=== PATIENT | male | born 1955 | race Two or more races ===

== ENCOUNTER 2016-04-07 20:24 | Inpatient (IN) | payer MEDICAID ==
[~2016-04-07] VITALS: Ht 152.4 cm; Wt 66.3 kg
[2016-04-07] MEDS: DuoNeb 0.5-3(2.5)mg/3ml neb HHN ONE ×2 (09:00→21:00)
[2016-04-07 20:29] VITALS: BP 140/81
[2016-04-07 20:50] LABS: ABG ALLEN TEST POSITIVE; ABG BASE EXCESS -4.6
[2016-04-07] MEDS ORDERED: Cefepime 1gm vial ONE (21:05)
[2016-04-07 21:19] LABS: MEAN CORPUSCULAR HEMOGLOBIN 36.6 PG (27.0-31.0); MEAN CORPUSCULAR HGB CONC 33.8 G/DL (32.0-36.0); MEAN CORPUSCULAR VOLUME 109 FL (80-99); MEAN PLATELET VOLUME 8.4 FL (6.5-10.1); PLATELET COUNT 64 K/UL (150-450); RED BLOOD COUNT 2.41 M/UL (4.70-6.10); RED CELL DISTRIBUTION WIDTH 18.1 % (11.6-14.8); WHITE BLOOD COUNT 7.9 K/UL (4.8-10.8)
[2016-04-07 21:22] LABS: APPEARANCE,URINE CLEAR; KETONES,URINE NEGATIVE (NEGATIVE); LEUKOCYTE ESTERASE ,URINE 2+ (NEGATIVE); NITRITE,URINE POSITIVE (NEGATIVE); PH,URINE 6.5 (4.5-8.0); PROTEIN,URINE 2+ (NEGATIVE); UROBILINOGEN,URINE 4 MG/DL (0.0-1.0)
[2016-04-07 21:27] LABS: BASOPHILS % (AUTO) 1.6 % (0.0-2.0); EOSINOPHILS % (AUTO) 0.5 % (0.0-3.0); LYMPHOCYTES % (AUTO) 5.3 % (20.0-45.0); MONOCYTES % (AUTO) 18.6 % (1.0-10.0); NEUTROPHILS % (AUTO) 73.9 % (45.0-75.0)
[2016-04-07 21:39] LABS: BACTERIA,URINE FEW /HPF; RBC,URINE 0-2 /HPF (0 - 0); SQUAMOUS EPITHELIAL CELL,UR OCCASIONAL /LPF (NONE/OCC); WBC,URINE 0-2 /HPF (0 - 0)
[2016-04-07 21:41] LABS: ICTOTEST POSITIVE
[2016-04-07] MEDS: metroNIDAZOLE 500mg 100 ML IV SCH (21:54)
[2016-04-07 22:18] LABS: TROPONIN I < 0.30 ng/mL (<=0.30)
[2016-04-07 22:22] LABS: ALANINE AMINOTRANSFERASE 23 U/L (3-41); ALBUMIN/GLOBULIN RATIO 1.1 (1.0-2.7); ANION GAP 17 (5-15); ASPARTATE AMINO TRANSFERASE 27 U/L (5-40); CALCIUM 8.1 mg/dL (8.6-10.2); CARBON DIOXIDE 17 mEQ/L (20-30); CHLORIDE 98 mEQ/L (98-107); CREATININE 1.1 mg/dL (0.7-1.2); GLOMERULAR FILTRATION RATE > 60 mL/min (>60); HEMOLYSIS 30; POTASSIUM 4.2 mEQ/L (3.4-4.9); SODIUM 132 mEQ/L (135-145); TOTAL PROTEIN 4.8 g/dL (6.6-8.7)
[2016-04-07 22:25] LABS: REFLEX LACTIC ACID YES OR NO YES
[2016-04-07 22:32] LABS: CKMB 1.6 ng/mL (< 6.7)
[2016-04-07 22:40] LABS: BILIRUBIN,DIRECT 3.6 mg/dL (0.1-0.3)
[2016-04-07 22:47] VITALS: BP 126/81
--- NOTE | 2016-04-07 22:51 | Emergency Room Report ---
History of Present Illness General Chief Complaint: Dyspnea/Respdistress Source: Patient, EMS Present Illness HPI Patient is a 60-year-old male who presented after increased difficulty breathing. The patient recently been released at [facility]. He was noted to be markedly short of breath. The patient had prescriptions for oral antibiotic which included a quinolone as well as rifamixin. The patient was noted to be somewhat jaundiced and had prior history of cirrhosis. The patient was given a breathing treatment by EMS. Patient had prior history of asthma. Allergies: Coded Allergies: No Known Allergies (Unverified , 04/07/16) Patient History Past Medical History: see triage record, asthma Reviewed Nursing Documentation: PMH: Agreed, PSxH: Agreed Nursing Documentation-PMH Hx Asthma: Yes Hx Gastrointestinal Problems: Yes - cirrhosis of liver Review of Systems All Other Systems: limited - by poor historian Physical Exam Vital Signs Date Time Temp Pulse Resp B/P Pulse Ox O2 Delivery O2 Flow Rate FiO2 04/07/16 20:11 97.2 84 26 140/81 100 Room Air 04/07/16 20:40 21 General Appearance: alert, moderate distress Eyes: bilateral eye scleral icterus ENT: normal pharynx, moist mucus membranes Neck: supple Respiratory: accessory muscle use, wheezing, expiration Cardiovascular #1: normal peripheral pulses, regular rate, rhythm, edema - bilateral Gastrointestinal: normal bowel sounds, non tender, soft, no mass Musculoskeletal: back normal, digits/nails normal Neurologic: alert, responsive, recruiting internship III-XII nml as tested Skin: jaundice Lymphatic: normal inspection, no adenopathy Medical Decision Making Diagnostic Impression: Primary Impression: Severe sepsis Additional Impressions: Asthma exacerbation Anemia ER Course Patient is a 60-year-old male who presented after having increased had difficulty with breathing. The patient noted have prior history of asthma. Differential included but was not limited to anemia, pneumonia, pneumothorax, myocardial infarction, pericardial effusion, congestive heart failure, acidosis. The ABG was obtained which showed a respiratory alkalosis and metabolic acidosis. The patient was noted to be minimally confused. Patient was given breathing treatments. He had some improvement in his respiratory difficulty. Chest x-ray one view interpreted by me showed diminished lung mackenzie without evident infiltrate normal cardiac size. Labs Test 04/07/16 20:40 04/07/16 21:00 04/07/16 21:40 Urine Color Brown Urine Appearance Clear Urine pH 6.5 (4.5-8.0) Urine Specific [place] 1.010 (1.005-1.035) Urine Protein 2+ (NEGATIVE) Urine Glucose (UA) Negative (NEGATIVE) Urine Ketones Negative (NEGATIVE) Urine Occult Blood Negative (NEGATIVE) Urine Nitrite Positive (NEGATIVE) Urine Bilirubin 2+ (NEGATIVE) Urine Ictotest Positive Urine Urobilinogen 4 MG/DL (0.0-1.0) Urine Leukocyte Esterase 2+ (NEGATIVE) Urine RBC 0-2 /HPF (0 - 0) Urine WBC 0-2 /HPF (0 - 0) Urine Squamous Epithelial Cells Occasional /LPF Urine Bacteria Few /HPF (NONE) Arterial Blood pH 7.486 (7.350-7.450) Arterial Blood Partial Pressure CO2 24.0 mmHg (35.0-45.0) Arterial Blood Partial Pressure O2 97.8 mmHg (75.0-100.0) Arterial Blood HCO3 17.7 mmol/L (22.0-26.0) Arterial Blood Oxygen Saturation 96.4 % (92.0-98.0) Arterial Blood Base Excess -4.6 Kyree Test Positive White Blood Count 7.9 K/UL (4.8-10.8) Red Blood Count 2.41 M/UL (4.70-6.10) Hemoglobin 8.8 G/DL (14.2-18.0) Hematocrit 26.1 % (42.0-52.0) Mean Corpuscular Volume 109 FL (80-99) Mean Corpuscular Hemoglobin 36.6 PG (27.0-31.0) Mean Corpuscular Hemoglobin Concent 33.8 G/DL (32.0-36.0) Red Cell Distribution Width 18.1 % (11.6-14.8) Platelet Count 64 K/UL (150-450) Mean Platelet Volume 8.4 FL (6.5-10.1) Neutrophils (%) (Auto) 73.9 % (45.0-75.0) Lymphocytes (%) (Auto) 5.3 % (20.0-45.0) Monocytes (%) (Auto) 18.6 % (1.0-10.0) Eosinophils (%) (Auto) 0.5 % (0.0-3.0) Basophils (%) (Auto) 1.6 % (0.0-2.0) Sodium Level 132 mEQ/L (135-145) Potassium Level 4.2 mEQ/L (3.4-4.9) Chloride Level 98 mEQ/L (98-107) Carbon Dioxide Level 17 mEQ/L (20-30) Anion Gap 17 (5-15) Blood Urea Nitrogen 27 mg/dL (7-23) Creatinine 1.1 mg/dL (0.7-1.2) Estimat Glomerular Filtration Rate > 60 mL/min (>60) Glucose Level 110 mg/dL (74-106) Lactic Acid Level 3.80 mmol/L (0.66-2.22) Calcium Level 8.1 mg/dL (8.6-10.2) Total Bilirubin 8.4 mg/dL (0.0-1.2) Direct Bilirubin 3.6 mg/dL (0.1-0.3) Aspartate Amino Transf (AST/SGOT) 27 U/L (5-40) Alanine Aminotransferase (ALT/SGPT) 23 U/L (3-41) Alkaline Phosphatase 76 U/L (40-129) Total Creatine Kinase 29 U/L (38-174) Creatine Kinase MB 1.6 ng/mL (< 6.7) Creatine Kinase MB Relative Index 5.5 Troponin I < 0.30 ng/mL (<=0.30) Pro-B-Type Natriuretic Peptide 1447 pg/mL (0-125) Total Protein 4.8 g/dL (6.6-8.7) Albumin 2.6 g/dL (3.5-5.2) Globulin 2.2 g/dL Albumin/Globulin Ratio 1.1 (1.0-2.7) Chest X-Ray Diagnostic Results EP Interpretation: Yes Findings: no consolidation, no effusion, no pneumothorax, no acute cardiopulmonary disease Number of Views: 1 Last Vital Signs Date Time Temp Pulse Resp B/P Pulse Ox O2 Delivery O2 Flow Rate FiO2 04/07/16 21:10 81 20 100 Room Air 21 04/07/16 20:29 97.2 140/81 Status: unchanged Disposition: ADMITTED INPATIENT Condition: Serious Referrals: NON PHYSICIAN (PCP) Delbert Hastings Apr 07, 2016 22:51
[2016-04-08] VITALS (10 sets, daily range): BP systolic 134–159; BP diastolic 66–89
[2016-04-08] MEDS: metroNIDAZOLE 500mg 100 ML IV SCH ×3 (02:25→15:00)
[2016-04-08] MEDS ORDERED: Tubing IV Cassette IV ONE (02:25)
[2016-04-08 06:34] LABS: REFLEX LACTIC ACID YES OR NO YES
[2016-04-08] MEDS ORDERED: Cefepime 1gm vial ONE (08:37)
--- NOTE | 2016-04-08 10:39 | Diagnostic Imaging Report ---
Indication: SOB Technique: One view of the chest Comparison: none Findings: Lungs and pleural spaces are clear. Heart size is normal. The right hemidiaphragm is elevated Impression: No acute process
[2016-04-08] MEDS ORDERED: NKM (16:49)
[2016-04-08] MEDS ORDERED: LEVOFLOXACIN500 MG ORAL (17:02)
[2016-04-08] MEDS ORDERED: FLAGYL500 MG ORAL (17:02)
[2016-04-08] MEDS ORDERED: XIFAXAN550 MG ORAL ×2 (17:02→21:17)
[2016-04-08] MEDS ORDERED: ZANTAC150 MG ORAL (17:02)
[2016-04-08] MEDS ORDERED: METOPROLOL SUC200 MG ORAL (17:02)
[2016-04-08] MEDS ORDERED: AMIODARONE HCL100 MG ORAL (21:17)
[2016-04-08] MEDS ORDERED: PANTOPRAZOLE SO20 MG ORAL (21:17)
[2016-04-08] MEDS ORDERED: SUCRALFATE1 GM/10 ML PO (21:17)
[2016-04-08] MEDS: D5NS 1,000 ML IV SCH (21:30)
[2016-04-09] VITALS: BP 111/54
[2016-04-09 04:00] VITALS: BP 130/72
[2016-04-09 06:31] LABS: MEAN CORPUSCULAR HEMOGLOBIN 36.1 PG (27.0-31.0); MEAN CORPUSCULAR HGB CONC 33.5 G/DL (32.0-36.0); MEAN CORPUSCULAR VOLUME 108 FL (80-99); PLATELET COUNT 44 K/UL (150-450); RED BLOOD COUNT 2.24 M/UL (4.70-6.10); WHITE BLOOD COUNT 5.8 K/UL (4.8-10.8)
[2016-04-09 06:46] LABS: ANION GAP 16 (5-15); CALCIUM 7.9 mg/dL (8.6-10.2); CARBON DIOXIDE 19 mEQ/L (20-30); CHLORIDE 100 mEQ/L (98-107); GLOMERULAR FILTRATION RATE > 60 mL/min (>60); HEMOLYSIS 1; POTASSIUM 4.2 mEQ/L (3.4-4.9); SODIUM 135 mEQ/L (135-145)
[2016-04-09 08:37] VITALS: BP 128/80
[2016-04-09] MEDS ORDERED: Sucralfate 1gm tab ORAL SCH (09:00)
[2016-04-09 10:10] LABS: ANISOCYTOSIS 1+; BAND NEUTROPHILS % (MANUAL) 0 % (0-8); BASOPHILS % (MANUAL) 0 % (0-2); EOSINOPHILS % (MANUAL) 1 % (0-3); HYPOCHROMASIA 1+; LYMPHOCYTES % (MANUAL) 9 % (20-45); NEUTROPHILS % (MANUAL) 76 % (45-75); PLATELET ESTIMATE DECREASED; PLATELET MORPHOLOGY NORMAL; TOTAL CELLS COUNTED 100
[2016-04-09 10:11] LABS: MACROCYTES 1+
[2016-04-09 10:12] LABS: POLYCHROMASIA OCCASIONAL
[2016-04-09] MEDS: Metoprolol XL 100mg tab ORAL SCH (10:28)
[2016-04-09] MEDS: Rifaximin 550mg tab ORAL SCH ×2 (10:29→22:12)
--- NOTE | 2016-04-09 11:08 | GI Initial Consult Note ---
History of Present Illness General Date patient seen: Apr 09, 2016 Time patient seen: 10:00 Reason for Hospitalization: Dyspnea/Respdistress Referring physician: PAUAL SPENCER Reason for Consultation: CIRRHOSIS LIVER Present Illness HPI Patient is a 60-year-old male who presented after increased difficulty breathing. The patient recently been released at [facility]. He was noted to be markedly short of breath. The patient had prescriptions for oral antibiotic which included a quinolone as well as rifamixin. The patient was noted to be somewhat jaundiced and had prior history of cirrhosis. The patient was given a breathing treatment by EMS. Patient had prior history of asthma. GI NOTE: HPI as noted above. Pt seen on floor, awake, alert NAD. Patient poor historian. According to the patient, he has history of known liver cirrhosis due to ETOH use 20+ years. Hx of paracentesis. Last drink was July 2015. Abdomen distended and hard. Pt also p/w with anemia, abnormal LFTs and hypoalbuminemia. CXR unremarkable. Unknown history of any endoscopic procedures. Home Meds Reported Medications Amiodarone Hcl (AMIODARONE HCL) 100 Mg Tablet, 200 MG ORAL EVERY 12 HOURS, TAB 04/08/16 Sucralfate (SUCRALFATE) 1 Gm/10 Ml Oral.susp, 1 GM PO 4 times a day, ML 04/08/16 Pantoprazole (PANTOPRAZOLE) 20 Mg Tablet.dr, 40 MG ORAL DAILY, #10 TAB 0 Refills 04/08/16 Rifaximin* (XIFAXAN*) 550 Mg Tablet, 550 MG ORAL TWICE A DAY for 30 Days, MG 0 Refills 04/08/16 Rifaximin* (XIFAXAN*) 550 Mg Tablet, 550 MG ORAL TWICE A DAY for 30 Days, MG 0 Refills 04/08/16 Ranitidine Hcl* (ZANTAC*) 150 Mg Tablet, 150 MG ORAL DAILY, #30 TAB 0 Refills 04/08/16 Metoprolol Succinate (METOPROLOL SUCCINATE) 200 Mg Tab.er.24h, 25 MG ORAL DAILY , TAB 04/08/16 Metronidazole* (FLAGYL*) 500 Mg Tablet, 500 MG ORAL EVERY 8 HOURS, TAB 04/08/16 Levofloxacin (LEVOFLOXACIN*) 500 Mg Tablet, 500 MG ORAL DAILY, TAB 04/08/16 No Known Medications* (NKM - No Known Medications*) ., 0 ., 0 Refills 04/08/16 Med list reviewed/reconciled: Yes Allergies: Coded Allergies: No Known Allergies (Unverified , 04/07/16) Patient History Limited by: other - poor historian History Provided By: Patient, Medical Record PMH Narrative Patient History Past Medical History: see triage record, asthma Reviewed Nursing Documentation: PMH: Agreed, PSxH: Agreed Nursing Documentation-PMH Hx Asthma: Yes Hx Gastrointestinal Problems: Yes - cirrhosis of liver Social History: Reports: alcohol use - 20+ years Review of Systems All Other Systems: negative except mentioned in HPI Physical Exam Vital Signs Date Time Temp Pulse Resp B/P Pulse Ox O2 Delivery O2 Flow Rate FiO2 04/07/16 20:11 97.2 84 26 140/81 100 Room Air 04/07/16 20:40 21 04/09/16 00:00 2.0 Sp02 EP Interpretation: reviewed Labs Laboratory Tests Test 04/09/16 05:20 White Blood Count 5.8 K/UL (4.8-10.8) Red Blood Count 2.24 M/UL (4.70-6.10) L Hemoglobin 8.1 G/DL (14.2-18.0) L Hematocrit 24.1 % (42.0-52.0) L Mean Corpuscular Volume 108 FL (80-99) H Mean Corpuscular Hemoglobin 36.1 PG (27.0-31.0) H Mean Corpuscular Hemoglobin Concent 33.5 G/DL (32.0-36.0) Red Cell Distribution Width 17.0 % (11.6-14.8) H Platelet Count 44 K/UL (150-450) L Mean Platelet Volume 9.0 FL (6.5-10.1) Neutrophils (%) (Auto) % (45.0-75.0) Lymphocytes (%) (Auto) % (20.0-45.0) Monocytes (%) (Auto) % (1.0-10.0) Eosinophils (%) (Auto) % (0.0-3.0) Basophils (%) (Auto) % (0.0-2.0) Differential Total Cells Counted 100 Neutrophils % (Manual) 76 % (45-75) H Lymphocytes % (Manual) 9 % (20-45) L Monocytes % (Manual) 14 % (1-10) H Eosinophils % (Manual) 1 % (0-3) Basophils % (Manual) 0 % (0-2) Band Neutrophils 0 % (0-8) Platelet Estimate Decreased L Platelet Morphology Normal Polychromasia Occasional Hypochromasia 1+ Anisocytosis 1+ Macrocytosis 1+ Sodium Level 135 mEQ/L (135-145) Potassium Level 4.2 mEQ/L (3.4-4.9) Chloride Level 100 mEQ/L (98-107) Carbon Dioxide Level 19 mEQ/L (20-30) L Anion Gap 16 (5-15) H Blood Urea Nitrogen 23 mg/dL (7-23) Creatinine 1.0 mg/dL (0.7-1.2) Estimat Glomerular Filtration Rate > 60 mL/min (>60) Glucose Level 100 mg/dL (74-106) Calcium Level 7.9 mg/dL (8.6-10.2) L General Appearance: no apparent distress, alert Head: normocephalic EENT: normal ENT inspection Neck: full range of motion, supple Respiratory: normal breath sounds, no respiratory distress Cardiovascular: normal rate Gastrointestinal: normal inspection, non tender, distended, ascites Genitourinary: no CVA tenderness Musculoskeletal: back normal Neurologic: alert Psychiatric: normal inspection, judgement/insight normal, memory normal Skin: no rash Lymphatic: normal inspection, no adenopathy Current Medications Current Medications Medications (Trade) Dose Ordered Sig/Bernardino Route PRN Reason Start Time Stop Time Status Last Admin Dose Admin Dextrose (Dextrose 50%) STAT PRN IV Hypoglycemia 04/09/16 00:00 05/09/16 00:00 Dextrose/Sodium Chloride (D5ns) 1,000 ml @ 60 mls/hr [id number] IV 04/08/16 21:30 05/08/16 21:29 04/08/16 21:30 Metoprolol Succinate (Toprol XL) 200 mg DAILY ORAL 04/09/16 09:00 05/09/16 08:59 04/09/16 10:28 Pantoprazole (Protonix) 40 mg DAILY ORAL 04/09/16 09:00 05/09/16 08:59 04/09/16 10:29 Ranitidine HCl (Zantac) 150 mg BEDTIME ORAL 04/09/16 21:00 05/09/16 20:59 Rifaximin (Xifaxan) 550 mg EVERY 12 HOURS ORAL 04/09/16 09:00 04/16/16 08:59 04/09/16 10:29 Sucralfate (Carafate) 1 gm FOUR TIMES A DAY ORAL 04/09/16 09:00 05/09/16 08:59 04/09/16 10:28 GI: Plan Problems: (1) Hypoalbuminemia (2) Severe sepsis (3) Alcoholic cirrhosis of liver with ascites (4) sepsis (5) Anemia Plan anemia work up ordered US guided paracentesis ordered ammonia level, OB stool dc H2, carafate added Lactulose, cont Xifaxan ppi fu labs Discussed with Dr. Mcgovern. Thank you for referring this patient, we will follow. Rain Mercado N.P. Apr 09, 2016 11:08
[2016-04-09 12:07] VITALS: BP 120/86
[2016-04-09] MEDS: Lactulose 20gm/30ml UDC ORAL SCH ×2 (12:53→18:26)
[2016-04-09] MEDS: D5NS 1,000 ML IV SCH (14:10)
[2016-04-09 16:00] VITALS: BP 159/74
[2016-04-09 20:00] VITALS: BP 120/80
--- NOTE | 2016-04-09 22:12 | History and Physical ---
History of Present Illness General Date patient seen: Apr 09, 2016 Reason for Hospitalization: Dyspnea/Respdistress Present Illness HPI Patient is a 60-year-old male with a history of cirrhosis and asthma who was recently discharged from [facility] presented to the ED c/o worsening shortness of breath. The patient was given prescriptions for oral antibiotic which included a quinolone and rifamixin. The patient was noted to be somewhat jaundiced. Patient had elevated lactate level and admitted for further management. Allergies: Coded Allergies: No Known Allergies (Unverified , 04/07/16) Medication History Scheduled Amiodarone Hcl (Amiodarone Hcl), 200 MG ORAL EVERY 12 HOURS, (Reported) Levofloxacin (Levofloxacin*), 500 MG ORAL DAILY, (Reported) Metoprolol Succinate (Metoprolol Succinate), 25 MG ORAL DAILY, (Reported) Metronidazole* (Flagyl*), 500 MG ORAL EVERY 8 HOURS, (Reported) No Known Medications* (NKM - No Known Medications*), 0 ., (Reported) Pantoprazole (Pantoprazole), 40 MG ORAL DAILY, (Reported) Ranitidine Hcl* (Zantac*), 150 MG ORAL DAILY, (Reported) Rifaximin* (Xifaxan*), 550 MG ORAL TWICE A DAY, (Reported) Rifaximin* (Xifaxan*), 550 MG ORAL TWICE A DAY, (Reported) Sucralfate (Sucralfate), 1 GM PO 4 times a day, (Reported) Patient History History Provided By: Patient, Medical Record Healthcare decision maker Resuscitation status Advanced Directive on File Past Medical/Surgical History Past Medical/Surgical History: (1) sepsis (2) Alcoholic cirrhosis of liver with ascites Review of Systems All Other Systems: negative except mentioned in HPI Physical Exam General Appearance: WD/WN, no apparent distress HEENT: normocephalic, atraumatic Respiratory/Chest: decreased breath sounds Cardiovascular/Chest: normal rate, regular rhythm Abdomen: non tender, soft, distended Extremities: trace edema Neurologic: alert Last 24 Hour Vital Signs Date Time Temp Pulse Resp B/P Pulse Ox O2 Delivery O2 Flow Rate FiO2 04/09/16 20:00 98.4 69 18 120/80 Nasal Cannula 2.0 97 04/09/16 16:00 97.7 65 18 159/74 Nasal Cannula 2.0 100 04/09/16 12:07 97.7 79 20 120/86 100 Nasal Cannula 3.0 04/09/16 12:00 78 04/09/16 10:28 88 128/80 04/09/16 08:37 97.5 88 22 128/80 100 Nasal Cannula 3.0 04/09/16 08:00 76 04/09/16 04:00 79 04/09/16 04:00 97.5 78 18 130/72 100 Nasal Cannula 04/09/16 00:00 65 04/09/16 00:00 97.5 90 18 111/54 95 Nasal Cannula 2.0 Intake and Output 04/08/16 04/09/16 19:00 07:00 Intake Total 300 ml Balance 300 ml Intake Oral 300 ml # Voids 2 Laboratory Tests Test 04/09/16 05:20 White Blood Count 5.8 K/UL (4.8-10.8) Red Blood Count 2.24 M/UL (4.70-6.10) L Hemoglobin 8.1 G/DL (14.2-18.0) L Hematocrit 24.1 % (42.0-52.0) L Mean Corpuscular Volume 108 FL (80-99) H Mean Corpuscular Hemoglobin 36.1 PG (27.0-31.0) H Mean Corpuscular Hemoglobin Concent 33.5 G/DL (32.0-36.0) Red Cell Distribution Width 17.0 % (11.6-14.8) H Platelet Count 44 K/UL (150-450) L Mean Platelet Volume 9.0 FL (6.5-10.1) Neutrophils (%) (Auto) % (45.0-75.0) Lymphocytes (%) (Auto) % (20.0-45.0) Monocytes (%) (Auto) % (1.0-10.0) Eosinophils (%) (Auto) % (0.0-3.0) Basophils (%) (Auto) % (0.0-2.0) Differential Total Cells Counted 100 Neutrophils % (Manual) 76 % (45-75) H Lymphocytes % (Manual) 9 % (20-45) L Monocytes % (Manual) 14 % (1-10) H Eosinophils % (Manual) 1 % (0-3) Basophils % (Manual) 0 % (0-2) Band Neutrophils 0 % (0-8) Platelet Estimate Decreased L Platelet Morphology Normal Polychromasia Occasional Hypochromasia 1+ Anisocytosis 1+ Macrocytosis 1+ Sodium Level 135 mEQ/L (135-145) Potassium Level 4.2 mEQ/L (3.4-4.9) Chloride Level 100 mEQ/L (98-107) Carbon Dioxide Level 19 mEQ/L (20-30) L Anion Gap 16 (5-15) H Blood Urea Nitrogen 23 mg/dL (7-23) Creatinine 1.0 mg/dL (0.7-1.2) Estimat Glomerular Filtration Rate > 60 mL/min (>60) Glucose Level 100 mg/dL (74-106) Calcium Level 7.9 mg/dL (8.6-10.2) L Height (Feet): 5 Height (Inches): 0.00 Weight (Pounds): 150 Medications Current Medications Medications (Trade) Dose Ordered Sig/Bernardino Route PRN Reason Start Time Stop Time Status Last Admin Dose Admin Dextrose (Dextrose 50%) STAT PRN IV Hypoglycemia 04/09/16 00:00 05/09/16 00:00 Dextrose/Sodium Chloride (D5ns) 1,000 ml @ 60 mls/hr [id number] IV 04/08/16 21:30 05/08/16 21:29 04/08/16 21:30 Lactulose (Cephulac) 30 gm THREE TIMES A DAY ORAL 04/09/16 13:00 05/09/16 12:59 04/09/16 18:26 Metoprolol Succinate (Toprol XL) 200 mg DAILY ORAL 04/09/16 09:00 05/09/16 08:59 04/09/16 10:28 Pantoprazole (Protonix) 40 mg DAILY ORAL 04/09/16 09:00 05/09/16 08:59 04/09/16 10:29 Rifaximin (Xifaxan) 550 mg EVERY 12 HOURS ORAL 04/09/16 09:00 04/16/16 08:59 04/09/16 10:29 Assessment/Plan Problem List: (1) sepsis (2) Alcoholic cirrhosis of liver with ascites ICD Codes: K70.31 - Alcoholic cirrhosis of liver with ascites SNOMED: 712706096 (3) Hypoalbuminemia ICD Codes: E88.09 - Other disorders of plasma-protein metabolism, not elsewhere classified SNOMED: 333438460 (4) Asthma exacerbation ICD Codes: J45.901 - Unspecified asthma with (acute) exacerbation SNOMED: 119150605 (5) Anemia ICD Codes: D64.9 - Anemia, unspecified SNOMED: 601696591 (6) Thrombocytopenia ICD Codes: D69.6 - Thrombocytopenia, unspecified SNOMED: 775050733 Assessment/Plan steroids. empiric abx. NEB tx. GI following. f/u ammonia level. DVT ppx. PAULA SPENCER Apr 09, 2016 22:12
[2016-04-09] MEDS ORDERED: DuoNeb 0.5-3(2.5)mg/3ml neb HHN PRN (23:00)
[2016-04-10] VITALS: BP 103/55
[2016-04-10 04:00] VITALS: BP 139/74
[2016-04-10] MEDS ORDERED: Lidocaine 1% Plain 30 ml INJ ONE (08:00)
[2016-04-10] MEDS ORDERED: Sodium Bicarbonate 8.4% 50ml Inj IV ONE (08:00)
[2016-04-10] MEDS ORDERED: Heparin 2000 units/Ns 1000ml INJ ONE (08:00)
[2016-04-10 08:07] LABS: MEAN CORPUSCULAR HEMOGLOBIN 36.1 PG (27.0-31.0); MEAN CORPUSCULAR HGB CONC 32.7 G/DL (32.0-36.0); MEAN CORPUSCULAR VOLUME 111 FL (80-99); MEAN PLATELET VOLUME 8.1 FL (6.5-10.1); PLATELET COUNT 59 K/UL (150-450); RED BLOOD COUNT 2.43 M/UL (4.70-6.10); RED CELL DISTRIBUTION WIDTH 16.7 % (11.6-14.8); WHITE BLOOD COUNT 6.5 K/UL (4.8-10.8)
[2016-04-10 08:19] LABS: ALANINE AMINOTRANSFERASE 18 U/L (3-41); ALBUMIN/GLOBULIN RATIO 0.9 (1.0-2.7); ANION GAP 13 (5-15); ASPARTATE AMINO TRANSFERASE 22 U/L (5-40); CALCIUM 7.9 mg/dL (8.6-10.2); CARBON DIOXIDE 19 mEQ/L (20-30); CHLORIDE 102 mEQ/L (98-107); CREATININE 0.8 mg/dL (0.7-1.2); GLOMERULAR FILTRATION RATE > 60 mL/min (>60); SODIUM 134 mEQ/L (135-145); TOTAL PROTEIN 4.5 g/dL (6.6-8.7)
[2016-04-10 08:30] LABS: AMMONIA 62 umol/L (16-60)
[2016-04-10 08:31] LABS: HEMOLYSIS 6; IRON 78 ug/dL (59-158)
--- NOTE | 2016-04-10 08:32 | Cardiology Report ---
APPROVED REPORT EKG Measurement Heart [id number] [id number] Sinus rhythm with premature supraventricular complexes Otherwise normal ECG
[2016-04-10 08:33] LABS: BILIRUBIN,DIRECT 3.5 mg/dL (0.1-0.3)
[2016-04-10 08:41] VITALS: BP 124/77
[2016-04-10 08:56] LABS: INR 2.2 (0.9-1.1); PROTHROMBIN TIME 23.2 SEC (9.30-11.50)
[2016-04-10] MEDS: Solu-MEDROL 40mg Inj IVP SCH ×2 (09:00→20:43)
[2016-04-10] MEDS: Lactulose 20gm/30ml UDC ORAL SCH ×3 (09:43→17:20)
[2016-04-10] MEDS: Rifaximin 550mg tab ORAL SCH ×2 (09:44→20:43)
[2016-04-10] MEDS: Metoprolol XL 100mg tab ORAL SCH (09:44)
[2016-04-10] MEDS: Spironolactone 50mg tab ORAL SCH (10:00)
[2016-04-10] MEDS ORDERED: Furosemide 40mg tab ORAL SCH (10:00)
--- NOTE | 2016-04-10 10:34 | GI Progress Note ---
Assessment/Plan Problems: (1) Hypoalbuminemia ICD Codes: E88.09 - Other disorders of plasma-protein metabolism, not elsewhere classified SNOMED: 345683913 (2) Alcoholic cirrhosis of liver with ascites ICD Codes: K70.31 - Alcoholic cirrhosis of liver with ascites SNOMED: 169233217 (3) sepsis (4) Anemia ICD Codes: D64.9 - Anemia, unspecified SNOMED: 314302227 Status: unchanged Status Narrative Discussed with Dr. Mcgovern. Assessment/Plan monitor H&H US guided paracentesis pending elevated ammonia >> Lactulose + Xifaxan OB stool negative hep panel pending ppi elevated lactic acid >> WNL today PT eval fu labs Subjective Gastrointestinal/Abdominal: Reports: no symptoms Subjective c/o of hunger Objective Last 24 Hour Vital Signs Date Time Temp Pulse Resp B/P Pulse Ox O2 Delivery O2 Flow Rate FiO2 04/10/16 09:44 53 124/77 04/10/16 08:41 97.0 53 20 124/77 100 Nasal Cannula 3.0 04/10/16 04:00 97.3 62 18 139/74 100 Nasal Cannula 2.0 04/10/16 04:00 56 04/10/16 00:00 100.9 94 16 103/55 96 Room Air 04/10/16 00:00 64 04/09/16 20:00 98.4 69 18 120/80 Nasal Cannula 2.0 97 04/09/16 20:00 73 04/09/16 16:00 97.7 65 18 159/74 Nasal Cannula 2.0 100 04/09/16 12:07 97.7 79 20 120/86 100 Nasal Cannula 3.0 04/09/16 12:00 78 Intake and Output 04/09/16 04/10/16 19:00 07:00 Intake Total 240 ml 90 ml Output Total 100 ml 200 ml Balance 140 ml -110 ml Intake Oral 240 ml IV Total 90 ml Output Urine Total 100 ml 200 ml # Voids 2 # Bowel Movements 2 Laboratory Tests Test 04/09/16 19:40 04/10/16 07:44 Stool Occult Blood Negative (NEGATIVE) White Blood Count 6.5 K/UL (4.8-10.8) Red Blood Count 2.43 M/UL (4.70-6.10) L Hemoglobin 8.8 G/DL (14.2-18.0) L Hematocrit 26.9 % (42.0-52.0) L Mean Corpuscular Volume 111 FL (80-99) H Mean Corpuscular Hemoglobin 36.1 PG (27.0-31.0) H Mean Corpuscular Hemoglobin Concent 32.7 G/DL (32.0-36.0) Red Cell Distribution Width 16.7 % (11.6-14.8) H Platelet Count 59 K/UL (150-450) L Mean Platelet Volume 8.1 FL (6.5-10.1) Neutrophils (%) (Auto) % (45.0-75.0) Lymphocytes (%) (Auto) % (20.0-45.0) Monocytes (%) (Auto) % (1.0-10.0) Eosinophils (%) (Auto) % (0.0-3.0) Basophils (%) (Auto) % (0.0-2.0) Neutrophils % (Manual) Pending Lymphocytes % (Manual) Pending Platelet Estimate Pending Platelet Morphology Pending Prothrombin Time 23.2 SEC (9.30-11.50) H Prothromb Time International Ratio 2.2 (0.9-1.1) H Activated Partial Thromboplast Time 57 SEC (23-33) H Sodium Level 134 mEQ/L (135-145) L Potassium Level 4.0 mEQ/L (3.4-4.9) Chloride Level 102 mEQ/L (98-107) Carbon Dioxide Level 19 mEQ/L (20-30) L Anion Gap 13 (5-15) Blood Urea Nitrogen 20 mg/dL (7-23) Creatinine 0.8 mg/dL (0.7-1.2) Estimat Glomerular Filtration Rate > 60 mL/min (>60) Glucose Level 89 mg/dL (74-106) Lactic Acid Level 1.40 mmol/L (0.66-2.22) Calcium Level 7.9 mg/dL (8.6-10.2) L Iron Level 78 ug/dL (59-158) Total Iron Binding Capacity ug/dL (250-400) Percent Iron Saturation % (15-50) Unsaturated Iron Binding ug/dL (112-346) Total Bilirubin 7.7 mg/dL (0.0-1.2) H Direct Bilirubin 3.5 mg/dL (0.1-0.3) H Aspartate Amino Transf (AST/SGOT) 22 U/L (5-40) Alanine Aminotransferase (ALT/SGPT) 18 U/L (3-41) Alkaline Phosphatase 68 U/L (40-129) Ammonia 62 umol/L (16-60) H Total Protein 4.5 g/dL (6.6-8.7) L Albumin 2.2 g/dL (3.5-5.2) L Globulin 2.3 g/dL Albumin/Globulin Ratio 0.9 (1.0-2.7) L Folate Pending Hepatitis A IgM Antibody Pending Hepatitis B Surface Antigen Pending Hepatitis B Core IgM Antibody Pending Hepatitis C Antibody Pending Height (Feet): 5 Height (Inches): 0.00 Weight (Pounds): 186 General Appearance: no apparent distress, alert Cardiovascular: normal rate Respiratory/Chest: normal breath sounds, no respiratory distress Abdominal Exam: normal bowel sounds, non tender, distended, ascites Rain Mercado N.P. Apr 10, 2016 10:33
--- NOTE | 2016-04-10 11:19 | Nephrology Progress Note ---
Assessment/Plan Problem List: (1) Anemia (2) Asthma exacerbation (3) Alcoholic cirrhosis of liver with ascites (4) Thrombocytopenia (5) Hyponatremia Plan Monitor H&H Transfuse as needed GI f/u - paracentesis Hematology consult Social Service consult - placement AM labs Subjective Constitutional: Reports: weakness HEENT: Denies: blurred vision, double vision, ear discharge, ear pain, eye pain , mouth pain, mouth swelling, no symptoms, nose congestion, nose pain, other, tearing, throat pain, throat swelling Genitourinary: Denies: burning, discharge, flank pain, frequency, hematuria, incontinence, no symptoms, other, pain, urgency Neurologic/Psychiatric: Denies: anxiety, depressed, emotional problems, headache, no symptoms, numbness, other, paresthesia, pre-existing deficit, seizure, tingling, tremors, weakness Subjective In bed, states that he feels weak, also would like to speak to the healthcare social worker regarding placement - he is homeless Objective Objective Last 24 Hour Vital Signs Date Time Temp Pulse Resp B/P Pulse Ox O2 Delivery O2 Flow Rate FiO2 04/10/16 09:44 53 124/77 04/10/16 08:41 97.0 53 20 124/77 100 Nasal Cannula 3.0 04/10/16 04:00 97.3 62 18 139/74 100 Nasal Cannula 2.0 04/10/16 04:00 56 04/10/16 00:00 100.9 94 16 103/55 96 Room Air 04/10/16 00:00 64 04/09/16 20:00 98.4 69 18 120/80 Nasal Cannula 2.0 97 04/09/16 20:00 73 04/09/16 16:00 97.7 65 18 159/74 Nasal Cannula 2.0 100 04/09/16 12:07 97.7 79 20 120/86 100 Nasal Cannula 3.0 04/09/16 12:00 78 Intake and Output 04/09/16 04/10/16 19:00 07:00 Intake Total 240 ml 90 ml Output Total 100 ml 200 ml Balance 140 ml -110 ml Intake Oral 240 ml IV Total 90 ml Output Urine Total 100 ml 200 ml # Voids 2 # Bowel Movements 2 Laboratory Tests 04/09/16 19:40: Stool Occult Blood Negative 04/10/16 07:44: White Blood Count 6.5, Red Blood Count 2.43L, Hemoglobin 8.8L, Hematocrit 26.9L , Mean Corpuscular Volume 111H, Mean Corpuscular Hemoglobin 36.1H, Mean Corpuscular Hemoglobin Concent 32.7, Red Cell Distribution Width 16.7H, Platelet Count 59L, Mean Platelet Volume 8.1, Neutrophils (%) (Auto) , Lymphocytes (%) (Auto) , Monocytes (%) (Auto) , Eosinophils (%) (Auto) , Basophils (%) (Auto) , Neutrophils % (Manual) [Pending], Lymphocytes % (Manual) [Pending], Platelet Estimate [Pending], Platelet Morphology [Pending], Prothrombin Time 23.2H, Prothromb Time International Ratio 2.2H, Activated Partial Thromboplast Time 57H, Sodium Level 134L, Potassium Level 4.0, Chloride Level 102, Carbon Dioxide Level 19L, Anion Gap 13, Blood Urea Nitrogen 20, Creatinine 0.8, Estimat Glomerular Filtration Rate > 60, Glucose Level 89, Lactic Acid Level 1.40, Calcium Level 7.9L, Iron Level 78, Total Iron Binding Capacity , Percent Iron Saturation , Unsaturated Iron Binding , Total Bilirubin 7.7H, Direct Bilirubin 3.5H, Aspartate Amino Transf (AST/SGOT) 22, Alanine Aminotransferase (ALT/SGPT) 18, Alkaline Phosphatase 68, Ammonia 62H, Total Protein 4.5L, Albumin 2.2L, Globulin 2.3, Albumin/Globulin Ratio 0.9L, Folate [ Pending], Hepatitis A IgM Antibody [Pending], Hepatitis B Surface Antigen [ Pending], Hepatitis B Core IgM Antibody [Pending], Hepatitis C Antibody [Pending ] Height (Feet): 5 Height (Inches): 0.00 Weight (Pounds): 186 General Appearance: no apparent distress, alert EENT: normal ENT inspection Neck: non-tender, normal alignment, supple Cardiovascular: normal rate, regular rhythm, no JVD Respiratory/Chest: lungs clear, normal breath sounds, no respiratory distress Abdomen: hypoactive bowel sounds, distended, tender Extremities: normal range of motion, non-tender Neurologic: alert, oriented x 3, responsive Jeanna Mederos N.P. Apr 10, 2016 11:19
--- NOTE | 2016-04-10 11:46 | Diagnostic Imaging Report ---
Indications: Needs long-term IV access Technique: Ultrasound confirms patent compressible left basilic vein. Total sterile technique, including sterile probe cover and sterile gel, hat, mask,, sterile gown, large sterile drape, and preparation with 2% chlorhexidine utilized. Local anesthesia with 1% lidocaine. Under real-time ultrasound guidance, puncture as vein using 21-gauge needle, documented and archived, passage 0.018 guidewire under direct fluoroscopy, which was used to determine appropriate catheter length, exchange for 5 [place] peel-away sheath. 5 [place] Bard dual-lumen power PICC cut to 40 cm. It was inserted through the peel-away sheath. Peel-away sheath and guidewire removed. Catheter fixed to the skin. Both catheter ports aspirated and flushed. Patient tolerated procedure well, without immediate complication. Digital radiograph documents satisfactory catheter tip position, at the cavoatrial junction. Total fluoroscopy time 0.3 minutes. Total dose area product 3.8 dGycm2 Impression: Successful placement of left arm PICC under sonographic and fluoroscopic guidance, as described above.
--- NOTE | 2016-04-10 12:08 | Consultation ---
Consult Note Consult Note ID Dic # [id number] JOANIE CRUZ M.D. Apr 10, 2016 12:08
[2016-04-10 12:14] LABS: ANISOCYTOSIS 1+; BAND NEUTROPHILS % (MANUAL) 0 % (0-8); BASOPHILS % (MANUAL) 0 % (0-2); EOSINOPHILS % (MANUAL) 3 % (0-3); LYMPHOCYTES % (MANUAL) 10 % (20-45); MACROCYTES 1+; NEUTROPHILS % (MANUAL) 76 % (45-75); PLATELET ESTIMATE DECREASED; PLATELET MORPHOLOGY NORMAL; TOTAL CELLS COUNTED 100
[2016-04-10 12:15] LABS: BURR CELLS OCCASIONAL
--- NOTE | 2016-04-10 12:47 | Consultation ---
DATE OF CONSULTATION: 04/10/2016 PULMONARY CONSULTATION: REFERRING PHYSICIAN: Marquise Chiu M.D. REASON FOR CONSULT: Sepsis. HISTORY OF PRESENT ILLNESS: This is a 60-year-old male with a history of liver cirrhosis. He was brought to the emergency room with shortness of breath. He was seen and worked up in the emergency room. No other history obtained for this patient at this point in time. There is also a questionable history of asthma. HOME MEDICATIONS: Include Levaquin, amiodarone, metoprolol, Flagyl, Protonix, Zantac, rifaximin, and Carafate. ALLERGIES: None reported. PAST SURGICAL HISTORY: None recall, but the patient denies any headaches, hematemesis, melena, hematochezia, night sweats, or weight loss. PHYSICAL EXAMINATION: GENERAL: Reveals a middle-aged male. VITAL SIGNS: Blood pressure 120/70, heart rate was 18, O2 saturation 99% on two liters of oxygen. HEENT: Unremarkable. CHEST: Exam shows clear breath sounds bilaterally. HEART: With normal heart sounds. ABDOMEN: Soft. EXTREMITIES: There is 1+ edema. LABORATORY DATA: Lab testing notable for stool positive for rectum, hemoglobin 8.8. Chemistry is unremarkable. The patient has bilirubin of 3.5 direct and total of 7.7. ABG shows pH 7.4, pCO2 24, and pO2 of 97. Urinalysis negative. Stool occult blood negative. IMPRESSION: 1. Liver cirrhosis. 2. History of asthma. 3. Leukocytosis. DISCUSSION: My main concern is that he may have SBP. We will deferred to gastroenterology or ID for workup presently stable, saturating well on nasal oxygen, and is not tachypneic. I suggest discontinuing steroids and consider paracentesis if there is enough fluid to be determined. We will follow as follows. Oliver Sky M.D. DR: MOY JOB#: [id number] CC:
[2016-04-10 12:56] VITALS: BP 124/72
[2016-04-10 14:17] LABS: PATH BLOOD SMEAR/OMC SENT TO PATHOLOGIST
--- NOTE | 2016-04-10 14:42 | Cardiac Electrophysiology PN ---
Subjective Subjective [id number] Objective Last 24 Hour Vital Signs Date Time Temp Pulse Resp B/P Pulse Ox O2 Delivery O2 Flow Rate FiO2 04/10/16 12:56 97.7 57 20 124/72 100 Nasal Cannula 3.0 04/10/16 12:00 60 04/10/16 09:44 53 124/77 04/10/16 08:41 97.0 53 20 124/77 100 Nasal Cannula 3.0 04/10/16 08:00 59 04/10/16 04:00 97.3 62 18 139/74 100 Nasal Cannula 2.0 04/10/16 04:00 56 04/10/16 00:00 100.9 94 16 103/55 96 Room Air 04/10/16 00:00 64 04/09/16 20:00 98.4 69 18 120/80 Nasal Cannula 2.0 97 04/09/16 20:00 73 04/09/16 16:00 97.7 65 18 159/74 Nasal Cannula 2.0 100 Intake and Output 04/09/16 04/10/16 19:00 07:00 Intake Total 240 ml 90 ml Output Total 100 ml 200 ml Balance 140 ml -110 ml Intake Oral 240 ml IV Total 90 ml Output Urine Total 100 ml 200 ml # Voids 2 # Bowel Movements 2 Laboratory Tests Test 04/09/16 19:40 04/10/16 07:44 04/10/16 12:40 Stool Occult Blood Negative (NEGATIVE) White Blood Count 6.5 K/UL (4.8-10.8) Red Blood Count 2.43 M/UL (4.70-6.10) L Hemoglobin 8.8 G/DL (14.2-18.0) L Hematocrit 26.9 % (42.0-52.0) L Mean Corpuscular Volume 111 FL (80-99) H Mean Corpuscular Hemoglobin 36.1 PG (27.0-31.0) H Mean Corpuscular Hemoglobin Concent 32.7 G/DL (32.0-36.0) Red Cell Distribution Width 16.7 % (11.6-14.8) H Platelet Count 59 K/UL (150-450) L Mean Platelet Volume 8.1 FL (6.5-10.1) Neutrophils (%) (Auto) % (45.0-75.0) Lymphocytes (%) (Auto) % (20.0-45.0) Monocytes (%) (Auto) % (1.0-10.0) Eosinophils (%) (Auto) % (0.0-3.0) Basophils (%) (Auto) % (0.0-2.0) Differential Total Cells Counted 100 Neutrophils % (Manual) 76 % (45-75) H Lymphocytes % (Manual) 10 % (20-45) L Monocytes % (Manual) 11 % (1-10) H Eosinophils % (Manual) 3 % (0-3) Basophils % (Manual) 0 % (0-2) Band Neutrophils 0 % (0-8) Platelet Estimate Decreased L Platelet Morphology Normal Anisocytosis 1+ Macrocytosis 1+ [place] Cells Occasional Prothrombin Time 23.2 SEC (9.30-11.50) H Prothromb Time International Ratio 2.2 (0.9-1.1) H Activated Partial Thromboplast Time 57 SEC (23-33) H Sodium Level 134 mEQ/L (135-145) L Potassium Level 4.0 mEQ/L (3.4-4.9) Chloride Level 102 mEQ/L (98-107) Carbon Dioxide Level 19 mEQ/L (20-30) L Anion Gap 13 (5-15) Blood Urea Nitrogen 20 mg/dL (7-23) Creatinine 0.8 mg/dL (0.7-1.2) Estimat Glomerular Filtration Rate > 60 mL/min (>60) Glucose Level 89 mg/dL (74-106) Lactic Acid Level 1.40 mmol/L (0.66-2.22) Calcium Level 7.9 mg/dL (8.6-10.2) L Iron Level 78 ug/dL (59-158) Total Iron Binding Capacity ug/dL (250-400) Percent Iron Saturation % (15-50) Unsaturated Iron Binding ug/dL (112-346) Ferritin 474 ng/mL (10-230) H Total Bilirubin 7.7 mg/dL (0.0-1.2) H Direct Bilirubin 3.5 mg/dL (0.1-0.3) H Aspartate Amino Transf (AST/SGOT) 22 U/L (5-40) Alanine Aminotransferase (ALT/SGPT) 18 U/L (3-41) Alkaline Phosphatase 68 U/L (40-129) Ammonia 62 umol/L (16-60) H Total Protein 4.5 g/dL (6.6-8.7) L Albumin 2.2 g/dL (3.5-5.2) L Globulin 2.3 g/dL Albumin/Globulin Ratio 0.9 (1.0-2.7) L Folate Pending Hepatitis A IgM Antibody Pending Hepatitis B Surface Antigen Pending Hepatitis B Core IgM Antibody Pending Hepatitis C Antibody Pending HIV (1&2) Antibody Rapid Negative (NEGATIVE) Body Fluid Source Pending Body Fluid Volume Pending Body Fluid Appearance Pending Body Fluid RBC Pending Body Fluid Total Nucleated Cells Pending Body Fluid Glucose Pending Body Fluid Total Protein Pending Body Fluid Albumin Pending Microbiology Date/Time Source Procedure Growth Status 04/07/16 21:00 Blood Blood Culture - Preliminary NO GROWTH AFTER 48 HOURS Resulted 04/07/16 20:45 Blood Blood Culture - Preliminary NO GROWTH AFTER 48 HOURS Resulted 04/08/16 19:00 Nasal Not Otherwise Specified MRSA Culture - Final NO METHICILLIN RESISTANT STAPH AUREUS... Complete 04/07/16 23:00 Nasal Nares Left Influenza Types A,B Antigen (FERNANDA) - Final Complete 04/08/16 19:00 Rectum VRE Culture - Final Enterococcus Faecium - Vre Complete MUKESH IZAGUIRRE Apr 10, 2016 14:42
[2016-04-10 14:51] LABS: APPEARANCE, BODY FLUID SLIGHTLY TURBID; BD FL SOURCE ASCITIC; BD FL VOLUME 9 mL
[2016-04-10 14:52] LABS: BODY FLUID NUCLEATED CELLS 14 /CUMM; BODY FLUID RBC 578 /CUMM
[2016-04-10 16:00] VITALS: BP 120/71
[2016-04-10 16:02] LABS: MONONUCLEAR WBC 94 %; POLYMORPHONUCLEAR WBC 1 %
--- NOTE | 2016-04-10 18:38 | Consultation ---
DATE OF CONSULTATION: INFECTIOUS DISEASE CONSULTATION REFERRING PHYSICIAN: Marquise Chiu M.D. and nurse practitioner, Ann-Marie Mederos. REASON FOR CONSULTATION: Evaluation of the patient for sepsis. HISTORY OF PRESENT ILLNESS: The patient is a 60-year-old male with multiple medical problems, as listed below, who was recently discharged from [facility] and was admitted to this medical center due to shortness of breath. The patient was found to have low grade fever . The patient was admitted to this center for possible sepsis, pneumonia and to rule out possibility of spontaneous bacterial peritonitis. The patient has been started on cefepime and Infectious Disease consultation has been requested for further evaluation of the patient's antibiotic management. (Patient was not in the room, so much of information is gathered through review of chart and nursing staff). PAST MEDICAL HISTORY: 1. Cirrhosis. 2. Asthma. MEDICATIONS: IV cefepime. ALLERGIES: No known drug allergies. FAMILY HISTORY: Unavailable. REVIEW OF SYSTEMS: Unavailable. PHYSICAL EXAMINATION: VITAL SIGNS: Temperature is 97 degrees, blood pressure 124/77, pulse 53, respiratory rate 18. (We will do rest of the exam tomorrow). LABORATORY AND DIAGNOSTIC DATA: White blood cells 6.5, hemoglobin 8.9, and platelets 59,000. Urinalysis, 0-2 white blood cells. BUN 20 and creatinine 0.8. AST, ALT and alkaline phosphatase are within normal range. Ammonia 62. Rapid influenza test negative. Hepatitis serology is pending. Blood culture is pending. Chest x-ray, no acute process. ASSESSMENT: The patient is a 60-year-old male, who came to the hospital with low fever of 100.9. The patient has been complaining of shortness of breath. X-ray does no show evidence of infiltrate. It is important to rule out possibility of bacterial peritonitis. The patient now is being under paracentesis. PLAN: 1. We will continue the patient on cefepime. 2. Monitor CBC. 3. Monitor blood culture. 4. We will follow paracentesis result and we will send the ascitic fluid for cell count protein, glucose and culture. Based on the patient's clinical course and labs, we will do further recommendation. Thank you for this consultation. I will follow the patient during this admission. Venkata Simmons M.D. DR: GONZALEZ JOB#: [id number] CC:
--- NOTE | 2016-04-10 19:48 | Consultation ---
DATE OF CONSULTATION: 04/08/2016 CARDIOLOGY CONSULTATION CONSULTING PHYSICIAN: Orion Fuller M.D. REFERRING PHYSICIAN: Marquise Chiu M.D. REASON FOR CONSULTATION: Tachycardia and atrial fibrillation. HISTORY OF PRESENT ILLNESS: The patient is a 60-year-old gentleman with history of cirrhosis of the liver, hypertension, atrial fibrillation was brought to the emergency room for increasing shortness of breath. The patient also has history of asthma. The patient also was noted to bilateral lower extremity edema as well as abdominal swelling. The patient was admitted and Cardiology consultation was obtained for further evaluation and management. On my evaluation, the patient denies any chest pain or palpitation. REVIEW OF SYSTEMS: Negative other what was mentioned in the history of present illness. PAST MEDICAL HISTORY: 1. Hypertension. 2. Atrial fibrillation. 3. Asthma. 4. Alcoholic cirrhosis of the liver with ascites. 5. . FAMILY HISTORY: Noncontributory. PHYSICAL EXAMINATION: VITAL SIGNS: Blood pressure is 124/72, pulse rate 67, respirations 20, and is afebrile. HEAD AND NECK: Shows positive JVD. LUNGS: Decreased breath sounds. CARDIOVASCULAR: Shows regular S1 and S2 with no gallop or murmur. ABDOMEN: Ascites. EXTREMITIES: A 2+ pitting edema. LABORATORY AND DIAGNOSTIC DATA: White count of 6.7, hemoglobin 8.8, hematocrit of 27, and platelet count 59,000. Sodium is 132, potassium 4.0, BUN of 20, creatinine 0.8, and glucose of 60. INR 2.2. ASSESSMENT: 1. History of paroxysmal atrial fibrillation. Currently patient is on Toprol-XL 200 mg daily. His INR is therapeutic despite not being on anticoagulation likely due to cirrhosis. The patient had short bursts of atrial fibrillation while he was in the hospital. 2. Leg edema and shortness of breath likely secondary to his cirrhosis. We will get an echocardiogram for ejection fraction and wall motion abnormality. 3. Alcoholic cirrhosis on Aldactone 100 mg daily. 4. Sepsis with broad-spectrum antibiotics. 5. Anemia. 6. Hyponatremia likely from dilutional. 7. Thrombocytopenia likely secondary to splenomegaly and secondary to cirrhosis. Thank very much, Dr. Chiu, for allowing me to participate in the care of this patient. Please do not hesitate to contact me for any questions regarding my evaluation. Orion Fuller M.D. DR: Raghavendra JOB#: [id number] CC:
[2016-04-10 20:00] VITALS: BP 114/76
[2016-04-11] VITALS (7 sets, daily range): BP systolic 117–143; BP diastolic 62–80
--- NOTE | 2016-04-11 00:07 | Consultation ---
DATE OF CONSULTATION: NOTE: POOR AUDIO QUALITY HEMATOLOGY/ONCOLOGY CONSULTATION: REQUESTING PHYSICIAN: Marquise Chiu M.D. REASON FOR CONSULTATION: Evaluation of anemia and thrombocytopenia. IDENTIFICATION: Dear Dr. Marquise Chiu, The patient is a pleasant 60-year-old male with past medical history significant for asthma and cirrhosis, at this time presented to [facility] for shortness of breath. He initially was admitted to [facility] on antibiotics. He was more jaundice without much improvement in cirrhosis. Upon presentation, he had a platelet count between 40,000 and 60,000 and was anemic. Therefore, Hematology service was consulted for further evaluation and treatment. PAST MEDICAL HISTORY: Cirrhosis anemia. PAST SURGICAL HISTORY: None noted. MEDICATIONS: metronidazole, ranitidine, Rituximab, ALLERGIES: No known drug allergies. SOCIAL HISTORY: Alcohol use of more than 20 years. No tobacco or illicit drug use. FAMILY HISTORY: Noncontributory. No history of blood dyscrasias. REVIEW OF SYSTEMS: Constitutional: No fever, chills, or night sweats. Skin: No rashes, lumps, or itching. HEENT: No headache or vision changes. Breasts: No lumps, pain, or discharge. Pulmonary: No cough, sputum, or shortness of breath. Cardiovascular: No chest pain, tightness, or palpitations. Gastrointestinal: No nausea or vomiting. Genitourinary: No dysuria, frequency, or urgency. Musculoskeletal: No joint swelling or muscle pain. Neurological: No dizziness, fainting, or seizures. PHYSICAL EXAMINATION: GENERAL: The patient is in no acute distress. VITAL SIGNS: Temperature 97.7 degrees Fahrenheit , pulse 57, respiratory rate 12, blood pressure 124/72, and pulse oximetry 98% on two liters nasal cannula. PULMONARY: Decreased breath sounds. CARDIOVASCULAR: Regular rate. No S3 or S4. ABDOMEN: Soft, nontender, and nondistended. EXTREMITIES: A 1+ edema. LABORATORY AND DIAGNOSTIC DATA: WBC 6.5, hemoglobin 8.8, hematocrit 25, platelet count 59,000, and MCV 111. Chemistry, BUN 20 and creatinine 0.8. INR 2.2 and PTT 22. Serology and hepatitis panel pending. HIV is pending. Paracentesis of fluid is pending. ASSESSMENT: 1. Anemia secondary to chronic disease. 2. Thrombocytopenia secondary to liver cirrhosis. 3. Alcohol induced liver cirrhosis. 4. Decreased hemoglobin and hematocrit, rule out gastrointestinal bleed. 5. . 6. Cirrhosis of the liver status post paracentesis. 7. Coagulopathy . 8. Sepsis. RECOMMENDATIONS: 1. Monitor counts. 2. Transfuse as needed with hemoglobin goal of above 7.5. 3. Transfuse of platelets goal of above 20,000. 4. Hepatitis panel pending. 5. HIV pending. 6. Ultrasound of the abdomen is pending. 7. We will order for anemia workup. 8. Peripheral smear to be reviewed. 9. Follow up Nephrology, Pulmonary, Renal , and GI recommendation. 10. Continue . 11. GI prophylaxis with PPI. 12. DVT prophylaxis with SCDs. 13. Continue bupivacaine . 14. Discussed with staff. 15. . Thank you, Dr. Marquise Chiu and Dr. Jeanna Mederos, for this kind referral. Please do not hesitate to contact me if you have any further questions. Suresh Pizarro M.D. DR: Daisy JOB#: [id number] CC:
[2016-04-11 07:17] LABS: MEAN CORPUSCULAR HEMOGLOBIN 36.4 PG (27.0-31.0); MEAN CORPUSCULAR HGB CONC 32.8 G/DL (32.0-36.0); MEAN CORPUSCULAR VOLUME 111 FL (80-99); MEAN PLATELET VOLUME 7.3 FL (6.5-10.1); PLATELET COUNT 62 K/UL (150-450); RED CELL DISTRIBUTION WIDTH 16.8 % (11.6-14.8); WHITE BLOOD COUNT 6.8 K/UL (4.8-10.8)
[2016-04-11 07:30] LABS: MAGNESIUM 1.1 mg/dL (1.7-2.5); PHOSPHORUS 2.9 mg/dL (2.5-4.8)
[2016-04-11 07:34] LABS: ANION GAP 14 (5-15); CALCIUM 7.9 mg/dL (8.6-10.2); CARBON DIOXIDE 18 mEQ/L (20-30); CHLORIDE 103 mEQ/L (98-107); CREATININE 1.1 mg/dL (0.7-1.2); GLOMERULAR FILTRATION RATE > 60 mL/min (>60); HEMOLYSIS 5; SODIUM 135 mEQ/L (135-145)
--- NOTE | 2016-04-11 09:13 | Pulmonology Progress Note ---
Assessment/Plan Assessment/Plan IMPRESSION: 1. Liver cirrhosis. 2. History of asthma. 3. Leukocytosis. DISCUSSION: Await US paracentesis. Continue nasal o2; he is saturating well on nasal oxygen, and is not tachypneic. Suggest discontinuing steroids. Subjective Interval Events: No significant change; feeling better; saturating well on 2L/ min o2 Constitutional: Reports: no symptoms HEENT: Repors: no symptoms Respiratory: Reports: no symptoms Cardiovascular: Reports: no symptoms Gastrointestinal/Abdominal: Reports: bloating Genitourinary: Reports: no symptoms Neurologic: Reports: no symptoms Allergies: Coded Allergies: No Known Allergies (Unverified , 04/07/16) Objective Last 24 Hour Vital Signs Date Time Temp Pulse Resp B/P Pulse Ox O2 Delivery O2 Flow Rate FiO2 04/11/16 08:40 97.2 60 22 123/72 99 Nasal Cannula 3.0 04/11/16 04:00 98.1 63 20 143/74 100 Nasal Cannula 2.0 04/11/16 04:00 62 04/11/16 00:00 66 04/11/16 00:00 98.1 67 20 126/75 100 Nasal Cannula 2.0 04/10/16 20:07 Nasal Cannula 2.0 28 04/10/16 20:07 98 Nasal Cannula 2.0 28 04/10/16 20:07 58 18 Nasal Cannula 2.0 28 04/10/16 20:00 62 04/10/16 20:00 99.0 66 18 114/76 Nasal Cannula 2.0 100 04/10/16 16:18 56 18 Nasal Cannula 2.0 28 04/10/16 16:00 97.7 58 18 120/71 Nasal Cannula 2.0 100 04/10/16 16:00 54 04/10/16 12:56 97.7 57 20 124/72 100 Nasal Cannula 3.0 04/10/16 12:00 60 04/10/16 09:44 53 124/77 Intake and Output 04/10/16 04/11/16 19:00 07:00 Intake Total 120 ml 50 ml Output Total 150 ml 750 ml Balance -30 ml -700 ml Intake Oral 120 ml IV Total 50 ml Output Urine Total 150 ml 750 ml # Voids 1 2 # Bowel Movements 2 General Appearance: no acute distress HEENT: normocephalic, atraumatic Respiratory/Chest: chest wall non-tender, lungs clear Cardiovascular: normal peripheral pulses, normal rate Abdomen: normal bowel sounds, distended Extremities: no cyanosis Microbiology Date/Time Source Procedure Growth Status 04/08/16 19:00 Nasal Not Otherwise Specified MRSA Culture - Final NO METHICILLIN RESISTANT STAPH AUREUS... Complete 04/08/16 19:00 Rectum VRE Culture - Final Enterococcus Faecium - Vre Complete Laboratory Tests 04/10/16 12:40: Body Fluid Source Ascitic, Body Fluid Volume 9, Body Fluid Appearance Slightly turbid, Body Fluid RBC 578, Body Fluid Total Nucleated Cells 14, Body Fluid Polynuclear WBCs (%) 1, Body Fluid Mononuclear WBCs (%) 94, Body Fluid Mesothelial Cells (%) 5, Body Fluid Glucose [Pending], Body Fluid Total Protein [Pending], Body Fluid Albumin [Pending] 04/11/16 04:45: White Blood Count 6.8, Red Blood Count 2.40L, Hemoglobin 8.7L, Hematocrit 26.6L , Mean Corpuscular Volume 111H, Mean Corpuscular Hemoglobin 36.4H, Mean Corpuscular Hemoglobin Concent 32.8, Red Cell Distribution Width 16.8H, Platelet Count 62L, Mean Platelet Volume 7.3, Neutrophils (%) (Auto) , Lymphocytes (%) (Auto) , Monocytes (%) (Auto) , Eosinophils (%) (Auto) , Basophils (%) (Auto) , Neutrophils % (Manual) [Pending], Lymphocytes % (Manual) [Pending], Platelet Estimate [Pending], Platelet Morphology [Pending], Sodium Level 135, Potassium Level 4.0, Chloride Level 103, Carbon Dioxide Level 18L, Anion Gap 14, Blood Urea Nitrogen 22, Creatinine 1.1, Estimat Glomerular Filtration Rate > 60, Glucose Level 179H, Calcium Level 7.9L, Phosphorus Level 2.9, Magnesium Level 1.1L, Pro-B-Type Natriuretic Peptide 352H Current Medications Medications (Trade) Dose Ordered Sig/Bernardino Route PRN Reason Start Time Stop Time Status Last Admin Dose Admin Albuterol/ Ipratropium (DuoNeb 0.5-3(2.5)mg/3ml) 3 ml Q4H PRN HHN Shortness of Breath 04/09/16 23:00 04/14/16 22:59 Cefepime HCl/ Dextrose (Maxipime/D5W 50ml) 50 ml @ 100 mls/hr Q24H IVPB 04/10/16 21:00 04/17/16 20:59 04/10/16 20:43 Dextrose (Dextrose 50%) STAT PRN IV Hypoglycemia 04/09/16 00:00 05/09/16 00:00 Furosemide (Lasix) 40 mg EVERY 12 HOURS IV 04/10/16 21:00 05/10/16 20:59 04/10/16 20:43 Lactulose 30 gm 30 gm THREE TIMES A DAY ORAL 04/09/16 13:00 05/09/16 12:59 04/10/16 17:20 Methylprednisolone Sodium Succinate (Solu-MEDROL) 40 mg EVERY 12 HOURS IVP 04/10/16 09:00 05/10/16 08:59 04/10/16 20:43 Metoprolol Succinate (Toprol XL) 200 mg DAILY ORAL 04/09/16 09:00 05/09/16 08:59 04/10/16 09:44 Pantoprazole (Protonix) 40 mg DAILY ORAL 04/09/16 09:00 05/09/16 08:59 04/10/16 09:44 Rifaximin (Xifaxan) 550 mg EVERY 12 HOURS ORAL 04/09/16 09:00 04/16/16 08:59 04/10/16 20:43 Spironolactone (Aldactone) 100 mg DAILY ORAL 04/10/16 10:00 05/10/16 09:59 Oliver Sky MD Apr 11, 2016 09:13
[2016-04-11] MEDS: Metoprolol XL 100mg tab ORAL SCH (09:19)
[2016-04-11] MEDS: Rifaximin 550mg tab ORAL SCH ×2 (09:19→21:32)
[2016-04-11] MEDS: Lactulose 20gm/30ml UDC ORAL SCH ×3 (09:19→18:43)
[2016-04-11] MEDS: Spironolactone 50mg tab ORAL SCH (09:20)
[2016-04-11 10:25] LABS: BAND NEUTROPHILS % (MANUAL) 0 % (0-8); BASOPHILS % (MANUAL) 0 % (0-2); EOSINOPHILS % (MANUAL) 0 % (0-3); LYMPHOCYTES % (MANUAL) 4 % (20-45); NEUTROPHILS % (MANUAL) 94 % (45-75); PLATELET ESTIMATE DECREASED; TOTAL CELLS COUNTED 100
[2016-04-11 10:26] LABS: ANISOCYTOSIS 1+; BURR CELLS 1+; HYPOCHROMASIA 1+; MACROCYTES 1+; PLATELET MORPHOLOGY NORMAL
--- NOTE | 2016-04-11 10:34 | GI Progress Note ---
Assessment/Plan Problems: (1) Hypoalbuminemia ICD Codes: E88.09 - Other disorders of plasma-protein metabolism, not elsewhere classified SNOMED: 490677836 (2) Alcoholic cirrhosis of liver with ascites ICD Codes: K70.31 - Alcoholic cirrhosis of liver with ascites SNOMED: 174512606 (3) sepsis (4) Anemia ICD Codes: D64.9 - Anemia, unspecified SNOMED: 803145317 Status: stable Status Narrative Discussed with Dr. Mcgovern. Assessment/Plan monitor H&H s/p paracentesis abd U/S today, ok for low sodium after elevated ammonia >> Lactulose + Xifaxan OB stool negative hep panel negative ppi elevated lactic acid >> WNL today PT eval fu labs Subjective Gastrointestinal/Abdominal: Reports: no symptoms Objective Last 24 Hour Vital Signs Date Time Temp Pulse Resp B/P Pulse Ox O2 Delivery O2 Flow Rate FiO2 04/11/16 09:40 63 18 Nasal Cannula 2.0 28 04/11/16 09:40 99 Nasal Cannula 2.0 28 04/11/16 09:40 Nasal Cannula 2.0 28 04/11/16 09:19 60 123/72 04/11/16 08:40 97.2 60 22 123/72 99 Nasal Cannula 3.0 04/11/16 08:00 57 04/11/16 04:00 98.1 63 20 143/74 100 Nasal Cannula 2.0 04/11/16 04:00 62 04/11/16 00:00 66 04/11/16 00:00 98.1 67 20 126/75 100 Nasal Cannula 2.0 04/10/16 20:07 Nasal Cannula 2.0 28 04/10/16 20:07 98 Nasal Cannula 2.0 28 04/10/16 20:07 58 18 Nasal Cannula 2.0 28 04/10/16 20:00 62 04/10/16 20:00 99.0 66 18 114/76 Nasal Cannula 2.0 100 04/10/16 16:18 56 18 Nasal Cannula 2.0 28 04/10/16 16:00 97.7 58 18 120/71 Nasal Cannula 2.0 100 04/10/16 16:00 54 04/10/16 12:56 97.7 57 20 124/72 100 Nasal Cannula 3.0 04/10/16 12:00 60 Intake and Output 04/10/16 04/11/16 19:00 07:00 Intake Total 120 ml 50 ml Output Total 150 ml 750 ml Balance -30 ml -700 ml Intake Oral 120 ml IV Total 50 ml Output Urine Total 150 ml 750 ml # Voids 1 2 # Bowel Movements 2 Laboratory Tests Test 04/10/16 12:40 04/11/16 04:45 Body Fluid Source Ascitic Body Fluid Volume 9 mL Body Fluid Appearance Slightly turbid Body Fluid RBC 578 /CUMM Body Fluid Total Nucleated Cells 14 /CUMM Body Fluid Polynuclear WBCs (%) 1 % Body Fluid Mononuclear WBCs (%) 94 % Body Fluid Mesothelial Cells (%) 5 % Body Fluid Glucose Pending Body Fluid Total Protein Pending Body Fluid Albumin Pending White Blood Count 6.8 K/UL (4.8-10.8) Red Blood Count 2.40 M/UL (4.70-6.10) L Hemoglobin 8.7 G/DL (14.2-18.0) L Hematocrit 26.6 % (42.0-52.0) L Mean Corpuscular Volume 111 FL (80-99) H Mean Corpuscular Hemoglobin 36.4 PG (27.0-31.0) H Mean Corpuscular Hemoglobin Concent 32.8 G/DL (32.0-36.0) Red Cell Distribution Width 16.8 % (11.6-14.8) H Platelet Count 62 K/UL (150-450) L Mean Platelet Volume 7.3 FL (6.5-10.1) Neutrophils (%) (Auto) % (45.0-75.0) Lymphocytes (%) (Auto) % (20.0-45.0) Monocytes (%) (Auto) % (1.0-10.0) Eosinophils (%) (Auto) % (0.0-3.0) Basophils (%) (Auto) % (0.0-2.0) Differential Total Cells Counted 100 Neutrophils % (Manual) 94 % (45-75) H Lymphocytes % (Manual) 4 % (20-45) L Monocytes % (Manual) 2 % (1-10) Eosinophils % (Manual) 0 % (0-3) Basophils % (Manual) 0 % (0-2) Band Neutrophils 0 % (0-8) Platelet Estimate Decreased L Platelet Morphology Normal Hypochromasia 1+ Anisocytosis 1+ Macrocytosis 1+ Gris Cells 1+ Sodium Level 135 mEQ/L (135-145) Potassium Level 4.0 mEQ/L (3.4-4.9) Chloride Level 103 mEQ/L (98-107) Carbon Dioxide Level 18 mEQ/L (20-30) L Anion Gap 14 (5-15) Blood Urea Nitrogen 22 mg/dL (7-23) Creatinine 1.1 mg/dL (0.7-1.2) Estimat Glomerular Filtration Rate > 60 mL/min (>60) Glucose Level 179 mg/dL (74-106) H Calcium Level 7.9 mg/dL (8.6-10.2) L Phosphorus Level 2.9 mg/dL (2.5-4.8) Magnesium Level 1.1 mg/dL (1.7-2.5) L Pro-B-Type Natriuretic Peptide 352 pg/mL (0-125) H Microbiology Date/Time Source Procedure Growth Status 04/10/16 12:40 Ascities Fluid Gram Stain Pending Resulted 04/10/16 12:40 Ascities Fluid Body Fluid Culture - Preliminary NO GROWTH AFTER 24 HOURS Resulted Height (Feet): 5 Height (Inches): 0.00 Weight (Pounds): 182 General Appearance: no apparent distress, alert Cardiovascular: normal rate Respiratory/Chest: no respiratory distress, other - 2L NC Abdominal Exam: normal bowel sounds, non tender, soft Rain Mercado N.Mary Apr 11, 2016 10:34
[2016-04-11 11:37] LABS: FOLIC ACID 10.6 ng/mL (3.1-17.5)
--- NOTE | 2016-04-11 11:40 | Nephrology Progress Note ---
Assessment/Plan Problem List: (1) sepsis (2) Alcoholic cirrhosis of liver with ascites Assessment: s/p paracentesis. (3) Hypoalbuminemia (4) Asthma exacerbation Assessment: better. (5) Anemia (6) Thrombocytopenia Plan f/u recs per GI. d/c steroids. monitor labs. replete Mg. transfer to DC. Subjective Subjective s/p paracentesis yest. Objective Objective Last 24 Hour Vital Signs Date Time Temp Pulse Resp B/P Pulse Ox O2 Delivery O2 Flow Rate FiO2 04/11/16 09:40 63 18 Nasal Cannula 2.0 28 04/11/16 09:40 99 Nasal Cannula 2.0 28 04/11/16 09:40 Nasal Cannula 2.0 28 04/11/16 09:19 60 123/72 04/11/16 08:40 97.2 60 22 123/72 99 Nasal Cannula 3.0 04/11/16 08:00 57 04/11/16 04:00 98.1 63 20 143/74 100 Nasal Cannula 2.0 04/11/16 04:00 62 04/11/16 00:00 66 04/11/16 00:00 98.1 67 20 126/75 100 Nasal Cannula 2.0 04/10/16 20:07 Nasal Cannula 2.0 28 04/10/16 20:07 98 Nasal Cannula 2.0 28 04/10/16 20:07 58 18 Nasal Cannula 2.0 28 04/10/16 20:00 62 04/10/16 20:00 99.0 66 18 114/76 Nasal Cannula 2.0 100 04/10/16 16:18 56 18 Nasal Cannula 2.0 28 04/10/16 16:00 97.7 58 18 120/71 Nasal Cannula 2.0 100 04/10/16 16:00 54 04/10/16 12:56 97.7 57 20 124/72 100 Nasal Cannula 3.0 04/10/16 12:00 60 Intake and Output 04/10/16 04/11/16 19:00 07:00 Intake Total 120 ml 50 ml Output Total 150 ml 750 ml Balance -30 ml -700 ml Intake Oral 120 ml IV Total 50 ml Output Urine Total 150 ml 750 ml # Voids 1 2 # Bowel Movements 2 Laboratory Tests 04/10/16 12:40: Body Fluid Source Ascitic, Body Fluid Volume 9, Body Fluid Appearance Slightly turbid, Body Fluid RBC 578, Body Fluid Total Nucleated Cells 14, Body Fluid Polynuclear WBCs (%) 1, Body Fluid Mononuclear WBCs (%) 94, Body Fluid Mesothelial Cells (%) 5, Body Fluid Glucose [Pending], Body Fluid Total Protein [Pending], Body Fluid Albumin [Pending] 04/11/16 04:45: White Blood Count 6.8, Red Blood Count 2.40L, Hemoglobin 8.7L, Hematocrit 26.6L , Mean Corpuscular Volume 111H, Mean Corpuscular Hemoglobin 36.4H, Mean Corpuscular Hemoglobin Concent 32.8, Red Cell Distribution Width 16.8H, Platelet Count 62L, Mean Platelet Volume 7.3, Neutrophils (%) (Auto) , Lymphocytes (%) (Auto) , Monocytes (%) (Auto) , Eosinophils (%) (Auto) , Basophils (%) (Auto) , Differential Total Cells Counted 100, Neutrophils % ( Manual) 94H, Lymphocytes % (Manual) 4L, Monocytes % (Manual) 2, Eosinophils % ( Manual) 0, Basophils % (Manual) 0, Band Neutrophils 0, Platelet Estimate DecreasedL, Platelet Morphology Normal, Hypochromasia 1+, Anisocytosis 1+, Macrocytosis 1+, Gris Cells 1+, Sodium Level 135, Potassium Level 4.0, Chloride Level 103, Carbon Dioxide Level 18L, Anion Gap 14, Blood Urea Nitrogen 22, Creatinine 1.1, Estimat Glomerular Filtration Rate > 60, Glucose Level 179H, Calcium Level 7.9L, Phosphorus Level 2.9, Magnesium Level 1.1L, Pro-B-Type Natriuretic Peptide 352H Height (Feet): 5 Height (Inches): 0.00 Weight (Pounds): 182 General Appearance: no apparent distress Cardiovascular: normal rate, regular rhythm Respiratory/Chest: decreased breath sounds Abdomen: soft, distended Extremities: trace edema Neurologic: alert PAULA SPENCER Apr 11, 2016 11:40
--- NOTE | 2016-04-11 13:37 | Diagnostic Imaging Report ---
Indications: Abdominal pain Technique: Transabdominal real-time grayscale and duplex Doppler imaging of the upper abdomen and retroperitoneum was performed. Findings: Comparison: None. Liver small with coarsened, echogenic parenchyma and surface contour nodularity. No obvious focal lesion.. Gallbladder contains echogenic shadowing foci and non-shadowing hypoechoic material. Mild mural thickening. Adjacent ascites. Sonographic Spencer sign reported as negative.. Bile ducts normal caliber. Common bile duct 5.5 mm. Pancreas obscured. Spleen 14.3 cm, no obvious focal lesions.. Right kidney unremarkable. Left kidney unremarkable. Proximal and mid abdominal aorta, intrahepatic portion of inferior vena cava patent, normal caliber. Although aorta obscured. Duplex Doppler imaging demonstrates antegrade flow in portal, hepatic veins. Antegrade flow within the intrahepatic shunt with low resistance waveform. Velocity in previous shunt portal vein approximately 30 cm/s. Velocity in the midportion of shunt approximately 100 cm/s. Velocity in cephalad portion of shunt greater than 1 m/s. Moderate ascites. IMPRESSION: Cirrhosis with stigmata of portal hypertension including splenomegaly, ascites. Patent intrahepatic portosystemic shunt with apparently elevated velocity at its hepatic venous end, suggesting high-grade stenosis. This is potentially amenable to percutaneous intervention, as clinically indicated. Gallbladder stones and sludge. Mural thickening likely secondary to presence of ascites. Correlate clinically. Midline structures including pancreas, distal abdominal aorta obscured
[2016-04-11 15:10] LABS: PROTEIN, BODY FLUID 1.3 g/dL (.)
--- NOTE | 2016-04-11 15:35 | General Progress Note ---
Assessment/Plan Assessment/Plan ASSESSMENT: 1. Anemia secondary to chronic disease. 2. Thrombocytopenia secondary to liver cirrhosis. 3. Alcohol induced liver cirrhosis. 4. Decreased hemoglobin and hematocrit, rule out gastrointestinal bleed. 5. Splenomegaly 6. Cirrhosis of the liver status post paracentesis. 7. Coagulopathy . 8. Sepsis. RECOMMENDATIONS: 1. Monitor counts. 2. Transfuse as needed with hemoglobin goal >7.5. 3. Transfuse of platelets goal>20k 4. Hepatitis panel negative 5. HIV negative 6. Ultrasound of the abdomen reviewed shows cirrhosis and splenomegaly 7. Reviewed anemia workup. 8. Peripheral smear to be reviewed. 9. Follow up Nephrology, Pulmonary, Renal , and GI recs 10. Continue pain meds 11. GI prophylaxis with PPI. 12. DVT prophylaxis with SCDs. 13. Discussed with staff. Thank you, Suresh Pizarro MD Subjective Constitutional: Reports: no symptoms HEENT: Reports: no symptoms Cardiovascular: Reports: no symptoms Respiratory: Reports: no symptoms Gastrointestinal/Abdominal: Reports: poor appetite Genitourinary: Reports: no symptoms Neurologic/Psychiatric: Reports: no symptoms Endocrine: Reports: no symptoms Hematologic/Lymphatic: Reports: anemia Allergies: Coded Allergies: No Known Allergies (Unverified , 04/07/16) Subjective s/p para, no bleeding, overnight fevers or chills Objective Last 24 Hour Vital Signs Date Time Temp Pulse Resp B/P Pulse Ox O2 Delivery O2 Flow Rate FiO2 04/11/16 12:00 97.0 60 20 117/80 100 Nasal Cannula 3.0 04/11/16 12:00 63 04/11/16 09:40 63 18 Nasal Cannula 2.0 28 04/11/16 09:40 99 Nasal Cannula 2.0 28 04/11/16 09:40 Nasal Cannula 2.0 28 04/11/16 09:19 60 123/72 04/11/16 08:40 97.2 60 22 123/72 99 Nasal Cannula 3.0 04/11/16 08:00 57 04/11/16 04:00 98.1 63 20 143/74 100 Nasal Cannula 2.0 04/11/16 04:00 62 04/11/16 00:00 66 04/11/16 00:00 98.1 67 20 126/75 100 Nasal Cannula 2.0 04/10/16 20:07 Nasal Cannula 2.0 28 04/10/16 20:07 98 Nasal Cannula 2.0 28 04/10/16 20:07 58 18 Nasal Cannula 2.0 28 04/10/16 20:00 62 04/10/16 20:00 99.0 66 18 114/76 Nasal Cannula 2.0 100 04/10/16 16:18 56 18 Nasal Cannula 2.0 28 04/10/16 16:00 97.7 58 18 120/71 Nasal Cannula 2.0 100 04/10/16 16:00 54 Intake and Output 04/10/16 04/11/16 19:00 07:00 Intake Total 120 ml 50 ml Output Total 150 ml 750 ml Balance -30 ml -700 ml Intake Oral 120 ml IV Total 50 ml Output Urine Total 150 ml 750 ml # Voids 1 2 # Bowel Movements 2 Laboratory Tests 04/11/16 04:45: White Blood Count 6.8, Red Blood Count 2.40L, Hemoglobin 8.7L, Hematocrit 26.6L , Mean Corpuscular Volume 111H, Mean Corpuscular Hemoglobin 36.4H, Mean Corpuscular Hemoglobin Concent 32.8, Red Cell Distribution Width 16.8H, Platelet Count 62L, Mean Platelet Volume 7.3, Neutrophils (%) (Auto) , Lymphocytes (%) (Auto) , Monocytes (%) (Auto) , Eosinophils (%) (Auto) , Basophils (%) (Auto) , Differential Total Cells Counted 100, Neutrophils % ( Manual) 94H, Lymphocytes % (Manual) 4L, Monocytes % (Manual) 2, Eosinophils % ( Manual) 0, Basophils % (Manual) 0, Band Neutrophils 0, Platelet Estimate DecreasedL, Platelet Morphology Normal, Hypochromasia 1+, Anisocytosis 1+, Macrocytosis 1+, Gris Cells 1+, Sodium Level 135, Potassium Level 4.0, Chloride Level 103, Carbon Dioxide Level 18L, Anion Gap 14, Blood Urea Nitrogen 22, Creatinine 1.1, Estimat Glomerular Filtration Rate > 60, Glucose Level 179H, Calcium Level 7.9L, Phosphorus Level 2.9, Magnesium Level 1.1L, Pro-B-Type Natriuretic Peptide 352H Height (Feet): 5 Height (Inches): 0.00 Weight (Pounds): 182 General Appearance: no apparent distress EENT: TMs normal Neck: supple Cardiovascular: normal rate Respiratory/Chest: normal breath sounds Abdomen: non tender Extremities: non-tender Edema: 1+ Leg (L), 1+ Leg (R) Neurologic: alert Skin: normal pigmentation Suresh Pizarro Apr 11, 2016 15:35
--- NOTE | 2016-04-11 16:36 | Cardiac Electrophysiology PN ---
Assessment/Plan Assessment/Plan 1. Paroxysmal atrial fibrillation. Currently patient is on Toprol-XL 200 mg daily. His INR is 2 off anticoagulation likely due to cirrhosis. 2. Leg edema and shortness of breath likely secondary to his cirrhosis.Final echocardiogram report is pending.On Lasix 40 iv bid. 3. Alcoholic cirrhosis with ascites on Aldactone 100 mg daily. 4. Sepsis with broad-spectrum antibiotics. 5. Anemia. 6. Hyponatremia likely from dilutional. 7. Thrombocytopenia likely secondary to splenomegaly and secondary to cirrhosis. DW RN Subjective Subjective Feeling better. No arrhythmias on tele. Objective Last 24 Hour Vital Signs Date Time Temp Pulse Resp B/P Pulse Ox O2 Delivery O2 Flow Rate FiO2 04/11/16 12:00 97.0 60 20 117/80 100 Nasal Cannula 3.0 04/11/16 12:00 63 04/11/16 09:40 63 18 Nasal Cannula 2.0 28 04/11/16 09:40 99 Nasal Cannula 2.0 28 04/11/16 09:40 Nasal Cannula 2.0 28 04/11/16 09:19 60 123/72 04/11/16 08:40 97.2 60 22 123/72 99 Nasal Cannula 3.0 04/11/16 08:00 57 04/11/16 04:00 98.1 63 20 143/74 100 Nasal Cannula 2.0 04/11/16 04:00 62 04/11/16 00:00 66 04/11/16 00:00 98.1 67 20 126/75 100 Nasal Cannula 2.0 04/10/16 20:07 Nasal Cannula 2.0 28 04/10/16 20:07 98 Nasal Cannula 2.0 28 04/10/16 20:07 58 18 Nasal Cannula 2.0 28 04/10/16 20:00 62 04/10/16 20:00 99.0 66 18 114/76 Nasal Cannula 2.0 100 Intake and Output 04/10/16 04/11/16 19:00 07:00 Intake Total 120 ml 50 ml Output Total 150 ml 750 ml Balance -30 ml -700 ml Intake Oral 120 ml IV Total 50 ml Output Urine Total 150 ml 750 ml # Voids 1 2 # Bowel Movements 2 Laboratory Tests Test 04/11/16 04:45 White Blood Count 6.8 K/UL (4.8-10.8) Red Blood Count 2.40 M/UL (4.70-6.10) L Hemoglobin 8.7 G/DL (14.2-18.0) L Hematocrit 26.6 % (42.0-52.0) L Mean Corpuscular Volume 111 FL (80-99) H Mean Corpuscular Hemoglobin 36.4 PG (27.0-31.0) H Mean Corpuscular Hemoglobin Concent 32.8 G/DL (32.0-36.0) Red Cell Distribution Width 16.8 % (11.6-14.8) H Platelet Count 62 K/UL (150-450) L Mean Platelet Volume 7.3 FL (6.5-10.1) Neutrophils (%) (Auto) % (45.0-75.0) Lymphocytes (%) (Auto) % (20.0-45.0) Monocytes (%) (Auto) % (1.0-10.0) Eosinophils (%) (Auto) % (0.0-3.0) Basophils (%) (Auto) % (0.0-2.0) Differential Total Cells Counted 100 Neutrophils % (Manual) 94 % (45-75) H Lymphocytes % (Manual) 4 % (20-45) L Monocytes % (Manual) 2 % (1-10) Eosinophils % (Manual) 0 % (0-3) Basophils % (Manual) 0 % (0-2) Band Neutrophils 0 % (0-8) Platelet Estimate Decreased L Platelet Morphology Normal Hypochromasia 1+ Anisocytosis 1+ Macrocytosis 1+ Gris Cells 1+ Sodium Level 135 mEQ/L (135-145) Potassium Level 4.0 mEQ/L (3.4-4.9) Chloride Level 103 mEQ/L (98-107) Carbon Dioxide Level 18 mEQ/L (20-30) L Anion Gap 14 (5-15) Blood Urea Nitrogen 22 mg/dL (7-23) Creatinine 1.1 mg/dL (0.7-1.2) Estimat Glomerular Filtration Rate > 60 mL/min (>60) Glucose Level 179 mg/dL (74-106) H Calcium Level 7.9 mg/dL (8.6-10.2) L Phosphorus Level 2.9 mg/dL (2.5-4.8) Magnesium Level 1.1 mg/dL (1.7-2.5) L Pro-B-Type Natriuretic Peptide 352 pg/mL (0-125) H Microbiology Date/Time Source Procedure Growth Status 04/10/16 12:40 Ascities Fluid Gram Stain - Final Resulted 04/10/16 12:40 Ascities Fluid Body Fluid Culture - Preliminary NO GROWTH AFTER 24 HOURS Resulted 04/08/16 19:00 Nasal Not Otherwise Specified MRSA Culture - Final NO METHICILLIN RESISTANT STAPH AUREUS... Complete 04/08/16 19:00 Rectum VRE Culture - Final Enterococcus Faecium - Vre Complete Objective HEAD AND NECK: Shows positive JVD. LUNGS: Decreased breath sounds. CARDIOVASCULAR: Shows regular S1 and S2 with no gallop or murmur. ABDOMEN: Ascites. EXTREMITIES: A 2+ pitting edema. MUKESH IZAGUIRRE Apr 11, 2016 16:36
[2016-04-11] MEDS ORDERED: Phytonadione 10 MG in D5W 50 ML IVPB ONE (17:00)
--- NOTE | 2016-04-11 17:23 | Infectious Diseases Prog Note ---
Assessment/Plan Assessment/Plan A: The patient is a 60-year-old male with Sepsis Low grade fever No evidence of Pna Chest x-ray, no acute process. Cirrhosis US : Cirrhosis with stigmata of portal hypertension including splenomegaly, ascites SP Para , no evidence of SBP Asthma PLAN: continue the patient on cefepime d# 2 / 3 Monitor CBC , BMP Monitor blood culture Subjective Constitutional: Denies: anorexia, chills, drenching sweats, fatigue, fever, no symptoms, other Allergies: Coded Allergies: No Known Allergies (Unverified , 04/07/16) Objective Vital Signs Last 24 Hour Vital Signs Date Time Temp Pulse Resp B/P Pulse Ox O2 Delivery O2 Flow Rate FiO2 04/11/16 16:00 97.5 62 18 117/74 Nasal Cannula 2.0 100 04/11/16 12:00 97.0 60 20 117/80 100 Nasal Cannula 3.0 04/11/16 12:00 63 04/11/16 09:40 63 18 Nasal Cannula 2.0 28 04/11/16 09:40 99 Nasal Cannula 2.0 28 04/11/16 09:40 Nasal Cannula 2.0 28 04/11/16 09:19 60 123/72 04/11/16 08:40 97.2 60 22 123/72 99 Nasal Cannula 3.0 04/11/16 08:00 57 04/11/16 04:00 98.1 63 20 143/74 100 Nasal Cannula 2.0 04/11/16 04:00 62 04/11/16 00:00 66 04/11/16 00:00 98.1 67 20 126/75 100 Nasal Cannula 2.0 04/10/16 20:07 Nasal Cannula 2.0 28 04/10/16 20:07 98 Nasal Cannula 2.0 28 04/10/16 20:07 58 18 Nasal Cannula 2.0 28 04/10/16 20:00 62 04/10/16 20:00 99.0 66 18 114/76 Nasal Cannula 2.0 100 Height (Feet): 5 Height (Inches): 0.00 Weight (Pounds): 182 HEENT: anicteric Respiratory/Chest: lungs clear, no respiratory distress Cardiovascular: normal rate, regularly irregular Abdomen: soft, non tender, no organomegaly Microbiology Date/Time Source Procedure Growth Status 04/10/16 12:40 Ascities Fluid Gram Stain - Final Resulted 04/10/16 12:40 Ascities Fluid Body Fluid Culture - Preliminary NO GROWTH AFTER 24 HOURS Resulted 04/08/16 19:00 Nasal Not Otherwise Specified MRSA Culture - Final NO METHICILLIN RESISTANT STAPH AUREUS... Complete 04/08/16 19:00 Rectum VRE Culture - Final Enterococcus Faecium - Vre Complete Laboratory Tests Test 04/11/16 04:45 White Blood Count 6.8 K/UL (4.8-10.8) Red Blood Count 2.40 M/UL (4.70-6.10) L Hemoglobin 8.7 G/DL (14.2-18.0) L Hematocrit 26.6 % (42.0-52.0) L Mean Corpuscular Volume 111 FL (80-99) H Mean Corpuscular Hemoglobin 36.4 PG (27.0-31.0) H Mean Corpuscular Hemoglobin Concent 32.8 G/DL (32.0-36.0) Red Cell Distribution Width 16.8 % (11.6-14.8) H Platelet Count 62 K/UL (150-450) L Mean Platelet Volume 7.3 FL (6.5-10.1) Neutrophils (%) (Auto) % (45.0-75.0) Lymphocytes (%) (Auto) % (20.0-45.0) Monocytes (%) (Auto) % (1.0-10.0) Eosinophils (%) (Auto) % (0.0-3.0) Basophils (%) (Auto) % (0.0-2.0) Differential Total Cells Counted 100 Neutrophils % (Manual) 94 % (45-75) H Lymphocytes % (Manual) 4 % (20-45) L Monocytes % (Manual) 2 % (1-10) Eosinophils % (Manual) 0 % (0-3) Basophils % (Manual) 0 % (0-2) Band Neutrophils 0 % (0-8) Platelet Estimate Decreased L Platelet Morphology Normal Hypochromasia 1+ Anisocytosis 1+ Macrocytosis 1+ Gris Cells 1+ Sodium Level 135 mEQ/L (135-145) Potassium Level 4.0 mEQ/L (3.4-4.9) Chloride Level 103 mEQ/L (98-107) Carbon Dioxide Level 18 mEQ/L (20-30) L Anion Gap 14 (5-15) Blood Urea Nitrogen 22 mg/dL (7-23) Creatinine 1.1 mg/dL (0.7-1.2) Estimat Glomerular Filtration Rate > 60 mL/min (>60) Glucose Level 179 mg/dL (74-106) H Calcium Level 7.9 mg/dL (8.6-10.2) L Phosphorus Level 2.9 mg/dL (2.5-4.8) Magnesium Level 1.1 mg/dL (1.7-2.5) L Pro-B-Type Natriuretic Peptide 352 pg/mL (0-125) H Current Medications Medications (Trade) Dose Ordered Sig/Bernardino Route PRN Reason Start Time Stop Time Status Last Admin Dose Admin Albuterol/ Ipratropium (DuoNeb 0.5-3(2.5)mg/3ml) 3 ml Q4H PRN HHN Shortness of Breath 04/09/16 23:00 04/14/16 22:59 Cefepime HCl/ Dextrose (Maxipime/D5W 50ml) 50 ml @ 100 mls/hr Q24H IVPB 04/10/16 21:00 04/17/16 20:59 04/10/16 20:43 Dextrose (Dextrose 50%) STAT PRN IV Hypoglycemia 04/09/16 00:00 05/09/16 00:00 Furosemide 40 mg 40 mg EVERY 12 HOURS IV 04/10/16 21:00 05/10/16 20:59 04/11/16 09:20 Lactulose 30 gm 30 gm THREE TIMES A DAY ORAL 04/09/16 13:00 05/09/16 12:59 04/11/16 13:27 Metoprolol Succinate (Toprol XL) 200 mg DAILY ORAL 04/09/16 09:00 05/09/16 08:59 04/11/16 09:19 Pantoprazole (Protonix) 40 mg DAILY ORAL 04/09/16 09:00 05/09/16 08:59 04/11/16 09:20 Phytonadione/ Dextrose (Vitamin K/D5W 50ml) 51 ml @ 100 mls/hr ONCE ONCE IVPB 04/11/16 17:00 04/11/16 17:30 Rifaximin (Xifaxan) 550 mg EVERY 12 HOURS ORAL 04/09/16 09:00 04/16/16 08:59 1/5/17 09:19 Spironolactone (Aldactone) 100 mg DAILY ORAL 04/10/16 10:00 05/10/16 09:59 04/11/16 09:20 JOANIE CRUZ M.D. Apr 11, 2016 17:23
--- NOTE | 2016-04-11 20:56 | Cardiology Report ---
APPROVED REPORT EXAM: Two-dimensional and M-mode echocardiogram with Doppler and color Doppler. INDICATION Congestive Heart Failure Technically difficult study due to poor acoustical windows. M-mode measurements of left ventricle not obtainable due to cardiac position (angle) Normal left ventricular chamber size, hyperdynamic systolic function and wall motion to extent visualized. Left ventricular ejection fraction estimated to be 70-75 %. Mild left ventricular hypertrophy. Anterior Echo-free space, may be due to pericardial fat or effusion. All other cardiac chamber sizes are within normal limits. Mild focal aortic valve sclerosis with adequate cusp excursion. Mildly thickened mitral valve leaflets with normal excursion. Mitral annulus and aortic root calcification. Normal pulmonic valve structure. Normal tricuspid valve structure. IVC at normal size with physiologic collapse. A color flow and spectral Doppler study was performed and revealed: Mild mitral regurgitation. Mitral diastolic velocities suggest reduced left ventricular relaxation c/w mild LV diastolic dysfunction (Grade I ). Trace tricuspid regurgitation. Tricuspid systolic velocities suggests peak right ventricular systolic pressure of 20 mmHg.
[2016-04-12] VITALS (8 sets, daily range): BP systolic 118–168; BP diastolic 62–82
[2016-04-12 06:58] LABS: MEAN CORPUSCULAR HEMOGLOBIN 37.1 PG (27.0-31.0); MEAN CORPUSCULAR HGB CONC 33.6 G/DL (32.0-36.0); MEAN CORPUSCULAR VOLUME 111 FL (80-99); MEAN PLATELET VOLUME 9.6 FL (6.5-10.1); PLATELET COUNT 82 K/UL (150-450); RED BLOOD COUNT 2.46 M/UL (4.70-6.10); RED CELL DISTRIBUTION WIDTH 16.7 % (11.6-14.8); WHITE BLOOD COUNT 19.3 K/UL (4.8-10.8)
[2016-04-12 07:09] LABS: AMMONIA 58 umol/L (16-60)
[2016-04-12 07:17] LABS: PROTHROMBIN TIME 21.1 SEC (9.30-11.50)
[2016-04-12 07:24] LABS: ANION GAP 13 (5-15); CALCIUM 8.2 mg/dL (8.6-10.2); CARBON DIOXIDE 19 mEQ/L (20-30); CHLORIDE 105 mEQ/L (98-107); CREATININE 1.1 mg/dL (0.7-1.2); GLOMERULAR FILTRATION RATE > 60 mL/min (>60); HEMOLYSIS 1; MAGNESIUM 1.6 mg/dL (1.7-2.5); SODIUM 137 mEQ/L (135-145)
--- NOTE | 2016-04-12 08:20 | Cardiac Electrophysiology PN ---
Assessment/Plan Status Narrative Technically difficult study due to poor acoustical windows. M-mode measurements of left ventricle not obtainable due to cardiac position (angle) Normal left ventricular chamber size, hyperdynamic systolic function and wall motion to extent visualized. Left ventricular ejection fraction estimated to be 70-75 %. Mild left ventricular hypertrophy. Anterior Echo-free space, may be due to pericardial fat or effusion. All other cardiac chamber sizes are within normal limits. Mild focal aortic valve sclerosis with adequate cusp excursion. Mildly thickened mitral valve leaflets with normal excursion. Mitral annulus and aortic root calcification. Normal pulmonic valve structure. Normal tricuspid valve structure. IVC at normal size with physiologic collapse. A color flow and spectral Doppler study was performed and revealed: Mild mitral regurgitation. Mitral diastolic velocities suggest reduced left ventricular relaxation c/w mild LV diastolic dysfunction (Grade I ). Trace tricuspid regurgitation. Tricuspid systolic velocities suggests peak right ventricular systolic pressure of 20 mmHg. Assessment/Plan 1. Paroxysmal atrial fibrillation. In SR. Continue Toprol-XL 200 mg daily. His INR is still 2 today off anticoagulation likely due to cirrhosis despite Vit K. 2. Leg edema and shortness of breath likely secondary to his cirrhosis. Final echocardiogram EF 70-75%.On Lasix 40 iv bid and Aldactone. 3. Alcoholic cirrhosis with ascites on Aldactone 100 mg daily.Had Paracentesis . Awaiting TIPS today. 4. Sepsis with broad-spectrum antibiotics. 5. Anemia. 6. Hyponatremia likely from dilutional. 7. Thrombocytopenia likely secondary to splenomegaly and secondary to cirrhosis. ROB RN Subjective Subjective Feeling OK.Just sinus zulema. No arrhythmias on tele.Scheduled for TIPS today. Objective Last 24 Hour Vital Signs Date Time Temp Pulse Resp B/P Pulse Ox O2 Delivery O2 Flow Rate FiO2 04/12/16 04:00 61 04/12/16 04:00 97.9 65 20 123/82 98 Room Air 04/12/16 00:45 63 118/69 04/12/16 00:30 97.0 63 20 168/74 100 Room Air 04/12/16 00:00 63 04/11/16 21:34 Nasal Cannula 2.0 28 04/11/16 21:34 98 Nasal Cannula 2.0 28 04/11/16 21:34 60 16 Nasal Cannula 2.0 28 04/11/16 20:00 97.9 60 18 121/62 Nasal Cannula 2.0 100 04/11/16 20:00 66 04/11/16 16:00 97.5 62 18 117/74 Nasal Cannula 2.0 100 04/11/16 16:00 62 04/11/16 12:00 97.0 60 20 117/80 100 Nasal Cannula 3.0 04/11/16 12:00 63 04/11/16 09:40 63 18 Nasal Cannula 2.0 28 04/11/16 09:40 99 Nasal Cannula 2.0 28 04/11/16 09:40 Nasal Cannula 2.0 28 04/11/16 09:19 60 123/72 04/11/16 08:40 97.2 60 22 123/72 99 Nasal Cannula 3.0 Intake and Output 04/11/16 04/12/16 19:00 07:00 Intake Total 540 ml 100 ml Output Total 500 ml 600 ml Balance 40 ml -500 ml Intake Oral 240 ml IV Total 300 ml 100 ml Output Urine Total 500 ml 600 ml # Voids 6 Laboratory Tests Test 04/12/16 05:40 White Blood Count 19.3 K/UL (4.8-10.8) #H Red Blood Count 2.46 M/UL (4.70-6.10) L Hemoglobin 9.1 G/DL (14.2-18.0) L Hematocrit 27.2 % (42.0-52.0) L Mean Corpuscular Volume 111 FL (80-99) H Mean Corpuscular Hemoglobin 37.1 PG (27.0-31.0) H Mean Corpuscular Hemoglobin Concent 33.6 G/DL (32.0-36.0) Red Cell Distribution Width 16.7 % (11.6-14.8) H Platelet Count 82 K/UL (150-450) L Mean Platelet Volume 9.6 FL (6.5-10.1) Neutrophils (%) (Auto) % (45.0-75.0) Lymphocytes (%) (Auto) % (20.0-45.0) Monocytes (%) (Auto) % (1.0-10.0) Eosinophils (%) (Auto) % (0.0-3.0) Basophils (%) (Auto) % (0.0-2.0) Neutrophils % (Manual) Pending Lymphocytes % (Manual) Pending Platelet Estimate Pending Platelet Morphology Pending Prothrombin Time 21.1 SEC (9.30-11.50) H Prothromb Time International Ratio 2.0 (0.9-1.1) H Sodium Level 137 mEQ/L (135-145) Potassium Level 4.0 mEQ/L (3.4-4.9) Chloride Level 105 mEQ/L (98-107) Carbon Dioxide Level 19 mEQ/L (20-30) L Anion Gap 13 (5-15) Blood Urea Nitrogen 24 mg/dL (7-23) H Creatinine 1.1 mg/dL (0.7-1.2) Estimat Glomerular Filtration Rate > 60 mL/min (>60) Glucose Level 128 mg/dL (74-106) H Calcium Level 8.2 mg/dL (8.6-10.2) L Magnesium Level 1.6 mg/dL (1.7-2.5) L Ammonia 58 umol/L (16-60) Current Medications Medications (Trade) Dose Ordered Sig/Bernardino Route PRN Reason Start Time Stop Time Status Last Admin Dose Admin Albuterol/ Ipratropium (DuoNeb 0.5-3(2.5)mg/3ml) 3 ml Q4H PRN HHN Shortness of Breath 04/09/16 23:00 04/14/16 22:59 Cefepime HCl/ Dextrose (Maxipime/D5W 50ml) 50 ml @ 100 mls/hr Q24H IVPB 04/10/16 21:00 04/17/16 20:59 04/11/16 21:32 Dextrose (Dextrose 50%) STAT PRN IV Hypoglycemia 04/09/16 00:00 05/09/16 00:00 Furosemide (Lasix) 40 mg EVERY 12 HOURS IV 04/10/16 21:00 05/10/16 20:59 04/11/16 21:32 Lactulose 30 gm 30 gm THREE TIMES A DAY ORAL 04/09/16 13:00 05/09/16 12:59 04/11/16 18:43 Metoprolol Succinate (Toprol XL) 200 mg DAILY ORAL 04/09/16 09:00 05/09/16 08:59 04/11/16 09:19 Pantoprazole (Protonix) 40 mg DAILY ORAL 04/09/16 09:00 05/09/16 08:59 04/11/16 09:20 Rifaximin (Xifaxan) 550 mg EVERY 12 HOURS ORAL 04/09/16 09:00 04/16/16 08:59 04/11/16 21:32 Spironolactone (Aldactone) 100 mg DAILY ORAL 04/10/16 10:00 05/10/16 09:59 04/11/16 09:20 Microbiology Date/Time Source Procedure Growth Status 04/10/16 12:40 Ascities Fluid Gram Stain - Final Resulted 04/10/16 12:40 Ascities Fluid Body Fluid Culture - Preliminary NO GROWTH AFTER 24 HOURS Resulted Objective HEAD AND NECK: Shows positive JVD. LUNGS: Decreased breath sounds. CARDIOVASCULAR: Shows regular S1 and S2 with no gallop or murmur. ABDOMEN: Ascites. EXTREMITIES: A 2+ pitting edema. MUKESH IZAGUIRRE Apr 12, 2016 08:20
[2016-04-12] MEDS: Rifaximin 550mg tab ORAL SCH ×2 (08:45→21:42)
[2016-04-12] MEDS: Lactulose 20gm/30ml UDC ORAL SCH ×3 (08:46→18:09)
[2016-04-12] MEDS: Metoprolol XL 100mg tab ORAL SCH (08:46)
[2016-04-12] MEDS: Spironolactone 50mg tab ORAL SCH (09:57)
[2016-04-12 10:38] LABS: MEAN CORPUSCULAR HEMOGLOBIN 35.9 PG (27.0-31.0); MEAN CORPUSCULAR HGB CONC 33.5 G/DL (32.0-36.0); MEAN CORPUSCULAR VOLUME 107 FL (80-99); MEAN PLATELET VOLUME 9.4 FL (6.5-10.1); PLATELET COUNT 66 K/UL (150-450); RED BLOOD COUNT 2.55 M/UL (4.70-6.10); RED CELL DISTRIBUTION WIDTH 17.3 % (11.6-14.8); WHITE BLOOD COUNT 14.7 K/UL (4.8-10.8)
--- NOTE | 2016-04-12 10:40 | GI Progress Note ---
Assessment/Plan Problems: (1) Hypoalbuminemia ICD Codes: E88.09 - Other disorders of plasma-protein metabolism, not elsewhere classified SNOMED: 211198380 (2) Alcoholic cirrhosis of liver with ascites ICD Codes: K70.31 - Alcoholic cirrhosis of liver with ascites SNOMED: 596529302 (3) sepsis (4) Anemia ICD Codes: D64.9 - Anemia, unspecified SNOMED: 568317614 Status: stable Status Narrative Discussed with Dr. Mcgovern. Assessment/Plan pt scheduled for TIPS, see abd U/S report. monitor H&H, transfuse prn s/p paracentesis >> ascites negative for growth elevated ammonia >> Lactulose + Xifaxan OB stool negative hep panel negative ppi elevated lactic acid >> WNL today PT eval fu labs Subjective Gastrointestinal/Abdominal: Reports: abdomen distended - decreased, no symptoms Subjective OOB Objective Last 24 Hour Vital Signs Date Time Temp Pulse Resp B/P Pulse Ox O2 Delivery O2 Flow Rate FiO2 04/12/16 08:46 70 118/73 04/12/16 08:39 97.1 70 18 118/73 98 Room Air 04/12/16 07:00 Nasal Cannula 2.0 28 04/12/16 07:00 70 18 Nasal Cannula 2.0 28 04/12/16 07:00 98 Nasal Cannula 2.0 28 04/12/16 04:00 61 04/12/16 04:00 97.9 65 20 123/82 98 Room Air 04/12/16 00:45 63 118/69 04/12/16 00:30 97.0 63 20 168/74 100 Room Air 04/12/16 00:00 63 04/11/16 21:34 Nasal Cannula 2.0 28 04/11/16 21:34 98 Nasal Cannula 2.0 28 04/11/16 21:34 60 16 Nasal Cannula 2.0 28 04/11/16 20:00 97.9 60 18 121/62 Nasal Cannula 2.0 100 04/11/16 20:00 66 04/11/16 16:00 97.5 62 18 117/74 Nasal Cannula 2.0 100 04/11/16 16:00 62 04/11/16 12:00 97.0 60 20 117/80 100 Nasal Cannula 3.0 04/11/16 12:00 63 Intake and Output 04/11/16 04/12/16 19:00 07:00 Intake Total 540 ml 100 ml Output Total 500 ml 600 ml Balance 40 ml -500 ml Intake Oral 240 ml IV Total 300 ml 100 ml Output Urine Total 500 ml 600 ml # Voids 6 Laboratory Tests Test 04/12/16 05:40 04/12/16 10:30 White Blood Count 19.3 K/UL (4.8-10.8) #H Pending Red Blood Count 2.46 M/UL (4.70-6.10) L Pending Hemoglobin 9.1 G/DL (14.2-18.0) L Pending Hematocrit 27.2 % (42.0-52.0) L Pending Mean Corpuscular Volume 111 FL (80-99) H Pending Mean Corpuscular Hemoglobin 37.1 PG (27.0-31.0) H Pending Mean Corpuscular Hemoglobin Concent 33.6 G/DL (32.0-36.0) Pending Red Cell Distribution Width 16.7 % (11.6-14.8) H Pending Platelet Count 82 K/UL (150-450) L Pending Mean Platelet Volume 9.6 FL (6.5-10.1) Pending Neutrophils (%) (Auto) % (45.0-75.0) Pending Lymphocytes (%) (Auto) % (20.0-45.0) Pending Monocytes (%) (Auto) % (1.0-10.0) Pending Eosinophils (%) (Auto) % (0.0-3.0) Pending Basophils (%) (Auto) % (0.0-2.0) Pending Neutrophils % (Manual) Pending Lymphocytes % (Manual) Pending Platelet Estimate Pending Platelet Morphology Pending Prothrombin Time 21.1 SEC (9.30-11.50) H Prothromb Time International Ratio 2.0 (0.9-1.1) H Sodium Level 137 mEQ/L (135-145) Potassium Level 4.0 mEQ/L (3.4-4.9) Chloride Level 105 mEQ/L (98-107) Carbon Dioxide Level 19 mEQ/L (20-30) L Anion Gap 13 (5-15) Blood Urea Nitrogen 24 mg/dL (7-23) H Creatinine 1.1 mg/dL (0.7-1.2) Estimat Glomerular Filtration Rate > 60 mL/min (>60) Glucose Level 128 mg/dL (74-106) H Calcium Level 8.2 mg/dL (8.6-10.2) L Magnesium Level 1.6 mg/dL (1.7-2.5) L Ammonia 58 umol/L (16-60) Height (Feet): 5 Height (Inches): 0.00 Weight (Pounds): 183 General Appearance: no apparent distress, alert Cardiovascular: normal rate Respiratory/Chest: normal breath sounds, no respiratory distress Abdominal Exam: normal bowel sounds, non tender, soft, distended, ascites Extremities: normal range of motion Objective Procedure: US ABD Complete Indications: Abdominal pain IMPRESSION: Cirrhosis with stigmata of portal hypertension including splenomegaly, ascites. Patent intrahepatic portosystemic shunt with apparently elevated velocity at its hepatic venous end, suggesting high-grade stenosis. This is potentially amenable to percutaneous intervention, as clinically indicated. Gallbladder stones and sludge. Mural thickening likely secondary to presence of ascites. Correlate clinically. Midline structures including pancreas, distal abdominal aorta obscured Rain Mercado N.P. Apr 12, 2016 10:40
[2016-04-12 11:44] LABS: ANISOCYTOSIS 1+; BAND NEUTROPHILS % (MANUAL) 0 % (0-8); BASOPHILS % (MANUAL) 0 % (0-2); EOSINOPHILS % (MANUAL) 0 % (0-3); LYMPHOCYTES % (MANUAL) 5 % (20-45); NEUTROPHILS % (MANUAL) 85 % (45-75); PLATELET ESTIMATE DECREASED; PLATELET MORPHOLOGY NORMAL; TOTAL CELLS COUNTED 100
[2016-04-12 11:45] LABS: BURR CELLS 1+; MACROCYTES 1+
[2016-04-12 12:05] LABS: BAND NEUTROPHILS % (MANUAL) 0 % (0-8); BASOPHILS % (MANUAL) 0 % (0-2); EOSINOPHILS % (MANUAL) 0 % (0-3); LYMPHOCYTES % (MANUAL) 5 % (20-45); NEUTROPHILS % (MANUAL) 87 % (45-75); PLATELET ESTIMATE DECREASED; PLATELET MORPHOLOGY NORMAL; TOTAL CELLS COUNTED 100
[2016-04-12 12:06] LABS: ANISOCYTOSIS 1+; BURR CELLS 1+; MACROCYTES 1+
[2016-04-12 12:07] LABS: HYPOCHROMASIA 1+
--- NOTE | 2016-04-12 13:09 | Infectious Diseases Prog Note ---
Assessment/Plan Assessment/Plan A: The patient is a 60-year-old male with leukocytosis ? source ro C Diff , Bacteremia Sepsis ? Low grade fever No evidence of Pna Chest x-ray, no acute process. PICC 04/10 Cirrhosis US : Cirrhosis with stigmata of portal hypertension including splenomegaly, ascites SP Para , no evidence of SBP Asthma PLAN: continue the patient on cefepime d# 3 Monitor CBC , BMP Monitor Cx ( Bl, Ur ) C Xray C Diff will hold on tips and stent placement in view of leukocytosis and possible a new infectious process Subjective Respiratory: Denies: dry cough, no symptoms, other, productive cough, shortness of breath Allergies: Coded Allergies: No Known Allergies (Unverified , 04/07/16) Objective Vital Signs Last 24 Hour Vital Signs Date Time Temp Pulse Resp B/P Pulse Ox O2 Delivery O2 Flow Rate FiO2 04/12/16 08:46 70 118/73 04/12/16 08:39 97.1 70 18 118/73 98 Room Air 04/12/16 07:00 Nasal Cannula 2.0 28 04/12/16 07:00 70 18 Nasal Cannula 2.0 28 04/12/16 07:00 98 Nasal Cannula 2.0 28 04/12/16 04:00 61 04/12/16 04:00 97.9 65 20 123/82 98 Room Air 04/12/16 00:45 63 118/69 04/12/16 00:30 97.0 63 20 168/74 100 Room Air 04/12/16 00:00 63 04/11/16 21:34 Nasal Cannula 2.0 28 04/11/16 21:34 98 Nasal Cannula 2.0 28 04/11/16 21:34 60 16 Nasal Cannula 2.0 28 04/11/16 20:00 97.9 60 18 121/62 Nasal Cannula 2.0 100 04/11/16 20:00 66 04/11/16 16:00 97.5 62 18 117/74 Nasal Cannula 2.0 100 04/11/16 16:00 62 Height (Feet): 5 Height (Inches): 0.00 Weight (Pounds): 183 HEENT: atraumatic Respiratory/Chest: chest wall non-tender, normal breath sounds Cardiovascular: regular rhythm Abdomen: soft, non tender, no organomegaly Microbiology Date/Time Source Procedure Growth Status 04/10/16 12:40 Ascities Fluid Gram Stain - Final Resulted 04/10/16 12:40 Ascities Fluid Body Fluid Culture - Preliminary NO GROWTH AFTER 48 HOURS Resulted Laboratory Tests Test 04/12/16 05:40 04/12/16 10:30 White Blood Count 19.3 K/UL (4.8-10.8) #H 14.7 K/UL (4.8-10.8) H Red Blood Count 2.46 M/UL (4.70-6.10) L 2.55 M/UL (4.70-6.10) L Hemoglobin 9.1 G/DL (14.2-18.0) L 9.2 G/DL (14.2-18.0) L Hematocrit 27.2 % (42.0-52.0) L 27.4 % (42.0-52.0) L Mean Corpuscular Volume 111 FL (80-99) H 107 FL (80-99) H Mean Corpuscular Hemoglobin 37.1 PG (27.0-31.0) H 35.9 PG (27.0-31.0) H Mean Corpuscular Hemoglobin Concent 33.6 G/DL (32.0-36.0) 33.5 G/DL (32.0-36.0) Red Cell Distribution Width 16.7 % (11.6-14.8) H 17.3 % (11.6-14.8) H Platelet Count 82 K/UL (150-450) L 66 K/UL (150-450) L Mean Platelet Volume 9.6 FL (6.5-10.1) 9.4 FL (6.5-10.1) Neutrophils (%) (Auto) % (45.0-75.0) % (45.0-75.0) Lymphocytes (%) (Auto) % (20.0-45.0) % (20.0-45.0) Monocytes (%) (Auto) % (1.0-10.0) % (1.0-10.0) Eosinophils (%) (Auto) % (0.0-3.0) % (0.0-3.0) Basophils (%) (Auto) % (0.0-2.0) % (0.0-2.0) Differential Total Cells Counted 100 100 Neutrophils % (Manual) 85 % (45-75) H 87 % (45-75) H Lymphocytes % (Manual) 5 % (20-45) L 5 % (20-45) L Monocytes % (Manual) 10 % (1-10) 8 % (1-10) Eosinophils % (Manual) 0 % (0-3) 0 % (0-3) Basophils % (Manual) 0 % (0-2) 0 % (0-2) Band Neutrophils 0 % (0-8) 0 % (0-8) Platelet Estimate Decreased L Decreased L Platelet Morphology Normal Normal Anisocytosis 1+ 1+ Macrocytosis 1+ 1+ [place] Cells 1+ 1+ Prothrombin Time 21.1 SEC (9.30-11.50) H Prothromb Time International Ratio 2.0 (0.9-1.1) H Sodium Level 137 mEQ/L (135-145) Potassium Level 4.0 mEQ/L (3.4-4.9) Chloride Level 105 mEQ/L (98-107) Carbon Dioxide Level 19 mEQ/L (20-30) L Anion Gap 13 (5-15) Blood Urea Nitrogen 24 mg/dL (7-23) H Creatinine 1.1 mg/dL (0.7-1.2) Estimat Glomerular Filtration Rate > 60 mL/min (>60) Glucose Level 128 mg/dL (74-106) H Calcium Level 8.2 mg/dL (8.6-10.2) L Magnesium Level 1.6 mg/dL (1.7-2.5) L Ammonia 58 umol/L (16-60) Hypochromasia 1+ Current Medications Medications (Trade) Dose Ordered Sig/Bernardino Route PRN Reason Start Time Stop Time Status Last Admin Dose Admin Albuterol/ Ipratropium (DuoNeb 0.5-3(2.5)mg/3ml) 3 ml Q4H PRN HHN Shortness of Breath 04/09/16 23:00 04/14/16 22:59 Cefepime HCl 1 gm/ Dextrose 50 ml @ 100 mls/hr Q8H IVPB 04/12/16 10:00 04/19/16 09:59 04/12/16 10:18 Dextrose (Dextrose 50%) STAT PRN IV Hypoglycemia 04/09/16 00:00 05/09/16 00:00 Furosemide 40 mg 40 mg EVERY 12 HOURS IV 04/10/16 21:00 05/10/16 20:59 04/12/16 08:46 Lactulose (Cephulac) 30 gm THREE TIMES A DAY ORAL 04/09/16 13:00 05/09/16 12:59 04/12/16 12:53 Magnesium Sulfate (Magnesium Sulfate 1gm/100ml) 100 ml @ 100 mls/hr Q1H IVPB 04/12/16 18:00 04/12/16 19:59 Metoprolol Succinate (Toprol XL) 200 mg DAILY ORAL 04/09/16 09:00 05/09/16 08:59 04/12/16 08:46 Pantoprazole (Protonix) 40 mg DAILY ORAL 04/09/16 09:00 05/09/16 08:59 04/12/16 08:45 Rifaximin (Xifaxan) 550 mg EVERY 12 HOURS ORAL 04/09/16 09:00 04/16/16 08:59 04/12/16 08:45 Spironolactone (Aldactone) 100 mg DAILY ORAL 04/10/16 10:00 05/10/16 09:59 04/12/16 09:57 JOANIE CRUZ M.D. Apr 12, 2016 13:09
[2016-04-12] MEDS ORDERED: Tubing IV Secondary IV ONE (15:16)
[2016-04-12] MEDS ORDERED: NS 275ml ONE (15:16)
--- NOTE | 2016-04-12 18:54 | General Progress Note ---
Assessment/Plan Assessment/Plan ASSESSMENT: 1. Anemia secondary to chronic disease. 2. Thrombocytopenia secondary to liver cirrhosis. >50k generally 3. Alcohol induced liver cirrhosis. awaiting tips 4. Decreased hemoglobin and hematocrit, rule out gastrointestinal bleed. 5. Splenomegaly 6. Cirrhosis of the liver status post paracentesis. 7. Coagulopathy . 8. Sepsis. RECOMMENDATIONS: 1. Monitor counts. Await TIPs 2. Transfuse as needed with hemoglobin goal >7.0 3. Transfuse of platelets goal>20k 4. Hepatitis panel negative 5. HIV negative 6. Ultrasound of the abdomen reviewed shows cirrhosis and splenomegaly 7. Reviewed anemia workup. 8. Peripheral smear to be reviewed. 9. Follow up Nephrology, Pulmonary, Renal , and GI recs 10. Continue pain meds 11. GI prophylaxis with PPI. 12. DVT prophylaxis with SCDs. 13. Discussed with staff. Thank you, Suresh Pizarro MD Subjective Constitutional: Reports: no symptoms HEENT: Reports: no symptoms Cardiovascular: Reports: no symptoms Respiratory: Reports: no symptoms Gastrointestinal/Abdominal: Reports: no symptoms Genitourinary: Reports: no symptoms Neurologic/Psychiatric: Reports: no symptoms Endocrine: Reports: no symptoms Hematologic/Lymphatic: Reports: anemia Allergies: Coded Allergies: No Known Allergies (Unverified , 04/07/16) Subjective s/p para, no bleeding overnight, awaiting tips Objective Last 24 Hour Vital Signs Date Time Temp Pulse Resp B/P Pulse Ox O2 Delivery O2 Flow Rate FiO2 04/12/16 16:00 96.8 62 14 134/81 100 Room Air 04/12/16 12:00 62 04/12/16 12:00 97.5 60 18 124/76 100 Room Air 04/12/16 08:46 70 118/73 04/12/16 08:39 97.1 70 18 118/73 98 Room Air 04/12/16 08:00 70 04/12/16 07:00 Nasal Cannula 2.0 28 04/12/16 07:00 70 18 Nasal Cannula 2.0 28 04/12/16 07:00 98 Nasal Cannula 2.0 28 04/12/16 04:00 61 04/12/16 04:00 97.9 65 20 123/82 98 Room Air 04/12/16 00:45 63 118/69 04/12/16 00:30 97.0 63 20 168/74 100 Room Air 04/12/16 00:00 63 04/11/16 21:34 Nasal Cannula 2.0 28 04/11/16 21:34 98 Nasal Cannula 2.0 28 04/11/16 21:34 60 16 Nasal Cannula 2.0 28 04/11/16 20:00 97.9 60 18 121/62 Nasal Cannula 2.0 100 04/11/16 20:00 66 Intake and Output 04/11/16 04/12/16 19:00 07:00 Intake Total 540 ml 100 ml Output Total 500 ml 600 ml Balance 40 ml -500 ml Intake Oral 240 ml IV Total 300 ml 100 ml Output Urine Total 500 ml 600 ml # Voids 6 Laboratory Tests 04/12/16 05:40: White Blood Count 19.3#H, Red Blood Count 2.46L, Hemoglobin 9.1L, Hematocrit 27.2L, Mean Corpuscular Volume 111H, Mean Corpuscular Hemoglobin 37.1H, Mean Corpuscular Hemoglobin Concent 33.6, Red Cell Distribution Width 16.7H, Platelet Count 82L, Mean Platelet Volume 9.6, Neutrophils (%) (Auto) , Lymphocytes (%) (Auto) , Monocytes (%) (Auto) , Eosinophils (%) (Auto) , Basophils (%) (Auto) , Differential Total Cells Counted 100, Neutrophils % ( Manual) 85H, Lymphocytes % (Manual) 5L, Monocytes % (Manual) 10, Eosinophils % ( Manual) 0, Basophils % (Manual) 0, Band Neutrophils 0, Platelet Estimate DecreasedL, Platelet Morphology Normal, Anisocytosis 1+, Macrocytosis 1+, [place] Cells 1+, Prothrombin Time 21.1H, Prothromb Time International Ratio 2.0H, Sodium Level 137, Potassium Level 4.0, Chloride Level 105, Carbon Dioxide Level 19L, Anion Gap 13, Blood Urea Nitrogen 24H, Creatinine 1.1, Estimat Glomerular Filtration Rate > 60, Glucose Level 128H, Calcium Level 8.2L, Magnesium Level 1.6L, Ammonia 58 04/12/16 10:30: White Blood Count 14.7H, Red Blood Count 2.55L, Hemoglobin 9.2L, Hematocrit 27.4L, Mean Corpuscular Volume 107H, Mean Corpuscular Hemoglobin 35.9H, Mean Corpuscular Hemoglobin Concent 33.5, Red Cell Distribution Width 17.3H, Platelet Count 66L, Mean Platelet Volume 9.4, Neutrophils (%) (Auto) , Lymphocytes (%) (Auto) , Monocytes (%) (Auto) , Eosinophils (%) (Auto) , Basophils (%) (Auto) , Differential Total Cells Counted 100, Neutrophils % ( Manual) 87H, Lymphocytes % (Manual) 5L, Monocytes % (Manual) 8, Eosinophils % ( Manual) 0, Basophils % (Manual) 0, Band Neutrophils 0, Platelet Estimate DecreasedL, Platelet Morphology Normal, Anisocytosis 1+, Macrocytosis 1+, [place] Cells 1+, Hypochromasia 1+ Height (Feet): 5 Height (Inches): 0.00 Weight (Pounds): 183 General Appearance: no apparent distress EENT: TMs normal Neck: normal inspection Cardiovascular: regular rhythm Respiratory/Chest: lungs clear Abdomen: normal bowel sounds Extremities: non-tender Edema: 1+ Leg (L), 1+ Leg (R) Edema: mild edema Neurologic: alert Skin: warm/dry Suresh Pizarro Apr 12, 2016 18:54
--- NOTE | 2016-04-12 20:01 | Pulmonology Progress Note ---
Assessment/Plan Assessment/Plan IMPRESSION: 1. Liver cirrhosis. 2. History of asthma. 3. Leukocytosis. DISCUSSION: US paracentesis done. Continue nasal o2; he is saturating well on nasal oxygen, and is not tachypneic. Subjective Interval Events: paracentesis results noted. Constitutional: Reports: no symptoms HEENT: Repors: no symptoms Respiratory: Reports: no symptoms Cardiovascular: Reports: no symptoms Gastrointestinal/Abdominal: Reports: no symptoms Allergies: Coded Allergies: No Known Allergies (Unverified , 04/07/16) Objective Last 24 Hour Vital Signs Date Time Temp Pulse Resp B/P Pulse Ox O2 Delivery O2 Flow Rate FiO2 04/12/16 19:31 100 Room Air 21 04/12/16 19:31 Room Air 21 04/12/16 19:29 61 20 Room Air 21 04/12/16 16:00 96.8 62 14 134/81 100 Room Air 04/12/16 12:00 62 04/12/16 12:00 97.5 60 18 124/76 100 Room Air 04/12/16 08:46 70 118/73 04/12/16 08:39 97.1 70 18 118/73 98 Room Air 04/12/16 08:00 70 04/12/16 07:00 Nasal Cannula 2.0 28 04/12/16 07:00 70 18 Nasal Cannula 2.0 28 04/12/16 07:00 98 Nasal Cannula 2.0 28 04/12/16 04:00 61 04/12/16 04:00 97.9 65 20 123/82 98 Room Air 04/12/16 00:45 63 118/69 04/12/16 00:30 97.0 63 20 168/74 100 Room Air 04/12/16 00:00 63 04/11/16 21:34 Nasal Cannula 2.0 28 04/11/16 21:34 98 Nasal Cannula 2.0 28 04/11/16 21:34 60 16 Nasal Cannula 2.0 28 Intake and Output 04/11/16 04/12/16 19:00 07:00 Intake Total 540 ml 100 ml Output Total 500 ml 600 ml Balance 40 ml -500 ml Intake Oral 240 ml IV Total 300 ml 100 ml Output Urine Total 500 ml 600 ml # Voids 6 General Appearance: no acute distress HEENT: normocephalic Respiratory/Chest: chest wall non-tender, lungs clear Cardiovascular: normal peripheral pulses, normal rate Abdomen: normal bowel sounds, soft, non tender Extremities: no cyanosis Microbiology Date/Time Source Procedure Growth Status 04/10/16 12:40 Ascities Fluid Gram Stain - Final Resulted 04/10/16 12:40 Ascities Fluid Body Fluid Culture - Preliminary NO GROWTH AFTER 48 HOURS Resulted Laboratory Tests 04/12/16 05:40: White Blood Count 19.3#H, Red Blood Count 2.46L, Hemoglobin 9.1L, Hematocrit 27.2L, Mean Corpuscular Volume 111H, Mean Corpuscular Hemoglobin 37.1H, Mean Corpuscular Hemoglobin Concent 33.6, Red Cell Distribution Width 16.7H, Platelet Count 82L, Mean Platelet Volume 9.6, Neutrophils (%) (Auto) , Lymphocytes (%) (Auto) , Monocytes (%) (Auto) , Eosinophils (%) (Auto) , Basophils (%) (Auto) , Differential Total Cells Counted 100, Neutrophils % ( Manual) 85H, Lymphocytes % (Manual) 5L, Monocytes % (Manual) 10, Eosinophils % ( Manual) 0, Basophils % (Manual) 0, Band Neutrophils 0, Platelet Estimate DecreasedL, Platelet Morphology Normal, Anisocytosis 1+, Macrocytosis 1+, [place] Cells 1+, Prothrombin Time 21.1H, Prothromb Time International Ratio 2.0H, Sodium Level 137, Potassium Level 4.0, Chloride Level 105, Carbon Dioxide Level 19L, Anion Gap 13, Blood Urea Nitrogen 24H, Creatinine 1.1, Estimat Glomerular Filtration Rate > 60, Glucose Level 128H, Calcium Level 8.2L, Magnesium Level 1.6L, Ammonia 58 04/12/16 10:30: White Blood Count 14.7H, Red Blood Count 2.55L, Hemoglobin 9.2L, Hematocrit 27.4L, Mean Corpuscular Volume 107H, Mean Corpuscular Hemoglobin 35.9H, Mean Corpuscular Hemoglobin Concent 33.5, Red Cell Distribution Width 17.3H, Platelet Count 66L, Mean Platelet Volume 9.4, Neutrophils (%) (Auto) , Lymphocytes (%) (Auto) , Monocytes (%) (Auto) , Eosinophils (%) (Auto) , Basophils (%) (Auto) , Differential Total Cells Counted 100, Neutrophils % ( Manual) 87H, Lymphocytes % (Manual) 5L, Monocytes % (Manual) 8, Eosinophils % ( Manual) 0, Basophils % (Manual) 0, Band Neutrophils 0, Platelet Estimate DecreasedL, Platelet Morphology Normal, Anisocytosis 1+, Macrocytosis 1+, Gris Cells 1+, Hypochromasia 1+ Current Medications Medications (Trade) Dose Ordered Sig/Bernardino Route PRN Reason Start Time Stop Time Status Last Admin Dose Admin Albuterol/ Ipratropium (DuoNeb 0.5-3(2.5)mg/3ml) 3 ml Q4H PRN HHN Shortness of Breath 04/09/16 23:00 04/14/16 22:59 Cefepime HCl/ Dextrose (Maxipime/D5W 50ml) 50 ml @ 100 mls/hr Q8H IVPB 04/12/16 10:00 04/19/16 09:59 04/12/16 18:10 Dextrose (Dextrose 50%) STAT PRN IV Hypoglycemia 04/09/16 00:00 05/09/16 00:00 Furosemide 40 mg 40 mg EVERY 12 HOURS IV 04/10/16 21:00 05/10/16 20:59 04/12/16 08:46 Lactulose (Cephulac) 30 gm THREE TIMES A DAY ORAL 04/09/16 13:00 05/09/16 12:59 04/12/16 18:09 Metoprolol Succinate (Toprol XL) 200 mg DAILY ORAL 04/09/16 09:00 05/09/16 08:59 04/12/16 08:46 Pantoprazole (Protonix) 40 mg DAILY ORAL 04/09/16 09:00 05/09/16 08:59 04/12/16 08:45 Rifaximin (Xifaxan) 550 mg EVERY 12 HOURS ORAL 04/09/16 09:00 04/16/16 08:59 04/12/16 08:45 Spironolactone (Aldactone) 100 mg DAILY ORAL 04/10/16 10:00 05/10/16 09:59 04/12/16 09:57 Oliver Sky MD Apr 12, 2016 20:01
[2016-04-13 04:24] VITALS: BP 111/56
[2016-04-13 06:52] LABS: MEAN CORPUSCULAR HEMOGLOBIN 35.9 PG (27.0-31.0); MEAN CORPUSCULAR HGB CONC 32.3 G/DL (32.0-36.0); MEAN CORPUSCULAR VOLUME 111 FL (80-99); MEAN PLATELET VOLUME 8.3 FL (6.5-10.1); PLATELET COUNT 51 K/UL (150-450); RED BLOOD COUNT 2.34 M/UL (4.70-6.10); RED CELL DISTRIBUTION WIDTH 16.8 % (11.6-14.8); WHITE BLOOD COUNT 8.9 K/UL (4.8-10.8)
[2016-04-13 07:09] LABS: ALANINE AMINOTRANSFERASE 20 U/L (3-41); ALBUMIN/GLOBULIN RATIO 0.8 (1.0-2.7); ANION GAP 11 (5-15); ASPARTATE AMINO TRANSFERASE 26 U/L (5-40); CALCIUM 7.9 mg/dL (8.6-10.2); CARBON DIOXIDE 20 mEQ/L (20-30); CHLORIDE 106 mEQ/L (98-107); GLOMERULAR FILTRATION RATE > 60 mL/min (>60); HEMOLYSIS 0; POTASSIUM 3.5 mEQ/L (3.4-4.9); SODIUM 137 mEQ/L (135-145); TOTAL PROTEIN 4.6 g/dL (6.6-8.7)
[2016-04-13 07:41] LABS: BILIRUBIN,DIRECT 2.5 mg/dL (0.1-0.3)
[2016-04-13 08:30] VITALS: BP 132/58
--- NOTE | 2016-04-13 08:49 | Pulmonology Progress Note ---
Assessment/Plan Assessment/Plan IMPRESSION: 1. Liver cirrhosis. 2. History of asthma. 3. Leukocytosis. DISCUSSION: US paracentesis done. Continue nasal o2; he is saturating well on nasal oxygen, and is not tachypneic. Subjective Interval Events: None new Constitutional: Reports: no symptoms HEENT: Repors: no symptoms Respiratory: Reports: no symptoms Cardiovascular: Reports: no symptoms Gastrointestinal/Abdominal: Reports: no symptoms Allergies: Coded Allergies: No Known Allergies (Unverified , 04/07/16) Objective Last 24 Hour Vital Signs Date Time Temp Pulse Resp B/P Pulse Ox O2 Delivery O2 Flow Rate FiO2 04/13/16 07:39 Room Air 04/13/16 07:38 98 Room Air 04/13/16 07:37 56 20 Room Air 04/13/16 04:24 96.8 54 18 111/56 100 Room Air 04/13/16 04:00 63 04/13/16 00:00 58 04/12/16 23:43 97.2 56 18 121/62 100 Room Air 04/12/16 20:10 96.8 59 14 118/66 98 Room Air 04/12/16 20:00 57 04/12/16 19:31 100 Room Air 21 04/12/16 19:31 Room Air 21 04/12/16 19:29 61 20 Room Air 21 04/12/16 16:00 96.8 62 14 134/81 100 Room Air 04/12/16 16:00 62 04/12/16 12:00 62 04/12/16 12:00 97.5 60 18 124/76 100 Room Air Intake and Output 04/12/16 04/13/16 19:00 07:00 Intake Total 50 ml 900 ml Output Total 850 ml 1900 ml Balance -800 ml -1000 ml Intake Oral 600 ml IV Total 50 ml 300 ml Output Urine Total 850 ml 1900 ml # Voids 3 # Bowel Movements 1 3 General Appearance: WD/WN HEENT: normocephalic, atraumatic Respiratory/Chest: chest wall non-tender, lungs clear Cardiovascular: normal peripheral pulses Microbiology Date/Time Source Procedure Growth Status 04/10/16 12:40 Ascities Fluid Gram Stain - Final Resulted 04/10/16 12:40 Ascities Fluid Body Fluid Culture - Preliminary NO GROWTH AFTER 72 HOURS Resulted 04/12/16 14:00 Stool Clostridium difficile Toxin Assay - Final Complete Laboratory Tests 04/12/16 10:30: White Blood Count 14.7H, Red Blood Count 2.55L, Hemoglobin 9.2L, Hematocrit 27.4L, Mean Corpuscular Volume 107H, Mean Corpuscular Hemoglobin 35.9H, Mean Corpuscular Hemoglobin Concent 33.5, Red Cell Distribution Width 17.3H, Platelet Count 66L, Mean Platelet Volume 9.4, Neutrophils (%) (Auto) , Lymphocytes (%) (Auto) , Monocytes (%) (Auto) , Eosinophils (%) (Auto) , Basophils (%) (Auto) , Differential Total Cells Counted 100, Neutrophils % ( Manual) 87H, Lymphocytes % (Manual) 5L, Monocytes % (Manual) 8, Eosinophils % ( Manual) 0, Basophils % (Manual) 0, Band Neutrophils 0, Platelet Estimate DecreasedL, Platelet Morphology Normal, Hypochromasia 1+, Anisocytosis 1+, Macrocytosis 1+, [place] Cells 1+ 04/13/16 05:00: White Blood Count 8.9, Red Blood Count 2.34L, Hemoglobin 8.4L, Hematocrit 26.0L , Mean Corpuscular Volume 111H, Mean Corpuscular Hemoglobin 35.9H, Mean Corpuscular Hemoglobin Concent 32.3, Red Cell Distribution Width 16.8H, Platelet Count 51L, Mean Platelet Volume 8.3, Neutrophils (%) (Auto) , Lymphocytes (%) (Auto) , Monocytes (%) (Auto) , Eosinophils (%) (Auto) , Basophils (%) (Auto) , Neutrophils % (Manual) [Pending], Lymphocytes % (Manual) [Pending], Platelet Estimate [Pending], Platelet Morphology [Pending], Sodium Level 137, Potassium Level 3.5, Chloride Level 106, Carbon Dioxide Level 20, Anion Gap 11, Blood Urea Nitrogen 24H, Creatinine 1.0, Estimat Glomerular Filtration Rate > 60, Glucose Level 121H, Calcium Level 7.9L, Magnesium Level 1.6L, Total Bilirubin 4.9H, Direct Bilirubin 2.5H, Aspartate Amino Transf (AST/ SGOT) 26, Alanine Aminotransferase (ALT/SGPT) 20, Alkaline Phosphatase 105, Total Protein 4.6L, Albumin 2.1L, Globulin 2.5, Albumin/Globulin Ratio 0.8L Current Medications Medications (Trade) Dose Ordered Sig/Bernardino Route PRN Reason Start Time Stop Time Status Last Admin Dose Admin Albuterol/ Ipratropium (DuoNeb 0.5-3(2.5)mg/3ml) 3 ml Q4H PRN HHN Shortness of Breath 04/09/16 23:00 04/14/16 22:59 Cefepime HCl/ Dextrose (Maxipime/D5W 50ml) 50 ml @ 100 mls/hr Q8H IVPB 04/12/16 10:00 04/19/16 09:59 04/13/16 02:28 Dextrose (Dextrose 50%) STAT PRN IV Hypoglycemia 04/09/16 00:00 05/09/16 00:00 Furosemide 40 mg 40 mg EVERY 12 HOURS IV 04/10/16 21:00 05/10/16 20:59 04/12/16 21:42 Lactulose (Cephulac) 30 gm THREE TIMES A DAY ORAL 04/09/16 13:00 05/09/16 12:59 04/12/16 18:09 Metoprolol Succinate (Toprol XL) 200 mg DAILY ORAL 04/09/16 09:00 05/09/16 08:59 04/12/16 08:46 Pantoprazole (Protonix) 40 mg DAILY ORAL 04/09/16 09:00 05/09/16 08:59 04/12/16 08:45 Rifaximin (Xifaxan) 550 mg EVERY 12 HOURS ORAL 04/09/16 09:00 04/16/16 08:59 04/12/16 21:42 Spironolactone (Aldactone) 100 mg DAILY ORAL 04/10/16 10:00 05/10/16 09:59 04/12/16 09:57 Oliver Sky MD Apr 13, 2016 08:49
--- NOTE | 2016-04-13 09:10 | General Progress Note ---
Assessment/Plan Assessment/Plan ASSESSMENT: 1. Anemia secondary to chronic disease. 2. Thrombocytopenia secondary to liver cirrhosis. >50k generally 3. Alcohol induced liver cirrhosis. awaiting tips procedure 4. Decreased hemoglobin and hematocrit, rule out gastrointestinal bleed. 5. Splenomegaly 6. Cirrhosis of the liver status post paracentesis. 7. Coagulopathy . 8. Sepsis. RECOMMENDATIONS: 1. Monitor counts. Await TIPs 2. Transfuse as needed with hemoglobin goal >7 3. Transfuse of platelets goal>20k 4. Hepatitis panel negative 5. HIV negative 6. Ultrasound of the abdomen shows cirrhosis and splenomegaly 7. Reviewed anemia workup. 8. Peripheral smear to be reviewed. 9. Follow up Nephrology, Pulm, Renal , and GI recs 10. Continue pain meds 11. GI prophylaxis with PPI. 12. DVT prophylaxis with SCDs. 13. Discussed with staff. Thank you, Sophia Pizarro MD Subjective Constitutional: Reports: no symptoms HEENT: Reports: no symptoms Cardiovascular: Reports: no symptoms Respiratory: Reports: no symptoms Gastrointestinal/Abdominal: Reports: poor appetite Genitourinary: Reports: no symptoms Neurologic/Psychiatric: Reports: no symptoms Endocrine: Reports: no symptoms Hematologic/Lymphatic: Reports: no symptoms Allergies: Coded Allergies: No Known Allergies (Unverified , 04/07/16) Subjective stable, not bleeding, no fevers, or chills Objective Last 24 Hour Vital Signs Date Time Temp Pulse Resp B/P Pulse Ox O2 Delivery O2 Flow Rate FiO2 04/13/16 07:39 Room Air 04/13/16 07:38 98 Room Air 04/13/16 07:37 56 20 Room Air 04/13/16 04:24 96.8 54 18 111/56 100 Room Air 04/13/16 04:00 63 04/13/16 00:00 58 04/12/16 23:43 97.2 56 18 121/62 100 Room Air 04/12/16 20:10 96.8 59 14 118/66 98 Room Air 04/12/16 20:00 57 04/12/16 19:31 100 Room Air 21 04/12/16 19:31 Room Air 21 04/12/16 19:29 61 20 Room Air 21 04/12/16 16:00 96.8 62 14 134/81 100 Room Air 04/12/16 16:00 62 04/12/16 12:00 62 04/12/16 12:00 97.5 60 18 124/76 100 Room Air Intake and Output 04/12/16 04/13/16 19:00 07:00 Intake Total 50 ml 900 ml Output Total 850 ml 1900 ml Balance -800 ml -1000 ml Intake Oral 600 ml IV Total 50 ml 300 ml Output Urine Total 850 ml 1900 ml # Voids 3 # Bowel Movements 1 3 Laboratory Tests 04/12/16 10:30: White Blood Count 14.7H, Red Blood Count 2.55L, Hemoglobin 9.2L, Hematocrit 27.4L, Mean Corpuscular Volume 107H, Mean Corpuscular Hemoglobin 35.9H, Mean Corpuscular Hemoglobin Concent 33.5, Red Cell Distribution Width 17.3H, Platelet Count 66L, Mean Platelet Volume 9.4, Neutrophils (%) (Auto) , Lymphocytes (%) (Auto) , Monocytes (%) (Auto) , Eosinophils (%) (Auto) , Basophils (%) (Auto) , Differential Total Cells Counted 100, Neutrophils % ( Manual) 87H, Lymphocytes % (Manual) 5L, Monocytes % (Manual) 8, Eosinophils % ( Manual) 0, Basophils % (Manual) 0, Band Neutrophils 0, Platelet Estimate DecreasedL, Platelet Morphology Normal, Hypochromasia 1+, Anisocytosis 1+, Macrocytosis 1+, Gris Cells 1+ 04/13/16 05:00: White Blood Count 8.9, Red Blood Count 2.34L, Hemoglobin 8.4L, Hematocrit 26.0L , Mean Corpuscular Volume 111H, Mean Corpuscular Hemoglobin 35.9H, Mean Corpuscular Hemoglobin Concent 32.3, Red Cell Distribution Width 16.8H, Platelet Count 51L, Mean Platelet Volume 8.3, Neutrophils (%) (Auto) , Lymphocytes (%) (Auto) , Monocytes (%) (Auto) , Eosinophils (%) (Auto) , Basophils (%) (Auto) , Neutrophils % (Manual) [Pending], Lymphocytes % (Manual) [Pending], Platelet Estimate [Pending], Platelet Morphology [Pending], Sodium Level 137, Potassium Level 3.5, Chloride Level 106, Carbon Dioxide Level 20, Anion Gap 11, Blood Urea Nitrogen 24H, Creatinine 1.0, Estimat Glomerular Filtration Rate > 60, Glucose Level 121H, Calcium Level 7.9L, Magnesium Level 1.6L, Total Bilirubin 4.9H, Direct Bilirubin 2.5H, Aspartate Amino Transf (AST/ SGOT) 26, Alanine Aminotransferase (ALT/SGPT) 20, Alkaline Phosphatase 105, Total Protein 4.6L, Albumin 2.1L, Globulin 2.5, Albumin/Globulin Ratio 0.8L Height (Feet): 5 Height (Inches): 0.00 Weight (Pounds): 182 General Appearance: no apparent distress EENT: TMs normal Neck: supple Cardiovascular: regular rhythm Respiratory/Chest: lungs clear Abdomen: no organomegaly Extremities: non-tender Edema: no edema noted Leg (L), no edema noted Leg (R) Edema: mild edema Neurologic: alert Skin: warm/dry SOPHIA PIZARRO Apr 13, 2016 09:10
[2016-04-13] MEDS: Spironolactone 50mg tab ORAL SCH (09:38)
[2016-04-13 09:44] LABS: ANISOCYTOSIS 1+; BAND NEUTROPHILS % (MANUAL) 0 % (0-8); BASOPHILS % (MANUAL) 0 % (0-2); EOSINOPHILS % (MANUAL) 1 % (0-3); HYPOCHROMASIA 1+; LYMPHOCYTES % (MANUAL) 11 % (20-45); MACROCYTES 1+; NEUTROPHILS % (MANUAL) 82 % (45-75); PLATELET ESTIMATE DECREASED; PLATELET MORPHOLOGY NORMAL; TOTAL CELLS COUNTED 100
[2016-04-13] MEDS: Metoprolol XL 100mg tab ORAL SCH (09:47)
[2016-04-13] MEDS: Rifaximin 550mg tab ORAL SCH ×2 (09:47→21:59)
[2016-04-13] MEDS: Lactulose 20gm/30ml UDC ORAL SCH ×3 (09:48→18:06)
--- NOTE | 2016-04-13 09:50 | Nephrology Progress Note ---
Assessment/Plan Problem List: (1) Asthma exacerbation Assessment: resolved. (2) Hypoalbuminemia (3) Alcoholic cirrhosis of liver with ascites (4) sepsis (5) Thrombocytopenia (6) Hyponatremia (7) Hypomagnesemia Plan cont banana bag per GI. cont lasix. replete k. elevate legs. Pending TIPS. Subjective Subjective appears comfortable. 3+ pitting edema. Objective Objective Last 24 Hour Vital Signs Date Time Temp Pulse Resp B/P Pulse Ox O2 Delivery O2 Flow Rate FiO2 04/13/16 09:47 58 132/75 04/13/16 07:39 Room Air 04/13/16 07:38 98 Room Air 04/13/16 07:37 56 20 Room Air 04/13/16 04:24 96.8 54 18 111/56 100 Room Air 04/13/16 04:00 63 04/13/16 00:00 58 04/12/16 23:43 97.2 56 18 121/62 100 Room Air 04/12/16 20:10 96.8 59 14 118/66 98 Room Air 04/12/16 20:00 57 04/12/16 19:31 100 Room Air 21 04/12/16 19:31 Room Air 21 04/12/16 19:29 61 20 Room Air 21 04/12/16 16:00 96.8 62 14 134/81 100 Room Air 04/12/16 16:00 62 04/12/16 12:00 62 04/12/16 12:00 97.5 60 18 124/76 100 Room Air Intake and Output 04/12/16 04/13/16 19:00 07:00 Intake Total 50 ml 900 ml Output Total 850 ml 1900 ml Balance -800 ml -1000 ml Intake Oral 600 ml IV Total 50 ml 300 ml Output Urine Total 850 ml 1900 ml # Voids 3 # Bowel Movements 1 3 Laboratory Tests 04/12/16 10:30: White Blood Count 14.7H, Red Blood Count 2.55L, Hemoglobin 9.2L, Hematocrit 27.4L, Mean Corpuscular Volume 107H, Mean Corpuscular Hemoglobin 35.9H, Mean Corpuscular Hemoglobin Concent 33.5, Red Cell Distribution Width 17.3H, Platelet Count 66L, Mean Platelet Volume 9.4, Neutrophils (%) (Auto) , Lymphocytes (%) (Auto) , Monocytes (%) (Auto) , Eosinophils (%) (Auto) , Basophils (%) (Auto) , Differential Total Cells Counted 100, Neutrophils % ( Manual) 87H, Lymphocytes % (Manual) 5L, Monocytes % (Manual) 8, Eosinophils % ( Manual) 0, Basophils % (Manual) 0, Band Neutrophils 0, Platelet Estimate DecreasedL, Platelet Morphology Normal, Hypochromasia 1+, Anisocytosis 1+, Macrocytosis 1+, [place] Cells 1+ 04/13/16 05:00: White Blood Count 8.9, Red Blood Count 2.34L, Hemoglobin 8.4L, Hematocrit 26.0L , Mean Corpuscular Volume 111H, Mean Corpuscular Hemoglobin 35.9H, Mean Corpuscular Hemoglobin Concent 32.3, Red Cell Distribution Width 16.8H, Platelet Count 51L, Mean Platelet Volume 8.3, Neutrophils (%) (Auto) , Lymphocytes (%) (Auto) , Monocytes (%) (Auto) , Eosinophils (%) (Auto) , Basophils (%) (Auto) , Differential Total Cells Counted 100, Neutrophils % ( Manual) 82H, Lymphocytes % (Manual) 11L, Monocytes % (Manual) 6, Eosinophils % ( Manual) 1, Basophils % (Manual) 0, Band Neutrophils 0, Platelet Estimate DecreasedL, Platelet Morphology Normal, Hypochromasia 1+, Anisocytosis 1+, Macrocytosis 1+, Sodium Level 137, Potassium Level 3.5, Chloride Level 106, Carbon Dioxide Level 20, Anion Gap 11, Blood Urea Nitrogen 24H, Creatinine 1.0, Estimat Glomerular Filtration Rate > 60, Glucose Level 121H, Calcium Level 7.9L , Magnesium Level 1.6L, Total Bilirubin 4.9H, Direct Bilirubin 2.5H, Aspartate Amino Transf (AST/SGOT) 26, Alanine Aminotransferase (ALT/SGPT) 20, Alkaline Phosphatase 105, Total Protein 4.6L, Albumin 2.1L, Globulin 2.5, Albumin/ Globulin Ratio 0.8L Height (Feet): 5 Height (Inches): 0.00 Weight (Pounds): 182 General Appearance: no apparent distress Cardiovascular: normal rate, regular rhythm Respiratory/Chest: decreased breath sounds Abdomen: soft, distended Extremities: severe edema, pitting Neurologic: alert ESTRELLITA MCCARTY Apr 13, 2016 09:50
--- NOTE | 2016-04-13 11:42 | Cardiac Electrophysiology PN ---
Assessment/Plan Status Narrative Technically difficult study due to poor acoustical windows. M-mode measurements of left ventricle not obtainable due to cardiac position (angle) Normal left ventricular chamber size, hyperdynamic systolic function and wall motion to extent visualized. Left ventricular ejection fraction estimated to be 70-75 %. Mild left ventricular hypertrophy. Anterior Echo-free space, may be due to pericardial fat or effusion. All other cardiac chamber sizes are within normal limits. Mild focal aortic valve sclerosis with adequate cusp excursion. Mildly thickened mitral valve leaflets with normal excursion. Mitral annulus and aortic root calcification. Normal pulmonic valve structure. Normal tricuspid valve structure. IVC at normal size with physiologic collapse. A color flow and spectral Doppler study was performed and revealed: Mild mitral regurgitation. Mitral diastolic velocities suggest reduced left ventricular relaxation c/w mild LV diastolic dysfunction (Grade I ). Trace tricuspid regurgitation. Tricuspid systolic velocities suggests peak right ventricular systolic pressure of 20 mmHg. Assessment/Plan 1. Paroxysmal atrial fibrillation. In SR on Toprol-XL 200 mg daily. His INR is still 2 off anticoagulation due to cirrhosis despite Vit K. 2. Leg edema and shortness of breath likely secondary to his cirrhosis. EF 70- 75%. On Lasix 40 iv bid and Aldactone. 3. Alcoholic cirrhosis with ascites on Aldactone 100 mg daily.Had Paracentesis 4. Sepsis with high WBC 19k on broad-spectrum antibiotics. 5. Anemia. 6. Hyponatremia likely from dilutional. 7. Thrombocytopenia likely secondary to splenomegaly and secondary to cirrhosis. ROB RN Subjective Subjective Feeling OK. No arrhythmias on tele.No chest pain or SOB. Had blood cultures today. Objective Last 24 Hour Vital Signs Date Time Temp Pulse Resp B/P Pulse Ox O2 Delivery O2 Flow Rate FiO2 04/13/16 09:47 58 132/75 04/13/16 08:30 97.2 54 18 132/58 100 Room Air 04/13/16 07:39 Room Air 04/13/16 07:38 98 Room Air 04/13/16 07:37 56 20 Room Air 04/13/16 04:24 96.8 54 18 111/56 100 Room Air 04/13/16 04:00 63 04/13/16 00:00 58 04/12/16 23:43 97.2 56 18 121/62 100 Room Air 04/12/16 20:10 96.8 59 14 118/66 98 Room Air 04/12/16 20:00 57 04/12/16 19:31 100 Room Air 21 04/12/16 19:31 Room Air 21 04/12/16 19:29 61 20 Room Air 21 04/12/16 16:00 96.8 62 14 134/81 100 Room Air 04/12/16 16:00 62 04/12/16 12:00 62 04/12/16 12:00 97.5 60 18 124/76 100 Room Air Intake and Output 04/12/16 04/13/16 19:00 07:00 Intake Total 50 ml 900 ml Output Total 850 ml 1900 ml Balance -800 ml -1000 ml Intake Oral 600 ml IV Total 50 ml 300 ml Output Urine Total 850 ml 1900 ml # Voids 3 # Bowel Movements 1 3 Laboratory Tests Test 04/13/16 05:00 White Blood Count 8.9 K/UL (4.8-10.8) Red Blood Count 2.34 M/UL (4.70-6.10) L Hemoglobin 8.4 G/DL (14.2-18.0) L Hematocrit 26.0 % (42.0-52.0) L Mean Corpuscular Volume 111 FL (80-99) H Mean Corpuscular Hemoglobin 35.9 PG (27.0-31.0) H Mean Corpuscular Hemoglobin Concent 32.3 G/DL (32.0-36.0) Red Cell Distribution Width 16.8 % (11.6-14.8) H Platelet Count 51 K/UL (150-450) L Mean Platelet Volume 8.3 FL (6.5-10.1) Neutrophils (%) (Auto) % (45.0-75.0) Lymphocytes (%) (Auto) % (20.0-45.0) Monocytes (%) (Auto) % (1.0-10.0) Eosinophils (%) (Auto) % (0.0-3.0) Basophils (%) (Auto) % (0.0-2.0) Differential Total Cells Counted 100 Neutrophils % (Manual) 82 % (45-75) H Lymphocytes % (Manual) 11 % (20-45) L Monocytes % (Manual) 6 % (1-10) Eosinophils % (Manual) 1 % (0-3) Basophils % (Manual) 0 % (0-2) Band Neutrophils 0 % (0-8) Platelet Estimate Decreased L Platelet Morphology Normal Hypochromasia 1+ Anisocytosis 1+ Macrocytosis 1+ Sodium Level 137 mEQ/L (135-145) Potassium Level 3.5 mEQ/L (3.4-4.9) Chloride Level 106 mEQ/L (98-107) Carbon Dioxide Level 20 mEQ/L (20-30) Anion Gap 11 (5-15) Blood Urea Nitrogen 24 mg/dL (7-23) H Creatinine 1.0 mg/dL (0.7-1.2) Estimat Glomerular Filtration Rate > 60 mL/min (>60) Glucose Level 121 mg/dL (74-106) H Calcium Level 7.9 mg/dL (8.6-10.2) L Magnesium Level 1.6 mg/dL (1.7-2.5) L Total Bilirubin 4.9 mg/dL (0.0-1.2) H Direct Bilirubin 2.5 mg/dL (0.1-0.3) H Aspartate Amino Transf (AST/SGOT) 26 U/L (5-40) Alanine Aminotransferase (ALT/SGPT) 20 U/L (3-41) Alkaline Phosphatase 105 U/L (40-129) Total Protein 4.6 g/dL (6.6-8.7) L Albumin 2.1 g/dL (3.5-5.2) L Globulin 2.5 g/dL Albumin/Globulin Ratio 0.8 (1.0-2.7) L Microbiology Date/Time Source Procedure Growth Status 04/10/16 12:40 Ascities Fluid Gram Stain - Final Resulted 04/10/16 12:40 Ascities Fluid Body Fluid Culture - Preliminary NO GROWTH AFTER 72 HOURS Resulted 04/12/16 14:00 Stool Clostridium difficile Toxin Assay - Final Complete 04/12/16 14:00 Urine,Clean Catch Urine Culture - Preliminary Streptococcus Species Resulted Objective HEAD AND NECK: Shows positive JVD. LUNGS: Decreased breath sounds. CARDIOVASCULAR: Shows regular S1 and S2 with no gallop or murmur. ABDOMEN: Distended. Ascites. EXTREMITIES: A 2+ pitting edema. MUKESH IZAGUIRRE Apr 13, 2016 11:42
[2016-04-13 12:00] VITALS: BP 131/71
[2016-04-13 16:00] VITALS: BP 126/72
[2016-04-13 21:00] VITALS: BP 134/67
[2016-04-14] VITALS: BP 124/62
--- NOTE | 2016-04-14 00:17 | Progress Note ---
SUBJECTIVE: This is a 60 years old, male, came due to the drug overdose. The patient is currently more awake, comfortable, in no distress. PAST MEDICAL HISTORY: Significant for substance abuse. ALLERGIES: NKA. FAMILY HISTORY: Noncontributory. SOCIAL HISTORY: Lives at home. PHYSICAL EXAMINATION: GENERAL: This is a younger male, who is currently awake, comfortable, in no distress. VITAL SIGNS: Blood pressure is 130/70, pulse 74, and respirations 18. No fever. HEENT: NAD. CHEST: Bilaterally clear. CARDIOVASCULAR: Regular rhythm. No gallop. No murmur. ABDOMEN: Soft. Positive bowel sounds. Nontender. EXTREMITIES: CCE. NEUROLOGIC: No focal deficit. ASSESSMENT: 1. Drug overdose. 2. Substance abuse. The patient is clinically improved. PLAN: Continue current treatment. Discussed with Dr. Chiu. Chepe Valdez M.D. DR: SCOTTY JOB#: [id number] CC:
[2016-04-14 04:00] VITALS: BP 115/65
--- NOTE | 2016-04-14 06:29 | General Progress Note ---
Assessment/Plan Assessment/Plan ASSESSMENT: 1. Anemia secondary to chronic disease. 2. Thrombocytopenia secondary to liver cirrhosis. >50k generally 3. Alcohol induced liver cirrhosis. awaiting tips procedure 4. Decreased hemoglobin and hematocrit, rule out gastrointestinal bleed. 5. Splenomegaly 6. Cirrhosis of the liver status post paracentesis. 7. Coagulopathy . 8. Sepsis. RECOMMENDATIONS: 1. Monitor counts. Await TIPs 2. Transfuse as needed with hemoglobin goal >7 3. Transfuse of platelets goal>20k 4. Hepatitis panel negative 5. HIV negative 6. Ultrasound of the abdomen shows cirrhosis and splenomegaly 7. Reviewed anemia workup. 8. Follow up Nephrology, Pulm, Renal , and GI recs 9. Continue pain meds 10. GI prophylaxis with PPI. 11. DVT prophylaxis with SCDs. 12. Discussed with staff. Thank you, Sophia Pizarro MD Subjective Constitutional: Reports: no symptoms HEENT: Reports: no symptoms Cardiovascular: Reports: no symptoms Respiratory: Reports: no symptoms Gastrointestinal/Abdominal: Reports: poor appetite Genitourinary: Reports: no symptoms Neurologic/Psychiatric: Reports: no symptoms Endocrine: Reports: no symptoms Hematologic/Lymphatic: Reports: anemia Allergies: Coded Allergies: No Known Allergies (Unverified , 04/07/16) Subjective stable, not bleeding, no chills Objective Last 24 Hour Vital Signs Date Time Temp Pulse Resp B/P Pulse Ox O2 Delivery O2 Flow Rate FiO2 04/14/16 04:00 97.7 62 20 115/65 92 Room Air 04/14/16 03:54 58 04/14/16 00:00 97.9 65 18 124/62 100 Room Air 04/13/16 23:49 66 04/13/16 21:00 98.2 62 18 134/67 100 Room Air 04/13/16 19:19 63 04/13/16 19:10 62 20 Room Air 04/13/16 19:05 Room Air 04/13/16 19:05 96 Room Air 04/13/16 16:00 97.3 59 19 126/72 100 Room Air 04/13/16 16:00 61 04/13/16 12:00 97.0 53 20 131/71 98 Room Air 04/13/16 09:47 58 132/75 04/13/16 08:30 97.2 54 18 132/58 100 Room Air 04/13/16 08:00 69 04/13/16 07:39 Room Air 04/13/16 07:38 98 Room Air 04/13/16 07:37 56 20 Room Air Intake and Output 04/13/16 04/14/16 19:00 07:00 Intake Total 500 ml 340 ml Output Total 600 ml 1925 ml Balance -100 ml -1585 ml Intake Oral 500 ml 240 ml IV Total 100 ml Output Urine Total 600 ml 1625 ml Stool Total 300 ml # Voids 2 # Bowel Movements 4 2 Height (Feet): 5 Height (Inches): 0.00 Weight (Pounds): 182 General Appearance: no apparent distress EENT: TMs normal Neck: normal inspection Cardiovascular: normal rate Respiratory/Chest: normal breath sounds Extremities: non-tender Edema: 1+ Leg (L), 1+ Leg (R) Edema: mild edema Neurologic: oriented x 3 Skin: warm/dry SOPHIA PIZARRO Apr 14, 2016 06:29
[2016-04-14 07:51] LABS: MEAN CORPUSCULAR HEMOGLOBIN 35.7 PG (27.0-31.0); MEAN CORPUSCULAR HGB CONC 32.3 G/DL (32.0-36.0); MEAN CORPUSCULAR VOLUME 110 FL (80-99); MEAN PLATELET VOLUME 9.2 FL (6.5-10.1); PLATELET COUNT 42 K/UL (150-450); RED CELL DISTRIBUTION WIDTH 16.4 % (11.6-14.8); WHITE BLOOD COUNT 6.2 K/UL (4.8-10.8)
[2016-04-14 08:00] VITALS: BP 122/66
[2016-04-14 08:07] LABS: ALANINE AMINOTRANSFERASE 20 U/L (3-41); ALBUMIN/GLOBULIN RATIO 0.9 (1.0-2.7); ANION GAP 14 (5-15); ASPARTATE AMINO TRANSFERASE 29 U/L (5-40); CARBON DIOXIDE 20 mEQ/L (20-30); CHLORIDE 100 mEQ/L (98-107); CREATININE 0.8 mg/dL (0.7-1.2); GLOMERULAR FILTRATION RATE > 60 mL/min (>60); HEMOLYSIS 8; MAGNESIUM 1.2 mg/dL (1.7-2.5); PHOSPHORUS 2.7 mg/dL (2.5-4.8); POTASSIUM 3.5 mEQ/L (3.4-4.9); SODIUM 134 mEQ/L (135-145); TOTAL PROTEIN 4.4 g/dL (6.6-8.7)
[2016-04-14 08:33] LABS: BILIRUBIN,DIRECT 2.2 mg/dL (0.1-0.3)
--- NOTE | 2016-04-14 09:12 | Pulmonology Progress Note ---
Assessment/Plan Assessment/Plan IMPRESSION: 1. Liver cirrhosis. 2. History of asthma. 3. Leukocytosis. Resolved DISCUSSION: US paracentesis done. No SBP Continue nasal o2prn; presently on RA; Sao2 95% Saturating well on RA; no pneumonia; leucocytosis resolved. Subjective Interval Events: Saturating well on RA; no pneumonia; leucocytosis resolved. Constitutional: Reports: no symptoms HEENT: Repors: no symptoms Respiratory: Reports: no symptoms Cardiovascular: Reports: no symptoms Gastrointestinal/Abdominal: Reports: no symptoms Genitourinary: Reports: no symptoms Allergies: Coded Allergies: No Known Allergies (Unverified , 04/07/16) Objective Last 24 Hour Vital Signs Date Time Temp Pulse Resp B/P Pulse Ox O2 Delivery O2 Flow Rate FiO2 04/14/16 08:23 94 Room Air 04/14/16 08:23 63 20 Room Air 04/14/16 08:23 Room Air 04/14/16 04:00 97.7 62 20 115/65 92 Room Air 04/14/16 03:54 58 04/14/16 00:00 97.9 65 18 124/62 100 Room Air 04/13/16 23:49 66 04/13/16 21:00 98.2 62 18 134/67 100 Room Air 04/13/16 19:19 63 04/13/16 19:10 62 20 Room Air 04/13/16 19:05 Room Air 04/13/16 19:05 96 Room Air 04/13/16 16:00 97.3 59 19 126/72 100 Room Air 04/13/16 16:00 61 04/13/16 12:00 97.0 53 20 131/71 98 Room Air 04/13/16 09:47 58 132/75 Intake and Output 04/13/16 04/14/16 19:00 07:00 Intake Total 500 ml 340 ml Output Total 600 ml 1925 ml Balance -100 ml -1585 ml Intake Oral 500 ml 240 ml IV Total 100 ml Output Urine Total 600 ml 1625 ml Stool Total 300 ml # Voids 2 # Bowel Movements 4 2 General Appearance: no acute distress HEENT: normocephalic Respiratory/Chest: chest wall non-tender, lungs clear Cardiovascular: normal peripheral pulses, normal rate Abdomen: normal bowel sounds Microbiology Date/Time Source Procedure Growth Status 04/13/16 05:00 Blood Blood Culture - Preliminary NO GROWTH AFTER 24 HOURS Resulted 04/13/16 05:00 Blood Blood Culture - Preliminary NO GROWTH AFTER 24 HOURS Resulted 04/12/16 14:00 Stool Clostridium difficile Toxin Assay - Final Complete 04/12/16 14:00 Urine,Clean Catch Urine Culture - Preliminary Streptococcus Species Resulted Laboratory Tests 04/14/16 06:45: White Blood Count 6.2, Red Blood Count 2.30L, Hemoglobin 8.2L, Hematocrit 25.4L , Mean Corpuscular Volume 110H, Mean Corpuscular Hemoglobin 35.7H, Mean Corpuscular Hemoglobin Concent 32.3, Red Cell Distribution Width 16.4H, Platelet Count 42L, Mean Platelet Volume 9.2, Neutrophils (%) (Auto) , Lymphocytes (%) (Auto) , Monocytes (%) (Auto) , Eosinophils (%) (Auto) , Basophils (%) (Auto) , Neutrophils % (Manual) [Pending], Lymphocytes % (Manual) [Pending], Platelet Estimate [Pending], Platelet Morphology [Pending], Sodium Level 134L, Potassium Level 3.5, Chloride Level 100, Carbon Dioxide Level 20, Anion Gap 14, Blood Urea Nitrogen 23, Creatinine 0.8, Estimat Glomerular Filtration Rate > 60, Glucose Level 105, Calcium Level 8.0L, Phosphorus Level 2.7, Magnesium Level 1.2L, Total Bilirubin 4.7H, Direct Bilirubin 2.2H, Aspartate Amino Transf (AST/SGOT) 29, Alanine Aminotransferase (ALT/SGPT) 20, Alkaline Phosphatase 112, Pro-B-Type Natriuretic Peptide 387H, Total Protein 4.4L, Albumin 2.1L, Globulin 2.3, Albumin/Globulin Ratio 0.9L Current Medications Medications (Trade) Dose Ordered Sig/Bernardino Route PRN Reason Start Time Stop Time Status Last Admin Dose Admin Albuterol/ Ipratropium (DuoNeb 0.5-3(2.5)mg/3ml) 3 ml Q4H PRN HHN Shortness of Breath 04/09/16 23:00 04/14/16 22:59 Cefepime HCl/ Dextrose (Maxipime/D5W 50ml) 50 ml @ 100 mls/hr Q8H IVPB 04/12/16 10:00 04/19/16 09:59 04/14/16 02:13 Dextrose (Dextrose 50%) STAT PRN IV Hypoglycemia 04/09/16 00:00 05/09/16 00:00 Furosemide 40 mg 40 mg EVERY 12 HOURS IV 04/10/16 21:00 05/10/16 20:59 04/13/16 21:59 Lactulose (Cephulac) 30 gm THREE TIMES A DAY ORAL 04/09/16 13:00 05/09/16 12:59 04/13/16 18:06 Metoprolol Succinate (Toprol XL) 200 mg DAILY ORAL 04/09/16 09:00 05/09/16 08:59 04/13/16 09:47 Pantoprazole (Protonix) 40 mg DAILY ORAL 04/09/16 09:00 05/09/16 08:59 04/12/16 08:45 Potassium Chloride (K-Dur) 20 meq TWICE A DAY ORAL 04/13/16 18:00 05/13/16 17:59 04/13/16 18:15 Rifaximin (Xifaxan) 550 mg EVERY 12 HOURS ORAL 04/09/16 09:00 04/16/16 08:59 04/13/16 21:59 Spironolactone (Aldactone) 100 mg DAILY ORAL 04/10/16 10:00 05/10/16 09:59 04/13/16 09:38 Oliver Sky MD Apr 14, 2016 09:12
[2016-04-14] MEDS: Rifaximin 550mg tab ORAL SCH ×2 (09:37→20:20)
[2016-04-14] MEDS: Spironolactone 50mg tab ORAL SCH (09:38)
[2016-04-14] MEDS: Metoprolol XL 100mg tab ORAL SCH (09:38)
[2016-04-14] MEDS: Lactulose 20gm/30ml UDC ORAL SCH ×3 (09:39→18:07)
[2016-04-14 10:12] LABS: ANISOCYTOSIS 1+; BAND NEUTROPHILS % (MANUAL) 0 % (0-8); BASOPHILS % (MANUAL) 0 % (0-2); EOSINOPHILS % (MANUAL) 2 % (0-3); HYPOCHROMASIA 1+; LYMPHOCYTES % (MANUAL) 7 % (20-45); MACROCYTES 1+; NEUTROPHILS % (MANUAL) 81 % (45-75); PLATELET ESTIMATE DECREASED; PLATELET MORPHOLOGY NORMAL; TOTAL CELLS COUNTED 100
--- NOTE | 2016-04-14 10:29 | Diagnostic Imaging Report ---
Indication: Shortness of breath Technique: One view of the chest Comparison: 04/07/2016 Findings: There is elevation right hemidiaphragm. There is a left arm PICC. The heart is more enlarged. No definite infiltrates, effusions, or congestion. There is some retrocardiac atelectasis. Compared to the prior study, the PICC is a new finding Impression: No definite acute process. Findings as noted
--- NOTE | 2016-04-14 10:32 | Diagnostic Imaging Report ---
Indications: Abdominal ascites Technique: Ultrasound used to localize optimal puncture site. Sterile prepping and draping right lower quadrant. Local anesthesia with 1% lidocaine. Under real-time ultrasound guidance, puncture peritoneal space using paracentesis needle. Stylet removed. Catheter placed to vacuum bottle suction. Total 3.8 liters of yellow fluid aspirated. Patient tolerated procedure well, without immediate complication. Findings: Followup sonography demonstrates complete resolution of peritoneal fluid. Impression: Successful ultrasound-guided paracentesis, yielding 3.8 liters of fluid
--- NOTE | 2016-04-14 11:46 | Cardiac Electrophysiology PN ---
Assessment/Plan Status Narrative Technically difficult study due to poor acoustical windows. M-mode measurements of left ventricle not obtainable due to cardiac position (angle) Normal left ventricular chamber size, hyperdynamic systolic function and wall motion to extent visualized. Left ventricular ejection fraction estimated to be 70-75 %. Mild left ventricular hypertrophy. Anterior Echo-free space, may be due to pericardial fat or effusion. All other cardiac chamber sizes are within normal limits. Mild focal aortic valve sclerosis with adequate cusp excursion. Mildly thickened mitral valve leaflets with normal excursion. Mitral annulus and aortic root calcification. Normal pulmonic valve structure. Normal tricuspid valve structure. IVC at normal size with physiologic collapse. A color flow and spectral Doppler study was performed and revealed: Mild mitral regurgitation. Mitral diastolic velocities suggest reduced left ventricular relaxation c/w mild LV diastolic dysfunction (Grade I ). Trace tricuspid regurgitation. Tricuspid systolic velocities suggests peak right ventricular systolic pressure of 20 mmHg. Assessment/Plan 1. Paroxysmal atrial fibrillation. In SR on Toprol-XL 200 mg daily. INR 2 on 04/12 off anticoagulation due to cirrhosis despite Vit K. Repeat INR today 2. Leg edema and shortness of breath likely secondary to his cirrhosis. EF 70- 75%. On Lasix 40 iv bid and Aldactone 100 po daily. Better. 3. Alcoholic cirrhosis with ascites on Aldactone 100 mg daily.S/P Paracentesis 4. Sepsis with high WBC 19k on broad-spectrum antibiotics.No SBP. 5. Anemia. 6. Hyponatremia likely from dilutional. 7. Thrombocytopenia likely secondary to splenomegaly and secondary to cirrhosis. ROB RN Subjective Subjective Feeling OK. Walking in the hallway with the therapist. No arrhythmias on tele.No chest pain or SOB. Objective Last 24 Hour Vital Signs Date Time Temp Pulse Resp B/P Pulse Ox O2 Delivery O2 Flow Rate FiO2 04/14/16 09:38 63 125/65 04/14/16 08:23 94 Room Air 04/14/16 08:23 63 20 Room Air 04/14/16 08:23 Room Air 04/14/16 04:00 97.7 62 20 115/65 92 Room Air 04/14/16 03:54 58 04/14/16 00:00 97.9 65 18 124/62 100 Room Air 04/13/16 23:49 66 04/13/16 21:00 98.2 62 18 134/67 100 Room Air 04/13/16 19:19 63 04/13/16 19:10 62 20 Room Air 04/13/16 19:05 Room Air 04/13/16 19:05 96 Room Air 04/13/16 16:00 97.3 59 19 126/72 100 Room Air 04/13/16 16:00 61 04/13/16 12:00 97.0 53 20 131/71 98 Room Air Intake and Output 04/13/16 04/14/16 19:00 07:00 Intake Total 500 ml 340 ml Output Total 600 ml 1925 ml Balance -100 ml -1585 ml Intake Oral 500 ml 240 ml IV Total 100 ml Output Urine Total 600 ml 1625 ml Stool Total 300 ml # Voids 2 # Bowel Movements 4 2 Laboratory Tests Test 04/14/16 06:45 White Blood Count 6.2 K/UL (4.8-10.8) Red Blood Count 2.30 M/UL (4.70-6.10) L Hemoglobin 8.2 G/DL (14.2-18.0) L Hematocrit 25.4 % (42.0-52.0) L Mean Corpuscular Volume 110 FL (80-99) H Mean Corpuscular Hemoglobin 35.7 PG (27.0-31.0) H Mean Corpuscular Hemoglobin Concent 32.3 G/DL (32.0-36.0) Red Cell Distribution Width 16.4 % (11.6-14.8) H Platelet Count 42 K/UL (150-450) L Mean Platelet Volume 9.2 FL (6.5-10.1) Neutrophils (%) (Auto) % (45.0-75.0) Lymphocytes (%) (Auto) % (20.0-45.0) Monocytes (%) (Auto) % (1.0-10.0) Eosinophils (%) (Auto) % (0.0-3.0) Basophils (%) (Auto) % (0.0-2.0) Differential Total Cells Counted 100 Neutrophils % (Manual) 81 % (45-75) H Lymphocytes % (Manual) 7 % (20-45) L Monocytes % (Manual) 10 % (1-10) Eosinophils % (Manual) 2 % (0-3) Basophils % (Manual) 0 % (0-2) Band Neutrophils 0 % (0-8) Platelet Estimate Decreased L Platelet Morphology Normal Hypochromasia 1+ Anisocytosis 1+ Macrocytosis 1+ Sodium Level 134 mEQ/L (135-145) L Potassium Level 3.5 mEQ/L (3.4-4.9) Chloride Level 100 mEQ/L (98-107) Carbon Dioxide Level 20 mEQ/L (20-30) Anion Gap 14 (5-15) Blood Urea Nitrogen 23 mg/dL (7-23) Creatinine 0.8 mg/dL (0.7-1.2) Estimat Glomerular Filtration Rate > 60 mL/min (>60) Glucose Level 105 mg/dL (74-106) Calcium Level 8.0 mg/dL (8.6-10.2) L Phosphorus Level 2.7 mg/dL (2.5-4.8) Magnesium Level 1.2 mg/dL (1.7-2.5) L Total Bilirubin 4.7 mg/dL (0.0-1.2) H Direct Bilirubin 2.2 mg/dL (0.1-0.3) H Aspartate Amino Transf (AST/SGOT) 29 U/L (5-40) Alanine Aminotransferase (ALT/SGPT) 20 U/L (3-41) Alkaline Phosphatase 112 U/L (40-129) Pro-B-Type Natriuretic Peptide 387 pg/mL (0-125) H Total Protein 4.4 g/dL (6.6-8.7) L Albumin 2.1 g/dL (3.5-5.2) L Globulin 2.3 g/dL Albumin/Globulin Ratio 0.9 (1.0-2.7) L Microbiology Date/Time Source Procedure Growth Status 04/13/16 05:00 Blood Blood Culture - Preliminary NO GROWTH AFTER 24 HOURS Resulted 04/13/16 05:00 Blood Blood Culture - Preliminary NO GROWTH AFTER 24 HOURS Resulted 04/12/16 14:00 Stool Clostridium difficile Toxin Assay - Final Complete 04/12/16 14:00 Urine,Clean Catch Urine Culture - Final Enterococcus Faecium - Vre Complete Objective HEAD AND NECK: No JVD. LUNGS: Decreased breath sounds. CARDIOVASCULAR: Shows regular S1 and S2 with no gallop or murmur. ABDOMEN: Distended. Ascites. EXTREMITIES: 2+ pitting edema. MUKESH IZAGUIRRE Apr 14, 2016 11:46
[2016-04-14 11:53] VITALS: BP 114/69
--- NOTE | 2016-04-14 12:24 | General Progress Note ---
Assessment/Plan Problem List: (1) Anemia ICD Codes: D64.9 - Anemia, unspecified SNOMED: 577527854 (2) Alcoholic cirrhosis of liver with ascites ICD Codes: K70.31 - Alcoholic cirrhosis of liver with ascites SNOMED: 249016714 (3) Thrombocytopenia ICD Codes: D69.6 - Thrombocytopenia, unspecified SNOMED: 503411182 (4) Hyponatremia ICD Codes: E87.1 - Hypo-osmolality and hyponatremia SNOMED: 57615489 Assessment/Plan pending IR procedure and balloon dilatation of the tips continue current meds fu Subjective ROS Limited/Unobtainable: Yes Allergies: Coded Allergies: No Known Allergies (Unverified , 04/07/16) Subjective no event Objective Last 24 Hour Vital Signs Date Time Temp Pulse Resp B/P Pulse Ox O2 Delivery O2 Flow Rate FiO2 04/14/16 11:53 97.9 66 20 114/69 92 Room Air 04/14/16 09:38 63 125/65 04/14/16 08:23 94 Room Air 04/14/16 08:23 63 20 Room Air 04/14/16 08:23 Room Air 04/14/16 08:00 69 04/14/16 08:00 97.7 62 20 122/66 92 Room Air 04/14/16 04:00 97.7 62 20 115/65 92 Room Air 04/14/16 03:54 58 04/14/16 00:00 97.9 65 18 124/62 100 Room Air 04/13/16 23:49 66 04/13/16 21:00 98.2 62 18 134/67 100 Room Air 04/13/16 19:19 63 04/13/16 19:10 62 20 Room Air 04/13/16 19:05 Room Air 04/13/16 19:05 96 Room Air 04/13/16 16:00 97.3 59 19 126/72 100 Room Air 04/13/16 16:00 61 Intake and Output 04/13/16 04/14/16 19:00 07:00 Intake Total 500 ml 340 ml Output Total 600 ml 1925 ml Balance -100 ml -1585 ml Intake Oral 500 ml 240 ml IV Total 100 ml Output Urine Total 600 ml 1625 ml Stool Total 300 ml # Voids 2 # Bowel Movements 4 2 Laboratory Tests 04/14/16 06:45: White Blood Count 6.2, Red Blood Count 2.30L, Hemoglobin 8.2L, Hematocrit 25.4L , Mean Corpuscular Volume 110H, Mean Corpuscular Hemoglobin 35.7H, Mean Corpuscular Hemoglobin Concent 32.3, Red Cell Distribution Width 16.4H, Platelet Count 42L, Mean Platelet Volume 9.2, Neutrophils (%) (Auto) , Lymphocytes (%) (Auto) , Monocytes (%) (Auto) , Eosinophils (%) (Auto) , Basophils (%) (Auto) , Differential Total Cells Counted 100, Neutrophils % ( Manual) 81H, Lymphocytes % (Manual) 7L, Monocytes % (Manual) 10, Eosinophils % ( Manual) 2, Basophils % (Manual) 0, Band Neutrophils 0, Platelet Estimate DecreasedL, Platelet Morphology Normal, Hypochromasia 1+, Anisocytosis 1+, Macrocytosis 1+, Sodium Level 134L, Potassium Level 3.5, Chloride Level 100, Carbon Dioxide Level 20, Anion Gap 14, Blood Urea Nitrogen 23, Creatinine 0.8, Estimat Glomerular Filtration Rate > 60, Glucose Level 105, Calcium Level 8.0L, Phosphorus Level 2.7, Magnesium Level 1.2L, Total Bilirubin 4.7H, Direct Bilirubin 2.2H, Aspartate Amino Transf (AST/SGOT) 29, Alanine Aminotransferase ( ALT/SGPT) 20, Alkaline Phosphatase 112, Pro-B-Type Natriuretic Peptide 387H, Total Protein 4.4L, Albumin 2.1L, Globulin 2.3, Albumin/Globulin Ratio 0.9L Height (Feet): 5 Height (Inches): 0.00 Weight (Pounds): 175 General Appearance: no apparent distress EENT: normal ENT inspection Neck: supple Cardiovascular: normal rate Respiratory/Chest: decreased breath sounds Abdomen: normal bowel sounds, non tender, soft Extremities: non-tender HARLEY LANDRY Apr 14, 2016 12:24
--- NOTE | 2016-04-14 13:21 | Nephrology Progress Note ---
Assessment/Plan Problem List: (1) Asthma exacerbation Assessment: resolved. (2) Hypoalbuminemia (3) Alcoholic cirrhosis of liver with ascites (4) sepsis (5) Thrombocytopenia (6) Hyponatremia Assessment: better (7) Hypomagnesemia Plan cont banana bag per GI. cont lasix and aldactone. replete k. elevate legs. Pending TIPS. Subjective Subjective ambulating. Objective Objective Last 24 Hour Vital Signs Date Time Temp Pulse Resp B/P Pulse Ox O2 Delivery O2 Flow Rate FiO2 04/14/16 11:53 97.9 66 20 114/69 92 Room Air 04/14/16 09:38 63 125/65 04/14/16 08:23 94 Room Air 04/14/16 08:23 63 20 Room Air 04/14/16 08:23 Room Air 04/14/16 08:00 69 04/14/16 08:00 97.7 62 20 122/66 92 Room Air 04/14/16 04:00 97.7 62 20 115/65 92 Room Air 04/14/16 03:54 58 04/14/16 00:00 97.9 65 18 124/62 100 Room Air 04/13/16 23:49 66 04/13/16 21:00 98.2 62 18 134/67 100 Room Air 04/13/16 19:19 63 04/13/16 19:10 62 20 Room Air 04/13/16 19:05 Room Air 04/13/16 19:05 96 Room Air 04/13/16 16:00 97.3 59 19 126/72 100 Room Air 04/13/16 16:00 61 Intake and Output 04/13/16 04/14/16 19:00 07:00 Intake Total 500 ml 340 ml Output Total 600 ml 1925 ml Balance -100 ml -1585 ml Intake Oral 500 ml 240 ml IV Total 100 ml Output Urine Total 600 ml 1625 ml Stool Total 300 ml # Voids 2 # Bowel Movements 4 2 Laboratory Tests 04/14/16 06:45: White Blood Count 6.2, Red Blood Count 2.30L, Hemoglobin 8.2L, Hematocrit 25.4L , Mean Corpuscular Volume 110H, Mean Corpuscular Hemoglobin 35.7H, Mean Corpuscular Hemoglobin Concent 32.3, Red Cell Distribution Width 16.4H, Platelet Count 42L, Mean Platelet Volume 9.2, Neutrophils (%) (Auto) , Lymphocytes (%) (Auto) , Monocytes (%) (Auto) , Eosinophils (%) (Auto) , Basophils (%) (Auto) , Differential Total Cells Counted 100, Neutrophils % ( Manual) 81H, Lymphocytes % (Manual) 7L, Monocytes % (Manual) 10, Eosinophils % ( Manual) 2, Basophils % (Manual) 0, Band Neutrophils 0, Platelet Estimate DecreasedL, Platelet Morphology Normal, Hypochromasia 1+, Anisocytosis 1+, Macrocytosis 1+, Sodium Level 134L, Potassium Level 3.5, Chloride Level 100, Carbon Dioxide Level 20, Anion Gap 14, Blood Urea Nitrogen 23, Creatinine 0.8, Estimat Glomerular Filtration Rate > 60, Glucose Level 105, Calcium Level 8.0L, Phosphorus Level 2.7, Magnesium Level 1.2L, Total Bilirubin 4.7H, Direct Bilirubin 2.2H, Aspartate Amino Transf (AST/SGOT) 29, Alanine Aminotransferase ( ALT/SGPT) 20, Alkaline Phosphatase 112, Pro-B-Type Natriuretic Peptide 387H, Total Protein 4.4L, Albumin 2.1L, Globulin 2.3, Albumin/Globulin Ratio 0.9L Height (Feet): 5 Height (Inches): 0.00 Weight (Pounds): 175 General Appearance: no apparent distress Cardiovascular: normal rate, regular rhythm Respiratory/Chest: lungs clear Abdomen: non tender, soft, distended Extremities: severe edema, pitting Neurologic: alert ESTRELLITA MCCARTY Apr 14, 2016 13:21
[2016-04-14 14:31] LABS: INR 1.9 (0.9-1.1); PROTHROMBIN TIME 19.4 SEC (9.30-11.50)
[2016-04-14 16:00] VITALS: BP 111/67
[2016-04-14 20:00] VITALS: BP 121/75
--- NOTE | 2016-04-14 21:56 | Infectious Diseases Prog Note ---
Assessment/Plan Assessment/Plan A: The patient is a 60-year-old male with leukocytosis improved Sepsis ? , SP Low grade fever , SP No evidence of Pna Chest x-ray, no acute process. UCX : VRE ( colonizer ) HIV and Hep Panel :neg PICC 04/10 Cirrhosis US : Cirrhosis with stigmata of portal hypertension including splenomegaly, ascites SP Para , no evidence of SBP Asthma PLAN: continue the patient on cefepime d# 5 / 7 Monitor CBC , BMP Monitor Cx ( Bl) C Xray C Diff may proceed w tips and stent placement Subjective Constitutional: Denies: anorexia, chills, drenching sweats, fatigue, fever, no symptoms, other Allergies: Coded Allergies: No Known Allergies (Unverified , 04/07/16) Objective Vital Signs Last 24 Hour Vital Signs Date Time Temp Pulse Resp B/P Pulse Ox O2 Delivery O2 Flow Rate FiO2 04/14/16 20:00 97.7 62 19 121/75 100 Room Air 04/14/16 19:20 100 Room Air 04/14/16 19:20 Room Air 04/14/16 19:20 60 18 Room Air 04/14/16 16:00 63 04/14/16 16:00 97.7 60 18 111/67 100 Room Air 04/14/16 11:53 97.9 66 20 114/69 92 Room Air 04/14/16 09:38 63 125/65 04/14/16 08:23 94 Room Air 04/14/16 08:23 63 20 Room Air 04/14/16 08:23 Room Air 04/14/16 08:00 69 04/14/16 08:00 97.7 62 20 122/66 92 Room Air 04/14/16 04:00 97.7 62 20 115/65 92 Room Air 04/14/16 03:54 58 04/14/16 00:00 97.9 65 18 124/62 100 Room Air 04/13/16 23:49 66 Height (Feet): 5 Height (Inches): 0.00 Weight (Pounds): 175 HEENT: atraumatic Respiratory/Chest: lungs clear Cardiovascular: normal rate Abdomen: soft, non tender Microbiology Date/Time Source Procedure Growth Status 04/13/16 05:00 Blood Blood Culture - Preliminary NO GROWTH AFTER 24 HOURS Resulted 04/13/16 05:00 Blood Blood Culture - Preliminary NO GROWTH AFTER 24 HOURS Resulted 04/12/16 14:00 Stool Clostridium difficile Toxin Assay - Final Complete 04/12/16 14:00 Urine,Clean Catch Urine Culture - Final Enterococcus Faecium - Vre Complete Laboratory Tests Test 04/14/16 06:45 04/14/16 13:50 White Blood Count 6.2 K/UL (4.8-10.8) Red Blood Count 2.30 M/UL (4.70-6.10) L Hemoglobin 8.2 G/DL (14.2-18.0) L Hematocrit 25.4 % (42.0-52.0) L Mean Corpuscular Volume 110 FL (80-99) H Mean Corpuscular Hemoglobin 35.7 PG (27.0-31.0) H Mean Corpuscular Hemoglobin Concent 32.3 G/DL (32.0-36.0) Red Cell Distribution Width 16.4 % (11.6-14.8) H Platelet Count 42 K/UL (150-450) L Mean Platelet Volume 9.2 FL (6.5-10.1) Neutrophils (%) (Auto) % (45.0-75.0) Lymphocytes (%) (Auto) % (20.0-45.0) Monocytes (%) (Auto) % (1.0-10.0) Eosinophils (%) (Auto) % (0.0-3.0) Basophils (%) (Auto) % (0.0-2.0) Differential Total Cells Counted 100 Neutrophils % (Manual) 81 % (45-75) H Lymphocytes % (Manual) 7 % (20-45) L Monocytes % (Manual) 10 % (1-10) Eosinophils % (Manual) 2 % (0-3) Basophils % (Manual) 0 % (0-2) Band Neutrophils 0 % (0-8) Platelet Estimate Decreased L Platelet Morphology Normal Hypochromasia 1+ Anisocytosis 1+ Macrocytosis 1+ Sodium Level 134 mEQ/L (135-145) L Potassium Level 3.5 mEQ/L (3.4-4.9) Chloride Level 100 mEQ/L (98-107) Carbon Dioxide Level 20 mEQ/L (20-30) Anion Gap 14 (5-15) Blood Urea Nitrogen 23 mg/dL (7-23) Creatinine 0.8 mg/dL (0.7-1.2) Estimat Glomerular Filtration Rate > 60 mL/min (>60) Glucose Level 105 mg/dL (74-106) Calcium Level 8.0 mg/dL (8.6-10.2) L Phosphorus Level 2.7 mg/dL (2.5-4.8) Magnesium Level 1.2 mg/dL (1.7-2.5) L Total Bilirubin 4.7 mg/dL (0.0-1.2) H Direct Bilirubin 2.2 mg/dL (0.1-0.3) H Aspartate Amino Transf (AST/SGOT) 29 U/L (5-40) Alanine Aminotransferase (ALT/SGPT) 20 U/L (3-41) Alkaline Phosphatase 112 U/L (40-129) Pro-B-Type Natriuretic Peptide 387 pg/mL (0-125) H Total Protein 4.4 g/dL (6.6-8.7) L Albumin 2.1 g/dL (3.5-5.2) L Globulin 2.3 g/dL Albumin/Globulin Ratio 0.9 (1.0-2.7) L Prothrombin Time 19.4 SEC (9.30-11.50) H Prothromb Time International Ratio 1.9 (0.9-1.1) H Current Medications Medications (Trade) Dose Ordered Sig/Bernardino Route PRN Reason Start Time Stop Time Status Last Admin Dose Admin Albuterol/ Ipratropium (DuoNeb 0.5-3(2.5)mg/3ml) 3 ml Q4H PRN HHN Shortness of Breath 04/09/16 23:00 04/14/16 22:59 Cefepime HCl/ Dextrose (Maxipime/D5W 50ml) 50 ml @ 100 mls/hr Q8H IVPB 04/12/16 10:00 04/19/16 09:59 04/14/16 18:07 Dextrose (Dextrose 50%) STAT PRN IV Hypoglycemia 04/09/16 00:00 05/09/16 00:00 Furosemide 40 mg 40 mg EVERY 12 HOURS IV 04/10/16 21:00 05/10/16 20:59 04/14/16 20:20 Lactulose (Cephulac) 30 gm THREE TIMES A DAY ORAL 04/09/16 13:00 05/09/16 12:59 04/14/16 18:07 Metoprolol Succinate (Toprol XL) 200 mg DAILY ORAL 04/09/16 09:00 05/09/16 08:59 04/14/16 09:38 Pantoprazole (Protonix) 40 mg DAILY ORAL 04/09/16 09:00 05/09/16 08:59 04/14/16 09:36 Potassium Chloride (K-Dur) 20 meq TWICE A DAY ORAL 04/13/16 18:00 05/13/16 17:59 04/14/16 18:07 Rifaximin (Xifaxan) 550 mg EVERY 12 HOURS ORAL 04/09/16 09:00 04/16/16 08:59 04/14/16 20:20 Spironolactone (Aldactone) 100 mg DAILY ORAL 04/10/16 10:00 05/10/16 09:59 04/14/16 09:38 JOANIE CRUZ M.D. Apr 14, 2016 21:56
[2016-04-15 00:15] VITALS: BP 106/51
--- NOTE | 2016-04-15 02:07 | Progress Note ---
SUBJECTIVE: This is an elderly 60-year-old male, who is currently awake, comfortable, and in no distress. He is more awake. OBJECTIVE: VITAL SIGNS: Stable. CHEST: Bilaterally clear. CARDIOVASCULAR: Regular rhythm. No gallop. No murmur. ABDOMEN: Soft. EXTREMITIES: CCE. NEUROLOGIC: No focal deficit. ASSESSMENT: 1. Depression. 2. Drug overdose. PLAN: Continue current treatment. Chepe Valdez M.D. DR: DIAZ JOB#: [id number] CC:
[2016-04-15 04:15] VITALS: BP 114/71
--- NOTE | 2016-04-15 08:45 | Pulmonology Progress Note ---
Assessment/Plan Assessment/Plan IMPRESSION: 1. Liver cirrhosis. 2. History of asthma. 3. Leukocytosis. Resolved DISCUSSION: US paracentesis done. No SBP Continue nasal o2prn; presently on RA; Sao2 95% Saturating well on RA; no pneumonia; leucocytosis resolved. No new recommendations Subjective Interval Events: None Constitutional: Reports: no symptoms HEENT: Repors: no symptoms Respiratory: Reports: no symptoms Cardiovascular: Reports: no symptoms Gastrointestinal/Abdominal: Reports: no symptoms Genitourinary: Reports: no symptoms Allergies: Coded Allergies: No Known Allergies (Unverified , 04/07/16) Objective Last 24 Hour Vital Signs Date Time Temp Pulse Resp B/P Pulse Ox O2 Delivery O2 Flow Rate FiO2 04/15/16 04:15 97.3 55 20 114/71 99 Room Air 04/15/16 03:40 62 04/15/16 00:15 98.8 66 20 106/51 96 Room Air 04/14/16 23:45 67 04/14/16 20:00 97.7 62 19 121/75 100 Room Air 04/14/16 19:53 62 04/14/16 19:20 100 Room Air 04/14/16 19:20 Room Air 04/14/16 19:20 60 18 Room Air 04/14/16 16:00 63 04/14/16 16:00 97.7 60 18 111/67 100 Room Air 04/14/16 11:53 97.9 66 20 114/69 92 Room Air 04/14/16 09:38 63 125/65 Intake and Output 04/14/16 04/15/16 19:00 07:00 Intake Total 405 ml Output Total 800 ml 2000 ml Balance -395 ml -2000 ml Intake Oral 240 ml IV Total 165 ml Output Urine Total 500 ml 1700 ml Stool Total 300 ml 300 ml # Voids 3 6 # Bowel Movements 2 1 General Appearance: no acute distress HEENT: normocephalic Respiratory/Chest: chest wall non-tender, lungs clear Cardiovascular: normal peripheral pulses, normal rate Abdomen: normal bowel sounds, soft, non tender Microbiology Date/Time Source Procedure Growth Status 04/13/16 05:00 Blood Blood Culture - Preliminary NO GROWTH AFTER 24 HOURS Resulted 04/13/16 05:00 Blood Blood Culture - Preliminary NO GROWTH AFTER 24 HOURS Resulted 04/12/16 14:00 Stool Clostridium difficile Toxin Assay - Final Complete 04/12/16 14:00 Urine,Clean Catch Urine Culture - Final Enterococcus Faecium - Vre Complete Laboratory Tests 04/14/16 13:50: Prothrombin Time 19.4H, Prothromb Time International Ratio 1.9H Current Medications Medications (Trade) Dose Ordered Sig/Bernardino Route PRN Reason Start Time Stop Time Status Last Admin Dose Admin Cefepime HCl/ Dextrose (Maxipime/D5W 50ml) 50 ml @ 100 mls/hr Q8H IVPB 04/12/16 10:00 04/19/16 09:59 04/15/16 03:24 Dextrose (Dextrose 50%) STAT PRN IV Hypoglycemia 04/09/16 00:00 05/09/16 00:00 Furosemide 40 mg 40 mg EVERY 12 HOURS IV 04/10/16 21:00 05/10/16 20:59 04/14/16 20:20 Lactulose (Cephulac) 30 gm THREE TIMES A DAY ORAL 04/09/16 13:00 05/09/16 12:59 04/14/16 18:07 Metoprolol Succinate (Toprol XL) 200 mg DAILY ORAL 04/09/16 09:00 05/09/16 08:59 04/14/16 09:38 Pantoprazole (Protonix) 40 mg DAILY ORAL 04/09/16 09:00 05/09/16 08:59 04/14/16 09:36 Potassium Chloride (K-Dur) 20 meq TWICE A DAY ORAL 04/13/16 18:00 05/13/16 17:59 04/14/16 18:07 Rifaximin (Xifaxan) 550 mg EVERY 12 HOURS ORAL 04/09/16 09:00 04/16/16 08:59 04/14/16 20:20 Spironolactone (Aldactone) 100 mg DAILY ORAL 04/10/16 10:00 05/10/16 09:59 04/14/16 09:38 Oliver Sky MD Apr 15, 2016 08:44
[2016-04-15] MEDS: Metoprolol XL 100mg tab ORAL SCH (09:00)
[2016-04-15] MEDS ORDERED: traMADol 50mg tab ORAL PRN (10:00)
[2016-04-15] MEDS ORDERED: Morphine Sulfate 2mg/ml Inj IVP PRN (10:00)
[2016-04-15] MEDS: Rifaximin 550mg tab ORAL SCH ×2 (10:02→21:18)
[2016-04-15] MEDS: Lactulose 20gm/30ml UDC ORAL SCH ×3 (10:02→18:00)
[2016-04-15] MEDS: Spironolactone 50mg tab ORAL SCH (10:06)
[2016-04-15 11:34] VITALS: BP 108/64
--- NOTE | 2016-04-15 11:54 | General Progress Note ---
Assessment/Plan Assessment/Plan ASSESSMENT: 1. Anemia secondary to chronic disease. 2. Thrombocytopenia secondary to liver cirrhosis. >50k generally 3. Alcohol induced liver cirrhosis. awaiting tips procedure 4. Decreased hemoglobin and hematocrit, rule out gastrointestinal bleed. 5. Splenomegaly 6. Cirrhosis of the liver status post paracentesis. 7. Coagulopathy . 8. Sepsis. RECOMMENDATIONS: 1. Monitor counts. Await TIPs 2. Transfuse as needed with hemoglobin goal >7 3. Transfuse of platelets goal>20k 4. Hepatitis panel negative 5. HIV negative 6. Ultrasound of the abdomen shows cirrhosis and splenomegaly 7. Reviewed anemia workup. 8. Follow up Nephrology, Pulm, Renal , and GI recs 9. Continue pain meds 10. GI prophylaxis with PPI. 11. DVT prophylaxis with SCDs. 12. Discussed with staff. Thank you, Suresh Pizarro MD Subjective Constitutional: Reports: no symptoms HEENT: Reports: no symptoms Cardiovascular: Reports: no symptoms Respiratory: Reports: no symptoms Gastrointestinal/Abdominal: Reports: poor appetite Genitourinary: Reports: no symptoms Neurologic/Psychiatric: Reports: no symptoms Endocrine: Reports: no symptoms Hematologic/Lymphatic: Reports: anemia Allergies: Coded Allergies: No Known Allergies (Unverified , 04/07/16) Subjective s/p para, no bleeding overnight, is awaiting tips Objective Last 24 Hour Vital Signs Date Time Temp Pulse Resp B/P Pulse Ox O2 Delivery O2 Flow Rate FiO2 04/15/16 11:34 96.3 65 20 108/64 96 Room Air 04/15/16 09:00 55 114/71 04/15/16 08:00 60 04/15/16 04:15 97.3 55 20 114/71 99 Room Air 04/15/16 03:40 62 04/15/16 00:15 98.8 66 20 106/51 96 Room Air 04/14/16 23:45 67 04/14/16 20:00 97.7 62 19 121/75 100 Room Air 04/14/16 19:53 62 04/14/16 19:20 100 Room Air 04/14/16 19:20 Room Air 04/14/16 19:20 60 18 Room Air 04/14/16 16:00 63 04/14/16 16:00 97.7 60 18 111/67 100 Room Air Intake and Output 04/14/16 04/15/16 19:00 07:00 Intake Total 405 ml Output Total 800 ml 2000 ml Balance -395 ml -2000 ml Intake Oral 240 ml IV Total 165 ml Output Urine Total 500 ml 1700 ml Stool Total 300 ml 300 ml # Voids 3 6 # Bowel Movements 2 1 Laboratory Tests 04/14/16 13:50: Prothrombin Time 19.4H, Prothromb Time International Ratio 1.9H Height (Feet): 5 Height (Inches): 0.00 Weight (Pounds): 165 General Appearance: no apparent distress EENT: pharynx normal Neck: supple Cardiovascular: regular rhythm Respiratory/Chest: lungs clear Abdomen: non tender Extremities: non-tender Edema: no edema noted Leg (L), no edema noted Leg (R) Edema: mild edema Neurologic: alert Skin: normal pigmentation Suresh Pizarro Apr 15, 2016 11:54
--- NOTE | 2016-04-15 12:51 | GI Progress Note ---
Assessment/Plan Problems: (1) Hypoalbuminemia ICD Codes: E88.09 - Other disorders of plasma-protein metabolism, not elsewhere classified SNOMED: 799967445 (2) Alcoholic cirrhosis of liver with ascites ICD Codes: K70.31 - Alcoholic cirrhosis of liver with ascites SNOMED: 316109506 (3) sepsis (4) Anemia ICD Codes: D64.9 - Anemia, unspecified SNOMED: 700672294 Status: stable Status Narrative Discussed with Dr. Mcgovern. Assessment/Plan pt scheduled for TIPS; IR procedure and balloon dilatation of the tips. See abd U/S report. monitor H&H, transfuse prn s/p paracentesis >> ascites negative for growth elevated ammonia >> Lactulose + Xifaxan OB stool negative hep panel negative ppi elevated lactic acid >> WNL today PT eval fu labs Subjective Gastrointestinal/Abdominal: Reports: no symptoms Subjective OOB Objective Last 24 Hour Vital Signs Date Time Temp Pulse Resp B/P Pulse Ox O2 Delivery O2 Flow Rate FiO2 04/15/16 11:34 96.3 65 20 108/64 96 Room Air 04/15/16 09:00 55 114/71 04/15/16 08:00 60 04/15/16 04:15 97.3 55 20 114/71 99 Room Air 04/15/16 03:40 62 04/15/16 00:15 98.8 66 20 106/51 96 Room Air 04/14/16 23:45 67 04/14/16 20:00 97.7 62 19 121/75 100 Room Air 04/14/16 19:53 62 04/14/16 19:20 100 Room Air 04/14/16 19:20 Room Air 04/14/16 19:20 60 18 Room Air 04/14/16 16:00 63 04/14/16 16:00 97.7 60 18 111/67 100 Room Air Intake and Output 04/14/16 04/15/16 19:00 07:00 Intake Total 405 ml Output Total 800 ml 2000 ml Balance -395 ml -2000 ml Intake Oral 240 ml IV Total 165 ml Output Urine Total 500 ml 1700 ml Stool Total 300 ml 300 ml # Voids 3 6 # Bowel Movements 2 1 Laboratory Tests Test 04/14/16 13:50 Prothrombin Time 19.4 SEC (9.30-11.50) H Prothromb Time International Ratio 1.9 (0.9-1.1) H Height (Feet): 5 Height (Inches): 0.00 Weight (Pounds): 165 General Appearance: no apparent distress, alert Cardiovascular: normal rate Respiratory/Chest: normal breath sounds, no respiratory distress Abdominal Exam: normal bowel sounds, non tender, soft Extremities: normal range of motion, non-tender Objective Procedure: US ABD Complete Indications: Abdominal pain IMPRESSION: Cirrhosis with stigmata of portal hypertension including splenomegaly, ascites. Patent intrahepatic portosystemic shunt with apparently elevated velocity at its hepatic venous end, suggesting high-grade stenosis. This is potentially amenable to percutaneous intervention, as clinically indicated. Gallbladder stones and sludge. Mural thickening likely secondary to presence of ascites. Correlate clinically. Midline structures including pancreas, distal abdominal aorta obscured Rain Mercado N.P. Apr 15, 2016 12:51
--- NOTE | 2016-04-15 13:34 | Nephrology Progress Note ---
Assessment/Plan Problem List: (1) Asthma exacerbation (2) Alcoholic cirrhosis of liver with ascites (3) Thrombocytopenia (4) Hyponatremia (5) Anemia of other chronic disease Plan Free water restriction Monitor lytes Monitor H&H, transfuse as needed GI f/u - paracentesis Hematology f/u Social Service consult - placement AM labs Subjective Constitutional: Denies: chills, diaphoresis, fever, malaise, no symptoms, other , weakness HEENT: Denies: blurred vision, double vision, ear discharge, ear pain, eye pain , mouth pain, mouth swelling, no symptoms, nose congestion, nose pain, other, tearing, throat pain, throat swelling Genitourinary: Denies: burning, discharge, flank pain, frequency, hematuria, incontinence, no symptoms, other, pain, urgency Neurologic/Psychiatric: Denies: anxiety, depressed, emotional problems, headache, no symptoms, numbness, other, paresthesia, pre-existing deficit, seizure, tingling, tremors, weakness Subjective Sitting at the edge of the bed, in no distress Objective Objective Last 24 Hour Vital Signs Date Time Temp Pulse Resp B/P Pulse Ox O2 Delivery O2 Flow Rate FiO2 04/15/16 11:34 96.3 65 20 108/64 96 Room Air 04/15/16 09:00 55 114/71 04/15/16 08:00 60 04/15/16 04:15 97.3 55 20 114/71 99 Room Air 04/15/16 03:40 62 04/15/16 00:15 98.8 66 20 106/51 96 Room Air 04/14/16 23:45 67 04/14/16 20:00 97.7 62 19 121/75 100 Room Air 04/14/16 19:53 62 04/14/16 19:20 100 Room Air 04/14/16 19:20 Room Air 04/14/16 19:20 60 18 Room Air 04/14/16 16:00 63 04/14/16 16:00 97.7 60 18 111/67 100 Room Air Intake and Output 04/14/16 04/15/16 19:00 07:00 Intake Total 405 ml Output Total 800 ml 2000 ml Balance -395 ml -2000 ml Intake Oral 240 ml IV Total 165 ml Output Urine Total 500 ml 1700 ml Stool Total 300 ml 300 ml # Voids 3 6 # Bowel Movements 2 1 Laboratory Tests 04/14/16 13:50: Prothrombin Time 19.4H, Prothromb Time International Ratio 1.9H Height (Feet): 5 Height (Inches): 0.00 Weight (Pounds): 165 General Appearance: no apparent distress, alert EENT: normal ENT inspection Neck: normal alignment, supple, normal inspection Cardiovascular: normal rate, regular rhythm Respiratory/Chest: decreased breath sounds Abdomen: non tender, soft Extremities: normal range of motion Neurologic: alert, oriented x 3, responsive, normal mood/affect Jeanna Mederos N.P. Apr 15, 2016 13:33
--- NOTE | 2016-04-15 15:13 | Infectious Diseases Prog Note ---
Assessment/Plan Assessment/Plan ASSESSMENT: 60-year-old male with: leukocytosis SP Possible Sepsis SP Low grade fever SP No evidence of Pna Chest x-ray, no acute process. UCx VRE ( colonizer ) HIV and Hep Panel :neg PICC 04/10 EtOH Cirrhosis US : Cirrhosis with stigmata of portal hypertension including splenomegaly, ascites SP Paracentesis 04/10 - no evidence of SBP Thrombocytopenia VRE colonized NKDA Full Code PLAN: continue the patient on cefepime d# 6 / 7 Monitor CBC , temperatures monitor BMP monitor CXR may proceed w tips and stent placement Subjective Allergies: Coded Allergies: No Known Allergies (Unverified , 04/07/16) Subjective remains afebrile Objective Vital Signs Last 24 Hour Vital Signs Date Time Temp Pulse Resp B/P Pulse Ox O2 Delivery O2 Flow Rate FiO2 04/15/16 12:00 89 04/15/16 11:34 96.3 65 20 108/64 96 Room Air 04/15/16 09:00 55 114/71 04/15/16 08:00 60 04/15/16 04:15 97.3 55 20 114/71 99 Room Air 04/15/16 03:40 62 04/15/16 00:15 98.8 66 20 106/51 96 Room Air 04/14/16 23:45 67 04/14/16 20:00 97.7 62 19 121/75 100 Room Air 04/14/16 19:53 62 04/14/16 19:20 100 Room Air 04/14/16 19:20 Room Air 04/14/16 19:20 60 18 Room Air 04/14/16 16:00 63 04/14/16 16:00 97.7 60 18 111/67 100 Room Air Height (Feet): 5 Height (Inches): 0.00 Weight (Pounds): 165 General Appearance: no acute distress Respiratory/Chest: no respiratory distress Cardiovascular: normal rate, regular rhythm Abdomen: normal bowel sounds, soft, non tender, non distended Microbiology Date/Time Source Procedure Growth Status 04/13/16 05:00 Blood Blood Culture - Preliminary NO GROWTH AFTER 24 HOURS Resulted 04/13/16 05:00 Blood Blood Culture - Preliminary NO GROWTH AFTER 24 HOURS Resulted Current Medications Medications (Trade) Dose Ordered Sig/Bernardino Route PRN Reason Start Time Stop Time Status Last Admin Dose Admin Cefepime HCl/ Dextrose (Maxipime/D5W 50ml) 50 ml @ 100 mls/hr Q8H IVPB 04/12/16 10:00 04/19/16 09:59 04/15/16 10:14 Dextrose (Dextrose 50%) STAT PRN IV Hypoglycemia 04/09/16 00:00 05/09/16 00:00 Furosemide 40 mg 40 mg EVERY 12 HOURS IV 04/10/16 21:00 05/10/16 20:59 04/15/16 10:00 Lactulose (Cephulac) 30 gm THREE TIMES A DAY ORAL 04/09/16 13:00 05/09/16 12:59 04/15/16 13:23 Metoprolol Succinate (Toprol XL) 200 mg DAILY ORAL 04/09/16 09:00 05/09/16 08:59 04/14/16 09:38 Morphine Sulfate (Morphine Sulfate) 2 mg Q4H PRN IVP Severe Pain (Pain Scale 7-10) 04/15/16 10:00 04/22/16 09:59 Ondansetron HCl (Zofran) 4 mg Q6H PRN IVP Nausea & Vomiting 04/15/16 14:00 05/15/16 13:59 04/15/16 14:48 Pantoprazole (Protonix) 40 mg DAILY ORAL 04/09/16 09:00 05/09/16 08:59 04/15/16 10:04 Potassium Chloride (K-Dur) 20 meq TWICE A DAY ORAL 04/13/16 18:00 05/13/16 17:59 04/15/16 10:01 Rifaximin (Xifaxan) 550 mg EVERY 12 HOURS ORAL 04/09/16 09:00 04/16/16 08:59 04/15/16 10:02 Spironolactone (Aldactone) 100 mg DAILY ORAL 04/10/16 10:00 05/10/16 09:59 04/15/16 10:06 Tramadol HCl (Ultram) 50 mg Q6H PRN ORAL Moderate Pain (Pain Scale 4-6) 04/15/16 10:00 04/22/16 09:59 RL LEWIS Apr 15, 2016 15:13
[2016-04-15 16:00] VITALS: BP 118/63
[2016-04-15 20:00] VITALS: BP 115/60
[2016-04-16 00:05] VITALS: BP 117/68
[2016-04-16 04:16] VITALS: BP 129/75
[2016-04-16 05:43] LABS: MEAN CORPUSCULAR HEMOGLOBIN 35.3 PG (27.0-31.0); MEAN CORPUSCULAR HGB CONC 32.2 G/DL (32.0-36.0); MEAN CORPUSCULAR VOLUME 110 FL (80-99); MEAN PLATELET VOLUME 8.5 FL (6.5-10.1); PLATELET COUNT 60 K/UL (150-450); RED BLOOD COUNT 2.39 M/UL (4.70-6.10); RED CELL DISTRIBUTION WIDTH 16.4 % (11.6-14.8); WHITE BLOOD COUNT 6.7 K/UL (4.8-10.8)
[2016-04-16 06:12] LABS: ALANINE AMINOTRANSFERASE 21 U/L (3-41); ALBUMIN/GLOBULIN RATIO 0.9 (1.0-2.7); ANION GAP 12 (5-15); ASPARTATE AMINO TRANSFERASE 29 U/L (5-40); CALCIUM 8.1 mg/dL (8.6-10.2); CARBON DIOXIDE 22 mEQ/L (20-30); CHLORIDE 101 mEQ/L (98-107); CREATININE 0.8 mg/dL (0.7-1.2); GLOMERULAR FILTRATION RATE > 60 mL/min (>60); HEMOLYSIS 2; MAGNESIUM 1.3 mg/dL (1.7-2.5); POTASSIUM 3.9 mEQ/L (3.4-4.9); SODIUM 135 mEQ/L (135-145); TOTAL PROTEIN 4.9 g/dL (6.6-8.7)
[2016-04-16 06:39] LABS: BILIRUBIN,DIRECT 2.5 mg/dL (0.1-0.3)
[2016-04-16 07:47] VITALS: BP 120/78
[2016-04-16 08:31] LABS: ANISOCYTOSIS 1+; BAND NEUTROPHILS % (MANUAL) 0 % (0-8); BASOPHILS % (MANUAL) 0 % (0-2); EOSINOPHILS % (MANUAL) 2 % (0-3); HYPOCHROMASIA 1+; LYMPHOCYTES % (MANUAL) 10 % (20-45); MACROCYTES 1+; NEUTROPHILS % (MANUAL) 76 % (45-75); PLATELET ESTIMATE DECREASED; PLATELET MORPHOLOGY NORMAL; TOTAL CELLS COUNTED 100
[2016-04-16] MEDS: Lactulose 20gm/30ml UDC ORAL SCH ×3 (09:04→17:20)
[2016-04-16] MEDS: Spironolactone 50mg tab ORAL SCH (09:04)
[2016-04-16] MEDS: Metoprolol XL 100mg tab ORAL SCH (09:05)
--- NOTE | 2016-04-16 10:10 | Pulmonology Progress Note ---
Assessment/Plan Assessment/Plan IMPRESSION: 1. Liver cirrhosis. 2. History of asthma. 3. Leukocytosis. Resolved DISCUSSION: US paracentesis done. No SBP Continue nasal o2prn; presently on RA; Sao2 95% Saturating well on RA; no pneumonia; leucocytosis resolved. No new recommendations Subjective Interval Events: No new events Constitutional: Reports: no symptoms HEENT: Repors: no symptoms Respiratory: Reports: no symptoms Cardiovascular: Reports: no symptoms Gastrointestinal/Abdominal: Reports: no symptoms Genitourinary: Reports: no symptoms Allergies: Coded Allergies: No Known Allergies (Unverified , 04/07/16) Objective Last 24 Hour Vital Signs Date Time Temp Pulse Resp B/P Pulse Ox O2 Delivery O2 Flow Rate FiO2 04/16/16 09:05 85 120/89 04/16/16 07:47 98.2 85 20 120/78 99 Room Air 04/16/16 04:16 98.0 78 20 129/75 96 Room Air 04/16/16 04:00 72 04/16/16 02:26 75 04/16/16 00:05 98.2 72 20 117/68 97 Room Air 04/15/16 20:00 97.9 65 19 115/60 98 Room Air 04/15/16 20:00 72 04/15/16 18:50 72 18 Room Air 21 04/15/16 18:50 98 Room Air 21 04/15/16 18:50 Room Air 21 04/15/16 16:00 66 04/15/16 16:00 97.8 62 20 118/63 99 Room Air 04/15/16 12:00 89 04/15/16 11:34 96.3 65 20 108/64 96 Room Air Intake and Output 04/15/16 04/16/16 19:00 07:00 Intake Total 740 ml 310 ml Output Total 1300 ml 1200 ml Balance -560 ml -890 ml Intake Oral 490 ml 260 ml IV Total 250 ml 50 ml Output Urine Total 1300 ml 1200 ml # Voids 4 # Bowel Movements 1 3 General Appearance: no acute distress HEENT: normocephalic Respiratory/Chest: chest wall non-tender, lungs clear Cardiovascular: normal peripheral pulses, regular rhythm Laboratory Tests 04/16/16 05:20: White Blood Count 6.7, Red Blood Count 2.39L, Hemoglobin 8.4L, Hematocrit 26.2L , Mean Corpuscular Volume 110H, Mean Corpuscular Hemoglobin 35.3H, Mean Corpuscular Hemoglobin Concent 32.2, Red Cell Distribution Width 16.4H, Platelet Count 60L, Mean Platelet Volume 8.5, Neutrophils (%) (Auto) , Lymphocytes (%) (Auto) , Monocytes (%) (Auto) , Eosinophils (%) (Auto) , Basophils (%) (Auto) , Differential Total Cells Counted 100, Neutrophils % ( Manual) 76H, Lymphocytes % (Manual) 10L, Monocytes % (Manual) 12H, Eosinophils % (Manual) 2, Basophils % (Manual) 0, Band Neutrophils 0, Platelet Estimate DecreasedL, Platelet Morphology Normal, Hypochromasia 1+, Anisocytosis 1+, Macrocytosis 1+, Sodium Level 135, Potassium Level 3.9, Chloride Level 101, Carbon Dioxide Level 22, Anion Gap 12, Blood Urea Nitrogen 21, Creatinine 0.8, Estimat Glomerular Filtration Rate > 60, Glucose Level 118H, Calcium Level 8.1L , Magnesium Level 1.3L, Total Bilirubin 5.8H, Direct Bilirubin 2.5H, Aspartate Amino Transf (AST/SGOT) 29, Alanine Aminotransferase (ALT/SGPT) 21, Alkaline Phosphatase 110, Total Protein 4.9L, Albumin 2.4L, Globulin 2.5, Albumin/ Globulin Ratio 0.9L Current Medications Medications (Trade) Dose Ordered Sig/Bernardino Route PRN Reason Start Time Stop Time Status Last Admin Dose Admin Cefepime HCl/ Dextrose (Maxipime/D5W 50ml) 50 ml @ 100 mls/hr Q8H IVPB 04/12/16 10:00 04/19/16 09:59 04/16/16 09:04 Dextrose (Dextrose 50%) STAT PRN IV Hypoglycemia 04/09/16 00:00 05/09/16 00:00 Furosemide 40 mg 40 mg EVERY 12 HOURS IV 04/10/16 21:00 05/10/16 20:59 04/16/16 09:04 Lactulose (Cephulac) 30 gm THREE TIMES A DAY ORAL 04/09/16 13:00 05/09/16 12:59 04/16/16 09:04 Metoprolol Succinate (Toprol XL) 200 mg DAILY ORAL 04/09/16 09:00 05/09/16 08:59 04/16/16 09:05 Morphine Sulfate (Morphine Sulfate) 2 mg Q4H PRN IVP Severe Pain (Pain Scale 7-10) 04/15/16 10:00 04/22/16 09:59 Ondansetron HCl (Zofran) 4 mg Q6H PRN IVP Nausea & Vomiting 04/15/16 14:00 05/15/16 13:59 04/15/16 14:48 Pantoprazole (Protonix) 40 mg DAILY ORAL 04/09/16 09:00 05/09/16 08:59 04/16/16 09:04 Potassium Chloride (K-Dur) 20 meq TWICE A DAY ORAL 04/13/16 18:00 05/13/16 17:59 04/16/16 09:05 Spironolactone (Aldactone) 100 mg DAILY ORAL 04/10/16 10:00 05/10/16 09:59 04/16/16 09:04 Tramadol HCl (Ultram) 50 mg Q6H PRN ORAL Moderate Pain (Pain Scale 4-6) 04/15/16 10:00 04/22/16 09:59 Oliver Sky MD Apr 16, 2016 10:10
--- NOTE | 2016-04-16 10:49 | GI Progress Note ---
Assessment/Plan Problems: (1) Hypoalbuminemia ICD Codes: E88.09 - Other disorders of plasma-protein metabolism, not elsewhere classified SNOMED: 027023963 (2) Alcoholic cirrhosis of liver with ascites ICD Codes: K70.31 - Alcoholic cirrhosis of liver with ascites SNOMED: 105268810 (3) sepsis (4) Anemia ICD Codes: D64.9 - Anemia, unspecified SNOMED: 347921185 Status: unchanged Status Narrative Discussed with Dr. Mcgovern. Assessment/Plan pt scheduled for TIPS; IR procedure and balloon dilatation of the tips. See abd U/S report. >> scheduled for 04/18/16 monitor H&H, transfuse prn s/p paracentesis >> ascites negative for growth elevated ammonia >> Lactulose + Xifaxan OB stool negative hep panel negative ppi PT eval fu labs Subjective Gastrointestinal/Abdominal: Reports: no symptoms Subjective OOB Objective Last 24 Hour Vital Signs Date Time Temp Pulse Resp B/P Pulse Ox O2 Delivery O2 Flow Rate FiO2 04/16/16 09:05 85 120/89 04/16/16 08:00 84 04/16/16 07:47 98.2 85 20 120/78 99 Room Air 04/16/16 04:16 98.0 78 20 129/75 96 Room Air 04/16/16 04:00 72 04/16/16 02:26 75 04/16/16 00:05 98.2 72 20 117/68 97 Room Air 04/15/16 20:00 97.9 65 19 115/60 98 Room Air 04/15/16 20:00 72 04/15/16 18:50 72 18 Room Air 21 04/15/16 18:50 98 Room Air 21 04/15/16 18:50 Room Air 21 04/15/16 16:00 66 04/15/16 16:00 97.8 62 20 118/63 99 Room Air 04/15/16 12:00 89 04/15/16 11:34 96.3 65 20 108/64 96 Room Air Intake and Output 04/15/16 04/16/16 19:00 07:00 Intake Total 740 ml 310 ml Output Total 1300 ml 1200 ml Balance -560 ml -890 ml Intake Oral 490 ml 260 ml IV Total 250 ml 50 ml Output Urine Total 1300 ml 1200 ml # Voids 4 # Bowel Movements 1 3 Laboratory Tests Test 04/16/16 05:20 White Blood Count 6.7 K/UL (4.8-10.8) Red Blood Count 2.39 M/UL (4.70-6.10) L Hemoglobin 8.4 G/DL (14.2-18.0) L Hematocrit 26.2 % (42.0-52.0) L Mean Corpuscular Volume 110 FL (80-99) H Mean Corpuscular Hemoglobin 35.3 PG (27.0-31.0) H Mean Corpuscular Hemoglobin Concent 32.2 G/DL (32.0-36.0) Red Cell Distribution Width 16.4 % (11.6-14.8) H Platelet Count 60 K/UL (150-450) L Mean Platelet Volume 8.5 FL (6.5-10.1) Neutrophils (%) (Auto) % (45.0-75.0) Lymphocytes (%) (Auto) % (20.0-45.0) Monocytes (%) (Auto) % (1.0-10.0) Eosinophils (%) (Auto) % (0.0-3.0) Basophils (%) (Auto) % (0.0-2.0) Differential Total Cells Counted 100 Neutrophils % (Manual) 76 % (45-75) H Lymphocytes % (Manual) 10 % (20-45) L Monocytes % (Manual) 12 % (1-10) H Eosinophils % (Manual) 2 % (0-3) Basophils % (Manual) 0 % (0-2) Band Neutrophils 0 % (0-8) Platelet Estimate Decreased L Platelet Morphology Normal Hypochromasia 1+ Anisocytosis 1+ Macrocytosis 1+ Sodium Level 135 mEQ/L (135-145) Potassium Level 3.9 mEQ/L (3.4-4.9) Chloride Level 101 mEQ/L (98-107) Carbon Dioxide Level 22 mEQ/L (20-30) Anion Gap 12 (5-15) Blood Urea Nitrogen 21 mg/dL (7-23) Creatinine 0.8 mg/dL (0.7-1.2) Estimat Glomerular Filtration Rate > 60 mL/min (>60) Glucose Level 118 mg/dL (74-106) H Calcium Level 8.1 mg/dL (8.6-10.2) L Magnesium Level 1.3 mg/dL (1.7-2.5) L Total Bilirubin 5.8 mg/dL (0.0-1.2) H Direct Bilirubin 2.5 mg/dL (0.1-0.3) H Aspartate Amino Transf (AST/SGOT) 29 U/L (5-40) Alanine Aminotransferase (ALT/SGPT) 21 U/L (3-41) Alkaline Phosphatase 110 U/L (40-129) Total Protein 4.9 g/dL (6.6-8.7) L Albumin 2.4 g/dL (3.5-5.2) L Globulin 2.5 g/dL Albumin/Globulin Ratio 0.9 (1.0-2.7) L Height (Feet): 5 Height (Inches): 0.00 Weight (Pounds): 179 General Appearance: no apparent distress, alert Cardiovascular: normal rate Respiratory/Chest: normal breath sounds, no respiratory distress Abdominal Exam: normal bowel sounds, non tender, soft Extremities: normal range of motion Objective Procedure: US ABD Complete Indications: Abdominal pain IMPRESSION: Cirrhosis with stigmata of portal hypertension including splenomegaly, ascites. Patent intrahepatic portosystemic shunt with apparently elevated velocity at its hepatic venous end, suggesting high-grade stenosis. This is potentially amenable to percutaneous intervention, as clinically indicated. Gallbladder stones and sludge. Mural thickening likely secondary to presence of ascites. Correlate clinically. Midline structures including pancreas, distal abdominal aorta obscured Rain Mercado N.P. Apr 16, 2016 10:49
[2016-04-16 11:20] VITALS: BP 113/51
--- NOTE | 2016-04-16 11:44 | Nephrology Progress Note ---
Assessment/Plan Problem List: (1) sepsis (2) Alcoholic cirrhosis of liver with ascites Assessment: s/p paracentesis. (3) Hypoalbuminemia (4) Asthma exacerbation Assessment: better. (5) Anemia (6) Thrombocytopenia Plan f/u recs per GI. monitor labs. replete Mg. pending TIPS 04/18/16. Subjective Subjective no new c/o. Objective Objective Last 24 Hour Vital Signs Date Time Temp Pulse Resp B/P Pulse Ox O2 Delivery O2 Flow Rate FiO2 04/16/16 11:20 98.1 75 20 113/51 97 Room Air 04/16/16 09:05 85 120/89 04/16/16 08:00 84 04/16/16 07:47 98.2 85 20 120/78 99 Room Air 04/16/16 07:08 83 18 Room Air 21 04/16/16 07:08 98 Room Air 21 04/16/16 07:08 Room Air 21 04/16/16 04:16 98.0 78 20 129/75 96 Room Air 04/16/16 04:00 72 04/16/16 02:26 75 04/16/16 00:05 98.2 72 20 117/68 97 Room Air 04/15/16 20:00 97.9 65 19 115/60 98 Room Air 04/15/16 20:00 72 04/15/16 18:50 72 18 Room Air 21 04/15/16 18:50 98 Room Air 21 04/15/16 18:50 Room Air 21 04/15/16 16:00 66 04/15/16 16:00 97.8 62 20 118/63 99 Room Air 04/15/16 12:00 89 Intake and Output 04/15/16 04/16/16 19:00 07:00 Intake Total 740 ml 310 ml Output Total 1300 ml 1200 ml Balance -560 ml -890 ml Intake Oral 490 ml 260 ml IV Total 250 ml 50 ml Output Urine Total 1300 ml 1200 ml # Voids 4 # Bowel Movements 1 3 Laboratory Tests 04/16/16 05:20: White Blood Count 6.7, Red Blood Count 2.39L, Hemoglobin 8.4L, Hematocrit 26.2L , Mean Corpuscular Volume 110H, Mean Corpuscular Hemoglobin 35.3H, Mean Corpuscular Hemoglobin Concent 32.2, Red Cell Distribution Width 16.4H, Platelet Count 60L, Mean Platelet Volume 8.5, Neutrophils (%) (Auto) , Lymphocytes (%) (Auto) , Monocytes (%) (Auto) , Eosinophils (%) (Auto) , Basophils (%) (Auto) , Differential Total Cells Counted 100, Neutrophils % ( Manual) 76H, Lymphocytes % (Manual) 10L, Monocytes % (Manual) 12H, Eosinophils % (Manual) 2, Basophils % (Manual) 0, Band Neutrophils 0, Platelet Estimate DecreasedL, Platelet Morphology Normal, Hypochromasia 1+, Anisocytosis 1+, Macrocytosis 1+, Sodium Level 135, Potassium Level 3.9, Chloride Level 101, Carbon Dioxide Level 22, Anion Gap 12, Blood Urea Nitrogen 21, Creatinine 0.8, Estimat Glomerular Filtration Rate > 60, Glucose Level 118H, Calcium Level 8.1L , Magnesium Level 1.3L, Total Bilirubin 5.8H, Direct Bilirubin 2.5H, Aspartate Amino Transf (AST/SGOT) 29, Alanine Aminotransferase (ALT/SGPT) 21, Alkaline Phosphatase 110, Total Protein 4.9L, Albumin 2.4L, Globulin 2.5, Albumin/ Globulin Ratio 0.9L Height (Feet): 5 Height (Inches): 0.00 Weight (Pounds): 179 General Appearance: no apparent distress Cardiovascular: normal rate, regular rhythm Respiratory/Chest: lungs clear Abdomen: non tender, soft, distended Extremities: severe edema, pitting Neurologic: alert, oriented x 3 PAULA SPENCER Apr 16, 2016 11:44
--- NOTE | 2016-04-16 14:17 | Nephrology Progress Note ---
Assessment/Plan Problem List: (1) Asthma exacerbation (2) Alcoholic cirrhosis of liver with ascites (3) Thrombocytopenia (4) Hyponatremia (5) Anemia of other chronic disease Plan Continue free water restriction Monitor lytes Monitor H&H, transfuse as needed GI f/u Pending TIPS Hematology f/u Social Service consult - placement AM labs Subjective Constitutional: Denies: chills, diaphoresis, fever, malaise, no symptoms, other , weakness HEENT: Denies: blurred vision, double vision, ear discharge, ear pain, eye pain , mouth pain, mouth swelling, no symptoms, nose congestion, nose pain, other, tearing, throat pain, throat swelling Genitourinary: Denies: burning, discharge, flank pain, frequency, hematuria, incontinence, no symptoms, other, pain, urgency Neurologic/Psychiatric: Denies: anxiety, depressed, emotional problems, headache, no symptoms, numbness, other, paresthesia, pre-existing deficit, seizure, tingling, tremors, weakness Subjective 0In bed, watching TV, denies discomfort at this time Objective Objective Last 24 Hour Vital Signs Date Time Temp Pulse Resp B/P Pulse Ox O2 Delivery O2 Flow Rate FiO2 04/16/16 11:20 98.1 75 20 113/51 97 Room Air 04/16/16 09:05 85 120/89 04/16/16 08:00 84 04/16/16 07:47 98.2 85 20 120/78 99 Room Air 04/16/16 07:08 83 18 Room Air 04/16/16 07:08 98 Room Air 21 04/16/16 07:08 Room Air 04/16/16 04:16 98.0 78 20 129/75 96 Room Air 04/16/16 04:00 72 04/16/16 02:26 75 04/16/16 00:05 98.2 72 20 117/68 97 Room Air 04/15/16 20:00 97.9 65 19 115/60 98 Room Air 04/15/16 20:00 72 04/15/16 18:50 72 18 Room Air 04/15/16 18:50 98 Room Air 21 04/15/16 18:50 Room Air 21 04/15/16 16:00 66 04/15/16 16:00 97.8 62 20 118/63 99 Room Air Intake and Output 04/15/16 04/16/16 19:00 07:00 Intake Total 740 ml 310 ml Output Total 1300 ml 1200 ml Balance -560 ml -890 ml Intake Oral 490 ml 260 ml IV Total 250 ml 50 ml Output Urine Total 1300 ml 1200 ml # Voids 4 # Bowel Movements 1 3 Laboratory Tests 04/16/16 05:20: White Blood Count 6.7, Red Blood Count 2.39L, Hemoglobin 8.4L, Hematocrit 26.2L , Mean Corpuscular Volume 110H, Mean Corpuscular Hemoglobin 35.3H, Mean Corpuscular Hemoglobin Concent 32.2, Red Cell Distribution Width 16.4H, Platelet Count 60L, Mean Platelet Volume 8.5, Neutrophils (%) (Auto) , Lymphocytes (%) (Auto) , Monocytes (%) (Auto) , Eosinophils (%) (Auto) , Basophils (%) (Auto) , Differential Total Cells Counted 100, Neutrophils % ( Manual) 76H, Lymphocytes % (Manual) 10L, Monocytes % (Manual) 12H, Eosinophils % (Manual) 2, Basophils % (Manual) 0, Band Neutrophils 0, Platelet Estimate DecreasedL, Platelet Morphology Normal, Hypochromasia 1+, Anisocytosis 1+, Macrocytosis 1+, Sodium Level 135, Potassium Level 3.9, Chloride Level 101, Carbon Dioxide Level 22, Anion Gap 12, Blood Urea Nitrogen 21, Creatinine 0.8, Estimat Glomerular Filtration Rate > 60, Glucose Level 118H, Calcium Level 8.1L , Magnesium Level 1.3L, Total Bilirubin 5.8H, Direct Bilirubin 2.5H, Aspartate Amino Transf (AST/SGOT) 29, Alanine Aminotransferase (ALT/SGPT) 21, Alkaline Phosphatase 110, Total Protein 4.9L, Albumin 2.4L, Globulin 2.5, Albumin/ Globulin Ratio 0.9L Height (Feet): 5 Height (Inches): 0.00 Weight (Pounds): 179 General Appearance: no apparent distress, alert EENT: normal ENT inspection, TMs normal Neck: non-tender, normal alignment, supple, normal inspection Cardiovascular: normal rate, regular rhythm, no JVD Respiratory/Chest: normal breath sounds, no respiratory distress Abdomen: non tender, distended, hepatomegaly Extremities: normal range of motion, non-tender, normal inspection, no calf tenderness Neurologic: alert, oriented x 3, responsive, normal mood/affect Egwu,Jeanna N.P. Apr 16, 2016 14:17
[2016-04-16] MEDS ORDERED: NS 275ml ONE (15:20)
--- NOTE | 2016-04-16 15:34 | Infectious Diseases Prog Note ---
Assessment/Plan Assessment/Plan ASSESSMENT: 60-year-old male with: leukocytosis SP Possible Sepsis SP Low grade fever SP No evidence of Pna Chest x-ray, no acute process. UCx VRE ( colonizer ) HIV and Hep Panel :neg PICC 04/10 EtOH Cirrhosis, awaiting TIPS US : Cirrhosis with stigmata of portal hypertension including splenomegaly, ascites SP Paracentesis 04/10 - no evidence of SBP Thrombocytopenia VRE colonized NKDA Full Code PLAN: limit cefepime after today d# 7 / , monitor pt off of ABX Monitor CBC , temperatures monitor BMP monitor CXR ok to proceed with TIPS from ID standpoint Subjective Allergies: Coded Allergies: No Known Allergies (Unverified , 04/07/16) Subjective remains afebrile awaiting TIPS Objective Vital Signs Last 24 Hour Vital Signs Date Time Temp Pulse Resp B/P Pulse Ox O2 Delivery O2 Flow Rate FiO2 04/16/16 11:20 98.1 75 20 113/51 97 Room Air 04/16/16 09:05 85 120/89 04/16/16 08:00 84 04/16/16 07:47 98.2 85 20 120/78 99 Room Air 04/16/16 07:08 83 18 Room Air 21 04/16/16 07:08 98 Room Air 21 04/16/16 07:08 Room Air 21 04/16/16 04:16 98.0 78 20 129/75 96 Room Air 04/16/16 04:00 72 04/16/16 02:26 75 04/16/16 00:05 98.2 72 20 117/68 97 Room Air 04/15/16 20:00 97.9 65 19 115/60 98 Room Air 04/15/16 20:00 72 04/15/16 18:50 72 18 Room Air 21 04/15/16 18:50 98 Room Air 21 04/15/16 18:50 Room Air 21 04/15/16 16:00 66 04/15/16 16:00 97.8 62 20 118/63 99 Room Air Height (Feet): 5 Height (Inches): 0.00 Weight (Pounds): 179 General Appearance: no acute distress Respiratory/Chest: no respiratory distress Cardiovascular: normal rate, regular rhythm Abdomen: normal bowel sounds, soft, non tender Laboratory Tests Test 04/16/16 05:20 White Blood Count 6.7 K/UL (4.8-10.8) Red Blood Count 2.39 M/UL (4.70-6.10) L Hemoglobin 8.4 G/DL (14.2-18.0) L Hematocrit 26.2 % (42.0-52.0) L Mean Corpuscular Volume 110 FL (80-99) H Mean Corpuscular Hemoglobin 35.3 PG (27.0-31.0) H Mean Corpuscular Hemoglobin Concent 32.2 G/DL (32.0-36.0) Red Cell Distribution Width 16.4 % (11.6-14.8) H Platelet Count 60 K/UL (150-450) L Mean Platelet Volume 8.5 FL (6.5-10.1) Neutrophils (%) (Auto) % (45.0-75.0) Lymphocytes (%) (Auto) % (20.0-45.0) Monocytes (%) (Auto) % (1.0-10.0) Eosinophils (%) (Auto) % (0.0-3.0) Basophils (%) (Auto) % (0.0-2.0) Differential Total Cells Counted 100 Neutrophils % (Manual) 76 % (45-75) H Lymphocytes % (Manual) 10 % (20-45) L Monocytes % (Manual) 12 % (1-10) H Eosinophils % (Manual) 2 % (0-3) Basophils % (Manual) 0 % (0-2) Band Neutrophils 0 % (0-8) Platelet Estimate Decreased L Platelet Morphology Normal Hypochromasia 1+ Anisocytosis 1+ Macrocytosis 1+ Sodium Level 135 mEQ/L (135-145) Potassium Level 3.9 mEQ/L (3.4-4.9) Chloride Level 101 mEQ/L (98-107) Carbon Dioxide Level 22 mEQ/L (20-30) Anion Gap 12 (5-15) Blood Urea Nitrogen 21 mg/dL (7-23) Creatinine 0.8 mg/dL (0.7-1.2) Estimat Glomerular Filtration Rate > 60 mL/min (>60) Glucose Level 118 mg/dL (74-106) H Calcium Level 8.1 mg/dL (8.6-10.2) L Magnesium Level 1.3 mg/dL (1.7-2.5) L Total Bilirubin 5.8 mg/dL (0.0-1.2) H Direct Bilirubin 2.5 mg/dL (0.1-0.3) H Aspartate Amino Transf (AST/SGOT) 29 U/L (5-40) Alanine Aminotransferase (ALT/SGPT) 21 U/L (3-41) Alkaline Phosphatase 110 U/L (40-129) Total Protein 4.9 g/dL (6.6-8.7) L Albumin 2.4 g/dL (3.5-5.2) L Globulin 2.5 g/dL Albumin/Globulin Ratio 0.9 (1.0-2.7) L Current Medications Medications (Trade) Dose Ordered Sig/Bernardino Route PRN Reason Start Time Stop Time Status Last Admin Dose Admin Cefepime HCl/ Dextrose (Maxipime/D5W 50ml) 50 ml @ 100 mls/hr Q8H IVPB 04/12/16 10:00 04/19/16 09:59 04/16/16 09:04 Dextrose (Dextrose 50%) STAT PRN IV Hypoglycemia 04/09/16 00:00 05/09/16 00:00 Furosemide 40 mg 40 mg EVERY 12 HOURS IV 04/10/16 21:00 05/10/16 20:59 04/16/16 09:04 Lactulose (Cephulac) 30 gm THREE TIMES A DAY ORAL 04/09/16 13:00 05/09/16 12:59 04/16/16 12:50 Metoprolol Succinate (Toprol XL) 200 mg DAILY ORAL 04/09/16 09:00 05/09/16 08:59 04/16/16 09:05 Morphine Sulfate (Morphine Sulfate) 2 mg Q4H PRN IVP Severe Pain (Pain Scale 7-10) 04/15/16 10:00 04/22/16 09:59 Ondansetron HCl (Zofran) 4 mg Q6H PRN IVP Nausea & Vomiting 04/15/16 14:00 05/15/16 13:59 04/15/16 14:48 Pantoprazole (Protonix) 40 mg DAILY ORAL 04/09/16 09:00 05/09/16 08:59 04/16/16 09:04 Potassium Chloride (K-Dur) 20 meq TWICE A DAY ORAL 04/13/16 18:00 05/13/16 17:59 04/16/16 09:05 Spironolactone (Aldactone) 100 mg DAILY ORAL 04/10/16 10:00 05/10/16 09:59 04/16/16 09:04 Tramadol HCl (Ultram) 50 mg Q6H PRN ORAL Moderate Pain (Pain Scale 4-6) 04/15/16 10:00 04/22/16 09:59 RL LEWIS Apr 16, 2016 15:34
[2016-04-16 16:00] VITALS: BP 114/77
--- NOTE | 2016-04-16 16:32 | General Progress Note ---
Assessment/Plan Assessment/Plan ASSESSMENT: 1. Anemia secondary to chronic disease. 2. Thrombocytopenia secondary to liver cirrhosis. >50k generally 3. Alcohol induced liver cirrhosis. awaiting tips procedure 4. Decreased hemoglobin and hematocrit, rule out gastrointestinal bleed. 5. Splenomegaly 6. Cirrhosis of the liver status post paracentesis. 7. Coagulopathy . 8. Sepsis. RECOMMENDATIONS: 1. Monitor counts. Await TIPs 2. Transfuse as needed with hemoglobin goal >7 3. Transfuse of platelets goal>20k 4. Hepatitis panel negative 5. HIV negative 6. Ultrasound of the abdomen shows cirrhosis and splenomegaly 7. Reviewed anemia workup. 8. Follow up Nephrology, Pulm, Renal, and GI recs 9. Continue pain meds 10. GI prophylaxis with PPI. 11. DVT prophylaxis with SCDs. 12. staff. Thank you, Suresh Pizarro MD Subjective Constitutional: Reports: no symptoms HEENT: Reports: no symptoms Cardiovascular: Reports: no symptoms Respiratory: Reports: no symptoms Gastrointestinal/Abdominal: Reports: poor appetite Genitourinary: Reports: no symptoms Neurologic/Psychiatric: Reports: no symptoms Endocrine: Reports: no symptoms Hematologic/Lymphatic: Reports: anemia Allergies: Coded Allergies: No Known Allergies (Unverified , 04/07/16) Subjective s/p para, no bleeding overnight, is awaiting tips Objective Last 24 Hour Vital Signs Date Time Temp Pulse Resp B/P Pulse Ox O2 Delivery O2 Flow Rate FiO2 04/16/16 16:00 97.8 73 21 114/77 97 Room Air 04/16/16 11:20 98.1 75 20 113/51 97 Room Air 04/16/16 09:05 85 120/89 04/16/16 08:00 84 04/16/16 07:47 98.2 85 20 120/78 99 Room Air 04/16/16 07:08 83 18 Room Air 21 04/16/16 07:08 98 Room Air 21 04/16/16 07:08 Room Air 21 04/16/16 04:16 98.0 78 20 129/75 96 Room Air 04/16/16 04:00 72 04/16/16 02:26 75 04/16/16 00:05 98.2 72 20 117/68 97 Room Air 04/15/16 20:00 97.9 65 19 115/60 98 Room Air 04/15/16 20:00 72 04/15/16 18:50 72 18 Room Air 21 04/15/16 18:50 98 Room Air 21 04/15/16 18:50 Room Air 21 Intake and Output 04/15/16 04/16/16 19:00 07:00 Intake Total 740 ml 310 ml Output Total 1300 ml 1200 ml Balance -560 ml -890 ml Intake Oral 490 ml 260 ml IV Total 250 ml 50 ml Output Urine Total 1300 ml 1200 ml # Voids 4 # Bowel Movements 1 3 Laboratory Tests 04/16/16 05:20: White Blood Count 6.7, Red Blood Count 2.39L, Hemoglobin 8.4L, Hematocrit 26.2L , Mean Corpuscular Volume 110H, Mean Corpuscular Hemoglobin 35.3H, Mean Corpuscular Hemoglobin Concent 32.2, Red Cell Distribution Width 16.4H, Platelet Count 60L, Mean Platelet Volume 8.5, Neutrophils (%) (Auto) , Lymphocytes (%) (Auto) , Monocytes (%) (Auto) , Eosinophils (%) (Auto) , Basophils (%) (Auto) , Differential Total Cells Counted 100, Neutrophils % ( Manual) 76H, Lymphocytes % (Manual) 10L, Monocytes % (Manual) 12H, Eosinophils % (Manual) 2, Basophils % (Manual) 0, Band Neutrophils 0, Platelet Estimate DecreasedL, Platelet Morphology Normal, Hypochromasia 1+, Anisocytosis 1+, Macrocytosis 1+, Sodium Level 135, Potassium Level 3.9, Chloride Level 101, Carbon Dioxide Level 22, Anion Gap 12, Blood Urea Nitrogen 21, Creatinine 0.8, Estimat Glomerular Filtration Rate > 60, Glucose Level 118H, Calcium Level 8.1L , Magnesium Level 1.3L, Total Bilirubin 5.8H, Direct Bilirubin 2.5H, Aspartate Amino Transf (AST/SGOT) 29, Alanine Aminotransferase (ALT/SGPT) 21, Alkaline Phosphatase 110, Total Protein 4.9L, Albumin 2.4L, Globulin 2.5, Albumin/ Globulin Ratio 0.9L Height (Feet): 5 Height (Inches): 0.00 Weight (Pounds): 179 General Appearance: WD/WN EENT: TMs normal Neck: normal inspection Cardiovascular: regular rhythm Respiratory/Chest: normal breath sounds Abdomen: non tender Extremities: normal inspection Edema: no edema noted Leg (L), no edema noted Leg (R) Edema: mild edema Neurologic: alert Skin: warm/dry Suresh Pizarro Apr 16, 2016 16:32
--- NOTE | 2016-04-16 17:38 | Cardiac Electrophysiology PN ---
Assessment/Plan Status Narrative Technically difficult study due to poor acoustical windows. M-mode measurements of left ventricle not obtainable due to cardiac position (angle) Normal left ventricular chamber size, hyperdynamic systolic function and wall motion to extent visualized. Left ventricular ejection fraction estimated to be 70-75 %. Mild left ventricular hypertrophy. Anterior Echo-free space, may be due to pericardial fat or effusion. All other cardiac chamber sizes are within normal limits. Mild focal aortic valve sclerosis with adequate cusp excursion. Mildly thickened mitral valve leaflets with normal excursion. Mitral annulus and aortic root calcification. Normal pulmonic valve structure. Normal tricuspid valve structure. IVC at normal size with physiologic collapse. A color flow and spectral Doppler study was performed and revealed: Mild mitral regurgitation. Mitral diastolic velocities suggest reduced left ventricular relaxation c/w mild LV diastolic dysfunction (Grade I ). Trace tricuspid regurgitation. Tricuspid systolic velocities suggests peak right ventricular systolic pressure of 20 mmHg. Assessment/Plan 1. Paroxysmal atrial fibrillation. In SR on Toprol-XL 200 mg daily. INR 2 on 04/12 off anticoagulation due to cirrhosis despite Vit K. INR 1.8 on 04/14/16. 2. Leg edema and shortness of breath likely secondary to his cirrhosis. EF 70- 75%. On Lasix 40 iv bid and Aldactone 100 po daily. 3. Alcoholic cirrhosis with ascites on Aldactone 100 mg daily.S/P Paracentesis . On Lactulose. 4. Sepsis with high WBC 19k on broad-spectrum antibiotics.No SBP. 5. Anemia. 6. Hyponatremia likely from dilutional. 7. Thrombocytopenia likely secondary to splenomegaly and secondary to cirrhosis. DW RN Subjective Subjective Feeling OK. Still has anasarca. No arrhythmias on tele.No chest pain or SOB. Objective Last 24 Hour Vital Signs Date Time Temp Pulse Resp B/P Pulse Ox O2 Delivery O2 Flow Rate FiO2 04/16/16 16:00 97.8 73 21 114/77 97 Room Air 04/16/16 11:20 98.1 75 20 113/51 97 Room Air 04/16/16 09:05 85 120/89 04/16/16 08:00 84 04/16/16 07:47 98.2 85 20 120/78 99 Room Air 04/16/16 07:08 83 18 Room Air 21 04/16/16 07:08 98 Room Air 21 04/16/16 07:08 Room Air 21 04/16/16 04:16 98.0 78 20 129/75 96 Room Air 04/16/16 04:00 72 04/16/16 02:26 75 04/16/16 00:05 98.2 72 20 117/68 97 Room Air 04/15/16 20:00 97.9 65 19 115/60 98 Room Air 04/15/16 20:00 72 04/15/16 18:50 72 18 Room Air 21 04/15/16 18:50 98 Room Air 21 04/15/16 18:50 Room Air 21 Intake and Output 04/15/16 04/16/16 19:00 07:00 Intake Total 740 ml 310 ml Output Total 1300 ml 1200 ml Balance -560 ml -890 ml Intake Oral 490 ml 260 ml IV Total 250 ml 50 ml Output Urine Total 1300 ml 1200 ml # Voids 4 # Bowel Movements 1 3 Laboratory Tests Test 04/16/16 05:20 White Blood Count 6.7 K/UL (4.8-10.8) Red Blood Count 2.39 M/UL (4.70-6.10) L Hemoglobin 8.4 G/DL (14.2-18.0) L Hematocrit 26.2 % (42.0-52.0) L Mean Corpuscular Volume 110 FL (80-99) H Mean Corpuscular Hemoglobin 35.3 PG (27.0-31.0) H Mean Corpuscular Hemoglobin Concent 32.2 G/DL (32.0-36.0) Red Cell Distribution Width 16.4 % (11.6-14.8) H Platelet Count 60 K/UL (150-450) L Mean Platelet Volume 8.5 FL (6.5-10.1) Neutrophils (%) (Auto) % (45.0-75.0) Lymphocytes (%) (Auto) % (20.0-45.0) Monocytes (%) (Auto) % (1.0-10.0) Eosinophils (%) (Auto) % (0.0-3.0) Basophils (%) (Auto) % (0.0-2.0) Differential Total Cells Counted 100 Neutrophils % (Manual) 76 % (45-75) H Lymphocytes % (Manual) 10 % (20-45) L Monocytes % (Manual) 12 % (1-10) H Eosinophils % (Manual) 2 % (0-3) Basophils % (Manual) 0 % (0-2) Band Neutrophils 0 % (0-8) Platelet Estimate Decreased L Platelet Morphology Normal Hypochromasia 1+ Anisocytosis 1+ Macrocytosis 1+ Sodium Level 135 mEQ/L (135-145) Potassium Level 3.9 mEQ/L (3.4-4.9) Chloride Level 101 mEQ/L (98-107) Carbon Dioxide Level 22 mEQ/L (20-30) Anion Gap 12 (5-15) Blood Urea Nitrogen 21 mg/dL (7-23) Creatinine 0.8 mg/dL (0.7-1.2) Estimat Glomerular Filtration Rate > 60 mL/min (>60) Glucose Level 118 mg/dL (74-106) H Calcium Level 8.1 mg/dL (8.6-10.2) L Magnesium Level 1.3 mg/dL (1.7-2.5) L Total Bilirubin 5.8 mg/dL (0.0-1.2) H Direct Bilirubin 2.5 mg/dL (0.1-0.3) H Aspartate Amino Transf (AST/SGOT) 29 U/L (5-40) Alanine Aminotransferase (ALT/SGPT) 21 U/L (3-41) Alkaline Phosphatase 110 U/L (40-129) Total Protein 4.9 g/dL (6.6-8.7) L Albumin 2.4 g/dL (3.5-5.2) L Globulin 2.5 g/dL Albumin/Globulin Ratio 0.9 (1.0-2.7) L Objective HEAD AND NECK: No JVD. LUNGS: Decreased breath sounds. CARDIOVASCULAR: Shows regular S1 and S2 with no gallop or murmur. ABDOMEN: Distended with Ascites. EXTREMITIES: 3+ pitting edema. MUKESH IZAGUIRRE Apr 16, 2016 17:38
[2016-04-16 20:00] VITALS: BP 114/75
--- NOTE | 2016-04-16 22:51 | Diagnostic Imaging Report ---
APPROVED REPORT CPT Code: 40923 Present Symptoms Lower Extremity Edema: Bilateral Shortness of breath BILATERAL: Imaging reveals a patent deep venous system bilaterally. There is no evidence of thrombus within the femoral, popliteal or tibial segments. The greater saphenous veins are also within normal limits. Doppler indicates normal spontaneous flow within these segments.
[2016-04-17] VITALS (7 sets, daily range): BP systolic 100–122; BP diastolic 56–72
--- NOTE | 2016-04-17 01:47 | Progress Note ---
SUBJECTIVE: The patient is currently awake. OBJECTIVE: VITAL SIGNS: Stable. CHEST: Bilaterally clear. CARDIOVASCULAR: Regular rhythm. ABDOMEN: Soft. EXTREMITIES: CCE. ASSESSMENT: 1. Depression. 2. Drug overdose. PLAN: 1. Continue current medical and psychiatric treatment. 2. . Chepe Valdez M.D. DR: Rob JOB#: [id number] CC:
--- NOTE | 2016-04-17 07:16 | Pulmonology Progress Note ---
Assessment/Plan Assessment/Plan IMPRESSION: 1. Liver cirrhosis. 2. History of asthma. 3. Leukocytosis. Resolved DISCUSSION: US paracentesis done. No SBP Continue nasal o2prn; presently on RA; Sao2 95% Saturating well on RA; no pneumonia; leucocytosis resolved. No new recommendations Dr Tarango will follow 04/17/16-04/20/16 Subjective Interval Events: Saturating well on RA. No new problems Constitutional: Reports: no symptoms HEENT: Repors: no symptoms Respiratory: Reports: no symptoms Cardiovascular: Reports: no symptoms Gastrointestinal/Abdominal: Reports: no symptoms Genitourinary: Reports: no symptoms Allergies: Coded Allergies: No Known Allergies (Unverified , 04/07/16) Objective Last 24 Hour Vital Signs Date Time Temp Pulse Resp B/P Pulse Ox O2 Delivery O2 Flow Rate FiO2 04/17/16 04:00 98.1 63 16 109/66 100 Room Air 04/17/16 04:00 62 04/17/16 00:00 97.9 63 20 116/63 100 Room Air 04/16/16 20:00 97.5 65 20 114/75 100 Room Air 04/16/16 19:09 60 04/16/16 19:05 85 18 Room Air 21 04/16/16 19:05 97 Room Air 21 04/16/16 19:00 Room Air 21 04/16/16 16:00 97.8 73 21 114/77 97 Room Air 04/16/16 16:00 67 04/16/16 11:20 98.1 75 20 113/51 97 Room Air 04/16/16 09:05 85 120/89 04/16/16 08:00 84 04/16/16 07:47 98.2 85 20 120/78 99 Room Air Intake and Output 04/16/16 04/17/16 19:00 07:00 Intake Total 790 ml 240 ml Output Total 1150 ml 950 ml Balance -360 ml -710 ml Intake Oral 490 ml 240 ml IV Total 300 ml Output Urine Total 1150 ml 950 ml # Bowel Movements 3 General Appearance: no acute distress HEENT: normocephalic Respiratory/Chest: chest wall non-tender, lungs clear Cardiovascular: normal peripheral pulses, normal rate Laboratory Tests 04/17/16 06:00: White Blood Count [Pending], Red Blood Count [Pending], Hemoglobin [Pending], Hematocrit [Pending], Mean Corpuscular Volume [Pending], Mean Corpuscular Hemoglobin [Pending], Mean Corpuscular Hemoglobin Concent [Pending], Red Cell Distribution Width [Pending], Platelet Count [Pending], Mean Platelet Volume [ Pending], Neutrophils (%) (Auto) [Pending], Lymphocytes (%) (Auto) [Pending], Monocytes (%) (Auto) [Pending], Eosinophils (%) (Auto) [Pending], Basophils (%) (Auto) [Pending], Sodium Level [Pending], Potassium Level [Pending], Chloride Level [Pending], Carbon Dioxide Level [Pending], Blood Urea Nitrogen [Pending], Creatinine [Pending], Estimat Glomerular Filtration Rate [Pending], Glucose Level [Pending], Calcium Level [Pending], Magnesium Level [Pending], Total Bilirubin [Pending], Aspartate Amino Transf (AST/SGOT) [Pending], Alanine Aminotransferase (ALT/SGPT) [Pending], Alkaline Phosphatase [Pending], Total Protein [Pending], Albumin [Pending], Globulin [Pending] Current Medications Medications (Trade) Dose Ordered Sig/Bernardino Route PRN Reason Start Time Stop Time Status Last Admin Dose Admin Dextrose (Dextrose 50%) STAT PRN IV Hypoglycemia 04/09/16 00:00 05/09/16 00:00 Furosemide (Lasix) 40 mg EVERY 12 HOURS IV 04/10/16 21:00 05/10/16 20:59 04/16/16 20:32 Lactulose (Cephulac) 30 gm THREE TIMES A DAY ORAL 04/09/16 13:00 05/09/16 12:59 04/16/16 17:20 Metoprolol Succinate (Toprol XL) 200 mg DAILY ORAL 04/09/16 09:00 05/09/16 08:59 04/16/16 09:05 Morphine Sulfate (Morphine Sulfate) 2 mg Q4H PRN IVP Severe Pain (Pain Scale 7-10) 04/15/16 10:00 04/22/16 09:59 Ondansetron HCl (Zofran) 4 mg Q6H PRN IVP Nausea & Vomiting 04/15/16 14:00 05/15/16 13:59 04/15/16 14:48 Pantoprazole (Protonix) 40 mg DAILY ORAL 04/09/16 09:00 05/09/16 08:59 04/16/16 09:04 Potassium Chloride (K-Dur) 20 meq TWICE A DAY ORAL 04/13/16 18:00 05/13/16 17:59 04/16/16 17:21 Spironolactone (Aldactone) 100 mg DAILY ORAL 04/10/16 10:00 05/10/16 09:59 04/16/16 09:04 Tramadol HCl (Ultram) 50 mg Q6H PRN ORAL Moderate Pain (Pain Scale 4-6) 04/15/16 10:00 04/22/16 09:59 Oliver Sky MD Apr 17, 2016 07:16
[2016-04-17 07:35] LABS: ALANINE AMINOTRANSFERASE 20 U/L (3-41); ALBUMIN/GLOBULIN RATIO 0.8 (1.0-2.7); ASPARTATE AMINO TRANSFERASE 28 U/L (5-40); CALCIUM 7.7 mg/dL (8.6-10.2); CARBON DIOXIDE 24 mEQ/L (20-30); CREATININE 0.7 mg/dL (0.7-1.2); GLOMERULAR FILTRATION RATE > 60 mL/min (>60); HEMOLYSIS 1; MAGNESIUM 1.3 mg/dL (1.7-2.5); TOTAL PROTEIN 4.7 g/dL (6.6-8.7)
[2016-04-17 07:36] LABS: ANION GAP 8 (5-15); CHLORIDE 104 mEQ/L (98-107); POTASSIUM 3.9 mEQ/L (3.4-4.9); SODIUM 136 mEQ/L (135-145)
[2016-04-17 07:40] LABS: MEAN CORPUSCULAR HEMOGLOBIN 35.7 PG (27.0-31.0); MEAN CORPUSCULAR VOLUME 112 FL (80-99); MEAN PLATELET VOLUME 7.8 FL (6.5-10.1); PLATELET COUNT 48 K/UL (150-450); RED CELL DISTRIBUTION WIDTH 16.5 % (11.6-14.8)
[2016-04-17 08:45] LABS: BILIRUBIN,DIRECT 2.3 mg/dL (0.1-0.3)
--- NOTE | 2016-04-17 09:06 | Cardiac Electrophysiology PN ---
Assessment/Plan Status Narrative Technically difficult study due to poor acoustical windows. M-mode measurements of left ventricle not obtainable due to cardiac position (angle) Normal left ventricular chamber size, hyperdynamic systolic function and wall motion to extent visualized. Left ventricular ejection fraction estimated to be 70-75 %. Mild left ventricular hypertrophy. Anterior Echo-free space, may be due to pericardial fat or effusion. All other cardiac chamber sizes are within normal limits. Mild focal aortic valve sclerosis with adequate cusp excursion. Mildly thickened mitral valve leaflets with normal excursion. Mitral annulus and aortic root calcification. Normal pulmonic valve structure. Normal tricuspid valve structure. IVC at normal size with physiologic collapse. A color flow and spectral Doppler study was performed and revealed: Mild mitral regurgitation. Mitral diastolic velocities suggest reduced left ventricular relaxation c/w mild LV diastolic dysfunction (Grade I ). Trace tricuspid regurgitation. Tricuspid systolic velocities suggests peak right ventricular systolic pressure of 20 mmHg. Assessment/Plan 1. Paroxysmal atrial fibrillation. In SR on Toprol-XL 200 mg daily. INR 2 on 04/12 off anticoagulation due to cirrhosis despite Vit K. INR 1.8 on 04/14/16. Repeat INR today. 2. Leg edema and shortness of breath secondary to cirrhosis. EF 70-75%. On Lasix 40 iv bid and Aldactone 100 po daily. 3. Alcoholic cirrhosis with ascites on Aldactone 100 mg daily.S/P Paracentesis . On Lactulose. ? TIPS 4. Sepsis with high WBC 19k on broad-spectrum antibiotics.No SBP. 5. Anemia. 6. Hyponatremia likely from dilutional. 7. Thrombocytopenia likely secondary to splenomegaly and secondary to cirrhosis. ROB RN Off tele Subjective Subjective Still has anasarca. No arrhythmias on tele.No chest pain or SOB. Last paracentesis 3.8 liter 04/10/16 Objective Last 24 Hour Vital Signs Date Time Temp Pulse Resp B/P Pulse Ox O2 Delivery O2 Flow Rate FiO2 04/17/16 08:01 97.9 66 20 100/56 96 Room Air 04/17/16 04:00 98.1 63 16 109/66 100 Room Air 04/17/16 04:00 62 04/17/16 00:00 97.9 63 20 116/63 100 Room Air 04/16/16 20:00 97.5 65 20 114/75 100 Room Air 04/16/16 19:09 60 04/16/16 19:05 85 18 Room Air 21 04/16/16 19:05 97 Room Air 21 04/16/16 19:00 Room Air 21 04/16/16 16:00 97.8 73 21 114/77 97 Room Air 04/16/16 16:00 67 04/16/16 11:20 98.1 75 20 113/51 97 Room Air 04/16/16 09:05 85 120/89 Intake and Output 04/16/16 04/17/16 19:00 07:00 Intake Total 790 ml 240 ml Output Total 1150 ml 950 ml Balance -360 ml -710 ml Intake Oral 490 ml 240 ml IV Total 300 ml Output Urine Total 1150 ml 950 ml # Bowel Movements 3 Laboratory Tests Test 04/17/16 06:00 White Blood Count 8.0 K/UL (4.8-10.8) Red Blood Count 2.30 M/UL (4.70-6.10) L Hemoglobin 8.2 G/DL (14.2-18.0) L Hematocrit 25.6 % (42.0-52.0) L Mean Corpuscular Volume 112 FL (80-99) H Mean Corpuscular Hemoglobin 35.7 PG (27.0-31.0) H Mean Corpuscular Hemoglobin Concent 32.0 G/DL (32.0-36.0) Red Cell Distribution Width 16.5 % (11.6-14.8) H Platelet Count 48 K/UL (150-450) L Mean Platelet Volume 7.8 FL (6.5-10.1) Neutrophils (%) (Auto) % (45.0-75.0) Lymphocytes (%) (Auto) % (20.0-45.0) Monocytes (%) (Auto) % (1.0-10.0) Eosinophils (%) (Auto) % (0.0-3.0) Basophils (%) (Auto) % (0.0-2.0) Neutrophils % (Manual) Pending Lymphocytes % (Manual) Pending Platelet Estimate Pending Platelet Morphology Pending Sodium Level 136 mEQ/L (135-145) Potassium Level 3.9 mEQ/L (3.4-4.9) Chloride Level 104 mEQ/L (98-107) Carbon Dioxide Level 24 mEQ/L (20-30) Anion Gap 8 (5-15) Blood Urea Nitrogen 19 mg/dL (7-23) Creatinine 0.7 mg/dL (0.7-1.2) Estimat Glomerular Filtration Rate > 60 mL/min (>60) Glucose Level 64 mg/dL (74-106) L Calcium Level 7.7 mg/dL (8.6-10.2) L Magnesium Level 1.3 mg/dL (1.7-2.5) L Total Bilirubin 5.2 mg/dL (0.0-1.2) H Direct Bilirubin 2.3 mg/dL (0.1-0.3) H Aspartate Amino Transf (AST/SGOT) 28 U/L (5-40) Alanine Aminotransferase (ALT/SGPT) 20 U/L (3-41) Alkaline Phosphatase 106 U/L (40-129) Total Protein 4.7 g/dL (6.6-8.7) L Albumin 2.1 g/dL (3.5-5.2) L Globulin 2.6 g/dL Albumin/Globulin Ratio 0.8 (1.0-2.7) L Objective HEAD AND NECK: No JVD. LUNGS: Decreased breath sounds. CARDIOVASCULAR: Regular S1 and S2 with no gallop or murmur. ABDOMEN: Distended with Ascites. EXTREMITIES: 3+ pitting edema. MUKESH IZAGUIRRE Apr 17, 2016 09:06
[2016-04-17 09:25] LABS: ANISOCYTOSIS 1+; BAND NEUTROPHILS % (MANUAL) 0 % (0-8); BASOPHILS % (MANUAL) 0 % (0-2); EOSINOPHILS % (MANUAL) 0 % (0-3); HYPOCHROMASIA 1+; LYMPHOCYTES % (MANUAL) 22 % (20-45); MACROCYTES 1+; NEUTROPHILS % (MANUAL) 59 % (45-75); PLATELET ESTIMATE DECREASED; PLATELET MORPHOLOGY NORMAL; TOTAL CELLS COUNTED 100
[2016-04-17] MEDS: Lactulose 20gm/30ml UDC ORAL SCH ×3 (09:29→21:01)
[2016-04-17] MEDS: Spironolactone 50mg tab ORAL SCH (09:30)
[2016-04-17] MEDS: Metoprolol XL 100mg tab ORAL SCH (09:40)
[2016-04-17 10:03] LABS: INR 1.7 (0.9-1.1); PROTHROMBIN TIME 18.1 SEC (9.30-11.50)
--- NOTE | 2016-04-17 11:41 | Nephrology Progress Note ---
Assessment/Plan Problem List: (1) Asthma exacerbation (2) Alcoholic cirrhosis of liver with ascites (3) Thrombocytopenia (4) Hyponatremia (5) Anemia of other chronic disease Plan Hyponatremia - resolved Monitor lytes Renal function - improved Monitor H&H, transfuse as needed GI f/u Pending TIPS Hematology f/u Social Service consult - placement AM labs Subjective Constitutional: Denies: chills, diaphoresis, fever, malaise, no symptoms, other , weakness HEENT: Denies: blurred vision, double vision, ear discharge, ear pain, eye pain , mouth pain, mouth swelling, no symptoms, nose congestion, nose pain, other, tearing, throat pain, throat swelling Genitourinary: Denies: burning, discharge, flank pain, frequency, hematuria, incontinence, no symptoms, other, pain, urgency Neurologic/Psychiatric: Denies: anxiety, depressed, emotional problems, headache, no symptoms, numbness, other, paresthesia, pre-existing deficit, seizure, tingling, tremors, weakness Subjective Denies discomfort at this time Objective Objective Last 24 Hour Vital Signs Date Time Temp Pulse Resp B/P Pulse Ox O2 Delivery O2 Flow Rate FiO2 04/17/16 11:27 97.8 64 20 122/72 97 Room Air 04/17/16 09:40 65 115/69 04/17/16 09:39 65 115/69 04/17/16 08:03 62 04/17/16 08:01 97.9 66 20 100/56 96 Room Air 04/17/16 04:00 98.1 63 16 109/66 100 Room Air 04/17/16 04:00 62 04/17/16 00:00 97.9 63 20 116/63 100 Room Air 04/16/16 20:00 97.5 65 20 114/75 100 Room Air 04/16/16 19:09 60 04/16/16 19:05 85 18 Room Air 21 04/16/16 19:05 97 Room Air 21 04/16/16 19:00 Room Air 21 04/16/16 16:00 97.8 73 21 114/77 97 Room Air 04/16/16 16:00 67 Intake and Output 04/16/16 04/17/16 19:00 07:00 Intake Total 790 ml 240 ml Output Total 1150 ml 950 ml Balance -360 ml -710 ml Intake Oral 490 ml 240 ml IV Total 300 ml Output Urine Total 1150 ml 950 ml # Bowel Movements 3 Laboratory Tests 04/17/16 06:00: White Blood Count 8.0, Red Blood Count 2.30L, Hemoglobin 8.2L, Hematocrit 25.6L , Mean Corpuscular Volume 112H, Mean Corpuscular Hemoglobin 35.7H, Mean Corpuscular Hemoglobin Concent 32.0, Red Cell Distribution Width 16.5H, Platelet Count 48L, Mean Platelet Volume 7.8, Neutrophils (%) (Auto) , Lymphocytes (%) (Auto) , Monocytes (%) (Auto) , Eosinophils (%) (Auto) , Basophils (%) (Auto) , Differential Total Cells Counted 100, Neutrophils % ( Manual) 59, Lymphocytes % (Manual) 22, Monocytes % (Manual) 19H, Eosinophils % ( Manual) 0, Basophils % (Manual) 0, Band Neutrophils 0, Platelet Estimate DecreasedL, Platelet Morphology Normal, Hypochromasia 1+, Anisocytosis 1+, Macrocytosis 1+, Sodium Level 136, Potassium Level 3.9, Chloride Level 104, Carbon Dioxide Level 24, Anion Gap 8, Blood Urea Nitrogen 19, Creatinine 0.7, Estimat Glomerular Filtration Rate > 60, Glucose Level 64L, Calcium Level 7.7L, Magnesium Level 1.3L, Total Bilirubin 5.2H, Direct Bilirubin 2.3H, Aspartate Amino Transf (AST/SGOT) 28, Alanine Aminotransferase (ALT/SGPT) 20, Alkaline Phosphatase 106, Total Protein 4.7L, Albumin 2.1L, Globulin 2.6, Albumin/ Globulin Ratio 0.8L 04/17/16 09:40: Prothrombin Time 18.1H, Prothromb Time International Ratio 1.7H Height (Feet): 5 Height (Inches): 0.00 Weight (Pounds): 170 General Appearance: no apparent distress, alert EENT: normal ENT inspection Neck: non-tender, normal alignment, supple Cardiovascular: normal rate, regular rhythm, no JVD Respiratory/Chest: normal breath sounds, no respiratory distress, no accessory muscle use Abdomen: hypoactive bowel sounds, decreased bowel sounds, distended, hepatomegaly Extremities: normal range of motion, non-tender, normal inspection, no calf tenderness Neurologic: alert, oriented x 3, responsive, normal mood/affect Jeanna Mederos N.P. Apr 17, 2016 11:41
--- NOTE | 2016-04-17 11:41 | GI Progress Note ---
Assessment/Plan Problems: (1) Hypoalbuminemia ICD Codes: E88.09 - Other disorders of plasma-protein metabolism, not elsewhere classified SNOMED: 511236359 (2) Alcoholic cirrhosis of liver with ascites ICD Codes: K70.31 - Alcoholic cirrhosis of liver with ascites SNOMED: 212819177 (3) sepsis (4) Anemia ICD Codes: D64.9 - Anemia, unspecified SNOMED: 842240244 Status: unchanged Status Narrative Discussed with Dr. Mcgovern. Assessment/Plan pt scheduled IR procedure and balloon dilatation of the TIPS. See abd U/S report. >> scheduled for 04/18/16 >> NPO @ [facility] monitor H&H, transfuse prn s/p paracentesis >> ascites negative for growth elevated ammonia >> Lactulose + Xifaxan OB stool negative hep panel negative ppi PT eval fu labs Subjective Gastrointestinal/Abdominal: Reports: abdominal pain, other - abdominal bloating Subjective OOB Objective Last 24 Hour Vital Signs Date Time Temp Pulse Resp B/P Pulse Ox O2 Delivery O2 Flow Rate FiO2 04/17/16 11:27 97.8 64 20 122/72 97 Room Air 04/17/16 09:40 65 115/69 04/17/16 09:39 65 115/69 04/17/16 08:03 62 04/17/16 08:01 97.9 66 20 100/56 96 Room Air 04/17/16 04:00 98.1 63 16 109/66 100 Room Air 04/17/16 04:00 62 04/17/16 00:00 97.9 63 20 116/63 100 Room Air 04/16/16 20:00 97.5 65 20 114/75 100 Room Air 04/16/16 19:09 60 04/16/16 19:05 85 18 Room Air 21 04/16/16 19:05 97 Room Air 21 04/16/16 19:00 Room Air 21 04/16/16 16:00 97.8 73 21 114/77 97 Room Air 04/16/16 16:00 67 Intake and Output 04/16/16 04/17/16 19:00 07:00 Intake Total 790 ml 240 ml Output Total 1150 ml 950 ml Balance -360 ml -710 ml Intake Oral 490 ml 240 ml IV Total 300 ml Output Urine Total 1150 ml 950 ml # Bowel Movements 3 Laboratory Tests Test 04/17/16 06:00 04/17/16 09:40 White Blood Count 8.0 K/UL (4.8-10.8) Red Blood Count 2.30 M/UL (4.70-6.10) L Hemoglobin 8.2 G/DL (14.2-18.0) L Hematocrit 25.6 % (42.0-52.0) L Mean Corpuscular Volume 112 FL (80-99) H Mean Corpuscular Hemoglobin 35.7 PG (27.0-31.0) H Mean Corpuscular Hemoglobin Concent 32.0 G/DL (32.0-36.0) Red Cell Distribution Width 16.5 % (11.6-14.8) H Platelet Count 48 K/UL (150-450) L Mean Platelet Volume 7.8 FL (6.5-10.1) Neutrophils (%) (Auto) % (45.0-75.0) Lymphocytes (%) (Auto) % (20.0-45.0) Monocytes (%) (Auto) % (1.0-10.0) Eosinophils (%) (Auto) % (0.0-3.0) Basophils (%) (Auto) % (0.0-2.0) Differential Total Cells Counted 100 Neutrophils % (Manual) 59 % (45-75) Lymphocytes % (Manual) 22 % (20-45) Monocytes % (Manual) 19 % (1-10) H Eosinophils % (Manual) 0 % (0-3) Basophils % (Manual) 0 % (0-2) Band Neutrophils 0 % (0-8) Platelet Estimate Decreased L Platelet Morphology Normal Hypochromasia 1+ Anisocytosis 1+ Macrocytosis 1+ Sodium Level 136 mEQ/L (135-145) Potassium Level 3.9 mEQ/L (3.4-4.9) Chloride Level 104 mEQ/L (98-107) Carbon Dioxide Level 24 mEQ/L (20-30) Anion Gap 8 (5-15) Blood Urea Nitrogen 19 mg/dL (7-23) Creatinine 0.7 mg/dL (0.7-1.2) Estimat Glomerular Filtration Rate > 60 mL/min (>60) Glucose Level 64 mg/dL (74-106) L Calcium Level 7.7 mg/dL (8.6-10.2) L Magnesium Level 1.3 mg/dL (1.7-2.5) L Total Bilirubin 5.2 mg/dL (0.0-1.2) H Direct Bilirubin 2.3 mg/dL (0.1-0.3) H Aspartate Amino Transf (AST/SGOT) 28 U/L (5-40) Alanine Aminotransferase (ALT/SGPT) 20 U/L (3-41) Alkaline Phosphatase 106 U/L (40-129) Total Protein 4.7 g/dL (6.6-8.7) L Albumin 2.1 g/dL (3.5-5.2) L Globulin 2.6 g/dL Albumin/Globulin Ratio 0.8 (1.0-2.7) L Prothrombin Time 18.1 SEC (9.30-11.50) H Prothromb Time International Ratio 1.7 (0.9-1.1) H Height (Feet): 5 Height (Inches): 0.00 Weight (Pounds): 170 General Appearance: no apparent distress, alert Cardiovascular: normal rate Respiratory/Chest: normal breath sounds, no respiratory distress Abdominal Exam: normal bowel sounds, non tender, soft, distended, ascites Extremities: normal range of motion Objective Procedure: US ABD Complete Indications: Abdominal pain IMPRESSION: Cirrhosis with stigmata of portal hypertension including splenomegaly, ascites. Patent intrahepatic portosystemic shunt with apparently elevated velocity at its hepatic venous end, suggesting high-grade stenosis. This is potentially amenable to percutaneous intervention, as clinically indicated. Gallbladder stones and sludge. Mural thickening likely secondary to presence of ascites. Correlate clinically. Midline structures including pancreas, distal abdominal aorta obscured Rain Mercado N.P. Apr 17, 2016 11:41
[2016-04-17] MEDS ORDERED: traMADol 50mg tab ORAL PRN (13:30)
[2016-04-17] MEDS ORDERED: Morphine Sulfate 2mg/ml Inj IVP PRN (14:00)
--- NOTE | 2016-04-17 16:12 | Infectious Diseases Prog Note ---
Assessment/Plan Assessment/Plan ASSESSMENT: 60-year-old male with: Fungemia 04/10, probable CLABSI ( SP PICC 04/10 ) leukocytosis SP Possible Sepsis SP Low grade fever SP No evidence of Pna Chest x-ray, no acute process. UCx VRE ( colonizer ) HIV and Hep Panel :neg EtOH Cirrhosis, pending TIPS 04/18 US : Cirrhosis with stigmata of portal hypertension including splenomegaly, ascites SP Paracentesis 04/10 - no evidence of SBP Thrombocytopenia VRE colonized NKDA Full Code PLAN: start micafungin d# 1 DC PICC, send tip for culture, then repeat BCx to document clearance HOLD TIPS PENDING CLEARANCE OF BLOOD CULTURES - PT NOT CLEAR FOR TIPS FROM ID STANDPOINT Monitor CBC , temperatures monitor BMP monitor CXR D/W RN Subjective Allergies: Coded Allergies: No Known Allergies (Unverified , 04/07/16) Subjective remains afebrile awaiting TIPS new fungemia Objective Vital Signs Last 24 Hour Vital Signs Date Time Temp Pulse Resp B/P Pulse Ox O2 Delivery O2 Flow Rate FiO2 04/17/16 16:06 98.4 63 20 115/72 100 Room Air 04/17/16 11:27 97.8 64 20 122/72 97 Room Air 04/17/16 09:40 65 115/69 04/17/16 09:39 65 115/69 04/17/16 08:03 62 04/17/16 08:01 97.9 66 20 100/56 96 Room Air 04/17/16 04:00 98.1 63 16 109/66 100 Room Air 04/17/16 04:00 62 04/17/16 00:00 97.9 63 20 116/63 100 Room Air 04/16/16 20:00 97.5 65 20 114/75 100 Room Air 04/16/16 19:09 60 04/16/16 19:05 85 18 Room Air 21 04/16/16 19:05 97 Room Air 21 04/16/16 19:00 Room Air 21 Height (Feet): 5 Height (Inches): 0.00 Weight (Pounds): 170 General Appearance: no acute distress Respiratory/Chest: no respiratory distress Cardiovascular: normal rate, regular rhythm Abdomen: normal bowel sounds, soft, non tender, distended Laboratory Tests Test 04/17/16 06:00 04/17/16 09:40 White Blood Count 8.0 K/UL (4.8-10.8) Red Blood Count 2.30 M/UL (4.70-6.10) L Hemoglobin 8.2 G/DL (14.2-18.0) L Hematocrit 25.6 % (42.0-52.0) L Mean Corpuscular Volume 112 FL (80-99) H Mean Corpuscular Hemoglobin 35.7 PG (27.0-31.0) H Mean Corpuscular Hemoglobin Concent 32.0 G/DL (32.0-36.0) Red Cell Distribution Width 16.5 % (11.6-14.8) H Platelet Count 48 K/UL (150-450) L Mean Platelet Volume 7.8 FL (6.5-10.1) Neutrophils (%) (Auto) % (45.0-75.0) Lymphocytes (%) (Auto) % (20.0-45.0) Monocytes (%) (Auto) % (1.0-10.0) Eosinophils (%) (Auto) % (0.0-3.0) Basophils (%) (Auto) % (0.0-2.0) Differential Total Cells Counted 100 Neutrophils % (Manual) 59 % (45-75) Lymphocytes % (Manual) 22 % (20-45) Monocytes % (Manual) 19 % (1-10) H Eosinophils % (Manual) 0 % (0-3) Basophils % (Manual) 0 % (0-2) Band Neutrophils 0 % (0-8) Platelet Estimate Decreased L Platelet Morphology Normal Hypochromasia 1+ Anisocytosis 1+ Macrocytosis 1+ Sodium Level 136 mEQ/L (135-145) Potassium Level 3.9 mEQ/L (3.4-4.9) Chloride Level 104 mEQ/L (98-107) Carbon Dioxide Level 24 mEQ/L (20-30) Anion Gap 8 (5-15) Blood Urea Nitrogen 19 mg/dL (7-23) Creatinine 0.7 mg/dL (0.7-1.2) Estimat Glomerular Filtration Rate > 60 mL/min (>60) Glucose Level 64 mg/dL (74-106) L Calcium Level 7.7 mg/dL (8.6-10.2) L Magnesium Level 1.3 mg/dL (1.7-2.5) L Total Bilirubin 5.2 mg/dL (0.0-1.2) H Direct Bilirubin 2.3 mg/dL (0.1-0.3) H Aspartate Amino Transf (AST/SGOT) 28 U/L (5-40) Alanine Aminotransferase (ALT/SGPT) 20 U/L (3-41) Alkaline Phosphatase 106 U/L (40-129) Total Protein 4.7 g/dL (6.6-8.7) L Albumin 2.1 g/dL (3.5-5.2) L Globulin 2.6 g/dL Albumin/Globulin Ratio 0.8 (1.0-2.7) L Prothrombin Time 18.1 SEC (9.30-11.50) H Prothromb Time International Ratio 1.7 (0.9-1.1) H Current Medications Medications (Trade) Dose Ordered Sig/Bernardino Route PRN Reason Start Time Stop Time Status Last Admin Dose Admin Dextrose (Dextrose 50%) STAT PRN IV Hypoglycemia 04/17/16 13:30 05/17/16 13:29 Furosemide (Lasix) 40 mg EVERY 12 HOURS IV 04/17/16 21:00 05/17/16 20:59 Lactulose (Cephulac) 30 gm THREE TIMES A DAY ORAL 04/17/16 14:00 05/17/16 13:59 04/17/16 13:32 Metoprolol Succinate (Toprol XL) 200 mg DAILY ORAL 04/18/16 09:00 05/18/16 08:59 Micafungin Sodium/ Sodium Chloride (Mycamine/Sodium Chloride 100ml bag) 100 ml @ 100 mls/hr Q24H IVPB 04/17/16 14:30 04/24/16 14:29 Morphine Sulfate (Morphine Sulfate) 2 mg Q4H PRN IVP Severe Pain (Pain Scale 7-10) 04/17/16 14:00 04/24/16 13:59 Ondansetron HCl (Zofran) 4 mg Q6H PRN IVP Nausea & Vomiting 04/17/16 14:00 05/17/16 13:59 Pantoprazole (Protonix) 40 mg DAILY ORAL 04/18/16 09:00 05/18/16 08:59 Potassium Chloride (K-Dur) 20 meq TWICE A DAY ORAL 04/17/16 18:00 05/17/16 17:59 Spironolactone (Aldactone) 100 mg DAILY ORAL 04/18/16 09:00 05/18/16 08:59 Tramadol HCl 50 mg 50 mg Q6H PRN ORAL Moderate Pain (Pain Scale 4-6) 04/17/16 13:30 04/24/16 13:29 RL LEWIS Apr 17, 2016 16:12
--- NOTE | 2016-04-17 16:59 | General Progress Note ---
Assessment/Plan Assessment/Plan ASSESSMENT: 1. Anemia secondary to chronic disease. H/H has been stable 2. Thrombocytopenia secondary to liver cirrhosis and splenomegaly. >50k generally 3. Alcohol induced liver cirrhosis. awaiting TIPs 4. Decreased hemoglobin and hematocrit, rule out gastrointestinal bleed. 5. Splenomegaly 6. Cirrhosis of the liver status post paracentesis. 7. Coagulopathy . 8. Sepsis. RECOMMENDATIONS: 1. Monitor counts. Await TIPs 2. Transfuse as needed with hemoglobin goal >7 3. Transfuse of platelets goal>20k 4. Hepatitis panel negative 5. HIV negative 6. Reviewed anemia workup. 7. Follow up Nephrology, Pulm, Renal, and GI recs 8. Continue pain meds 9. GI prophylaxis with PPI. 10. DVT prophylaxis with SCDs. 11. staff. Thank you, Suresh Pizarro MD Subjective Constitutional: Reports: no symptoms HEENT: Reports: no symptoms Cardiovascular: Reports: no symptoms Respiratory: Reports: no symptoms Gastrointestinal/Abdominal: Reports: no symptoms Genitourinary: Reports: no symptoms Neurologic/Psychiatric: Reports: no symptoms Endocrine: Reports: no symptoms Hematologic/Lymphatic: Reports: anemia Allergies: Coded Allergies: No Known Allergies (Unverified , 04/07/16) Subjective s/p para, no bleeding overnight, is awaiting TIPs Objective Last 24 Hour Vital Signs Date Time Temp Pulse Resp B/P Pulse Ox O2 Delivery O2 Flow Rate FiO2 04/17/16 16:06 98.4 63 20 115/72 100 Room Air 04/17/16 11:27 97.8 64 20 122/72 97 Room Air 04/17/16 09:40 65 115/69 04/17/16 09:39 65 115/69 04/17/16 08:03 62 04/17/16 08:01 97.9 66 20 100/56 96 Room Air 04/17/16 04:00 98.1 63 16 109/66 100 Room Air 04/17/16 04:00 62 04/17/16 00:00 97.9 63 20 116/63 100 Room Air 04/16/16 20:00 97.5 65 20 114/75 100 Room Air 04/16/16 19:09 60 04/16/16 19:05 85 18 Room Air 21 04/16/16 19:05 97 Room Air 21 04/16/16 19:00 Room Air 21 Intake and Output 04/16/16 04/17/16 19:00 07:00 Intake Total 790 ml 240 ml Output Total 1150 ml 950 ml Balance -360 ml -710 ml Intake Oral 490 ml 240 ml IV Total 300 ml Output Urine Total 1150 ml 950 ml # Bowel Movements 3 Laboratory Tests 04/17/16 06:00: White Blood Count 8.0, Red Blood Count 2.30L, Hemoglobin 8.2L, Hematocrit 25.6L , Mean Corpuscular Volume 112H, Mean Corpuscular Hemoglobin 35.7H, Mean Corpuscular Hemoglobin Concent 32.0, Red Cell Distribution Width 16.5H, Platelet Count 48L, Mean Platelet Volume 7.8, Neutrophils (%) (Auto) , Lymphocytes (%) (Auto) , Monocytes (%) (Auto) , Eosinophils (%) (Auto) , Basophils (%) (Auto) , Differential Total Cells Counted 100, Neutrophils % ( Manual) 59, Lymphocytes % (Manual) 22, Monocytes % (Manual) 19H, Eosinophils % ( Manual) 0, Basophils % (Manual) 0, Band Neutrophils 0, Platelet Estimate DecreasedL, Platelet Morphology Normal, Hypochromasia 1+, Anisocytosis 1+, Macrocytosis 1+, Sodium Level 136, Potassium Level 3.9, Chloride Level 104, Carbon Dioxide Level 24, Anion Gap 8, Blood Urea Nitrogen 19, Creatinine 0.7, Estimat Glomerular Filtration Rate > 60, Glucose Level 64L, Calcium Level 7.7L, Magnesium Level 1.3L, Total Bilirubin 5.2H, Direct Bilirubin 2.3H, Aspartate Amino Transf (AST/SGOT) 28, Alanine Aminotransferase (ALT/SGPT) 20, Alkaline Phosphatase 106, Total Protein 4.7L, Albumin 2.1L, Globulin 2.6, Albumin/ Globulin Ratio 0.8L 04/17/16 09:40: Prothrombin Time 18.1H, Prothromb Time International Ratio 1.7H Height (Feet): 5 Height (Inches): 0.00 Weight (Pounds): 170 General Appearance: no apparent distress EENT: TMs normal Neck: normal alignment Cardiovascular: normal rate Respiratory/Chest: lungs clear Abdomen: non tender Extremities: non-tender Edema: 1+ Leg (L), 1+ Leg (R) Edema: mild edema Neurologic: alert Skin: warm/dry Suresh Pizarro Apr 17, 2016 16:59
[2016-04-18 04:37] LABS: MEAN CORPUSCULAR HEMOGLOBIN 36.2 PG (27.0-31.0); MEAN CORPUSCULAR HGB CONC 33.5 G/DL (32.0-36.0); MEAN CORPUSCULAR VOLUME 108 FL (80-99); PLATELET COUNT 44 K/UL (150-450); RED CELL DISTRIBUTION WIDTH 16.9 % (11.6-14.8); WHITE BLOOD COUNT 5.1 K/UL (4.8-10.8)
[2016-04-18 04:45] LABS: INR 1.7 (0.9-1.1); PROTHROMBIN TIME 17.9 SEC (9.30-11.50)
[2016-04-18 04:49] LABS: ANION GAP 9 (5-15); CALCIUM 8.2 mg/dL (8.6-10.2); CARBON DIOXIDE 23 mEQ/L (20-30); CHLORIDE 103 mEQ/L (98-107); CREATININE 0.8 mg/dL (0.7-1.2); GLOMERULAR FILTRATION RATE > 60 mL/min (>60); HEMOLYSIS 1; POTASSIUM 4.5 mEQ/L (3.4-4.9); SODIUM 135 mEQ/L (135-145)
[2016-04-18 05:54] LABS: BAND NEUTROPHILS % (MANUAL) 1 % (0-8); BASOPHILS % (MANUAL) 0 % (0-2); EOSINOPHILS % (MANUAL) 5 % (0-3); LYMPHOCYTES % (MANUAL) 11 % (20-45); NEUTROPHILS % (MANUAL) 75 % (45-75); PLATELET ESTIMATE DECREASED; PLATELET MORPHOLOGY NORMAL; TOTAL CELLS COUNTED 100
[2016-04-18 08:18] VITALS: BP 122/78
[2016-04-18] MEDS: Metoprolol XL 100mg tab ORAL SCH (08:38)
[2016-04-18] MEDS: Spironolactone 50mg tab ORAL SCH (08:38)
[2016-04-18] MEDS: Lactulose 20gm/30ml UDC ORAL SCH ×3 (08:39→18:51)
[2016-04-18] MEDS ORDERED: Heparin 2000 units/Ns 1000ml INJ ONE (09:00)
[2016-04-18] MEDS ORDERED: Lidocaine 1% Plain 30 ml INJ ONE (09:00)
[2016-04-18] MEDS ORDERED: Sodium Bicarbonate 8.4% 50ml Inj IV ONE (09:00)
[2016-04-18 12:13] VITALS: BP 126/72
--- NOTE | 2016-04-18 14:43 | GI Progress Note ---
Assessment/Plan Problems: (1) Hypoalbuminemia ICD Codes: E88.09 - Other disorders of plasma-protein metabolism, not elsewhere classified SNOMED: 776978252 (2) Alcoholic cirrhosis of liver with ascites ICD Codes: K70.31 - Alcoholic cirrhosis of liver with ascites SNOMED: 589915179 (3) sepsis (4) Anemia ICD Codes: D64.9 - Anemia, unspecified SNOMED: 039788035 Status: unchanged Status Narrative Discussed with Dr. Mcgovern. Assessment/Plan pt scheduled IR procedure and balloon dilatation of the TIPS. >> Cancelled per ID note. resume diet monitor H&H, transfuse prn s/p paracentesis >> ascites negative for growth elevated ammonia >> Lactulose + Xifaxan OB stool negative hep panel negative ppi PT eval fu labs Subjective Gastrointestinal/Abdominal: Reports: no symptoms Subjective OOB Objective Last 24 Hour Vital Signs Date Time Temp Pulse Resp B/P Pulse Ox O2 Delivery O2 Flow Rate FiO2 04/18/16 12:13 98.0 65 20 126/72 100 Room Air 04/18/16 08:38 69 122/78 04/18/16 08:18 97.3 69 20 122/78 100 Room Air 04/17/16 20:00 98.1 63 18 105/58 97 Room Air 04/17/16 16:06 98.4 63 20 115/72 100 Room Air Intake and Output 04/17/16 04/18/16 19:00 07:00 Intake Total 1420 ml 500 ml Output Total 900 ml 650 ml Balance 520 ml -150 ml Intake Oral 1120 ml 500 ml IV Total 300 ml Output Urine Total 900 ml 650 ml # Voids 4 # Bowel Movements 4 Laboratory Tests Test 04/18/16 04:10 White Blood Count 5.1 K/UL (4.8-10.8) Red Blood Count 2.40 M/UL (4.70-6.10) L Hemoglobin 8.7 G/DL (14.2-18.0) L Hematocrit 25.9 % (42.0-52.0) L Mean Corpuscular Volume 108 FL (80-99) H Mean Corpuscular Hemoglobin 36.2 PG (27.0-31.0) H Mean Corpuscular Hemoglobin Concent 33.5 G/DL (32.0-36.0) Red Cell Distribution Width 16.9 % (11.6-14.8) H Platelet Count 44 K/UL (150-450) L Mean Platelet Volume 11.0 FL (6.5-10.1) H Neutrophils (%) (Auto) % (45.0-75.0) Lymphocytes (%) (Auto) % (20.0-45.0) Monocytes (%) (Auto) % (1.0-10.0) Eosinophils (%) (Auto) % (0.0-3.0) Basophils (%) (Auto) % (0.0-2.0) Differential Total Cells Counted 100 Neutrophils % (Manual) 75 % (45-75) Lymphocytes % (Manual) 11 % (20-45) L Monocytes % (Manual) 8 % (1-10) Eosinophils % (Manual) 5 % (0-3) H Basophils % (Manual) 0 % (0-2) Band Neutrophils 1 % (0-8) Platelet Estimate Decreased L Platelet Morphology Normal Red Blood Cell Morphology Normal Prothrombin Time 17.9 SEC (9.30-11.50) H Prothromb Time International Ratio 1.7 (0.9-1.1) H Activated Partial Thromboplast Time 42 SEC (23-33) H Sodium Level 135 mEQ/L (135-145) Potassium Level 4.5 mEQ/L (3.4-4.9) Chloride Level 103 mEQ/L (98-107) Carbon Dioxide Level 23 mEQ/L (20-30) Anion Gap 9 (5-15) Blood Urea Nitrogen 19 mg/dL (7-23) Creatinine 0.8 mg/dL (0.7-1.2) Estimat Glomerular Filtration Rate > 60 mL/min (>60) Glucose Level 108 mg/dL (74-106) H Calcium Level 8.2 mg/dL (8.6-10.2) L Height (Feet): 5 Height (Inches): 0.00 Weight (Pounds): 168 General Appearance: no apparent distress, alert Cardiovascular: normal rate Respiratory/Chest: normal breath sounds, no respiratory distress Abdominal Exam: normal bowel sounds, non tender, soft, distended, ascites Extremities: normal range of motion Objective Procedure: US ABD Complete Indications: Abdominal pain IMPRESSION: Cirrhosis with stigmata of portal hypertension including splenomegaly, ascites. Patent intrahepatic portosystemic shunt with apparently elevated velocity at its hepatic venous end, suggesting high-grade stenosis. This is potentially amenable to percutaneous intervention, as clinically indicated. Gallbladder stones and sludge. Mural thickening likely secondary to presence of ascites. Correlate clinically. Midline structures including pancreas, distal abdominal aorta obscured Rain Mercado N.P. Apr 18, 2016 14:43
--- NOTE | 2016-04-18 15:42 | Infectious Diseases Prog Note ---
Assessment/Plan Assessment/Plan ASSESSMENT: 60-year-old male with: Fungemia 04/10, probable CLABSI ( SP PICC 04/10, removed 04/18 - Cx pending ) leukocytosis SP Possible Sepsis SP Low grade fever SP No evidence of Pna Chest x-ray, no acute process. UCx VRE ( colonizer ) HIV and Hep Panel :neg EtOH Cirrhosis, pending TIPS US : Cirrhosis with stigmata of portal hypertension including splenomegaly, ascites SP Paracentesis 04/10 - no evidence of SBP Thrombocytopenia VRE colonized NKDA Full Code PLAN: continue micafungin d# 2 repeat BCx AM to document clearance HOLD TIPS PENDING CLEARANCE OF BLOOD CULTURES - PT NOT CLEAR FOR TIPS FROM ID STANDPOINT Monitor CBC , temperatures monitor BMP monitor CXR Subjective Allergies: Coded Allergies: No Known Allergies (Unverified , 04/07/16) Subjective remains afebrile PICC changed Objective Vital Signs Last 24 Hour Vital Signs Date Time Temp Pulse Resp B/P Pulse Ox O2 Delivery O2 Flow Rate FiO2 04/18/16 12:13 98.0 65 20 126/72 100 Room Air 04/18/16 08:38 69 122/78 04/18/16 08:18 97.3 69 20 122/78 100 Room Air 04/17/16 20:00 98.1 63 18 105/58 97 Room Air 04/17/16 16:06 98.4 63 20 115/72 100 Room Air Height (Feet): 5 Height (Inches): 0.00 Weight (Pounds): 168 General Appearance: no acute distress Respiratory/Chest: no respiratory distress Cardiovascular: normal rate, regular rhythm Abdomen: normal bowel sounds, soft, non tender, distended Laboratory Tests Test 04/18/16 04:10 White Blood Count 5.1 K/UL (4.8-10.8) Red Blood Count 2.40 M/UL (4.70-6.10) L Hemoglobin 8.7 G/DL (14.2-18.0) L Hematocrit 25.9 % (42.0-52.0) L Mean Corpuscular Volume 108 FL (80-99) H Mean Corpuscular Hemoglobin 36.2 PG (27.0-31.0) H Mean Corpuscular Hemoglobin Concent 33.5 G/DL (32.0-36.0) Red Cell Distribution Width 16.9 % (11.6-14.8) H Platelet Count 44 K/UL (150-450) L Mean Platelet Volume 11.0 FL (6.5-10.1) H Neutrophils (%) (Auto) % (45.0-75.0) Lymphocytes (%) (Auto) % (20.0-45.0) Monocytes (%) (Auto) % (1.0-10.0) Eosinophils (%) (Auto) % (0.0-3.0) Basophils (%) (Auto) % (0.0-2.0) Differential Total Cells Counted 100 Neutrophils % (Manual) 75 % (45-75) Lymphocytes % (Manual) 11 % (20-45) L Monocytes % (Manual) 8 % (1-10) Eosinophils % (Manual) 5 % (0-3) H Basophils % (Manual) 0 % (0-2) Band Neutrophils 1 % (0-8) Platelet Estimate Decreased L Platelet Morphology Normal Red Blood Cell Morphology Normal Prothrombin Time 17.9 SEC (9.30-11.50) H Prothromb Time International Ratio 1.7 (0.9-1.1) H Activated Partial Thromboplast Time 42 SEC (23-33) H Sodium Level 135 mEQ/L (135-145) Potassium Level 4.5 mEQ/L (3.4-4.9) Chloride Level 103 mEQ/L (98-107) Carbon Dioxide Level 23 mEQ/L (20-30) Anion Gap 9 (5-15) Blood Urea Nitrogen 19 mg/dL (7-23) Creatinine 0.8 mg/dL (0.7-1.2) Estimat Glomerular Filtration Rate > 60 mL/min (>60) Glucose Level 108 mg/dL (74-106) H Calcium Level 8.2 mg/dL (8.6-10.2) L Current Medications Medications (Trade) Dose Ordered Sig/Bernardino Route PRN Reason Start Time Stop Time Status Last Admin Dose Admin Dextrose (Dextrose 50%) STAT PRN IV Hypoglycemia 04/17/16 13:30 05/17/16 13:29 Furosemide (Lasix) 40 mg EVERY 12 HOURS IV 04/17/16 21:00 05/17/16 20:59 04/18/16 08:39 Lactulose (Cephulac) 30 gm THREE TIMES A DAY ORAL 04/17/16 14:00 05/17/16 13:59 04/18/16 13:18 Metoprolol Succinate (Toprol XL) 200 mg DAILY ORAL 04/18/16 09:00 05/18/16 08:59 04/18/16 08:38 Micafungin Sodium/ Sodium Chloride (Mycamine/Sodium Chloride 100ml bag) 100 ml @ 100 mls/hr Q24H IVPB 04/17/16 14:30 04/24/16 14:29 04/18/16 13:18 Morphine Sulfate (Morphine Sulfate) 2 mg Q4H PRN IVP Severe Pain (Pain Scale 7-10) 04/17/16 14:00 04/24/16 13:59 Ondansetron HCl (Zofran) 4 mg Q6H PRN IVP Nausea & Vomiting 04/17/16 14:00 05/17/16 13:59 Pantoprazole (Protonix) 40 mg DAILY ORAL 04/18/16 09:00 05/18/16 08:59 04/18/16 08:38 Potassium Chloride (K-Dur) 20 meq TWICE A DAY ORAL 04/17/16 18:00 05/17/16 17:59 04/18/16 08:38 Spironolactone (Aldactone) 100 mg DAILY ORAL 04/18/16 09:00 05/18/16 08:59 04/18/16 08:38 Tramadol HCl 50 mg 50 mg Q6H PRN ORAL Moderate Pain (Pain Scale 4-6) 04/17/16 13:30 04/24/16 13:29 RL LEWIS Apr 18, 2016 15:42
[2016-04-18 16:16] VITALS: BP 129/83
--- NOTE | 2016-04-18 17:14 | General Progress Note ---
Assessment/Plan Assessment/Plan ASSESSMENT: 1. Anemia secondary to chronic disease. H/H has been stable 2. Thrombocytopenia secondary to liver cirrhosis and splenomegaly. >50k generally 3. Alcohol induced liver cirrhosis. awaiting TIPs 4. Decreased hemoglobin and hematocrit, rule out gastrointestinal bleed. 5. Splenomegaly 6. Cirrhosis of the liver status post paracentesis. 7. Coagulopathy . 8. Sepsis. RECOMMENDATIONS: 1. Monitor counts. Await TIPs 2. Transfuse to hemoglobin goal >7 3. Transfuse of platelets goal>20k 4. Hepatitis panel negative 5. HIV negative 6. Reviewed anemia workup. 7. Follow up Nephrology, Pulm, Renal, and GI recs 8. Continue pain meds 9. GI prophylaxis with PPI. 10. DVT prophylaxis with SCDs 11. staff. Thank you, Suresh Pizarro MD Subjective Constitutional: Reports: no symptoms HEENT: Reports: no symptoms Cardiovascular: Reports: no symptoms Respiratory: Reports: no symptoms Gastrointestinal/Abdominal: Reports: poor appetite Genitourinary: Reports: no symptoms Neurologic/Psychiatric: Reports: no symptoms Endocrine: Reports: no symptoms Hematologic/Lymphatic: Reports: anemia Allergies: Coded Allergies: No Known Allergies (Unverified , 04/07/16) Subjective s/p para, no bleeding overnight, is awaiting TIPs after cultures are negative Objective Last 24 Hour Vital Signs Date Time Temp Pulse Resp B/P Pulse Ox O2 Delivery O2 Flow Rate FiO2 04/18/16 16:16 97.9 63 20 129/83 100 Room Air 04/18/16 12:13 98.0 65 20 126/72 100 Room Air 04/18/16 08:38 69 122/78 04/18/16 08:18 97.3 69 20 122/78 100 Room Air 04/17/16 20:00 98.1 63 18 105/58 97 Room Air Intake and Output 04/17/16 04/18/16 19:00 07:00 Intake Total 1420 ml 500 ml Output Total 900 ml 650 ml Balance 520 ml -150 ml Intake Oral 1120 ml 500 ml IV Total 300 ml Output Urine Total 900 ml 650 ml # Voids 4 # Bowel Movements 4 Laboratory Tests 04/18/16 04:10: White Blood Count 5.1, Red Blood Count 2.40L, Hemoglobin 8.7L, Hematocrit 25.9L , Mean Corpuscular Volume 108H, Mean Corpuscular Hemoglobin 36.2H, Mean Corpuscular Hemoglobin Concent 33.5, Red Cell Distribution Width 16.9H, Platelet Count 44L, Mean Platelet Volume 11.0H, Neutrophils (%) (Auto) , Lymphocytes (%) (Auto) , Monocytes (%) (Auto) , Eosinophils (%) (Auto) , Basophils (%) (Auto) , Differential Total Cells Counted 100, Neutrophils % ( Manual) 75, Lymphocytes % (Manual) 11L, Monocytes % (Manual) 8, Eosinophils % ( Manual) 5H, Basophils % (Manual) 0, Band Neutrophils 1, Platelet Estimate DecreasedL, Platelet Morphology Normal, Red Blood Cell Morphology Normal, Prothrombin Time 17.9H, Prothromb Time International Ratio 1.7H, Activated Partial Thromboplast Time 42H, Sodium Level 135, Potassium Level 4.5, Chloride Level 103, Carbon Dioxide Level 23, Anion Gap 9, Blood Urea Nitrogen 19, Creatinine 0.8, Estimat Glomerular Filtration Rate > 60, Glucose Level 108H, Calcium Level 8.2L Height (Feet): 5 Height (Inches): 0.00 Weight (Pounds): 168 General Appearance: no apparent distress EENT: TMs normal Neck: supple Cardiovascular: regular rhythm Respiratory/Chest: no respiratory distress Abdomen: non tender Extremities: non-tender Edema: 1+ Leg (L), 1+ Leg (R) Edema: mild edema Neurologic: alert Skin: normal pigmentation Suresh Pizarro Apr 18, 2016 17:14
--- NOTE | 2016-04-18 17:36 | Cardiac Electrophysiology PN ---
Assessment/Plan Status Narrative Technically difficult study due to poor acoustical windows. M-mode measurements of left ventricle not obtainable due to cardiac position (angle) Normal left ventricular chamber size, hyperdynamic systolic function and wall motion to extent visualized. Left ventricular ejection fraction estimated to be 70-75 %. Mild left ventricular hypertrophy. Anterior Echo-free space, may be due to pericardial fat or effusion. All other cardiac chamber sizes are within normal limits. Mild focal aortic valve sclerosis with adequate cusp excursion. Mildly thickened mitral valve leaflets with normal excursion. Mitral annulus and aortic root calcification. Normal pulmonic valve structure. Normal tricuspid valve structure. IVC at normal size with physiologic collapse. A color flow and spectral Doppler study was performed and revealed: Mild mitral regurgitation. Mitral diastolic velocities suggest reduced left ventricular relaxation c/w mild LV diastolic dysfunction (Grade I ). Trace tricuspid regurgitation. Tricuspid systolic velocities suggests peak right ventricular systolic pressure of 20 mmHg. Assessment/Plan 1. Paroxysmal atrial fibrillation. In SR on Toprol-XL 200 mg daily. INR 1.7 today off anticoagulation due to cirrhosis. 2. Leg edema and shortness of breath secondary to cirrhosis. EF 70-75%. On Lasix 40 iv bid and Aldactone 100 po daily. 3. Alcoholic cirrhosis with ascites on Aldactone 100 mg daily.S/P Paracentesis . On Lactulose. TIPS on hold for ID clearance 4. Sepsis with high WBC 19k on broad-spectrum antibiotics.No SBP. 5. Anemia. 6. Hyponatremia likely from dilutional. 7. Thrombocytopenia likely secondary to splenomegaly and secondary to cirrhosis. RBO RN Off tele Subjective Subjective Transferred to nonmonitored bed.No chest pain or SOB. Last paracentesis 3.8 liter 04/10/16. Just had PICC line in Right arm and removed the left arm PICC line. Objective Last 24 Hour Vital Signs Date Time Temp Pulse Resp B/P Pulse Ox O2 Delivery O2 Flow Rate FiO2 04/18/16 16:16 97.9 63 20 129/83 100 Room Air 04/18/16 12:13 98.0 65 20 126/72 100 Room Air 04/18/16 08:38 69 122/78 04/18/16 08:18 97.3 69 20 122/78 100 Room Air 04/17/16 20:00 98.1 63 18 105/58 97 Room Air Intake and Output 04/17/16 04/18/16 19:00 07:00 Intake Total 1420 ml 500 ml Output Total 900 ml 650 ml Balance 520 ml -150 ml Intake Oral 1120 ml 500 ml IV Total 300 ml Output Urine Total 900 ml 650 ml # Voids 4 # Bowel Movements 4 Laboratory Tests Test 04/18/16 04:10 White Blood Count 5.1 K/UL (4.8-10.8) Red Blood Count 2.40 M/UL (4.70-6.10) L Hemoglobin 8.7 G/DL (14.2-18.0) L Hematocrit 25.9 % (42.0-52.0) L Mean Corpuscular Volume 108 FL (80-99) H Mean Corpuscular Hemoglobin 36.2 PG (27.0-31.0) H Mean Corpuscular Hemoglobin Concent 33.5 G/DL (32.0-36.0) Red Cell Distribution Width 16.9 % (11.6-14.8) H Platelet Count 44 K/UL (150-450) L Mean Platelet Volume 11.0 FL (6.5-10.1) H Neutrophils (%) (Auto) % (45.0-75.0) Lymphocytes (%) (Auto) % (20.0-45.0) Monocytes (%) (Auto) % (1.0-10.0) Eosinophils (%) (Auto) % (0.0-3.0) Basophils (%) (Auto) % (0.0-2.0) Differential Total Cells Counted 100 Neutrophils % (Manual) 75 % (45-75) Lymphocytes % (Manual) 11 % (20-45) L Monocytes % (Manual) 8 % (1-10) Eosinophils % (Manual) 5 % (0-3) H Basophils % (Manual) 0 % (0-2) Band Neutrophils 1 % (0-8) Platelet Estimate Decreased L Platelet Morphology Normal Red Blood Cell Morphology Normal Prothrombin Time 17.9 SEC (9.30-11.50) H Prothromb Time International Ratio 1.7 (0.9-1.1) H Activated Partial Thromboplast Time 42 SEC (23-33) H Sodium Level 135 mEQ/L (135-145) Potassium Level 4.5 mEQ/L (3.4-4.9) Chloride Level 103 mEQ/L (98-107) Carbon Dioxide Level 23 mEQ/L (20-30) Anion Gap 9 (5-15) Blood Urea Nitrogen 19 mg/dL (7-23) Creatinine 0.8 mg/dL (0.7-1.2) Estimat Glomerular Filtration Rate > 60 mL/min (>60) Glucose Level 108 mg/dL (74-106) H Calcium Level 8.2 mg/dL (8.6-10.2) L Current Medications Medications (Trade) Dose Ordered Sig/Bernardino Route PRN Reason Start Time Stop Time Status Last Admin Dose Admin Dextrose (Dextrose 50%) STAT PRN IV Hypoglycemia 04/17/16 13:30 05/17/16 13:29 Furosemide (Lasix) 40 mg EVERY 12 HOURS IV 04/17/16 21:00 05/17/16 20:59 04/18/16 08:39 Lactulose (Cephulac) 30 gm THREE TIMES A DAY ORAL 04/17/16 14:00 05/17/16 13:59 04/18/16 13:18 Metoprolol Succinate (Toprol XL) 200 mg DAILY ORAL 04/18/16 09:00 05/18/16 08:59 04/18/16 08:38 Micafungin Sodium/ Sodium Chloride (Mycamine/Sodium Chloride 100ml bag) 100 ml @ 100 mls/hr Q24H IVPB 04/17/16 14:30 04/24/16 14:29 04/18/16 13:18 Morphine Sulfate (Morphine Sulfate) 2 mg Q4H PRN IVP Severe Pain (Pain Scale 7-10) 04/17/16 14:00 04/24/16 13:59 Ondansetron HCl (Zofran) 4 mg Q6H PRN IVP Nausea & Vomiting 04/17/16 14:00 05/17/16 13:59 Pantoprazole (Protonix) 40 mg DAILY ORAL 04/18/16 09:00 05/18/16 08:59 04/18/16 08:38 Potassium Chloride (K-Dur) 20 meq TWICE A DAY ORAL 04/17/16 18:00 05/17/16 17:59 04/18/16 08:38 Spironolactone (Aldactone) 100 mg DAILY ORAL 04/18/16 09:00 05/18/16 08:59 04/18/16 08:38 Tramadol HCl 50 mg 50 mg Q6H PRN ORAL Moderate Pain (Pain Scale 4-6) 04/17/16 13:30 04/24/16 13:29 Objective HEAD AND NECK: No JVD. LUNGS: Decreased breath sounds. CARDIOVASCULAR: Regular S1 and S2 with no gallop or murmur. ABDOMEN: Distended with Ascites. EXTREMITIES: 3+ pitting edema. MUKESH IZAGUIRRE Apr 18, 2016 17:36
--- NOTE | 2016-04-18 17:59 | Diagnostic Imaging Report ---
Indications: Long-term central IV access required for intravenous therapy, suspicion of infection of left-sided PICC necessitates removal Technique: The procedure indications, risks, and alternatives were explained to the patient who understands and gives consent to proceed. Left-sided PICC removed, dermatotomy site manually compressed to achieve hemostasis cleansed and bandaged. Strict aseptic technique was utilized, including hand washing, use of hat and mask, use of sterile gown and gloves, sterile ultrasound gel and probe cover, prepping of right arm skin with 2% chlorhexidine solution, and application of full body sterile barrier over this area. Skin and subcutaneous soft tissues were infiltrated with 1% lidocaine and sodium bicarbonate. A small dermatotomy was made, through which the patent adequate size right basilic vein was punctured percutaneously under direct sonographic guidance with a 21-gauge needle. Exchange was made over a 0.018 inch guidewire for a 5 Czech peel-away sheath. A Bard Power-PICC 5 Czech dual lumen central venous catheter was cut to appropriate length, then advanced through the sheath over the guidewire under direct fluoroscopic guidance into the superior vena cava. Guidewire and sheath were removed. Both catheter ports were aspirated, then flushed with heparinized saline. Final image was obtained. Catheter was secured the skin with adhesive dressing. Patient tolerated procedure well without immediate complications. Total fluoroscopy time: 0.3 minutes. Dose-area product: 12 dGy-cm2 Findings: Removed left sided PICC intact. Final image demonstrates tip of the new central venous catheter at the level of superior vena cava-right atrial junction, 37 cm in from the skin. Both ports aspirate and flush freely. IMPRESSION: Removal of left PICC Placement of peripherally inserted central venous catheter via right basilic vein, working well.
--- NOTE | 2016-04-18 18:20 | Pulmonology Progress Note ---
Assessment/Plan Problems: (1) Asthma (2) Alcoholic cirrhosis of liver with ascites (3) Hypoalbuminemia (4) Thrombocytopenia (5) Anemia Assessment/Plan -Optimize pulmonary hygiene/mobilize as tolerated -Respiratory stable -Monitor volumes/diuresis as tolerated -PRN O2 -F/U cards, GI, ID recs -Monitor MS -TIPS pending ID clearance -F/U repeat Cx's -DVT Px -IS Subjective Allergies: Coded Allergies: No Known Allergies (Unverified , 04/07/16) Subjective AFVSS, stable on RA TIPS cancelled pending ID clearance No F/C/CP/cough/SOB PICC exchanged Objective Last 24 Hour Vital Signs Date Time Temp Pulse Resp B/P Pulse Ox O2 Delivery O2 Flow Rate FiO2 04/18/16 16:16 97.9 63 20 129/83 100 Room Air 04/18/16 12:13 98.0 65 20 126/72 100 Room Air 04/18/16 08:38 69 122/78 04/18/16 08:18 97.3 69 20 122/78 100 Room Air 04/17/16 20:00 98.1 63 18 105/58 97 Room Air Intake and Output 04/17/16 04/18/16 19:00 07:00 Intake Total 1420 ml 500 ml Output Total 900 ml 650 ml Balance 520 ml -150 ml Intake Oral 1120 ml 500 ml IV Total 300 ml Output Urine Total 900 ml 650 ml # Voids 4 # Bowel Movements 4 General Appearance: no acute distress, other - mild jaundice HEENT: normocephalic, atraumatic, other - minimal scleral icterus Respiratory/Chest: chest wall non-tender, lungs clear, normal breath sounds, no respiratory distress, no accessory muscle use Cardiovascular: normal peripheral pulses, normal rate Abdomen: normal bowel sounds, soft, non tender, distended Extremities: no cyanosis, no clubbing, other - 2+ bLE edema Laboratory Tests 04/18/16 04:10: White Blood Count 5.1, Red Blood Count 2.40L, Hemoglobin 8.7L, Hematocrit 25.9L , Mean Corpuscular Volume 108H, Mean Corpuscular Hemoglobin 36.2H, Mean Corpuscular Hemoglobin Concent 33.5, Red Cell Distribution Width 16.9H, Platelet Count 44L, Mean Platelet Volume 11.0H, Neutrophils (%) (Auto) , Lymphocytes (%) (Auto) , Monocytes (%) (Auto) , Eosinophils (%) (Auto) , Basophils (%) (Auto) , Differential Total Cells Counted 100, Neutrophils % ( Manual) 75, Lymphocytes % (Manual) 11L, Monocytes % (Manual) 8, Eosinophils % ( Manual) 5H, Basophils % (Manual) 0, Band Neutrophils 1, Platelet Estimate DecreasedL, Platelet Morphology Normal, Red Blood Cell Morphology Normal, Prothrombin Time 17.9H, Prothromb Time International Ratio 1.7H, Activated Partial Thromboplast Time 42H, Sodium Level 135, Potassium Level 4.5, Chloride Level 103, Carbon Dioxide Level 23, Anion Gap 9, Blood Urea Nitrogen 19, Creatinine 0.8, Estimat Glomerular Filtration Rate > 60, Glucose Level 108H, Calcium Level 8.2L Current Medications Medications (Trade) Dose Ordered Sig/Bernardino Route PRN Reason Start Time Stop Time Status Last Admin Dose Admin Dextrose (Dextrose 50%) STAT PRN IV Hypoglycemia 04/17/16 13:30 05/17/16 13:29 Furosemide (Lasix) 40 mg EVERY 12 HOURS IV 04/17/16 21:00 05/17/16 20:59 04/18/16 08:39 Lactulose (Cephulac) 30 gm THREE TIMES A DAY ORAL 04/17/16 14:00 05/17/16 13:59 04/18/16 13:18 Metoprolol Succinate (Toprol XL) 200 mg DAILY ORAL 04/18/16 09:00 05/18/16 08:59 04/18/16 08:38 Micafungin Sodium/ Sodium Chloride (Mycamine/Sodium Chloride 100ml bag) 100 ml @ 100 mls/hr Q24H IVPB 04/17/16 14:30 04/24/16 14:29 04/18/16 13:18 Morphine Sulfate (Morphine Sulfate) 2 mg Q4H PRN IVP Severe Pain (Pain Scale 7-10) 04/17/16 14:00 04/24/16 13:59 Ondansetron HCl (Zofran) 4 mg Q6H PRN IVP Nausea & Vomiting 04/17/16 14:00 05/17/16 13:59 Pantoprazole (Protonix) 40 mg DAILY ORAL 04/18/16 09:00 05/18/16 08:59 04/18/16 08:38 Potassium Chloride (K-Dur) 20 meq TWICE A DAY ORAL 04/17/16 18:00 05/17/16 17:59 04/18/16 08:38 Spironolactone (Aldactone) 100 mg DAILY ORAL 04/18/16 09:00 05/18/16 08:59 04/18/16 08:38 Tramadol HCl 50 mg 50 mg Q6H PRN ORAL Moderate Pain (Pain Scale 4-6) 04/17/16 13:30 04/24/16 13:29 SUSANNA ARRINGTON M.D. Apr 18, 2016 18:20
[2016-04-18 20:00] VITALS: BP 128/95
[2016-04-19] VITALS: BP 174/69
[2016-04-19 04:00] VITALS: BP 160/51
[2016-04-19 07:14] LABS: ALANINE AMINOTRANSFERASE 20 U/L (3-41); ALBUMIN/GLOBULIN RATIO 0.8 (1.0-2.7); ANION GAP 11 (5-15); ASPARTATE AMINO TRANSFERASE 28 U/L (5-40); CALCIUM 8.3 mg/dL (8.6-10.2); CARBON DIOXIDE 22 mEQ/L (20-30); CHLORIDE 104 mEQ/L (98-107); CREATININE 0.6 mg/dL (0.7-1.2); GLOMERULAR FILTRATION RATE > 60 mL/min (>60); HEMOLYSIS 2; MAGNESIUM 1.3 mg/dL (1.7-2.5); POTASSIUM 4.6 mEQ/L (3.4-4.9); SODIUM 137 mEQ/L (135-145); TOTAL PROTEIN 4.6 g/dL (6.6-8.7)
[2016-04-19 07:24] LABS: MEAN CORPUSCULAR HEMOGLOBIN 35.8 PG (27.0-31.0); MEAN CORPUSCULAR HGB CONC 32.8 G/DL (32.0-36.0); MEAN CORPUSCULAR VOLUME 109 FL (80-99); PLATELET COUNT 44 K/UL (150-450); RED BLOOD COUNT 2.32 M/UL (4.70-6.10); WHITE BLOOD COUNT 5.3 K/UL (4.8-10.8)
[2016-04-19 07:25] LABS: BILIRUBIN,DIRECT 2.2 mg/dL (0.1-0.3)
[2016-04-19 07:58] LABS: BAND NEUTROPHILS % (MANUAL) 0 % (0-8); BASOPHILS % (MANUAL) 1 % (0-2); EOSINOPHILS % (MANUAL) 0 % (0-3); HYPOCHROMASIA 2+; LYMPHOCYTES % (MANUAL) 12 % (20-45); NEUTROPHILS % (MANUAL) 70 % (45-75); PLATELET ESTIMATE DECREASED; TOTAL CELLS COUNTED 100
[2016-04-19 07:59] LABS: ANISOCYTOSIS 1+; MACROCYTES 1+; PLATELET MORPHOLOGY NORMAL
[2016-04-19 08:30] VITALS: BP 143/86
--- NOTE | 2016-04-19 08:41 | Nephrology Progress Note ---
Assessment/Plan Problem List: (1) sepsis (2) Alcoholic cirrhosis of liver with ascites Assessment: s/p paracentesis. (3) Hypoalbuminemia (4) Asthma exacerbation Assessment: better. (5) Anemia (6) Thrombocytopenia (7) Fungemia (8) VRE (vancomycin resistant enterococcus) culture positive Assessment: in rectum and urine. likely colonized. Plan f/u recs per GI. monitor labs. replete Mg. TIPS cancelled due to + bcx. ID following. Need ID clearance before TIPS procedure. Subjective Subjective late entry for 04/18 - + bcx. TIPS cancelled. Objective Objective Last 24 Hour Vital Signs Date Time Temp Pulse Resp B/P Pulse Ox O2 Delivery O2 Flow Rate FiO2 04/19/16 08:30 97.8 61 20 143/86 100 Room Air 04/19/16 04:00 98.1 60 18 160/51 99 Room Air 04/19/16 00:00 98.1 62 18 174/69 100 Room Air 04/18/16 20:00 98.1 64 18 128/95 97 Room Air 04/18/16 16:16 97.9 63 20 129/83 100 Room Air 04/18/16 12:13 98.0 65 20 126/72 100 Room Air Intake and Output 04/18/16 04/19/16 19:00 07:00 Intake Total 1180 ml 1330 ml Output Total 1800 ml 1640 ml Balance -620 ml -310 ml Intake Oral 1080 ml 1330 ml IV Total 100 ml Output Urine Total 1800 ml 1640 ml # Bowel Movements 4 Laboratory Tests 04/19/16 06:45: White Blood Count 5.3, Red Blood Count 2.32L, Hemoglobin 8.3L, Hematocrit 25.2L , Mean Corpuscular Volume 109H, Mean Corpuscular Hemoglobin 35.8H, Mean Corpuscular Hemoglobin Concent 32.8, Red Cell Distribution Width 17.0H, Platelet Count 44L, Mean Platelet Volume 10.0, Neutrophils (%) (Auto) , Lymphocytes (%) (Auto) , Monocytes (%) (Auto) , Eosinophils (%) (Auto) , Basophils (%) (Auto) , Differential Total Cells Counted 100, Neutrophils % ( Manual) 70, Lymphocytes % (Manual) 12L, Monocytes % (Manual) 17H, Eosinophils % (Manual) 0, Basophils % (Manual) 1, Band Neutrophils 0, Platelet Estimate DecreasedL, Platelet Morphology Normal, Hypochromasia 2+, Anisocytosis 1+, Macrocytosis 1+, Sodium Level 137, Potassium Level 4.6, Chloride Level 104, Carbon Dioxide Level 22, Anion Gap 11, Blood Urea Nitrogen 20, Creatinine 0.6L, Estimat Glomerular Filtration Rate > 60, Glucose Level 96, Calcium Level 8.3L, Magnesium Level 1.3L, Total Bilirubin 4.5H, Direct Bilirubin 2.2H, Aspartate Amino Transf (AST/SGOT) 28, Alanine Aminotransferase (ALT/SGPT) 20, Alkaline Phosphatase 115, Total Protein 4.6L, Albumin 2.1L, Globulin 2.5, Albumin/ Globulin Ratio 0.8L Height (Feet): 5 Height (Inches): 0.00 Weight (Pounds): 183 General Appearance: no apparent distress Cardiovascular: normal rate, regular rhythm Respiratory/Chest: lungs clear Abdomen: non tender, soft Extremities: trace edema Neurologic: alert PAULA SPENCER Apr 19, 2016 08:41
[2016-04-19] MEDS: Lactulose 20gm/30ml UDC ORAL SCH ×3 (09:17→18:36)
[2016-04-19] MEDS: Spironolactone 50mg tab ORAL SCH (09:18)
[2016-04-19] MEDS: Metoprolol XL 100mg tab ORAL SCH (09:18)
--- NOTE | 2016-04-19 11:11 | Cardiac Electrophysiology PN ---
Assessment/Plan Status Narrative Technically difficult study due to poor acoustical windows. M-mode measurements of left ventricle not obtainable due to cardiac position (angle) Normal left ventricular chamber size, hyperdynamic systolic function and wall motion to extent visualized. Left ventricular ejection fraction estimated to be 70-75 %. Mild left ventricular hypertrophy. Anterior Echo-free space, may be due to pericardial fat or effusion. All other cardiac chamber sizes are within normal limits. Mild focal aortic valve sclerosis with adequate cusp excursion. Mildly thickened mitral valve leaflets with normal excursion. Mitral annulus and aortic root calcification. Normal pulmonic valve structure. Normal tricuspid valve structure. IVC at normal size with physiologic collapse. A color flow and spectral Doppler study was performed and revealed: Mild mitral regurgitation. Mitral diastolic velocities suggest reduced left ventricular relaxation c/w mild LV diastolic dysfunction (Grade I ). Trace tricuspid regurgitation. Tricuspid systolic velocities suggests peak right ventricular systolic pressure of 20 mmHg. Assessment/Plan 1. Paroxysmal atrial fibrillation. In SR on Toprol-XL 200 mg daily. INR 1.7 Apr off anticoagulation due to cirrhosis. 2. Leg edema and shortness of breath secondary to cirrhosis. EF 70-75%. On Lasix 40 iv bid and Aldactone 100 po daily. 3. Alcoholic cirrhosis with ascites on Aldactone 100 mg daily.S/P Paracentesis . On Lactulose. TIPS on hold for ID clearance. Likely benefits from another paracentesis 4. Sepsis with high WBC 19k on broad-spectrum antibiotics.No SBP. 5. Anemia. 6. Hyponatremia, dilutional.Resolved Na 137 today 7. Thrombocytopenia likely secondary to splenomegaly and secondary to cirrhosis. ROB RN Subjective Subjective Alert in NAD. No chest pain or SOB. Last paracentesis 3.8 liter 04/10/16. Objective Last 24 Hour Vital Signs Date Time Temp Pulse Resp B/P Pulse Ox O2 Delivery O2 Flow Rate FiO2 04/19/16 09:18 61 143/86 04/19/16 08:30 97.8 61 20 143/86 100 Room Air 04/19/16 04:00 98.1 60 18 160/51 99 Room Air 04/19/16 00:00 98.1 62 18 174/69 100 Room Air 04/18/16 20:00 98.1 64 18 128/95 97 Room Air 04/18/16 16:16 97.9 63 20 129/83 100 Room Air 04/18/16 12:13 98.0 65 20 126/72 100 Room Air Intake and Output 04/18/16 04/19/16 18:59 06:59 Intake Total 1180 ml 1330 ml Output Total 1800 ml 1640 ml Balance -620 ml -310 ml Intake Oral 1080 ml 1330 ml IV Total 100 ml Output Urine Total 1800 ml 1640 ml # Bowel Movements 4 Laboratory Tests Test 04/19/16 06:45 White Blood Count 5.3 K/UL (4.8-10.8) Red Blood Count 2.32 M/UL (4.70-6.10) L Hemoglobin 8.3 G/DL (14.2-18.0) L Hematocrit 25.2 % (42.0-52.0) L Mean Corpuscular Volume 109 FL (80-99) H Mean Corpuscular Hemoglobin 35.8 PG (27.0-31.0) H Mean Corpuscular Hemoglobin Concent 32.8 G/DL (32.0-36.0) Red Cell Distribution Width 17.0 % (11.6-14.8) H Platelet Count 44 K/UL (150-450) L Mean Platelet Volume 10.0 FL (6.5-10.1) Neutrophils (%) (Auto) % (45.0-75.0) Lymphocytes (%) (Auto) % (20.0-45.0) Monocytes (%) (Auto) % (1.0-10.0) Eosinophils (%) (Auto) % (0.0-3.0) Basophils (%) (Auto) % (0.0-2.0) Differential Total Cells Counted 100 Neutrophils % (Manual) 70 % (45-75) Lymphocytes % (Manual) 12 % (20-45) L Monocytes % (Manual) 17 % (1-10) H Eosinophils % (Manual) 0 % (0-3) Basophils % (Manual) 1 % (0-2) Band Neutrophils 0 % (0-8) Platelet Estimate Decreased L Platelet Morphology Normal Hypochromasia 2+ Anisocytosis 1+ Macrocytosis 1+ Sodium Level 137 mEQ/L (135-145) Potassium Level 4.6 mEQ/L (3.4-4.9) Chloride Level 104 mEQ/L (98-107) Carbon Dioxide Level 22 mEQ/L (20-30) Anion Gap 11 (5-15) Blood Urea Nitrogen 20 mg/dL (7-23) Creatinine 0.6 mg/dL (0.7-1.2) L Estimat Glomerular Filtration Rate > 60 mL/min (>60) Glucose Level 96 mg/dL (74-106) Calcium Level 8.3 mg/dL (8.6-10.2) L Magnesium Level 1.3 mg/dL (1.7-2.5) L Total Bilirubin 4.5 mg/dL (0.0-1.2) H Direct Bilirubin 2.2 mg/dL (0.1-0.3) H Aspartate Amino Transf (AST/SGOT) 28 U/L (5-40) Alanine Aminotransferase (ALT/SGPT) 20 U/L (3-41) Alkaline Phosphatase 115 U/L (40-129) Total Protein 4.6 g/dL (6.6-8.7) L Albumin 2.1 g/dL (3.5-5.2) L Globulin 2.5 g/dL Albumin/Globulin Ratio 0.8 (1.0-2.7) L Objective HEAD AND NECK: No JVD. LUNGS: Decreased breath sounds. CARDIOVASCULAR: Regular S1 and S2 with no gallop or murmur. ABDOMEN: Distended with Ascites.Non tender EXTREMITIES: 3+ pitting edema. MUKESH IZAGUIRRE Apr 19, 2016 11:11
--- NOTE | 2016-04-19 11:27 | General Progress Note ---
Assessment/Plan Assessment/Plan ASSESSMENT: 1. Anemia secondary to chronic disease. H/H has been stable 2. Thrombocytopenia secondary to liver cirrhosis and splenomegaly. >50k generally 3. Alcohol induced liver cirrhosis. awaiting TIPs 4. Decreased hemoglobin and hematocrit, rule out gastrointestinal bleed. 5. Splenomegaly 6. Cirrhosis of the liver status post paracentesis. 7. Coagulopathy . 8. Sepsis. RECOMMENDATIONS: 1. Monitor counts 2. Transfuse to hemoglobin goal >7 3. Transfuse of platelets goal>20k 4. Hepatitis panel negative 5. Reviewed anemia workup. 6. Follow up Nephrology, Pulm, Renal, and GI recs 7. Continue pain meds 8. GI prophylaxis with PPI. 9. DVT prophylaxis with SCDs 10. staff. Thank you, Suresh Pizarro MD Subjective Constitutional: Reports: no symptoms HEENT: Reports: no symptoms Cardiovascular: Reports: no symptoms Respiratory: Reports: no symptoms Gastrointestinal/Abdominal: Reports: poor appetite Genitourinary: Reports: no symptoms Neurologic/Psychiatric: Reports: no symptoms Endocrine: Reports: no symptoms Hematologic/Lymphatic: Reports: anemia Allergies: Coded Allergies: No Known Allergies (Unverified , 04/07/16) Subjective no fevers, no chills, no bleeding Objective Last 24 Hour Vital Signs Date Time Temp Pulse Resp B/P Pulse Ox O2 Delivery O2 Flow Rate FiO2 04/19/16 09:18 61 143/86 04/19/16 08:30 97.8 61 20 143/86 100 Room Air 04/19/16 04:00 98.1 60 18 160/51 99 Room Air 04/19/16 00:00 98.1 62 18 174/69 100 Room Air 04/18/16 20:00 98.1 64 18 128/95 97 Room Air 04/18/16 16:16 97.9 63 20 129/83 100 Room Air 04/18/16 12:13 98.0 65 20 126/72 100 Room Air Intake and Output 04/18/16 04/19/16 19:00 07:00 Intake Total 1180 ml 1330 ml Output Total 1800 ml 1640 ml Balance -620 ml -310 ml Intake Oral 1080 ml 1330 ml IV Total 100 ml Output Urine Total 1800 ml 1640 ml # Bowel Movements 4 Laboratory Tests 04/19/16 06:45: White Blood Count 5.3, Red Blood Count 2.32L, Hemoglobin 8.3L, Hematocrit 25.2L , Mean Corpuscular Volume 109H, Mean Corpuscular Hemoglobin 35.8H, Mean Corpuscular Hemoglobin Concent 32.8, Red Cell Distribution Width 17.0H, Platelet Count 44L, Mean Platelet Volume 10.0, Neutrophils (%) (Auto) , Lymphocytes (%) (Auto) , Monocytes (%) (Auto) , Eosinophils (%) (Auto) , Basophils (%) (Auto) , Differential Total Cells Counted 100, Neutrophils % ( Manual) 70, Lymphocytes % (Manual) 12L, Monocytes % (Manual) 17H, Eosinophils % (Manual) 0, Basophils % (Manual) 1, Band Neutrophils 0, Platelet Estimate DecreasedL, Platelet Morphology Normal, Hypochromasia 2+, Anisocytosis 1+, Macrocytosis 1+, Sodium Level 137, Potassium Level 4.6, Chloride Level 104, Carbon Dioxide Level 22, Anion Gap 11, Blood Urea Nitrogen 20, Creatinine 0.6L, Estimat Glomerular Filtration Rate > 60, Glucose Level 96, Calcium Level 8.3L, Magnesium Level 1.3L, Total Bilirubin 4.5H, Direct Bilirubin 2.2H, Aspartate Amino Transf (AST/SGOT) 28, Alanine Aminotransferase (ALT/SGPT) 20, Alkaline Phosphatase 115, Total Protein 4.6L, Albumin 2.1L, Globulin 2.5, Albumin/ Globulin Ratio 0.8L Height (Feet): 5 Height (Inches): 0.00 Weight (Pounds): 183 General Appearance: no apparent distress EENT: TMs normal Neck: non-tender Cardiovascular: regular rhythm Respiratory/Chest: lungs clear Abdomen: non tender Extremities: non-tender Edema: 1+ Leg (L), 1+ Leg (R) Edema: mild edema Neurologic: abnormal gait Skin: warm/dry Suresh Pizarro Apr 19, 2016 11:27
[2016-04-19 11:41] VITALS: BP 108/67
--- NOTE | 2016-04-19 13:41 | GI Progress Note ---
Assessment/Plan Problems: (1) Hypoalbuminemia ICD Codes: E88.09 - Other disorders of plasma-protein metabolism, not elsewhere classified SNOMED: 649701310 (2) Alcoholic cirrhosis of liver with ascites ICD Codes: K70.31 - Alcoholic cirrhosis of liver with ascites SNOMED: 263458923 (3) sepsis (4) Anemia ICD Codes: D64.9 - Anemia, unspecified SNOMED: 093123061 Status: stable Status Narrative Discussed with Dr. Mcgovern. Assessment/Plan ordered paracentesis >> cleared for DC per GI standpoint after procedure >> TIPs can be done as outpatient pt scheduled IR procedure and balloon dilatation of the TIPS. >> Cancelled per ID. resume diet monitor H&H, transfuse prn s/p paracentesis >> ascites negative for growth elevated ammonia >> Lactulose + Xifaxan OB stool negative hep panel negative ppi PT eval fu labs Subjective Gastrointestinal/Abdominal: Reports: no symptoms Subjective OOB Objective Last 24 Hour Vital Signs Date Time Temp Pulse Resp B/P Pulse Ox O2 Delivery O2 Flow Rate FiO2 04/19/16 11:41 97.6 20 108/67 100 Room Air 04/19/16 09:18 61 143/86 04/19/16 08:30 97.8 61 20 143/86 100 Room Air 04/19/16 04:00 98.1 60 18 160/51 99 Room Air 04/19/16 00:00 98.1 62 18 174/69 100 Room Air 04/18/16 20:00 98.1 64 18 128/95 97 Room Air 04/18/16 16:16 97.9 63 20 129/83 100 Room Air Intake and Output 04/18/16 04/19/16 19:00 07:00 Intake Total 1180 ml 1330 ml Output Total 1800 ml 1640 ml Balance -620 ml -310 ml Intake Oral 1080 ml 1330 ml IV Total 100 ml Output Urine Total 1800 ml 1640 ml # Bowel Movements 4 Laboratory Tests Test 04/19/16 06:45 White Blood Count 5.3 K/UL (4.8-10.8) Red Blood Count 2.32 M/UL (4.70-6.10) L Hemoglobin 8.3 G/DL (14.2-18.0) L Hematocrit 25.2 % (42.0-52.0) L Mean Corpuscular Volume 109 FL (80-99) H Mean Corpuscular Hemoglobin 35.8 PG (27.0-31.0) H Mean Corpuscular Hemoglobin Concent 32.8 G/DL (32.0-36.0) Red Cell Distribution Width 17.0 % (11.6-14.8) H Platelet Count 44 K/UL (150-450) L Mean Platelet Volume 10.0 FL (6.5-10.1) Neutrophils (%) (Auto) % (45.0-75.0) Lymphocytes (%) (Auto) % (20.0-45.0) Monocytes (%) (Auto) % (1.0-10.0) Eosinophils (%) (Auto) % (0.0-3.0) Basophils (%) (Auto) % (0.0-2.0) Differential Total Cells Counted 100 Neutrophils % (Manual) 70 % (45-75) Lymphocytes % (Manual) 12 % (20-45) L Monocytes % (Manual) 17 % (1-10) H Eosinophils % (Manual) 0 % (0-3) Basophils % (Manual) 1 % (0-2) Band Neutrophils 0 % (0-8) Platelet Estimate Decreased L Platelet Morphology Normal Hypochromasia 2+ Anisocytosis 1+ Macrocytosis 1+ Sodium Level 137 mEQ/L (135-145) Potassium Level 4.6 mEQ/L (3.4-4.9) Chloride Level 104 mEQ/L (98-107) Carbon Dioxide Level 22 mEQ/L (20-30) Anion Gap 11 (5-15) Blood Urea Nitrogen 20 mg/dL (7-23) Creatinine 0.6 mg/dL (0.7-1.2) L Estimat Glomerular Filtration Rate > 60 mL/min (>60) Glucose Level 96 mg/dL (74-106) Calcium Level 8.3 mg/dL (8.6-10.2) L Magnesium Level 1.3 mg/dL (1.7-2.5) L Total Bilirubin 4.5 mg/dL (0.0-1.2) H Direct Bilirubin 2.2 mg/dL (0.1-0.3) H Aspartate Amino Transf (AST/SGOT) 28 U/L (5-40) Alanine Aminotransferase (ALT/SGPT) 20 U/L (3-41) Alkaline Phosphatase 115 U/L (40-129) Total Protein 4.6 g/dL (6.6-8.7) L Albumin 2.1 g/dL (3.5-5.2) L Globulin 2.5 g/dL Albumin/Globulin Ratio 0.8 (1.0-2.7) L Height (Feet): 5 Height (Inches): 0.00 Weight (Pounds): 183 General Appearance: no apparent distress, alert Cardiovascular: normal rate Respiratory/Chest: normal breath sounds, no respiratory distress Abdominal Exam: normal bowel sounds, non tender, soft, ascites Extremities: normal range of motion Objective Procedure: US ABD Complete Indications: Abdominal pain IMPRESSION: Cirrhosis with stigmata of portal hypertension including splenomegaly, ascites. Patent intrahepatic portosystemic shunt with apparently elevated velocity at its hepatic venous end, suggesting high-grade stenosis. This is potentially amenable to percutaneous intervention, as clinically indicated. Gallbladder stones and sludge. Mural thickening likely secondary to presence of ascites. Correlate clinically. Midline structures including pancreas, distal abdominal aorta obscured Rain Mercado N.P. Apr 19, 2016 13:41
--- NOTE | 2016-04-19 14:15 | Infectious Diseases Prog Note ---
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 UCx VRE ( colonizer ) HIV and Hep Panel :neg EtOH Cirrhosis, pending TIPS US : Cirrhosis with stigmata of portal hypertension including splenomegaly, ascites SP Paracentesis 04/10 - no evidence of SBP Thrombocytopenia VRE colonized NKDA Full Code PLAN: continue micafungin d# 3 / f/u repeat BCx to document clearance HOLD TIPS PENDING CLEARANCE OF BLOOD CULTURES - PT NOT CLEAR FOR TIPS FROM ID STANDPOINT Monitor CBC , temperatures monitor BMP monitor CXR Subjective Allergies: Coded Allergies: No Known Allergies (Unverified , 04/07/16) Subjective remains afebrile BCx C.albicans, repeat pending Objective Vital Signs Last 24 Hour Vital Signs Date Time Temp Pulse Resp B/P Pulse Ox O2 Delivery O2 Flow Rate FiO2 04/19/16 11:41 97.6 20 108/67 100 Room Air 04/19/16 09:18 61 143/86 04/19/16 08:30 97.8 61 20 143/86 100 Room Air 04/19/16 04:00 98.1 60 18 160/51 99 Room Air 04/19/16 00:00 98.1 62 18 174/69 100 Room Air 04/18/16 20:00 98.1 64 18 128/95 97 Room Air 04/18/16 16:16 97.9 63 20 129/83 100 Room Air Height (Feet): 5 Height (Inches): 0.00 Weight (Pounds): 183 General Appearance: no acute distress Respiratory/Chest: no respiratory distress Cardiovascular: normal rate, regular rhythm Abdomen: normal bowel sounds, soft, non tender, distended Laboratory Tests Test 04/19/16 06:45 White Blood Count 5.3 K/UL (4.8-10.8) Red Blood Count 2.32 M/UL (4.70-6.10) L Hemoglobin 8.3 G/DL (14.2-18.0) L Hematocrit 25.2 % (42.0-52.0) L Mean Corpuscular Volume 109 FL (80-99) H Mean Corpuscular Hemoglobin 35.8 PG (27.0-31.0) H Mean Corpuscular Hemoglobin Concent 32.8 G/DL (32.0-36.0) Red Cell Distribution Width 17.0 % (11.6-14.8) H Platelet Count 44 K/UL (150-450) L Mean Platelet Volume 10.0 FL (6.5-10.1) Neutrophils (%) (Auto) % (45.0-75.0) Lymphocytes (%) (Auto) % (20.0-45.0) Monocytes (%) (Auto) % (1.0-10.0) Eosinophils (%) (Auto) % (0.0-3.0) Basophils (%) (Auto) % (0.0-2.0) Differential Total Cells Counted 100 Neutrophils % (Manual) 70 % (45-75) Lymphocytes % (Manual) 12 % (20-45) L Monocytes % (Manual) 17 % (1-10) H Eosinophils % (Manual) 0 % (0-3) Basophils % (Manual) 1 % (0-2) Band Neutrophils 0 % (0-8) Platelet Estimate Decreased L Platelet Morphology Normal Hypochromasia 2+ Anisocytosis 1+ Macrocytosis 1+ Sodium Level 137 mEQ/L (135-145) Potassium Level 4.6 mEQ/L (3.4-4.9) Chloride Level 104 mEQ/L (98-107) Carbon Dioxide Level 22 mEQ/L (20-30) Anion Gap 11 (5-15) Blood Urea Nitrogen 20 mg/dL (7-23) Creatinine 0.6 mg/dL (0.7-1.2) L Estimat Glomerular Filtration Rate > 60 mL/min (>60) Glucose Level 96 mg/dL (74-106) Calcium Level 8.3 mg/dL (8.6-10.2) L Magnesium Level 1.3 mg/dL (1.7-2.5) L Total Bilirubin 4.5 mg/dL (0.0-1.2) H Direct Bilirubin 2.2 mg/dL (0.1-0.3) H Aspartate Amino Transf (AST/SGOT) 28 U/L (5-40) Alanine Aminotransferase (ALT/SGPT) 20 U/L (3-41) Alkaline Phosphatase 115 U/L (40-129) Total Protein 4.6 g/dL (6.6-8.7) L Albumin 2.1 g/dL (3.5-5.2) L Globulin 2.5 g/dL Albumin/Globulin Ratio 0.8 (1.0-2.7) L Current Medications Medications (Trade) Dose Ordered Sig/Bernardino Route PRN Reason Start Time Stop Time Status Last Admin Dose Admin Dextrose (Dextrose 50%) STAT PRN IV Hypoglycemia 04/17/16 13:30 05/17/16 13:29 Furosemide (Lasix) 40 mg EVERY 12 HOURS IV 04/17/16 21:00 05/17/16 20:59 04/19/16 09:17 Lactulose (Cephulac) 30 gm THREE TIMES A DAY ORAL 04/17/16 14:00 05/17/16 13:59 04/19/16 09:17 Metoprolol Succinate (Toprol XL) 200 mg DAILY ORAL 04/18/16 09:00 05/18/16 08:59 04/19/16 09:18 Micafungin Sodium/ Sodium Chloride (Mycamine/Sodium Chloride 100ml bag) 100 ml @ 100 mls/hr Q24H IVPB 04/17/16 14:30 04/24/16 14:29 04/18/16 13:18 Morphine Sulfate (Morphine Sulfate) 2 mg Q4H PRN IVP Severe Pain (Pain Scale 7-10) 04/17/16 14:00 04/24/16 13:59 Ondansetron HCl (Zofran) 4 mg Q6H PRN IVP Nausea & Vomiting 04/17/16 14:00 05/17/16 13:59 Pantoprazole (Protonix) 40 mg DAILY ORAL 04/18/16 09:00 05/18/16 08:59 04/18/16 08:38 Potassium Chloride (K-Dur) 20 meq TWICE A DAY ORAL 04/17/16 18:00 05/17/16 17:59 04/19/16 09:18 Spironolactone (Aldactone) 100 mg DAILY ORAL 04/18/16 09:00 05/18/16 08:59 04/19/16 09:18 Tramadol HCl 50 mg 50 mg Q6H PRN ORAL Moderate Pain (Pain Scale 4-6) 04/17/16 13:30 04/24/16 13:29 RL LEWIS Apr 19, 2016 14:14
[2016-04-19 15:28] VITALS: BP 122/75
--- NOTE | 2016-04-19 15:34 | Pulmonology Progress Note ---
Assessment/Plan Problems: (1) Asthma (2) Alcoholic cirrhosis of liver with ascites (3) Hypoalbuminemia (4) Thrombocytopenia (5) Anemia Assessment/Plan -Optimize pulmonary hygiene/mobilize as tolerated -Respiratory stable -Monitor volumes/diuresis as tolerated -PRN O2 -F/U cards, GI, ID recs -Monitor MS -Paracentesis ordered by GI -TIPS pending ID clearance -F/U repeat Cx's -DVT Px -IS Subjective Allergies: Coded Allergies: No Known Allergies (Unverified , 04/07/16) Subjective AFVSS, stable on RA TIPS on hold pending ID clearance No F/C/CP/cough/SOB Repeat CX's pending Objective Last 24 Hour Vital Signs Date Time Temp Pulse Resp B/P Pulse Ox O2 Delivery O2 Flow Rate FiO2 04/19/16 15:28 97.5 64 20 122/75 100 Room Air 04/19/16 11:41 97.6 20 108/67 100 Room Air 04/19/16 09:18 61 143/86 04/19/16 08:30 97.8 61 20 143/86 100 Room Air 04/19/16 04:00 98.1 60 18 160/51 99 Room Air 04/19/16 00:00 98.1 62 18 174/69 100 Room Air 04/18/16 20:00 98.1 64 18 128/95 97 Room Air 04/18/16 16:16 97.9 63 20 129/83 100 Room Air Intake and Output 04/18/16 04/19/16 19:00 07:00 Intake Total 1180 ml 1330 ml Output Total 1800 ml 1640 ml Balance -620 ml -310 ml Intake Oral 1080 ml 1330 ml IV Total 100 ml Output Urine Total 1800 ml 1640 ml # Bowel Movements 4 General Appearance: no acute distress, cachetic HEENT: normocephalic, atraumatic, mucous membranes moist, other - mild icterus Respiratory/Chest: chest wall non-tender, lungs clear, normal breath sounds, no respiratory distress Cardiovascular: normal peripheral pulses, normal rate, regular rhythm Abdomen: normal bowel sounds, soft, non tender, no organomegaly, other - + distention Extremities: no cyanosis, no clubbing, other - 1+ Laboratory Tests 04/19/16 06:45: White Blood Count 5.3, Red Blood Count 2.32L, Hemoglobin 8.3L, Hematocrit 25.2L , Mean Corpuscular Volume 109H, Mean Corpuscular Hemoglobin 35.8H, Mean Corpuscular Hemoglobin Concent 32.8, Red Cell Distribution Width 17.0H, Platelet Count 44L, Mean Platelet Volume 10.0, Neutrophils (%) (Auto) , Lymphocytes (%) (Auto) , Monocytes (%) (Auto) , Eosinophils (%) (Auto) , Basophils (%) (Auto) , Differential Total Cells Counted 100, Neutrophils % ( Manual) 70, Lymphocytes % (Manual) 12L, Monocytes % (Manual) 17H, Eosinophils % (Manual) 0, Basophils % (Manual) 1, Band Neutrophils 0, Platelet Estimate DecreasedL, Platelet Morphology Normal, Hypochromasia 2+, Anisocytosis 1+, Macrocytosis 1+, Sodium Level 137, Potassium Level 4.6, Chloride Level 104, Carbon Dioxide Level 22, Anion Gap 11, Blood Urea Nitrogen 20, Creatinine 0.6L, Estimat Glomerular Filtration Rate > 60, Glucose Level 96, Calcium Level 8.3L, Magnesium Level 1.3L, Total Bilirubin 4.5H, Direct Bilirubin 2.2H, Aspartate Amino Transf (AST/SGOT) 28, Alanine Aminotransferase (ALT/SGPT) 20, Alkaline Phosphatase 115, Total Protein 4.6L, Albumin 2.1L, Globulin 2.5, Albumin/ Globulin Ratio 0.8L Current Medications Medications (Trade) Dose Ordered Sig/Bernardino Route PRN Reason Start Time Stop Time Status Last Admin Dose Admin Dextrose (Dextrose 50%) STAT PRN IV Hypoglycemia 04/17/16 13:30 05/17/16 13:29 Furosemide (Lasix) 40 mg EVERY 12 HOURS IV 04/17/16 21:00 05/17/16 20:59 04/19/16 09:17 Lactulose (Cephulac) 30 gm THREE TIMES A DAY ORAL 04/17/16 14:00 05/17/16 13:59 04/19/16 14:32 Metoprolol Succinate (Toprol XL) 200 mg DAILY ORAL 04/18/16 09:00 05/18/16 08:59 04/19/16 09:18 Micafungin Sodium/ Sodium Chloride (Mycamine/Sodium Chloride 100ml bag) 100 ml @ 100 mls/hr Q24H IVPB 04/17/16 14:30 04/24/16 14:29 04/18/16 13:18 Morphine Sulfate (Morphine Sulfate) 2 mg Q4H PRN IVP Severe Pain (Pain Scale 7-10) 04/17/16 14:00 04/24/16 13:59 Ondansetron HCl (Zofran) 4 mg Q6H PRN IVP Nausea & Vomiting 04/17/16 14:00 05/17/16 13:59 Pantoprazole (Protonix) 40 mg DAILY ORAL 04/18/16 09:00 05/18/16 08:59 04/19/16 14:32 Potassium Chloride (K-Dur) 20 meq TWICE A DAY ORAL 04/17/16 18:00 05/17/16 17:59 04/19/16 09:18 Spironolactone (Aldactone) 100 mg DAILY ORAL 04/18/16 09:00 05/18/16 08:59 04/19/16 09:18 Tramadol HCl 50 mg 50 mg Q6H PRN ORAL Moderate Pain (Pain Scale 4-6) 04/17/16 13:30 04/24/16 13:29 SUSANNA ARRINGTON M.D. Apr 19, 2016 15:34
--- NOTE | 2016-04-19 18:16 | Nephrology Progress Note ---
Assessment/Plan Problem List: (1) Asthma exacerbation (2) Alcoholic cirrhosis of liver with ascites (3) Thrombocytopenia (4) Hyponatremia (5) Anemia of other chronic disease Assessment Discussed with Dr Chiu Plan Hyponatremia - resolved Monitor lytes Renal function - improved Monitor H&H, transfuse as needed GI f/u Pending TIPS Hematology f/u Social Service consult - placement DVT Prophylaxis with SCDs Continue pain meds GI prophylaxis with PPI. AM labs Subjective Constitutional: Denies: chills, diaphoresis, fever, malaise, no symptoms, other , weakness HEENT: Denies: blurred vision, double vision, ear discharge, ear pain, eye pain , mouth pain, mouth swelling, no symptoms, nose congestion, nose pain, other, tearing, throat pain, throat swelling Genitourinary: Denies: burning, discharge, flank pain, frequency, hematuria, incontinence, no symptoms, other, pain, urgency Neurologic/Psychiatric: Denies: anxiety, depressed, emotional problems, headache, no symptoms, numbness, other, paresthesia, pre-existing deficit, seizure, tingling, tremors, weakness Subjective Denies discomfort at this time Objective Objective Last 24 Hour Vital Signs Date Time Temp Pulse Resp B/P Pulse Ox O2 Delivery O2 Flow Rate FiO2 04/19/16 15:28 97.5 64 20 122/75 100 Room Air 04/19/16 11:41 97.6 20 108/67 100 Room Air 04/19/16 09:18 61 143/86 04/19/16 08:30 97.8 61 20 143/86 100 Room Air 04/19/16 04:00 98.1 60 18 160/51 99 Room Air 04/19/16 00:00 98.1 62 18 174/69 100 Room Air 04/18/16 20:00 98.1 64 18 128/95 97 Room Air Intake and Output 04/18/16 04/19/16 19:00 07:00 Intake Total 1180 ml 1330 ml Output Total 1800 ml 1640 ml Balance -620 ml -310 ml Intake Oral 1080 ml 1330 ml IV Total 100 ml Output Urine Total 1800 ml 1640 ml # Bowel Movements 4 Laboratory Tests 04/19/16 06:45: White Blood Count 5.3, Red Blood Count 2.32L, Hemoglobin 8.3L, Hematocrit 25.2L , Mean Corpuscular Volume 109H, Mean Corpuscular Hemoglobin 35.8H, Mean Corpuscular Hemoglobin Concent 32.8, Red Cell Distribution Width 17.0H, Platelet Count 44L, Mean Platelet Volume 10.0, Neutrophils (%) (Auto) , Lymphocytes (%) (Auto) , Monocytes (%) (Auto) , Eosinophils (%) (Auto) , Basophils (%) (Auto) , Differential Total Cells Counted 100, Neutrophils % ( Manual) 70, Lymphocytes % (Manual) 12L, Monocytes % (Manual) 17H, Eosinophils % (Manual) 0, Basophils % (Manual) 1, Band Neutrophils 0, Platelet Estimate DecreasedL, Platelet Morphology Normal, Hypochromasia 2+, Anisocytosis 1+, Macrocytosis 1+, Sodium Level 137, Potassium Level 4.6, Chloride Level 104, Carbon Dioxide Level 22, Anion Gap 11, Blood Urea Nitrogen 20, Creatinine 0.6L, Estimat Glomerular Filtration Rate > 60, Glucose Level 96, Calcium Level 8.3L, Magnesium Level 1.3L, Total Bilirubin 4.5H, Direct Bilirubin 2.2H, Aspartate Amino Transf (AST/SGOT) 28, Alanine Aminotransferase (ALT/SGPT) 20, Alkaline Phosphatase 115, Total Protein 4.6L, Albumin 2.1L, Globulin 2.5, Albumin/ Globulin Ratio 0.8L Height (Feet): 5 Height (Inches): 0.00 Weight (Pounds): 183 General Appearance: no apparent distress, alert EENT: normal ENT inspection, TMs normal Neck: supple, normal inspection Cardiovascular: normal rate, regular rhythm Respiratory/Chest: decreased breath sounds Abdomen: hypoactive bowel sounds, distended Extremities: normal range of motion, non-tender, normal inspection, no calf tenderness Neurologic: alert, oriented x 3, responsive, normal mood/affect Jeanna Mederos N.P. Apr 19, 2016 18:16
[2016-04-19 20:00] VITALS: BP 134/83
[2016-04-20] VITALS: BP 132/69
[2016-04-20 04:00] VITALS: BP 137/72
[2016-04-20 07:29] LABS: MEAN CORPUSCULAR HEMOGLOBIN 35.9 PG (27.0-31.0); MEAN CORPUSCULAR HGB CONC 32.6 G/DL (32.0-36.0); MEAN CORPUSCULAR VOLUME 110 FL (80-99); PLATELET COUNT 44 K/UL (150-450); RED BLOOD COUNT 2.26 M/UL (4.70-6.10); RED CELL DISTRIBUTION WIDTH 16.6 % (11.6-14.8)
[2016-04-20 07:33] LABS: ALANINE AMINOTRANSFERASE 20 U/L (3-41); ALBUMIN/GLOBULIN RATIO 0.8 (1.0-2.7); ANION GAP 12 (5-15); ASPARTATE AMINO TRANSFERASE 28 U/L (5-40); CALCIUM 8.1 mg/dL (8.6-10.2); CARBON DIOXIDE 22 mEQ/L (20-30); CHLORIDE 104 mEQ/L (98-107); CREATININE 0.7 mg/dL (0.7-1.2); GLOMERULAR FILTRATION RATE > 60 mL/min (>60); HEMOLYSIS 1; POTASSIUM 4.5 mEQ/L (3.4-4.9); SODIUM 138 mEQ/L (135-145); TOTAL PROTEIN 4.5 g/dL (6.6-8.7)
[2016-04-20 08:05] LABS: BILIRUBIN,DIRECT 1.9 mg/dL (0.1-0.3)
[2016-04-20 08:23] VITALS: BP 109/67
[2016-04-20] MEDS: Metoprolol XL 100mg tab ORAL SCH (09:00)
--- NOTE | 2016-04-20 10:03 | Infectious Diseases Prog Note ---
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 UCx VRE ( colonizer ) HIV and Hep Panel :neg EtOH Cirrhosis, pending TIPS US : Cirrhosis with stigmata of portal hypertension including splenomegaly, ascites SP Paracentesis 04/10 - no evidence of SBP Thrombocytopenia VRE colonized NKDA Full Code PLAN: continue micafungin d# f/u repeat BCx to document clearance, PICC tip Cx HOLD TIPS PENDING CLEARANCE OF BLOOD CULTURES - PT NOT CLEAR FOR TIPS FROM ID STANDPOINT Monitor CBC , temperatures monitor BMP monitor CXR Subjective Allergies: Coded Allergies: No Known Allergies (Unverified , 04/07/16) Subjective remains afebrile BCx C.albicans, repeat BCx, tip Cx pending Objective Vital Signs Last 24 Hour Vital Signs Date Time Temp Pulse Resp B/P Pulse Ox O2 Delivery O2 Flow Rate FiO2 04/20/16 08:23 97.5 58 18 109/67 100 Room Air 04/20/16 04:00 96.0 95 18 137/72 95 Room Air 04/20/16 00:00 98.1 60 19 132/69 100 Room Air 04/19/16 20:00 98.2 69 20 134/83 100 Room Air 04/19/16 15:28 97.5 64 20 122/75 100 Room Air 04/19/16 11:41 97.6 20 108/67 100 Room Air Height (Feet): 5 Height (Inches): 0.00 Weight (Pounds): 176 General Appearance: no acute distress Respiratory/Chest: no respiratory distress Cardiovascular: normal rate, regular rhythm Abdomen: distended Laboratory Tests Test 04/20/16 05:00 White Blood Count 5.0 K/UL (4.8-10.8) Red Blood Count 2.26 M/UL (4.70-6.10) L Hemoglobin 8.1 G/DL (14.2-18.0) L Hematocrit 24.9 % (42.0-52.0) L Mean Corpuscular Volume 110 FL (80-99) H Mean Corpuscular Hemoglobin 35.9 PG (27.0-31.0) H Mean Corpuscular Hemoglobin Concent 32.6 G/DL (32.0-36.0) Red Cell Distribution Width 16.6 % (11.6-14.8) H Platelet Count 44 K/UL (150-450) L Mean Platelet Volume 10.0 FL (6.5-10.1) Neutrophils (%) (Auto) % (45.0-75.0) Lymphocytes (%) (Auto) % (20.0-45.0) Monocytes (%) (Auto) % (1.0-10.0) Eosinophils (%) (Auto) % (0.0-3.0) Basophils (%) (Auto) % (0.0-2.0) Neutrophils % (Manual) Pending Lymphocytes % (Manual) Pending Platelet Estimate Pending Platelet Morphology Pending Sodium Level 138 mEQ/L (135-145) Potassium Level 4.5 mEQ/L (3.4-4.9) Chloride Level 104 mEQ/L (98-107) Carbon Dioxide Level 22 mEQ/L (20-30) Anion Gap 12 (5-15) Blood Urea Nitrogen 17 mg/dL (7-23) Creatinine 0.7 mg/dL (0.7-1.2) Estimat Glomerular Filtration Rate > 60 mL/min (>60) Glucose Level 113 mg/dL (74-106) H Calcium Level 8.1 mg/dL (8.6-10.2) L Total Bilirubin 4.7 mg/dL (0.0-1.2) H Direct Bilirubin 1.9 mg/dL (0.1-0.3) H Aspartate Amino Transf (AST/SGOT) 28 U/L (5-40) Alanine Aminotransferase (ALT/SGPT) 20 U/L (3-41) Alkaline Phosphatase 113 U/L (40-129) Total Protein 4.5 g/dL (6.6-8.7) L Albumin 2.0 g/dL (3.5-5.2) L Globulin 2.5 g/dL Albumin/Globulin Ratio 0.8 (1.0-2.7) L Current Medications Medications (Trade) Dose Ordered Sig/Bernardino Route PRN Reason Start Time Stop Time Status Last Admin Dose Admin Dextrose (Dextrose 50%) STAT PRN IV Hypoglycemia 04/17/16 13:30 05/17/16 13:29 Furosemide (Lasix) 40 mg EVERY 12 HOURS IV 04/17/16 21:00 05/17/16 20:59 04/19/16 21:02 Lactulose (Cephulac) 30 gm THREE TIMES A DAY ORAL 04/17/16 14:00 05/17/16 13:59 04/19/16 18:36 Metoprolol Succinate (Toprol XL) 200 mg DAILY ORAL 04/18/16 09:00 05/18/16 08:59 04/19/16 09:18 Micafungin Sodium/ Sodium Chloride (Mycamine/Sodium Chloride 100ml bag) 100 ml @ 100 mls/hr Q24H IVPB 04/17/16 14:30 04/24/16 14:29 04/19/16 16:46 Morphine Sulfate (Morphine Sulfate) 2 mg Q4H PRN IVP Severe Pain (Pain Scale 7-10) 04/17/16 14:00 04/24/16 13:59 Ondansetron HCl (Zofran) 4 mg Q6H PRN IVP Nausea & Vomiting 04/17/16 14:00 05/17/16 13:59 Pantoprazole (Protonix) 40 mg DAILY ORAL 04/18/16 09:00 05/18/16 08:59 04/19/16 14:32 Potassium Chloride (K-Dur) 20 meq TWICE A DAY ORAL 04/17/16 18:00 05/17/16 17:59 04/19/16 18:35 Spironolactone (Aldactone) 100 mg DAILY ORAL 04/18/16 09:00 05/18/16 08:59 04/19/16 09:18 Tramadol HCl 50 mg 50 mg Q6H PRN ORAL Moderate Pain (Pain Scale 4-6) 04/17/16 13:30 04/24/16 13:29 RL LEWIS Apr 20, 2016 10:03
[2016-04-20] MEDS: Lactulose 20gm/30ml UDC ORAL SCH ×3 (11:17→18:08)
[2016-04-20] MEDS: Spironolactone 50mg tab ORAL SCH (11:21)
[2016-04-20 11:23] LABS: BASOPHILS % (MANUAL) 2 % (0-2); LYMPHOCYTES % (MANUAL) 10 % (20-45); NEUTROPHILS % (MANUAL) 73 % (45-75); TOTAL CELLS COUNTED 100
[2016-04-20 11:24] LABS: ANISOCYTOSIS 1+; BAND NEUTROPHILS % (MANUAL) 0 % (0-8); EOSINOPHILS % (MANUAL) 0 % (0-3); HYPOCHROMASIA 3+; MACROCYTES 2+; PLATELET ESTIMATE DECREASED; PLATELET MORPHOLOGY NORMAL; SPHEROCYTES 1+
[2016-04-20 11:57] VITALS: BP 100/55
--- NOTE | 2016-04-20 13:17 | Cardiac Electrophysiology PN ---
Assessment/Plan Status Narrative Technically difficult study due to poor acoustical windows. M-mode measurements of left ventricle not obtainable due to cardiac position (angle) Normal left ventricular chamber size, hyperdynamic systolic function and wall motion to extent visualized. Left ventricular ejection fraction estimated to be 70-75 %. Mild left ventricular hypertrophy. Anterior Echo-free space, may be due to pericardial fat or effusion. All other cardiac chamber sizes are within normal limits. Mild focal aortic valve sclerosis with adequate cusp excursion. Mildly thickened mitral valve leaflets with normal excursion. Mitral annulus and aortic root calcification. Normal pulmonic valve structure. Normal tricuspid valve structure. IVC at normal size with physiologic collapse. A color flow and spectral Doppler study was performed and revealed: Mild mitral regurgitation. Mitral diastolic velocities suggest reduced left ventricular relaxation c/w mild LV diastolic dysfunction (Grade I ). Trace tricuspid regurgitation. Tricuspid systolic velocities suggests peak right ventricular systolic pressure of 20 mmHg. Assessment/Plan 1. Paroxysmal atrial fibrillation. In SR on Toprol-XL 200 mg daily. INR 1.7 Apr off anticoagulation due to cirrhosis. 2. Leg edema and shortness of breath secondary to cirrhosis. EF 70-75%. On Lasix 40 iv bid and Aldactone 100 po daily. 3. Alcoholic cirrhosis with ascites on Aldactone 100 mg daily.S/P Paracentesis . On Lactulose. TIPS on hold for ID clearance. 4. Sepsis with high WBC 19k on broad-spectrum antibiotics.No SBP. 5. Anemia. 6. Hyponatremia, dilutional.Resolved Na 138 7. Thrombocytopenia likely secondary to splenomegaly and secondary to cirrhosis. ROB RN Subjective Subjective Alert in NAD. No chest pain or SOB. Still complains of swollen abdomen and legs. Objective Last 24 Hour Vital Signs Date Time Temp Pulse Resp B/P Pulse Ox O2 Delivery O2 Flow Rate FiO2 04/20/16 11:57 98.1 61 18 100/55 100 Room Air 04/20/16 09:00 61 100/55 04/20/16 08:23 97.5 58 18 109/67 100 Room Air 04/20/16 04:00 96.0 95 18 137/72 95 Room Air 04/20/16 00:00 98.1 60 19 132/69 100 Room Air 04/19/16 20:00 98.2 69 20 134/83 100 Room Air 1/13/17 15:28 97.5 64 20 122/75 100 Room Air Intake and Output 04/19/16 04/20/16 18:59 06:59 Intake Total 600 ml 1160 ml Output Total 1000 ml 700 ml Balance -400 ml 460 ml Intake Oral 600 ml 1160 ml Output Urine Total 1000 ml 700 ml # Voids 5 # Bowel Movements 4 Laboratory Tests Test 04/20/16 05:00 White Blood Count 5.0 K/UL (4.8-10.8) Red Blood Count 2.26 M/UL (4.70-6.10) L Hemoglobin 8.1 G/DL (14.2-18.0) L Hematocrit 24.9 % (42.0-52.0) L Mean Corpuscular Volume 110 FL (80-99) H Mean Corpuscular Hemoglobin 35.9 PG (27.0-31.0) H Mean Corpuscular Hemoglobin Concent 32.6 G/DL (32.0-36.0) Red Cell Distribution Width 16.6 % (11.6-14.8) H Platelet Count 44 K/UL (150-450) L Mean Platelet Volume 10.0 FL (6.5-10.1) Neutrophils (%) (Auto) % (45.0-75.0) Lymphocytes (%) (Auto) % (20.0-45.0) Monocytes (%) (Auto) % (1.0-10.0) Eosinophils (%) (Auto) % (0.0-3.0) Basophils (%) (Auto) % (0.0-2.0) Differential Total Cells Counted 100 Neutrophils % (Manual) 73 % (45-75) Lymphocytes % (Manual) 10 % (20-45) L Monocytes % (Manual) 15 % (1-10) H Eosinophils % (Manual) 0 % (0-3) Basophils % (Manual) 2 % (0-2) Band Neutrophils 0 % (0-8) Platelet Estimate Decreased L Platelet Morphology Normal Hypochromasia 3+ Anisocytosis 1+ Macrocytosis 2+ Spherocytes 1+ Sodium Level 138 mEQ/L (135-145) Potassium Level 4.5 mEQ/L (3.4-4.9) Chloride Level 104 mEQ/L (98-107) Carbon Dioxide Level 22 mEQ/L (20-30) Anion Gap 12 (5-15) Blood Urea Nitrogen 17 mg/dL (7-23) Creatinine 0.7 mg/dL (0.7-1.2) Estimat Glomerular Filtration Rate > 60 mL/min (>60) Glucose Level 113 mg/dL (74-106) H Calcium Level 8.1 mg/dL (8.6-10.2) L Total Bilirubin 4.7 mg/dL (0.0-1.2) H Direct Bilirubin 1.9 mg/dL (0.1-0.3) H Aspartate Amino Transf (AST/SGOT) 28 U/L (5-40) Alanine Aminotransferase (ALT/SGPT) 20 U/L (3-41) Alkaline Phosphatase 113 U/L (40-129) Total Protein 4.5 g/dL (6.6-8.7) L Albumin 2.0 g/dL (3.5-5.2) L Globulin 2.5 g/dL Albumin/Globulin Ratio 0.8 (1.0-2.7) L Microbiology Date/Time Source Procedure Growth Status 04/18/16 15:00 Arm Left Catheter Tip Culture - Preliminary NO GROWTH AFTER 24 HOURS Resulted Objective HEAD AND NECK: No JVD. LUNGS: Decreased breath sounds. CARDIOVASCULAR: Regular S1 and S2 with no gallop or murmur. ABDOMEN: Distended with Ascites.Non tender EXTREMITIES: 3+ pitting edema. MUKESH IZAGUIRRE Apr 20, 2016 13:17
--- NOTE | 2016-04-20 13:40 | Nephrology Progress Note ---
Assessment/Plan Problem List: (1) Asthma exacerbation (2) Alcoholic cirrhosis of liver with ascites (3) Thrombocytopenia (4) Hyponatremia (5) Anemia of other chronic disease Assessment Discussed with Dr Apple Ji Hyponatremia - resolved Monitor lytes Renal function - Resolved Monitor H&H, transfuse as needed GI f/u Pending TIPS Hematology f/u Social Service consult - placement DVT Prophylaxis with SCDs Continue pain meds GI prophylaxis with PPI. AM labs Subjective Subjective In bed, no distress, no overnight events Objective Objective Last 24 Hour Vital Signs Date Time Temp Pulse Resp B/P Pulse Ox O2 Delivery O2 Flow Rate FiO2 04/20/16 11:57 98.1 61 18 100/55 100 Room Air 04/20/16 09:00 61 100/55 04/20/16 08:23 97.5 58 18 109/67 100 Room Air 04/20/16 04:00 96.0 95 18 137/72 95 Room Air 04/20/16 00:00 98.1 60 19 132/69 100 Room Air 04/19/16 20:00 98.2 69 20 134/83 100 Room Air 04/19/16 15:28 97.5 64 20 122/75 100 Room Air Intake and Output 04/19/16 04/20/16 19:00 07:00 Intake Total 600 ml 1160 ml Output Total 1000 ml 700 ml Balance -400 ml 460 ml Intake Oral 600 ml 1160 ml Output Urine Total 1000 ml 700 ml # Voids 5 # Bowel Movements 4 Laboratory Tests 04/20/16 05:00: White Blood Count 5.0, Red Blood Count 2.26L, Hemoglobin 8.1L, Hematocrit 24.9L , Mean Corpuscular Volume 110H, Mean Corpuscular Hemoglobin 35.9H, Mean Corpuscular Hemoglobin Concent 32.6, Red Cell Distribution Width 16.6H, Platelet Count 44L, Mean Platelet Volume 10.0, Neutrophils (%) (Auto) , Lymphocytes (%) (Auto) , Monocytes (%) (Auto) , Eosinophils (%) (Auto) , Basophils (%) (Auto) , Differential Total Cells Counted 100, Neutrophils % ( Manual) 73, Lymphocytes % (Manual) 10L, Monocytes % (Manual) 15H, Eosinophils % (Manual) 0, Basophils % (Manual) 2, Band Neutrophils 0, Platelet Estimate DecreasedL, Platelet Morphology Normal, Hypochromasia 3+, Anisocytosis 1+, Macrocytosis 2+, Spherocytes 1+, Sodium Level 138, Potassium Level 4.5, Chloride Level 104, Carbon Dioxide Level 22, Anion Gap 12, Blood Urea Nitrogen 17, Creatinine 0.7, Estimat Glomerular Filtration Rate > 60, Glucose Level 113H , Calcium Level 8.1L, Total Bilirubin 4.7H, Direct Bilirubin 1.9H, Aspartate Amino Transf (AST/SGOT) 28, Alanine Aminotransferase (ALT/SGPT) 20, Alkaline Phosphatase 113, Total Protein 4.5L, Albumin 2.0L, Globulin 2.5, Albumin/ Globulin Ratio 0.8L Height (Feet): 5 Height (Inches): 0.00 Weight (Pounds): 176 General Appearance: no apparent distress, alert EENT: normal ENT inspection Neck: normal alignment, supple Cardiovascular: normal rate, regular rhythm, no JVD Respiratory/Chest: no respiratory distress, decreased breath sounds Abdomen: non tender, soft, no organomegaly Extremities: normal range of motion, non-tender Neurologic: alert, oriented x 3, responsive, normal mood/affect Jeanna Mederos N.P. Apr 20, 2016 13:40
--- NOTE | 2016-04-20 15:18 | General Progress Note ---
Assessment/Plan Assessment/Plan ASSESSMENT: 1. Anemia secondary to chronic disease. H/H has been stable 2. Thrombocytopenia secondary to liver cirrhosis and splenomegaly. >40k generally 3. Alcohol induced liver cirrhosis. Oh-hold TIPs 4. Decreased hemoglobin and hematocrit, rule out gastrointestinal bleed. 5. Splenomegaly 6. Cirrhosis of the liver status post paracentesis. 7. Coagulopathy . 8. Sepsis. RECOMMENDATIONS: 1. Monitor counts 2. Transfuse to hemoglobin goal >7 3. Transfuse of platelets goal >20k 4. Hepatitis panel negative 5. Reviewed anemia workup. 6. Follow up Nephrology, Pulm, Renal, and GI recs 7. Continue pain meds 8. GI prophylaxis with PPI. 9. DVT prophylaxis with SCDs 10. staff. Thank you, Sophia Pizarro MD Subjective Constitutional: Reports: no symptoms HEENT: Reports: no symptoms Cardiovascular: Reports: no symptoms Respiratory: Reports: no symptoms Gastrointestinal/Abdominal: Reports: poor appetite Genitourinary: Reports: no symptoms Neurologic/Psychiatric: Reports: no symptoms Endocrine: Reports: no symptoms Hematologic/Lymphatic: Reports: anemia Allergies: Coded Allergies: No Known Allergies (Unverified , 04/07/16) Subjective not bleeding, no chills, has been stable Objective Last 24 Hour Vital Signs Date Time Temp Pulse Resp B/P Pulse Ox O2 Delivery O2 Flow Rate FiO2 04/20/16 11:57 98.1 61 18 100/55 100 Room Air 04/20/16 09:00 61 100/55 04/20/16 08:23 97.5 58 18 109/67 100 Room Air 04/20/16 04:00 96.0 95 18 137/72 95 Room Air 04/20/16 00:00 98.1 60 19 132/69 100 Room Air 04/19/16 20:00 98.2 69 20 134/83 100 Room Air 04/19/16 15:28 97.5 64 20 122/75 100 Room Air Intake and Output 04/19/16 04/20/16 19:00 07:00 Intake Total 600 ml 1160 ml Output Total 1000 ml 700 ml Balance -400 ml 460 ml Intake Oral 600 ml 1160 ml Output Urine Total 1000 ml 700 ml # Voids 5 # Bowel Movements 4 Laboratory Tests 04/20/16 05:00: White Blood Count 5.0, Red Blood Count 2.26L, Hemoglobin 8.1L, Hematocrit 24.9L , Mean Corpuscular Volume 110H, Mean Corpuscular Hemoglobin 35.9H, Mean Corpuscular Hemoglobin Concent 32.6, Red Cell Distribution Width 16.6H, Platelet Count 44L, Mean Platelet Volume 10.0, Neutrophils (%) (Auto) , Lymphocytes (%) (Auto) , Monocytes (%) (Auto) , Eosinophils (%) (Auto) , Basophils (%) (Auto) , Differential Total Cells Counted 100, Neutrophils % ( Manual) 73, Lymphocytes % (Manual) 10L, Monocytes % (Manual) 15H, Eosinophils % (Manual) 0, Basophils % (Manual) 2, Band Neutrophils 0, Platelet Estimate DecreasedL, Platelet Morphology Normal, Hypochromasia 3+, Anisocytosis 1+, Macrocytosis 2+, Spherocytes 1+, Sodium Level 138, Potassium Level 4.5, Chloride Level 104, Carbon Dioxide Level 22, Anion Gap 12, Blood Urea Nitrogen 17, Creatinine 0.7, Estimat Glomerular Filtration Rate > 60, Glucose Level 113H , Calcium Level 8.1L, Total Bilirubin 4.7H, Direct Bilirubin 1.9H, Aspartate Amino Transf (AST/SGOT) 28, Alanine Aminotransferase (ALT/SGPT) 20, Alkaline Phosphatase 113, Total Protein 4.5L, Albumin 2.0L, Globulin 2.5, Albumin/ Globulin Ratio 0.8L Height (Feet): 5 Height (Inches): 0.00 Weight (Pounds): 176 General Appearance: no apparent distress EENT: TMs normal Neck: supple Cardiovascular: regular rhythm Respiratory/Chest: lungs clear Abdomen: non tender Extremities: non-tender Edema: no edema noted Leg (L), no edema noted Leg (R) Neurologic: strategic marketing manager II-XII grossly normal Skin: warm/dry SOPHIA PIZARRO Apr 20, 2016 15:18
[2016-04-20 16:03] VITALS: BP 116/78
--- NOTE | 2016-04-20 17:07 | General Progress Note ---
Assessment/Plan Assessment/Plan Assessment Assessment/Plan Problems: (1) Hypoalbuminemia ICD Codes: E88.09 - Other disorders of plasma-protein metabolism, not elsewhere classified SNOMED: 215156595 (2) Alcoholic cirrhosis of liver with ascites ICD Codes: K70.31 - Alcoholic cirrhosis of liver with ascites SNOMED: 719946675 (3) sepsis (4) Anemia ICD Codes: D64.9 - Anemia, unspecified SNOMED: 889186212 Status: stable Assessment/Plan ordered paracentesis >> cleared for DC per GI standpoint after procedure >> TIPs can be done as outpatient pt scheduled IR procedure and balloon dilatation of the TIPS. >> Cancelled per ID. resume diet monitor H&H, transfuse prn s/p paracentesis >> ascites negative for growth elevated ammonia >> Lactulose + Xifaxan OB stool negative hep panel negative ppi PT eval fu labs Subjective Allergies: Coded Allergies: No Known Allergies (Unverified , 04/07/16) Subjective feels OK eating solids no abd pain Objective Last 24 Hour Vital Signs Date Time Temp Pulse Resp B/P Pulse Ox O2 Delivery O2 Flow Rate FiO2 04/20/16 16:03 98.4 68 18 116/78 100 Room Air 04/20/16 11:57 98.1 61 18 100/55 100 Room Air 04/20/16 09:00 61 100/55 04/20/16 08:23 97.5 58 18 109/67 100 Room Air 04/20/16 04:00 96.0 95 18 137/72 95 Room Air 04/20/16 00:00 98.1 60 19 132/69 100 Room Air 04/19/16 20:00 98.2 69 20 134/83 100 Room Air Intake and Output 04/19/16 04/20/16 19:00 07:00 Intake Total 600 ml 1160 ml Output Total 1000 ml 700 ml Balance -400 ml 460 ml Intake Oral 600 ml 1160 ml Output Urine Total 1000 ml 700 ml # Voids 5 # Bowel Movements 4 Laboratory Tests 04/20/16 05:00: White Blood Count 5.0, Red Blood Count 2.26L, Hemoglobin 8.1L, Hematocrit 24.9L , Mean Corpuscular Volume 110H, Mean Corpuscular Hemoglobin 35.9H, Mean Corpuscular Hemoglobin Concent 32.6, Red Cell Distribution Width 16.6H, Platelet Count 44L, Mean Platelet Volume 10.0, Neutrophils (%) (Auto) , Lymphocytes (%) (Auto) , Monocytes (%) (Auto) , Eosinophils (%) (Auto) , Basophils (%) (Auto) , Differential Total Cells Counted 100, Neutrophils % ( Manual) 73, Lymphocytes % (Manual) 10L, Monocytes % (Manual) 15H, Eosinophils % (Manual) 0, Basophils % (Manual) 2, Band Neutrophils 0, Platelet Estimate DecreasedL, Platelet Morphology Normal, Hypochromasia 3+, Anisocytosis 1+, Macrocytosis 2+, Spherocytes 1+, Sodium Level 138, Potassium Level 4.5, Chloride Level 104, Carbon Dioxide Level 22, Anion Gap 12, Blood Urea Nitrogen 17, Creatinine 0.7, Estimat Glomerular Filtration Rate > 60, Glucose Level 113H , Calcium Level 8.1L, Total Bilirubin 4.7H, Direct Bilirubin 1.9H, Aspartate Amino Transf (AST/SGOT) 28, Alanine Aminotransferase (ALT/SGPT) 20, Alkaline Phosphatase 113, Total Protein 4.5L, Albumin 2.0L, Globulin 2.5, Albumin/ Globulin Ratio 0.8L Height (Feet): 5 Height (Inches): 0.00 Weight (Pounds): 176 Objective WDWN NCAT supple CTA RRR Soft large non ternder abd, no mass no edema non focal TRISTA PERDOMO Apr 20, 2016 17:07
--- NOTE | 2016-04-20 18:20 | Pulmonology Progress Note ---
Assessment/Plan Assessment/Plan IMPRESSION: (1) Asthma (2) Alcoholic cirrhosis of liver with ascites (3) Hypoalbuminemia (4) Thrombocytopenia (5) Anemia Assessment/Plan -Optimize pulmonary hygiene/mobilize as tolerated -Respiratory stable -Monitor volumes/diuresis as tolerated -PRN O2 -F/U cards, GI, ID recs -Monitor MS -Paracentesis ordered by GI -TIPS pending ID clearance -F/U repeat Cx's -DVT Px -IS Subjective Interval Events: No new events Constitutional: Reports: no symptoms HEENT: Repors: no symptoms Respiratory: Reports: no symptoms Cardiovascular: Reports: no symptoms Allergies: Coded Allergies: No Known Allergies (Unverified , 04/07/16) Objective Last 24 Hour Vital Signs Date Time Temp Pulse Resp B/P Pulse Ox O2 Delivery O2 Flow Rate FiO2 04/20/16 16:03 98.4 68 18 116/78 100 Room Air 04/20/16 11:57 98.1 61 18 100/55 100 Room Air 04/20/16 09:00 61 100/55 04/20/16 08:23 97.5 58 18 109/67 100 Room Air 04/20/16 04:00 96.0 95 18 137/72 95 Room Air 04/20/16 00:00 98.1 60 19 132/69 100 Room Air 04/19/16 20:00 98.2 69 20 134/83 100 Room Air Intake and Output 04/19/16 04/20/16 19:00 07:00 Intake Total 600 ml 1160 ml Output Total 1000 ml 700 ml Balance -400 ml 460 ml Intake Oral 600 ml 1160 ml Output Urine Total 1000 ml 700 ml # Voids 5 # Bowel Movements 4 General Appearance: no acute distress HEENT: normocephalic Respiratory/Chest: chest wall non-tender, lungs clear Cardiovascular: normal peripheral pulses, normal rate Microbiology Date/Time Source Procedure Growth Status 04/19/16 06:45 Blood Blood Culture - Preliminary Resulted 04/18/16 15:00 Arm Left Catheter Tip Culture - Preliminary NO GROWTH AFTER 24 HOURS Resulted Laboratory Tests 04/20/16 05:00: White Blood Count 5.0, Red Blood Count 2.26L, Hemoglobin 8.1L, Hematocrit 24.9L , Mean Corpuscular Volume 110H, Mean Corpuscular Hemoglobin 35.9H, Mean Corpuscular Hemoglobin Concent 32.6, Red Cell Distribution Width 16.6H, Platelet Count 44L, Mean Platelet Volume 10.0, Neutrophils (%) (Auto) , Lymphocytes (%) (Auto) , Monocytes (%) (Auto) , Eosinophils (%) (Auto) , Basophils (%) (Auto) , Differential Total Cells Counted 100, Neutrophils % ( Manual) 73, Lymphocytes % (Manual) 10L, Monocytes % (Manual) 15H, Eosinophils % (Manual) 0, Basophils % (Manual) 2, Band Neutrophils 0, Platelet Estimate DecreasedL, Platelet Morphology Normal, Hypochromasia 3+, Anisocytosis 1+, Macrocytosis 2+, Spherocytes 1+, Sodium Level 138, Potassium Level 4.5, Chloride Level 104, Carbon Dioxide Level 22, Anion Gap 12, Blood Urea Nitrogen 17, Creatinine 0.7, Estimat Glomerular Filtration Rate > 60, Glucose Level 113H , Calcium Level 8.1L, Total Bilirubin 4.7H, Direct Bilirubin 1.9H, Aspartate Amino Transf (AST/SGOT) 28, Alanine Aminotransferase (ALT/SGPT) 20, Alkaline Phosphatase 113, Total Protein 4.5L, Albumin 2.0L, Globulin 2.5, Albumin/ Globulin Ratio 0.8L Current Medications Medications (Trade) Dose Ordered Sig/Bernardino Route PRN Reason Start Time Stop Time Status Last Admin Dose Admin Dextrose (Dextrose 50%) STAT PRN IV Hypoglycemia 04/17/16 13:30 05/17/16 13:29 Furosemide (Lasix) 40 mg EVERY 12 HOURS IV 04/17/16 21:00 05/17/16 20:59 04/20/16 11:19 Lactulose (Cephulac) 30 gm THREE TIMES A DAY ORAL 04/17/16 14:00 05/17/16 13:59 04/20/16 18:08 Metoprolol Succinate (Toprol XL) 200 mg DAILY ORAL 04/21/16 09:00 05/21/16 08:59 Micafungin Sodium/ Sodium Chloride (Mycamine/Sodium Chloride 100ml bag) 100 ml @ 100 mls/hr Q24H IVPB 04/17/16 14:30 04/24/16 14:29 04/20/16 14:33 Morphine Sulfate (Morphine Sulfate) 2 mg Q4H PRN IVP Severe Pain (Pain Scale 7-10) 04/17/16 14:00 04/24/16 13:59 Ondansetron HCl (Zofran) 4 mg Q6H PRN IVP Nausea & Vomiting 04/17/16 14:00 05/17/16 13:59 04/20/16 17:09 Pantoprazole (Protonix) 40 mg DAILY ORAL 04/18/16 09:00 05/18/16 08:59 04/20/16 11:19 Potassium Chloride (K-Dur) 20 meq TWICE A DAY ORAL 04/17/16 18:00 05/17/16 17:59 04/20/16 18:08 Spironolactone (Aldactone) 100 mg DAILY ORAL 04/18/16 09:00 05/18/16 08:59 04/20/16 11:21 Tramadol HCl 50 mg 50 mg Q6H PRN ORAL Moderate Pain (Pain Scale 4-6) 04/17/16 13:30 04/24/16 13:29 Vancomycin HCl 1 ea 1 ea DAILY PRN MISC Per rx protocol 04/20/16 15:00 05/20/16 14:59 Vancomycin HCl/ Dextrose (Vancomycin/D5W 250ml) 275 ml @ 183.708 mls/hr Q12HR@0600,1800 IVPB 04/20/16 18:00 04/25/16 17:59 Oliver Sky MD Apr 20, 2016 18:20
[2016-04-20] MEDS: Vancomycin 1 GM in D5W 275 ML IVPB SCH (19:11)
[2016-04-21 00:12] VITALS: BP_SYST 105; BP_SYST 89; BP_DIAS 55; BP_DIAS 66
[2016-04-21 04:00] VITALS: BP 109/64
[2016-04-21] MEDS: Vancomycin 1 GM in D5W 275 ML IVPB SCH ×2 (07:01→19:39)
--- NOTE | 2016-04-21 08:08 | General Progress Note ---
Assessment/Plan Assessment/Plan ASSESSMENT: 1. Anemia secondary to chronic disease. H/H has been stable 2. Thrombocytopenia secondary to liver cirrhosis and splenomegaly. >40k generally 3. Alcohol induced liver cirrhosis. Oh-hold TIPs 4. Decreased hemoglobin and hematocrit, rule out gastrointestinal bleed. 5. Splenomegaly 6. Cirrhosis of the liver status post paracentesis. 7. Coagulopathy . 8. Sepsis. RECOMMENDATIONS: 1. Monitor counts 2. Transfuse to hemoglobin goal >7 3. Transfuse of platelets goal >20k 4. Reviewed anemia workup. 5. Follow up Nephrology, Pulm, Renal, and GI recs 6. Continue pain meds 7. GI prophylaxis with PPI. 8. DVT prophylaxis with SCDs 9. staff. Thank you, Sophia Pizarro MD Subjective Constitutional: Reports: no symptoms HEENT: Reports: no symptoms Cardiovascular: Reports: no symptoms Respiratory: Reports: no symptoms Gastrointestinal/Abdominal: Reports: poor appetite Genitourinary: Reports: no symptoms Neurologic/Psychiatric: Reports: no symptoms Endocrine: Reports: no symptoms Hematologic/Lymphatic: Reports: anemia Allergies: Coded Allergies: No Known Allergies (Unverified , 04/07/16) Subjective not bleeding, no chills, slightly confused, otherwise has been stable Objective Last 24 Hour Vital Signs Date Time Temp Pulse Resp B/P Pulse Ox O2 Delivery O2 Flow Rate FiO2 04/21/16 04:00 97.7 62 20 109/64 100 Room Air 04/21/16 00:12 98.1 60 20 105/66 100 Room Air 04/20/16 16:03 98.4 68 18 116/78 100 Room Air 04/20/16 11:57 98.1 61 18 100/55 100 Room Air 04/20/16 09:00 61 100/55 04/20/16 08:23 97.5 58 18 109/67 100 Room Air Intake and Output 04/20/16 04/21/16 18:59 06:59 Intake Total 1060 ml 275 ml Output Total 1450 ml 350 ml Balance -390 ml -75 ml Intake Oral 960 ml IV Total 100 ml 275 ml Output Urine Total 1450 ml 350 ml # Voids 3 1 # Bowel Movements 3 Height (Feet): 5 Height (Inches): 0.00 Weight (Pounds): 178 General Appearance: no apparent distress EENT: TMs normal Neck: supple Cardiovascular: normal rate Respiratory/Chest: lungs clear Abdomen: soft Extremities: non-tender Edema: 1+ Leg (L), 1+ Leg (R) Edema: mild edema Neurologic: alert Skin: warm/dry SOPHIA PIZARRO Apr 21, 2016 08:08
--- NOTE | 2016-04-21 08:41 | Pulmonology Progress Note ---
Assessment/Plan Assessment/Plan IMPRESSION: (1) Asthma (2) Alcoholic cirrhosis of liver with ascites (3) Hypoalbuminemia (4) Thrombocytopenia (5) Anemia Assessment/Plan -Optimize pulmonary hygiene/mobilize as tolerated -Respiratory stable -Monitor volumes/diuresis as tolerated -PRN O2 -F/U cards, GI, ID recs -Monitor MS -Paracentesis as ordered by GI -TIPS pending ID clearance -F/U repeat Cx's -DVT Px -IS Subjective Interval Events: Transferred to floor Constitutional: Reports: no symptoms HEENT: Repors: no symptoms Respiratory: Reports: no symptoms Cardiovascular: Reports: no symptoms Gastrointestinal/Abdominal: Reports: no symptoms Genitourinary: Reports: no symptoms Allergies: Coded Allergies: No Known Allergies (Unverified , 04/07/16) Objective Last 24 Hour Vital Signs Date Time Temp Pulse Resp B/P Pulse Ox O2 Delivery O2 Flow Rate FiO2 04/21/16 04:00 97.7 62 20 109/64 100 Room Air 04/21/16 00:12 98.1 60 20 105/66 100 Room Air 04/20/16 16:03 98.4 68 18 116/78 100 Room Air 04/20/16 11:57 98.1 61 18 100/55 100 Room Air 04/20/16 09:00 61 100/55 Intake and Output 04/20/16 04/21/16 19:00 07:00 Intake Total 1060 ml 275 ml Output Total 1450 ml 350 ml Balance -390 ml -75 ml Intake Oral 960 ml IV Total 100 ml 275 ml Output Urine Total 1450 ml 350 ml # Voids 3 1 # Bowel Movements 3 General Appearance: no acute distress HEENT: normocephalic Respiratory/Chest: chest wall non-tender, lungs clear Cardiovascular: normal peripheral pulses, normal rate Abdomen: normal bowel sounds, soft, non tender Microbiology Date/Time Source Procedure Growth Status 04/19/16 06:50 Blood Blood Culture - Preliminary NO GROWTH AFTER 24 HOURS Resulted 04/19/16 06:45 Blood Blood Culture - Preliminary Streptococcus Species Resulted 04/18/16 15:00 Arm Left Catheter Tip Culture - Preliminary NO GROWTH AFTER 24 HOURS Resulted Current Medications Medications (Trade) Dose Ordered Sig/Bernardino Route PRN Reason Start Time Stop Time Status Last Admin Dose Admin Dextrose (Dextrose 50%) STAT PRN IV Hypoglycemia 04/17/16 13:30 05/17/16 13:29 Furosemide (Lasix) 40 mg EVERY 12 HOURS IV 04/17/16 21:00 05/17/16 20:59 04/20/16 20:13 Lactulose (Cephulac) 30 gm THREE TIMES A DAY ORAL 04/17/16 14:00 05/17/16 13:59 04/20/16 18:08 Metoprolol Succinate (Toprol XL) 200 mg DAILY ORAL 04/21/16 09:00 05/21/16 08:59 Micafungin Sodium/ Sodium Chloride (Mycamine/Sodium Chloride 100ml bag) 100 ml @ 100 mls/hr Q24H IVPB 04/17/16 14:30 04/24/16 14:29 04/20/16 14:33 Morphine Sulfate (Morphine Sulfate) 2 mg Q4H PRN IVP Severe Pain (Pain Scale 7-10) 04/17/16 14:00 04/24/16 13:59 04/20/16 20:14 Ondansetron HCl (Zofran) 4 mg Q6H PRN IVP Nausea & Vomiting 04/17/16 14:00 05/17/16 13:59 04/20/16 17:09 Pantoprazole (Protonix) 40 mg DAILY ORAL 04/18/16 09:00 05/18/16 08:59 04/20/16 11:19 Potassium Chloride (K-Dur) 20 meq TWICE A DAY ORAL 04/17/16 18:00 05/17/16 17:59 04/20/16 18:08 Spironolactone (Aldactone) 100 mg DAILY ORAL 04/18/16 09:00 05/18/16 08:59 04/20/16 11:21 Tramadol HCl 50 mg 50 mg Q6H PRN ORAL Moderate Pain (Pain Scale 4-6) 04/17/16 13:30 04/24/16 13:29 Vancomycin HCl 1 ea 1 ea DAILY PRN MISC Per rx protocol 04/20/16 15:00 05/20/16 14:59 Vancomycin HCl/ Dextrose (Vancomycin/D5W 250ml) 275 ml @ 183.708 mls/hr Q12HR@0600,1800 IVPB 04/20/16 18:00 04/25/16 17:59 04/21/16 07:01 Oliver Sky MD Apr 21, 2016 08:41
[2016-04-21] MEDS: Metoprolol XL 100mg tab ORAL SCH (09:00)
[2016-04-21] MEDS: Spironolactone 50mg tab ORAL SCH (09:37)
[2016-04-21] MEDS: Lactulose 20gm/30ml UDC ORAL SCH ×3 (09:37→19:39)
[2016-04-21 09:38] VITALS: BP 111/72
--- NOTE | 2016-04-21 10:41 | Infectious Diseases Prog Note ---
Assessment/Plan Assessment/Plan ASSESSMENT: 60-year-old male with: C.albicans fungemia, Streptococcal bacteremia, probable CLABSI - persistent r/o occult source infection, SBE - SP PICC 04/10, removed 04/18 - tip Cx NGTD leukocytosis SP Possible Sepsis SP Low grade fever SP No evidence of Pna Chest x-ray, no acute process. UCx VRE ( colonizer ) HIV and Hep Panel :neg EtOH Cirrhosis, pending TIPS US : Cirrhosis with stigmata of portal hypertension including splenomegaly, ascites SP Paracentesis 04/10 - no evidence of SBP Thrombocytopenia VRE colonized NKDA Full Code PLAN: continue micafungin d# 5, IV vancomcyin d# 2 repeat BCx to document clearance, repeat TTE, may need FERNANDO, CT A/P optho eval, if possible r/o endopthalmitis HOLD TIPS PENDING CLEARANCE OF BLOOD CULTURES - PT NOT CLEAR FOR TIPS FROM ID STANDPOINT Monitor CBC , temperatures monitor BMP monitor CXR Subjective Allergies: Coded Allergies: No Known Allergies (Unverified , 04/07/16) Subjective remains afebrile persistent bacteremia, fungemia, tip Cx NGTD Objective Vital Signs Last 24 Hour Vital Signs Date Time Temp Pulse Resp B/P Pulse Ox O2 Delivery O2 Flow Rate FiO2 04/21/16 09:00 60 111/72 04/21/16 04:00 97.7 62 20 109/64 100 Room Air 04/21/16 00:12 98.1 60 20 105/66 100 Room Air 04/20/16 16:03 98.4 68 18 116/78 100 Room Air 04/20/16 11:57 98.1 61 18 100/55 100 Room Air Height (Feet): 5 Height (Inches): 0.00 Weight (Pounds): 178 General Appearance: no acute distress Respiratory/Chest: no respiratory distress Cardiovascular: normal rate, regular rhythm Abdomen: normal bowel sounds, soft, non tender, distended Microbiology Date/Time Source Procedure Growth Status 04/19/16 06:50 Blood Blood Culture - Preliminary Resulted 04/19/16 06:45 Blood Blood Culture - Preliminary Streptococcus Species Resulted 04/18/16 15:00 Arm Left Catheter Tip Culture - Preliminary NO GROWTH AFTER 48 HOURS Resulted Current Medications Medications (Trade) Dose Ordered Sig/Bernardino Route PRN Reason Start Time Stop Time Status Last Admin Dose Admin Dextrose (Dextrose 50%) STAT PRN IV Hypoglycemia 04/17/16 13:30 05/17/16 13:29 Furosemide (Lasix) 40 mg EVERY 12 HOURS IV 04/17/16 21:00 05/17/16 20:59 04/21/16 09:38 Lactulose (Cephulac) 30 gm THREE TIMES A DAY ORAL 04/17/16 14:00 05/17/16 13:59 04/21/16 09:37 Metoprolol Succinate (Toprol XL) 200 mg DAILY ORAL 04/21/16 09:00 05/21/16 08:59 Micafungin Sodium/ Sodium Chloride (Mycamine/Sodium Chloride 100ml bag) 100 ml @ 100 mls/hr Q24H IVPB 04/17/16 14:30 04/24/16 14:29 04/20/16 14:33 Morphine Sulfate (Morphine Sulfate) 2 mg Q4H PRN IVP Severe Pain (Pain Scale 7-10) 04/17/16 14:00 04/24/16 13:59 04/20/16 20:14 Ondansetron HCl (Zofran) 4 mg Q6H PRN IVP Nausea & Vomiting 04/17/16 14:00 05/17/16 13:59 04/20/16 17:09 Pantoprazole (Protonix) 40 mg DAILY ORAL 04/18/16 09:00 05/18/16 08:59 04/21/16 09:41 Potassium Chloride (K-Dur) 20 meq TWICE A DAY ORAL 04/17/16 18:00 05/17/16 17:59 04/21/16 09:37 Spironolactone (Aldactone) 100 mg DAILY ORAL 04/18/16 09:00 05/18/16 08:59 04/21/16 09:37 Tramadol HCl 50 mg 50 mg Q6H PRN ORAL Moderate Pain (Pain Scale 4-6) 04/17/16 13:30 04/24/16 13:29 Vancomycin HCl 1 ea 1 ea DAILY PRN MISC Per rx protocol 04/20/16 15:00 05/20/16 14:59 Vancomycin HCl/ Dextrose (Vancomycin/D5W 250ml) 275 ml @ 183.708 mls/hr Q12HR@0600,1800 IVPB 04/20/16 18:00 04/25/16 17:59 04/21/16 07:01 RL LEWIS Apr 21, 2016 10:41
--- NOTE | 2016-04-21 10:48 | General Progress Note ---
Assessment/Plan Assessment/Plan Assessment Assessment/Plan Problems: (1) Hypoalbuminemia ICD Codes: E88.09 - Other disorders of plasma-protein metabolism, not elsewhere classified SNOMED: 235692544 (2) Alcoholic cirrhosis of liver with ascites ICD Codes: K70.31 - Alcoholic cirrhosis of liver with ascites SNOMED: 313016097 (3) sepsis (4) Anemia ICD Codes: D64.9 - Anemia, unspecified SNOMED: 014655008 Status: stable Assessment/Plan ordered paracentesis >> cleared for DC per GI standpoint after procedure >> TIPs can be done as outpatient pt scheduled IR procedure and balloon dilatation of the TIPS. >> Cancelled per ID. resume diet monitor H&H, transfuse prn s/p paracentesis >> ascites negative for growth elevated ammonia >> Lactulose + Xifaxan OB stool negative hep panel negative ppi PT eval fu labs Subjective Allergies: Coded Allergies: No Known Allergies (Unverified , 04/07/16) Subjective feels OK eating solids no abd pain Objective Last 24 Hour Vital Signs Date Time Temp Pulse Resp B/P Pulse Ox O2 Delivery O2 Flow Rate FiO2 04/21/16 09:00 60 111/72 04/21/16 04:00 97.7 62 20 109/64 100 Room Air 04/21/16 00:12 98.1 60 20 105/66 100 Room Air 04/20/16 16:03 98.4 68 18 116/78 100 Room Air 04/20/16 11:57 98.1 61 18 100/55 100 Room Air Intake and Output 04/20/16 04/21/16 19:00 07:00 Intake Total 1060 ml 275 ml Output Total 1450 ml 350 ml Balance -390 ml -75 ml Intake Oral 960 ml IV Total 100 ml 275 ml Output Urine Total 1450 ml 350 ml # Voids 3 1 # Bowel Movements 3 Height (Feet): 5 Height (Inches): 0.00 Weight (Pounds): 178 Objective WDWN NCAT supple CTA RRR Soft large non ternder abd, no mass no edema non focal TRISTA PERDOMO Apr 21, 2016 10:48
--- NOTE | 2016-04-21 10:58 | Nephrology Progress Note ---
Assessment/Plan Problem List: (1) Asthma exacerbation (2) Alcoholic cirrhosis of liver with ascites (3) Thrombocytopenia (4) Hyponatremia (5) Anemia of other chronic disease Assessment Discussed with Dr Chiu Plan Monitor edenilson Renal function - Resolved Monitor H&H, transfuse as needed GI f/u Pending TIPS - not cleared per ID Hematology f/u Social Service consult - placement DVT Prophylaxis with SCDs Continue pain meds GI prophylaxis with PPI. AM labs Subjective Constitutional: Denies: chills, diaphoresis, fever, malaise, no symptoms, other , weakness HEENT: Denies: blurred vision, double vision, ear discharge, ear pain, eye pain , mouth pain, mouth swelling, no symptoms, nose congestion, nose pain, other, tearing, throat pain, throat swelling Genitourinary: Denies: burning, discharge, flank pain, frequency, hematuria, incontinence, no symptoms, other, pain, urgency Neurologic/Psychiatric: Denies: anxiety, depressed, emotional problems, headache, no symptoms, numbness, other, paresthesia, pre-existing deficit, seizure, tingling, tremors, weakness Subjective In bed, no distress, no overnight events Objective Objective Last 24 Hour Vital Signs Date Time Temp Pulse Resp B/P Pulse Ox O2 Delivery O2 Flow Rate FiO2 04/21/16 09:00 60 111/72 04/21/16 04:00 97.7 62 20 109/64 100 Room Air 04/21/16 00:12 98.1 60 20 105/66 100 Room Air 04/20/16 16:03 98.4 68 18 116/78 100 Room Air 04/20/16 11:57 98.1 61 18 100/55 100 Room Air Intake and Output 04/20/16 04/21/16 19:00 07:00 Intake Total 1060 ml 275 ml Output Total 1450 ml 350 ml Balance -390 ml -75 ml Intake Oral 960 ml IV Total 100 ml 275 ml Output Urine Total 1450 ml 350 ml # Voids 3 1 # Bowel Movements 3 Height (Feet): 5 Height (Inches): 0.00 Weight (Pounds): 178 Jeanna Mederos N.P. Apr 21, 2016 10:58
[2016-04-21 20:00] VITALS: BP 111/60
[2016-04-22 04:00] VITALS: BP 108/58
[2016-04-22 06:17] LABS: MEAN CORPUSCULAR HEMOGLOBIN 36.9 PG (27.0-31.0); MEAN CORPUSCULAR HGB CONC 34.1 G/DL (32.0-36.0); MEAN CORPUSCULAR VOLUME 108 FL (80-99); MEAN PLATELET VOLUME 13.7 FL (6.5-10.1); PLATELET COUNT 31 K/UL (150-450); RED BLOOD COUNT 2.38 M/UL (4.70-6.10); RED CELL DISTRIBUTION WIDTH 16.3 % (11.6-14.8); WHITE BLOOD COUNT 3.7 K/UL (4.8-10.8)
[2016-04-22 06:23] LABS: ANION GAP 12 (5-15); CALCIUM 8.2 mg/dL (8.6-10.2); CARBON DIOXIDE 21 mEQ/L (20-30); CHLORIDE 103 mEQ/L (98-107); CREATININE 0.7 mg/dL (0.7-1.2); GLOMERULAR FILTRATION RATE > 60 mL/min (>60); HEMOLYSIS 2; POTASSIUM 4.2 mEQ/L (3.4-4.9); SODIUM 136 mEQ/L (135-145)
[2016-04-22] MEDS: Vancomycin 1 GM in D5W 275 ML IVPB SCH (06:55)
[2016-04-22] MEDS: Lactulose 20gm/30ml UDC ORAL SCH ×3 (08:18→17:55)
[2016-04-22] MEDS: Spironolactone 50mg tab ORAL SCH (08:19)
[2016-04-22] MEDS: Metoprolol XL 100mg tab ORAL SCH (08:19)
--- NOTE | 2016-04-22 08:53 | General Progress Note ---
Assessment/Plan Assessment/Plan ASSESSMENT: 1. Thrombcytopenia is worse today, will send for dic and can be 2/2 micafungin, found in 15% of patients receiving this med, will recheck tomorrow 2. Thrombocytopenia secondary to liver cirrhosis and splenomegaly. >30k generally 3. Anemia secondary to chronic disease. H/H has been stable 4. Decreased hemoglobin and hematocrit, rule out gastrointestinal bleed. 5. Splenomegaly 6. Cirrhosis of the liver status post paracentesis. 7. Coagulopathy . 8. Sepsis. RECOMMENDATIONS: 1. Monitor counts 2. Transfuse to hemoglobin goal >7 3. Transfuse of platelets goal >20k 4. DIC panel ordered today, medications reviewed 5. Follow up Nephrology, Pulm, Renal, and GI recs 6. Continue pain meds 7. GI prophylaxis with PPI. 8. DVT prophylaxis with SCDs 9. staff. Thank you, Suresh Pizarro MD Subjective Constitutional: Reports: no symptoms HEENT: Reports: no symptoms Cardiovascular: Reports: no symptoms Respiratory: Reports: no symptoms Gastrointestinal/Abdominal: Reports: poor appetite Genitourinary: Reports: no symptoms Neurologic/Psychiatric: Reports: no symptoms Endocrine: Reports: no symptoms Hematologic/Lymphatic: Reports: anemia Allergies: Coded Allergies: No Known Allergies (Unverified , 04/07/16) Subjective no fevers, no bleeding reported Objective Last 24 Hour Vital Signs Date Time Temp Pulse Resp B/P Pulse Ox O2 Delivery O2 Flow Rate FiO2 04/22/16 04:00 97.3 64 18 108/58 96 Room Air 04/21/16 20:00 97.7 68 20 111/60 99 04/21/16 09:38 60 111/72 04/21/16 09:00 60 111/72 Intake and Output 04/21/16 04/22/16 19:00 07:00 Intake Total 480 ml 495.0 ml Output Total 1200 ml 750 ml Balance -720 ml -255.0 ml Intake Oral 480 ml 220 ml IV Total 275.0 ml Output Urine Total 1200 ml 750 ml # Voids 1 # Bowel Movements 1 Laboratory Tests 04/22/16 05:00: White Blood Count 3.7L, Red Blood Count 2.38L, Hemoglobin 8.8L, Hematocrit 25.8L , Mean Corpuscular Volume 108H, Mean Corpuscular Hemoglobin 36.9H, Mean Corpuscular Hemoglobin Concent 34.1, Red Cell Distribution Width 16.3H, Platelet Count 31L, Mean Platelet Volume 13.7H, Neutrophils (%) (Auto) , Lymphocytes (%) (Auto) , Monocytes (%) (Auto) , Eosinophils (%) (Auto) , Basophils (%) (Auto) , Neutrophils % (Manual) [Pending], Lymphocytes % (Manual) [Pending], Platelet Estimate [Pending], Platelet Morphology [Pending], Sodium Level 136, Potassium Level 4.2, Chloride Level 103, Carbon Dioxide Level 21, Anion Gap 12, Blood Urea Nitrogen 14, Creatinine 0.7, Estimat Glomerular Filtration Rate > 60, Glucose Level 92, Calcium Level 8.2L, Vancomycin Level Trough 15.7H Height (Feet): 5 Height (Inches): 0.00 Weight (Pounds): 177 General Appearance: no apparent distress EENT: TMs normal Neck: supple Cardiovascular: regular rhythm Respiratory/Chest: normal breath sounds Abdomen: normal bowel sounds Extremities: non-tender Edema: 1+ Leg (L), 1+ Leg (R) Edema: mild edema Neurologic: alert Skin: warm/dry Suresh Pizarro Apr 22, 2016 08:53
--- NOTE | 2016-04-22 10:30 | GI Progress Note ---
Assessment/Plan Problems: (1) Hypoalbuminemia ICD Codes: E88.09 - Other disorders of plasma-protein metabolism, not elsewhere classified SNOMED: 250590443 (2) Alcoholic cirrhosis of liver with ascites ICD Codes: K70.31 - Alcoholic cirrhosis of liver with ascites SNOMED: 797806088 (3) sepsis (4) Anemia ICD Codes: D64.9 - Anemia, unspecified SNOMED: 216571656 Status: unchanged Status Narrative Discussed with Dr. Mcgovern. Assessment/Plan paracentesis #2 pending >> cleared for DC per GI standpoint after procedure >> TIPs can be done as outpatient pt scheduled IR procedure and balloon dilatation of the TIPS. >> Not cleared for procedure per ID. resume diet monitor H&H, transfuse prn s/p paracentesis #1 >> ascites negative for growth elevated ammonia >> Lactulose + Xifaxan OB stool negative hep panel negative ppi PT eval fu labs Subjective Gastrointestinal/Abdominal: Reports: no symptoms Objective Last 24 Hour Vital Signs Date Time Temp Pulse Resp B/P Pulse Ox O2 Delivery O2 Flow Rate FiO2 04/22/16 04:00 97.3 64 18 108/58 96 Room Air 04/21/16 20:00 97.7 68 20 111/60 99 Intake and Output 04/21/16 04/22/16 19:00 07:00 Intake Total 480 ml 495.0 ml Output Total 1200 ml 750 ml Balance -720 ml -255.0 ml Intake Oral 480 ml 220 ml IV Total 275.0 ml Output Urine Total 1200 ml 750 ml # Voids 1 # Bowel Movements 1 Laboratory Tests Test 04/22/16 05:00 White Blood Count 3.7 K/UL (4.8-10.8) L Red Blood Count 2.38 M/UL (4.70-6.10) L Hemoglobin 8.8 G/DL (14.2-18.0) L Hematocrit 25.8 % (42.0-52.0) L Mean Corpuscular Volume 108 FL (80-99) H Mean Corpuscular Hemoglobin 36.9 PG (27.0-31.0) H Mean Corpuscular Hemoglobin Concent 34.1 G/DL (32.0-36.0) Red Cell Distribution Width 16.3 % (11.6-14.8) H Platelet Count 31 K/UL (150-450) L Mean Platelet Volume 13.7 FL (6.5-10.1) H Neutrophils (%) (Auto) % (45.0-75.0) Lymphocytes (%) (Auto) % (20.0-45.0) Monocytes (%) (Auto) % (1.0-10.0) Eosinophils (%) (Auto) % (0.0-3.0) Basophils (%) (Auto) % (0.0-2.0) Neutrophils % (Manual) Pending Lymphocytes % (Manual) Pending Platelet Estimate Pending Platelet Morphology Pending Sodium Level 136 mEQ/L (135-145) Potassium Level 4.2 mEQ/L (3.4-4.9) Chloride Level 103 mEQ/L (98-107) Carbon Dioxide Level 21 mEQ/L (20-30) Anion Gap 12 (5-15) Blood Urea Nitrogen 14 mg/dL (7-23) Creatinine 0.7 mg/dL (0.7-1.2) Estimat Glomerular Filtration Rate > 60 mL/min (>60) Glucose Level 92 mg/dL (74-106) Calcium Level 8.2 mg/dL (8.6-10.2) L Vancomycin Level Trough 15.7 ug/mL (5.0-12.0) H Height (Feet): 5 Height (Inches): 0.00 Weight (Pounds): 177 General Appearance: no apparent distress, lethargic, obese, other - jaundice Cardiovascular: normal rate Respiratory/Chest: no respiratory distress Abdominal Exam: normal bowel sounds, non tender, soft, distended, ascites Extremities: normal range of motion Objective Procedure: US ABD Complete Indications: Abdominal pain IMPRESSION: Cirrhosis with stigmata of portal hypertension including splenomegaly, ascites. Patent intrahepatic portosystemic shunt with apparently elevated velocity at its hepatic venous end, suggesting high-grade stenosis. This is potentially amenable to percutaneous intervention, as clinically indicated. Gallbladder stones and sludge. Mural thickening likely secondary to presence of ascites. Correlate clinically. Midline structures including pancreas, distal abdominal aorta obscured Rain Mercado N.P. Apr 22, 2016 10:30
[2016-04-22 10:53] LABS: ANISOCYTOSIS 1+; BAND NEUTROPHILS % (MANUAL) 0 % (0-8); BASOPHILS % (MANUAL) 1 % (0-2); EOSINOPHILS % (MANUAL) 2 % (0-3); HYPOCHROMASIA 2+; LYMPHOCYTES % (MANUAL) 13 % (20-45); MACROCYTES 1+; NEUTROPHILS % (MANUAL) 71 % (45-75); PLATELET ESTIMATE DECREASED; PLATELET MORPHOLOGY NORMAL; SPHEROCYTES 2+; TOTAL CELLS COUNTED 100
[2016-04-22 11:32] LABS: PATH BLOOD SMEAR/OMC SENT TO PATHOLOGIST
[2016-04-22 12:10] LABS: LACTATE DEHYDROGENASE 186 U/L (135-230)
--- NOTE | 2016-04-22 12:24 | Cardiac Electrophysiology PN ---
Assessment/Plan Status Narrative Technically difficult study due to poor acoustical windows. M-mode measurements of left ventricle not obtainable due to cardiac position (angle) Normal left ventricular chamber size, hyperdynamic systolic function and wall motion to extent visualized. Left ventricular ejection fraction estimated to be 70-75 %. Mild left ventricular hypertrophy. Anterior Echo-free space, may be due to pericardial fat or effusion. All other cardiac chamber sizes are within normal limits. Mild focal aortic valve sclerosis with adequate cusp excursion. Mildly thickened mitral valve leaflets with normal excursion. Mitral annulus and aortic root calcification. Normal pulmonic valve structure. Normal tricuspid valve structure. IVC at normal size with physiologic collapse. A color flow and spectral Doppler study was performed and revealed: Mild mitral regurgitation. Mitral diastolic velocities suggest reduced left ventricular relaxation c/w mild LV diastolic dysfunction (Grade I ). Trace tricuspid regurgitation. Tricuspid systolic velocities suggests peak right ventricular systolic pressure of 20 mmHg. Assessment/Plan 1. Paroxysmal atrial fibrillation. In SR on Toprol-XL 200 mg daily. INR 1.7 Apr off anticoagulation due to cirrhosis. INR today is pending. 2. Leg edema and shortness of breath secondary to cirrhosis. EF 70-75%. On Lasix 40 iv bid and Aldactone 100 po daily. 3. HTN. On Lopressor 200 and Aldactone 100 and Lasix 40 iv bid. 4. Sepsis with high WBC 19k on broad-spectrum antibiotics.No SBP. 5. Anemia. 6. Hyponatremia, dilutional.Resolved 7. Thrombocytopenia likely secondary to splenomegaly and secondary to cirrhosis. 8. Alcoholic cirrhosis with ascites on Aldactone 100 mg daily.S/P Paracentesis . On Lactulose. TIPS today by IR if INR OK. ROB RN Subjective Subjective Alert in NAD. No chest pain or SOB.Awaiting INR today for TIPS by Radiology. Objective Last 24 Hour Vital Signs Date Time Temp Pulse Resp B/P Pulse Ox O2 Delivery O2 Flow Rate FiO2 04/22/16 04:00 97.3 64 18 108/58 96 Room Air 04/21/16 20:00 97.7 68 20 111/60 99 Intake and Output 04/21/16 04/22/16 19:00 07:00 Intake Total 480 ml 495.0 ml Output Total 1200 ml 750 ml Balance -720 ml -255.0 ml Intake Oral 480 ml 220 ml IV Total 275.0 ml Output Urine Total 1200 ml 750 ml # Voids 1 # Bowel Movements 1 Laboratory Tests Test 04/22/16 05:00 04/22/16 11:00 White Blood Count 3.7 K/UL (4.8-10.8) L Red Blood Count 2.38 M/UL (4.70-6.10) L Hemoglobin 8.8 G/DL (14.2-18.0) L Hematocrit 25.8 % (42.0-52.0) L Mean Corpuscular Volume 108 FL (80-99) H Mean Corpuscular Hemoglobin 36.9 PG (27.0-31.0) H Mean Corpuscular Hemoglobin Concent 34.1 G/DL (32.0-36.0) Red Cell Distribution Width 16.3 % (11.6-14.8) H Platelet Count 31 K/UL (150-450) L Mean Platelet Volume 13.7 FL (6.5-10.1) H Neutrophils (%) (Auto) % (45.0-75.0) Lymphocytes (%) (Auto) % (20.0-45.0) Monocytes (%) (Auto) % (1.0-10.0) Eosinophils (%) (Auto) % (0.0-3.0) Basophils (%) (Auto) % (0.0-2.0) Differential Total Cells Counted 100 Neutrophils % (Manual) 71 % (45-75) Lymphocytes % (Manual) 13 % (20-45) L Monocytes % (Manual) 13 % (1-10) H Eosinophils % (Manual) 2 % (0-3) Basophils % (Manual) 1 % (0-2) Band Neutrophils 0 % (0-8) Platelet Estimate Decreased L Platelet Morphology Normal Hypochromasia 2+ Anisocytosis 1+ Macrocytosis 1+ Spherocytes 2+ Haptoglobin 32 mg/dL (30-200) Sodium Level 136 mEQ/L (135-145) Potassium Level 4.2 mEQ/L (3.4-4.9) Chloride Level 103 mEQ/L (98-107) Carbon Dioxide Level 21 mEQ/L (20-30) Anion Gap 12 (5-15) Blood Urea Nitrogen 14 mg/dL (7-23) Creatinine 0.7 mg/dL (0.7-1.2) Estimat Glomerular Filtration Rate > 60 mL/min (>60) Glucose Level 92 mg/dL (74-106) Calcium Level 8.2 mg/dL (8.6-10.2) L Lactate Dehydrogenase 186 U/L (135-230) Vancomycin Level Trough 15.7 ug/mL (5.0-12.0) H Prothrombin Time Pending Prothromb Time International Ratio Pending Fibrinogen Pending Fibrin Degradation Products, Quant Pending Objective HEAD AND NECK: No JVD. LUNGS: Decreased breath sounds. CARDIOVASCULAR: Regular S1 and S2 with no gallop or murmur. ABDOMEN: Ascites.Non tender EXTREMITIES: 2+ pitting edema. MUKESH IZAGUIRRE Apr 22, 2016 12:24
[2016-04-22 12:52] LABS: INR 1.8 (0.9-1.1); PROTHROMBIN TIME 18.5 SEC (9.30-11.50)
--- NOTE | 2016-04-22 13:04 | Nephrology Progress Note ---
Assessment/Plan Problem List: (1) Asthma exacerbation (2) Alcoholic cirrhosis of liver with ascites (3) Thrombocytopenia (4) Hyponatremia (5) Anemia of other chronic disease Assessment Discussed with Dr Chiu Plan Monitor edenilson Renal function - Resolved Monitor H&H, transfuse as needed GI f/u Pending TIPS - not cleared per ID Hematology f/u Social Service consult - placement DVT Prophylaxis with SCDs Continue pain meds GI prophylaxis with PPI. AM labs Subjective Constitutional: Denies: chills, diaphoresis, fever, malaise, no symptoms, other , weakness HEENT: Denies: blurred vision, double vision, ear discharge, ear pain, eye pain , mouth pain, mouth swelling, no symptoms, nose congestion, nose pain, other, tearing, throat pain, throat swelling Genitourinary: Denies: burning, discharge, flank pain, frequency, hematuria, incontinence, no symptoms, other, pain, urgency Neurologic/Psychiatric: Denies: anxiety, depressed, emotional problems, headache, no symptoms, numbness, other, paresthesia, pre-existing deficit, seizure, tingling, tremors, weakness Subjective In bed, no distress, no overnight events Objective Objective Last 24 Hour Vital Signs Date Time Temp Pulse Resp B/P Pulse Ox O2 Delivery O2 Flow Rate FiO2 04/22/16 04:00 97.3 64 18 108/58 96 Room Air 04/21/16 20:00 97.7 68 20 111/60 99 Intake and Output 04/21/16 04/22/16 19:00 07:00 Intake Total 480 ml 495.0 ml Output Total 1200 ml 750 ml Balance -720 ml -255.0 ml Intake Oral 480 ml 220 ml IV Total 275.0 ml Output Urine Total 1200 ml 750 ml # Voids 1 # Bowel Movements 1 Laboratory Tests 04/22/16 05:00: White Blood Count 3.7L, Red Blood Count 2.38L, Hemoglobin 8.8L, Hematocrit 25.8L , Mean Corpuscular Volume 108H, Mean Corpuscular Hemoglobin 36.9H, Mean Corpuscular Hemoglobin Concent 34.1, Red Cell Distribution Width 16.3H, Platelet Count 31L, Mean Platelet Volume 13.7H, Neutrophils (%) (Auto) , Lymphocytes (%) (Auto) , Monocytes (%) (Auto) , Eosinophils (%) (Auto) , Basophils (%) (Auto) , Differential Total Cells Counted 100, Neutrophils % ( Manual) 71, Lymphocytes % (Manual) 13L, Monocytes % (Manual) 13H, Eosinophils % (Manual) 2, Basophils % (Manual) 1, Band Neutrophils 0, Platelet Estimate DecreasedL, Platelet Morphology Normal, Hypochromasia 2+, Anisocytosis 1+, Macrocytosis 1+, Spherocytes 2+, Haptoglobin 32, Sodium Level 136, Potassium Level 4.2, Chloride Level 103, Carbon Dioxide Level 21, Anion Gap 12, Blood Urea Nitrogen 14, Creatinine 0.7, Estimat Glomerular Filtration Rate > 60, Glucose Level 92, Calcium Level 8.2L, Lactate Dehydrogenase 186, Vancomycin Level Trough 15.7H 04/22/16 11:00: Prothrombin Time 18.5H, Prothromb Time International Ratio 1.8H, Fibrinogen 86*L , Fibrin Degradation Products, Quant [Pending] Height (Feet): 5 Height (Inches): 0.00 Weight (Pounds): 177 General Appearance: no apparent distress, alert EENT: normal ENT inspection Neck: normal alignment, supple Cardiovascular: normal rate, no JVD Respiratory/Chest: no respiratory distress, decreased breath sounds Abdomen: distended Extremities: normal inspection, no calf tenderness Neurologic: alert, oriented x 3, responsive, normal mood/affect Jeanna Mederos N.P. Apr 22, 2016 13:03
[2016-04-22] MEDS ORDERED: Phytonadione 10 mg/mL 1ml amp SUBQ ONE (14:30)
--- NOTE | 2016-04-22 17:28 | Infectious Diseases Prog Note ---
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 UCx VRE ( colonizer ) HIV and Hep Panel :neg EtOH Cirrhosis, pending TIPS US : Cirrhosis with stigmata of portal hypertension including splenomegaly, ascites SP Paracentesis 04/10 - no evidence of SBP Thrombocytopenia VRE colonized NKDA Full Code PLAN: continue micafungin d# 6, change IV vancomcyin d# 3 to zyvox d# 1 based on cultures repeat BCx to document clearance, f/u repeat TTE, may need FERNANDO, CT A/P optho eval, if possible r/o endopthalmitis HOLD TIPS PENDING CLEARANCE OF BLOOD CULTURES - PT NOT CLEAR FOR TIPS FROM ID STANDPOINT Monitor CBC , temperatures monitor BMP monitor CXR Subjective Allergies: Coded Allergies: No Known Allergies (Unverified , 04/07/16) Subjective remains afebrile persistent bacteremia, fungemia, tip Cx NGTD Objective Vital Signs Last 24 Hour Vital Signs Date Time Temp Pulse Resp B/P Pulse Ox O2 Delivery O2 Flow Rate FiO2 04/22/16 04:00 97.3 64 18 108/58 96 Room Air 04/21/16 20:00 97.7 68 20 111/60 99 Height (Feet): 5 Height (Inches): 0.00 Weight (Pounds): 177 General Appearance: no acute distress Respiratory/Chest: no respiratory distress Cardiovascular: normal rate, regular rhythm Abdomen: normal bowel sounds, soft, non tender, distended Laboratory Tests Test 04/22/16 05:00 04/22/16 11:00 White Blood Count 3.7 K/UL (4.8-10.8) L Red Blood Count 2.38 M/UL (4.70-6.10) L Hemoglobin 8.8 G/DL (14.2-18.0) L Hematocrit 25.8 % (42.0-52.0) L Mean Corpuscular Volume 108 FL (80-99) H Mean Corpuscular Hemoglobin 36.9 PG (27.0-31.0) H Mean Corpuscular Hemoglobin Concent 34.1 G/DL (32.0-36.0) Red Cell Distribution Width 16.3 % (11.6-14.8) H Platelet Count 31 K/UL (150-450) L Mean Platelet Volume 13.7 FL (6.5-10.1) H Neutrophils (%) (Auto) % (45.0-75.0) Lymphocytes (%) (Auto) % (20.0-45.0) Monocytes (%) (Auto) % (1.0-10.0) Eosinophils (%) (Auto) % (0.0-3.0) Basophils (%) (Auto) % (0.0-2.0) Differential Total Cells Counted 100 Neutrophils % (Manual) 71 % (45-75) Lymphocytes % (Manual) 13 % (20-45) L Monocytes % (Manual) 13 % (1-10) H Eosinophils % (Manual) 2 % (0-3) Basophils % (Manual) 1 % (0-2) Band Neutrophils 0 % (0-8) Platelet Estimate Decreased L Platelet Morphology Normal Hypochromasia 2+ Anisocytosis 1+ Macrocytosis 1+ Spherocytes 2+ Haptoglobin 32 mg/dL (30-200) Sodium Level 136 mEQ/L (135-145) Potassium Level 4.2 mEQ/L (3.4-4.9) Chloride Level 103 mEQ/L (98-107) Carbon Dioxide Level 21 mEQ/L (20-30) Anion Gap 12 (5-15) Blood Urea Nitrogen 14 mg/dL (7-23) Creatinine 0.7 mg/dL (0.7-1.2) Estimat Glomerular Filtration Rate > 60 mL/min (>60) Glucose Level 92 mg/dL (74-106) Calcium Level 8.2 mg/dL (8.6-10.2) L Lactate Dehydrogenase 186 U/L (135-230) Vancomycin Level Trough 15.7 ug/mL (5.0-12.0) H Prothrombin Time 18.5 SEC (9.30-11.50) H Prothromb Time International Ratio 1.8 (0.9-1.1) H Fibrinogen 86 mg/dL (200-400) *L Fibrin Degradation Products, Quant Pending Current Medications Medications (Trade) Dose Ordered Sig/Bernardino Route PRN Reason Start Time Stop Time Status Last Admin Dose Admin Dextrose (Dextrose 50%) STAT PRN IV Hypoglycemia 04/17/16 13:30 05/17/16 13:29 Furosemide (Lasix) 40 mg EVERY 12 HOURS IV 04/17/16 21:00 05/17/16 20:59 04/22/16 08:19 Lactulose (Cephulac) 30 gm THREE TIMES A DAY ORAL 04/17/16 14:00 05/17/16 13:59 04/22/16 14:06 Metoprolol Succinate (Toprol XL) 200 mg DAILY ORAL 04/21/16 09:00 05/21/16 08:59 Micafungin Sodium/ Sodium Chloride (Mycamine/Sodium Chloride 100ml bag) 100 ml @ 100 mls/hr Q24H IVPB 04/17/16 14:30 04/24/16 14:29 04/22/16 15:46 Morphine Sulfate (Morphine Sulfate) 2 mg Q4H PRN IVP Severe Pain (Pain Scale 7-10) 04/17/16 14:00 04/24/16 13:59 04/20/16 20:14 Ondansetron HCl (Zofran) 4 mg Q6H PRN IVP Nausea & Vomiting 04/17/16 14:00 05/17/16 13:59 04/22/16 14:06 Pantoprazole (Protonix) 40 mg DAILY ORAL 04/18/16 09:00 05/18/16 08:59 04/22/16 08:19 Potassium Chloride (K-Dur) 20 meq TWICE A DAY ORAL 04/17/16 18:00 05/17/16 17:59 04/22/16 08:18 Spironolactone (Aldactone) 100 mg DAILY ORAL 04/18/16 09:00 05/18/16 08:59 04/22/16 08:19 Tramadol HCl 50 mg 50 mg Q6H PRN ORAL Moderate Pain (Pain Scale 4-6) 04/17/16 13:30 04/24/16 13:29 Vancomycin HCl 1 ea 1 ea DAILY PRN MISC Per rx protocol 04/20/16 15:00 05/20/16 14:59 Vancomycin HCl/ Dextrose (Vancomycin/D5W 250ml) 275 ml @ 183.708 mls/hr Q12HR@0600,1800 IVPB 04/20/16 18:00 04/25/16 17:59 04/22/16 06:55 RL LEWIS Apr 22, 2016 17:28
--- NOTE | 2016-04-22 17:31 | Pulmonology Progress Note ---
Assessment/Plan Assessment/Plan IMPRESSION: (1) Asthma (2) Alcoholic cirrhosis of liver with ascites (3) Hypoalbuminemia (4) Thrombocytopenia (5) Anemia Assessment/Plan -Optimize pulmonary hygiene/mobilize as tolerated -Respiratory stable -Monitor volumes/diuresis as tolerated -PRN O2 -F/U cards, GI, ID recs -Monitor MS -Paracentesis as ordered by GI -F/U repeat Cx's -DVT Px -IS Subjective Interval Events: Saturating well on RA Constitutional: Reports: no symptoms HEENT: Repors: no symptoms Respiratory: Reports: no symptoms Cardiovascular: Reports: no symptoms Genitourinary: Reports: no symptoms Neurologic: Reports: no symptoms Allergies: Coded Allergies: No Known Allergies (Unverified , 04/07/16) Objective Last 24 Hour Vital Signs Date Time Temp Pulse Resp B/P Pulse Ox O2 Delivery O2 Flow Rate FiO2 04/22/16 04:00 97.3 64 18 108/58 96 Room Air 04/21/16 20:00 97.7 68 20 111/60 99 Intake and Output 04/21/16 04/22/16 19:00 07:00 Intake Total 480 ml 495.0 ml Output Total 1200 ml 750 ml Balance -720 ml -255.0 ml Intake Oral 480 ml 220 ml IV Total 275.0 ml Output Urine Total 1200 ml 750 ml # Voids 1 # Bowel Movements 1 General Appearance: no acute distress HEENT: normocephalic Respiratory/Chest: chest wall non-tender, lungs clear Cardiovascular: normal peripheral pulses, normal rate Extremities: no cyanosis Laboratory Tests 04/22/16 05:00: White Blood Count 3.7L, Red Blood Count 2.38L, Hemoglobin 8.8L, Hematocrit 25.8L , Mean Corpuscular Volume 108H, Mean Corpuscular Hemoglobin 36.9H, Mean Corpuscular Hemoglobin Concent 34.1, Red Cell Distribution Width 16.3H, Platelet Count 31L, Mean Platelet Volume 13.7H, Neutrophils (%) (Auto) , Lymphocytes (%) (Auto) , Monocytes (%) (Auto) , Eosinophils (%) (Auto) , Basophils (%) (Auto) , Differential Total Cells Counted 100, Neutrophils % ( Manual) 71, Lymphocytes % (Manual) 13L, Monocytes % (Manual) 13H, Eosinophils % (Manual) 2, Basophils % (Manual) 1, Band Neutrophils 0, Platelet Estimate DecreasedL, Platelet Morphology Normal, Hypochromasia 2+, Anisocytosis 1+, Macrocytosis 1+, Spherocytes 2+, Haptoglobin 32, Sodium Level 136, Potassium Level 4.2, Chloride Level 103, Carbon Dioxide Level 21, Anion Gap 12, Blood Urea Nitrogen 14, Creatinine 0.7, Estimat Glomerular Filtration Rate > 60, Glucose Level 92, Calcium Level 8.2L, Lactate Dehydrogenase 186, Vancomycin Level Trough 15.7H 04/22/16 11:00: Prothrombin Time 18.5H, Prothromb Time International Ratio 1.8H, Fibrinogen 86*L , Fibrin Degradation Products, Quant [Pending] Current Medications Medications (Trade) Dose Ordered Sig/Bernardino Route PRN Reason Start Time Stop Time Status Last Admin Dose Admin Dextrose (Dextrose 50%) STAT PRN IV Hypoglycemia 04/17/16 13:30 05/17/16 13:29 Furosemide (Lasix) 40 mg EVERY 12 HOURS IV 04/17/16 21:00 05/17/16 20:59 04/22/16 08:19 Lactulose (Cephulac) 30 gm THREE TIMES A DAY ORAL 04/17/16 14:00 05/17/16 13:59 04/22/16 14:06 Linezolid (Zyvox) 300 ml @ 300 mls/hr Q12HR IVPB 04/22/16 21:00 04/29/16 20:59 UNV Metoprolol Succinate 200 mg 200 mg DAILY ORAL 04/21/16 09:00 05/21/16 08:59 Micafungin Sodium/ Sodium Chloride (Mycamine/Sodium Chloride 100ml bag) 100 ml @ 100 mls/hr Q24H IVPB 04/17/16 14:30 04/24/16 14:29 04/22/16 15:46 Morphine Sulfate (Morphine Sulfate) 2 mg Q4H PRN IVP Severe Pain (Pain Scale 7-10) 04/17/16 14:00 04/24/16 13:59 04/20/16 20:14 Ondansetron HCl (Zofran) 4 mg Q6H PRN IVP Nausea & Vomiting 04/17/16 14:00 05/17/16 13:59 04/22/16 14:06 Pantoprazole (Protonix) 40 mg DAILY ORAL 04/18/16 09:00 05/18/16 08:59 04/22/16 08:19 Potassium Chloride (K-Dur) 20 meq TWICE A DAY ORAL 04/17/16 18:00 05/17/16 17:59 04/22/16 08:18 Spironolactone (Aldactone) 100 mg DAILY ORAL 04/18/16 09:00 05/18/16 08:59 04/22/16 08:19 Tramadol HCl 50 mg 50 mg Q6H PRN ORAL Moderate Pain (Pain Scale 4-6) 04/17/16 13:30 04/24/16 13:29 Oliver Sky MD Apr 22, 2016 17:31
[2016-04-22 20:00] VITALS: BP 134/61
[2016-04-23 00:29] VITALS: BP 112/67
[2016-04-23] MEDS: Zolpidem 5mg tab ORAL PRN (01:30)
[2016-04-23 04:30] VITALS: BP 122/73
[2016-04-23 06:30] LABS: MEAN CORPUSCULAR HEMOGLOBIN 35.6 PG (27.0-31.0); MEAN CORPUSCULAR HGB CONC 33.6 G/DL (32.0-36.0); MEAN CORPUSCULAR VOLUME 106 FL (80-99); MEAN PLATELET VOLUME 10.5 FL (6.5-10.1); PLATELET COUNT 32 K/UL (150-450); RED BLOOD COUNT 2.39 M/UL (4.70-6.10); RED CELL DISTRIBUTION WIDTH 16.6 % (11.6-14.8); WHITE BLOOD COUNT 3.9 K/UL (4.8-10.8)
[2016-04-23 06:49] LABS: INR 1.7 (0.9-1.1)
[2016-04-23 06:57] LABS: ALANINE AMINOTRANSFERASE 21 U/L (3-41); ALBUMIN/GLOBULIN RATIO 0.7 (1.0-2.7); ANION GAP 13 (5-15); ASPARTATE AMINO TRANSFERASE 28 U/L (5-40); CALCIUM 8.3 mg/dL (8.6-10.2); CARBON DIOXIDE 22 mEQ/L (20-30); CHLORIDE 96 mEQ/L (98-107); CREATININE 0.9 mg/dL (0.7-1.2); GLOMERULAR FILTRATION RATE > 60 mL/min (>60); HEMOLYSIS 4; POTASSIUM 4.5 mEQ/L (3.4-4.9); SODIUM 131 mEQ/L (135-145); TOTAL PROTEIN 4.9 g/dL (6.6-8.7)
[2016-04-23 07:12] LABS: BILIRUBIN,DIRECT 2.2 mg/dL (0.1-0.3)
[2016-04-23 08:00] VITALS: BP 131/71
[2016-04-23] MEDS: Spironolactone 50mg tab ORAL SCH (09:23)
[2016-04-23] MEDS: Lactulose 20gm/30ml UDC ORAL SCH ×3 (09:23→17:46)
[2016-04-23] MEDS: Metoprolol XL 100mg tab ORAL SCH (09:24)
--- NOTE | 2016-04-23 09:27 | Pulmonology Progress Note ---
Assessment/Plan Assessment/Plan IMPRESSION: (1) Asthma (2) Alcoholic cirrhosis of liver with ascites (3) Hypoalbuminemia (4) Thrombocytopenia (5) Anemia Assessment/Plan -Optimize pulmonary hygiene/mobilize as tolerated -Respiratory stable -Monitor volumes/diuresis as tolerated -PRN O2 -F/U cards, GI, ID recs -Monitor MS -Paracentesis as ordered by GI -F/U repeat Cx's -DVT Px -IS Subjective Interval Events: No change Constitutional: Reports: no symptoms HEENT: Repors: no symptoms Respiratory: Reports: no symptoms Cardiovascular: Reports: no symptoms Gastrointestinal/Abdominal: Reports: no symptoms Allergies: Coded Allergies: No Known Allergies (Unverified , 04/07/16) Objective Last 24 Hour Vital Signs Date Time Temp Pulse Resp B/P Pulse Ox O2 Delivery O2 Flow Rate FiO2 04/23/16 09:24 93 131/71 04/23/16 08:00 97.0 93 20 131/71 100 Room Air 04/23/16 04:30 97.9 53 20 122/73 96 Room Air 04/23/16 00:29 97.0 83 20 112/67 97 Room Air 04/22/16 20:00 97.9 84 20 134/61 99 Room Air Intake and Output 04/22/16 04/23/16 19:00 07:00 Intake Total 580 ml 720 ml Output Total 700 ml Balance -120 ml 720 ml Intake Oral 480 ml 720 ml IV Total 100 ml Output Urine Total 700 ml # Voids 2 General Appearance: no acute distress HEENT: normocephalic Respiratory/Chest: lungs clear, normal breath sounds Microbiology Date/Time Source Procedure Growth Status 04/21/16 16:45 Blood Blood Culture - Preliminary NO GROWTH AFTER 24 HOURS Resulted 04/21/16 16:30 Blood Blood Culture - Preliminary NO GROWTH AFTER 24 HOURS Resulted Laboratory Tests 04/22/16 11:00: Prothrombin Time 18.5H, Prothromb Time International Ratio 1.8H, Fibrinogen 86*L , Fibrin Degradation Products, Quant [Pending] 04/23/16 05:00: Prothrombin Time 18.0H, Prothromb Time International Ratio 1.7H, White Blood Count 3.9L, Red Blood Count 2.39L, Hemoglobin 8.5L, Hematocrit 25.4L, Mean Corpuscular Volume 106H, Mean Corpuscular Hemoglobin 35.6H, Mean Corpuscular Hemoglobin Concent 33.6, Red Cell Distribution Width 16.6H, Platelet Count 32L, Mean Platelet Volume 10.5H, Neutrophils (%) (Auto) , Lymphocytes (%) (Auto) , Monocytes (%) (Auto) , Eosinophils (%) (Auto) , Basophils (%) (Auto) , Neutrophils % (Manual) [Pending], Lymphocytes % (Manual) [Pending], Platelet Estimate [Pending], Platelet Morphology [Pending], Activated Partial Thromboplast Time 46H, Sodium Level 131L, Potassium Level 4.5, Chloride Level 96L, Carbon Dioxide Level 22, Anion Gap 13, Blood Urea Nitrogen 14, Creatinine 0.9, Estimat Glomerular Filtration Rate > 60, Glucose Level 87, Calcium Level 8.3L, Total Bilirubin 4.7H, Direct Bilirubin 2.2H, Aspartate Amino Transf (AST/ SGOT) 28, Alanine Aminotransferase (ALT/SGPT) 21, Alkaline Phosphatase 111, Total Protein 4.9L, Albumin 2.1L, Globulin 2.8, Albumin/Globulin Ratio 0.7L Current Medications Medications (Trade) Dose Ordered Sig/Bernardino Route PRN Reason Start Time Stop Time Status Last Admin Dose Admin Dextrose (Dextrose 50%) STAT PRN IV Hypoglycemia 04/17/16 13:30 05/17/16 13:29 Furosemide (Lasix) 40 mg EVERY 12 HOURS IV 04/17/16 21:00 05/17/16 20:59 04/23/16 09:23 Lactulose (Cephulac) 30 gm THREE TIMES A DAY ORAL 04/17/16 14:00 05/17/16 13:59 04/23/16 09:23 Linezolid (Zyvox) 300 ml @ 300 mls/hr Q12HR IVPB 04/22/16 19:00 04/29/16 18:59 04/23/16 09:24 Metoprolol Succinate 200 mg 200 mg DAILY ORAL 04/21/16 09:00 05/21/16 08:59 04/23/16 09:24 Micafungin Sodium/ Sodium Chloride (Mycamine/Sodium Chloride 100ml bag) 100 ml @ 100 mls/hr Q24H IVPB 04/17/16 14:30 04/24/16 14:29 04/22/16 15:46 Morphine Sulfate (Morphine Sulfate) 2 mg Q4H PRN IVP Severe Pain (Pain Scale 7-10) 04/17/16 14:00 04/24/16 13:59 04/20/16 20:14 Ondansetron HCl (Zofran) 4 mg Q6H PRN IVP Nausea & Vomiting 04/17/16 14:00 05/17/16 13:59 04/22/16 14:06 Pantoprazole (Protonix) 40 mg DAILY ORAL 04/18/16 09:00 05/18/16 08:59 04/23/16 09:23 Potassium Chloride (K-Dur) 20 meq TWICE A DAY ORAL 04/17/16 18:00 05/17/16 17:59 04/23/16 09:24 Spironolactone (Aldactone) 100 mg DAILY ORAL 04/18/16 09:00 05/18/16 08:59 04/23/16 09:23 Tramadol HCl 50 mg 50 mg Q6H PRN ORAL Moderate Pain (Pain Scale 4-6) 04/17/16 13:30 04/24/16 13:29 Zolpidem Tartrate (Ambien) 10 mg HSPRN PRN ORAL Insomnia 04/22/16 23:45 05/22/16 23:44 04/23/16 01:30 Oliver Sky MD Apr 23, 2016 09:27
[2016-04-23 10:20] LABS: ANISOCYTOSIS 1+; BAND NEUTROPHILS % (MANUAL) 0 % (0-8); BASOPHILS % (MANUAL) 0 % (0-2); EOSINOPHILS % (MANUAL) 5 % (0-3); HYPOCHROMASIA 1+; LYMPHOCYTES % (MANUAL) 15 % (20-45); MACROCYTES 1+; NEUTROPHILS % (MANUAL) 68 % (45-75); PLATELET ESTIMATE DECREASED; PLATELET MORPHOLOGY NORMAL; TOTAL CELLS COUNTED 100
--- NOTE | 2016-04-23 10:26 | GI Progress Note ---
Assessment/Plan Problems: (1) Hypoalbuminemia ICD Codes: E88.09 - Other disorders of plasma-protein metabolism, not elsewhere classified SNOMED: 750941275 (2) Alcoholic cirrhosis of liver with ascites ICD Codes: K70.31 - Alcoholic cirrhosis of liver with ascites SNOMED: 801628795 (3) sepsis (4) Anemia ICD Codes: D64.9 - Anemia, unspecified SNOMED: 906951312 Status: stable, unchanged Status Narrative Discussed with Dr. Mcgovern. Assessment/Plan s/p paracentesis #2 >> cleared for DC per GI standpoint after procedure >> TIPs can be done as outpatient pt scheduled IR procedure and balloon dilatation of the TIPS. >> Not cleared for procedure per ID. resume diet monitor H&H, transfuse prn s/p paracentesis #1 >> ascites negative for growth elevated ammonia >> Lactulose + Xifaxan OB stool negative hep panel negative ppi PT eval fu labs Subjective Gastrointestinal/Abdominal: Reports: abdomen distended - ascities Objective Last 24 Hour Vital Signs Date Time Temp Pulse Resp B/P Pulse Ox O2 Delivery O2 Flow Rate FiO2 04/23/16 09:24 93 131/71 04/23/16 08:00 97.0 93 20 131/71 100 Room Air 04/23/16 04:30 97.9 53 20 122/73 96 Room Air 04/23/16 00:29 97.0 83 20 112/67 97 Room Air 04/22/16 20:00 97.9 84 20 134/61 99 Room Air Intake and Output 04/22/16 04/23/16 19:00 07:00 Intake Total 580 ml 720 ml Output Total 700 ml Balance -120 ml 720 ml Intake Oral 480 ml 720 ml IV Total 100 ml Output Urine Total 700 ml # Voids 2 Laboratory Tests Test 04/22/16 11:00 04/23/16 05:00 Prothrombin Time 18.5 SEC (9.30-11.50) H 18.0 SEC (9.30-11.50) H Prothromb Time International Ratio 1.8 (0.9-1.1) H 1.7 (0.9-1.1) H Fibrinogen 86 mg/dL (200-400) *L Fibrin Degradation Products, Quant Pending White Blood Count 3.9 K/UL (4.8-10.8) L Red Blood Count 2.39 M/UL (4.70-6.10) L Hemoglobin 8.5 G/DL (14.2-18.0) L Hematocrit 25.4 % (42.0-52.0) L Mean Corpuscular Volume 106 FL (80-99) H Mean Corpuscular Hemoglobin 35.6 PG (27.0-31.0) H Mean Corpuscular Hemoglobin Concent 33.6 G/DL (32.0-36.0) Red Cell Distribution Width 16.6 % (11.6-14.8) H Platelet Count 32 K/UL (150-450) L Mean Platelet Volume 10.5 FL (6.5-10.1) H Neutrophils (%) (Auto) % (45.0-75.0) Lymphocytes (%) (Auto) % (20.0-45.0) Monocytes (%) (Auto) % (1.0-10.0) Eosinophils (%) (Auto) % (0.0-3.0) Basophils (%) (Auto) % (0.0-2.0) Differential Total Cells Counted 100 Neutrophils % (Manual) 68 % (45-75) Lymphocytes % (Manual) 15 % (20-45) L Monocytes % (Manual) 12 % (1-10) H Eosinophils % (Manual) 5 % (0-3) H Basophils % (Manual) 0 % (0-2) Band Neutrophils 0 % (0-8) Platelet Estimate Decreased L Platelet Morphology Normal Hypochromasia 1+ Anisocytosis 1+ Macrocytosis 1+ Activated Partial Thromboplast Time 46 SEC (23-33) H Sodium Level 131 mEQ/L (135-145) L Potassium Level 4.5 mEQ/L (3.4-4.9) Chloride Level 96 mEQ/L (98-107) L Carbon Dioxide Level 22 mEQ/L (20-30) Anion Gap 13 (5-15) Blood Urea Nitrogen 14 mg/dL (7-23) Creatinine 0.9 mg/dL (0.7-1.2) Estimat Glomerular Filtration Rate > 60 mL/min (>60) Glucose Level 87 mg/dL (74-106) Calcium Level 8.3 mg/dL (8.6-10.2) L Total Bilirubin 4.7 mg/dL (0.0-1.2) H Direct Bilirubin 2.2 mg/dL (0.1-0.3) H Aspartate Amino Transf (AST/SGOT) 28 U/L (5-40) Alanine Aminotransferase (ALT/SGPT) 21 U/L (3-41) Alkaline Phosphatase 111 U/L (40-129) Total Protein 4.9 g/dL (6.6-8.7) L Albumin 2.1 g/dL (3.5-5.2) L Globulin 2.8 g/dL Albumin/Globulin Ratio 0.7 (1.0-2.7) L Height (Feet): 5 Height (Inches): 0.00 Weight (Pounds): 176 General Appearance: no apparent distress, alert Cardiovascular: normal rate Respiratory/Chest: normal breath sounds, no respiratory distress Abdominal Exam: normal bowel sounds, distended, ascites Extremities: normal range of motion Objective Procedure: US ABD Complete Indications: Abdominal pain IMPRESSION: Cirrhosis with stigmata of portal hypertension including splenomegaly, ascites. Patent intrahepatic portosystemic shunt with apparently elevated velocity at its hepatic venous end, suggesting high-grade stenosis. This is potentially amenable to percutaneous intervention, as clinically indicated. Gallbladder stones and sludge. Mural thickening likely secondary to presence of ascites. Correlate clinically. Midline structures including pancreas, distal abdominal aorta obscured Rain Mercado N.P. Apr 23, 2016 10:26
[2016-04-23 12:00] VITALS: BP 134/79
--- NOTE | 2016-04-23 15:30 | Infectious Diseases Prog Note ---
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 UCx VRE ( colonizer ) HIV and Hep Panel :neg EtOH Cirrhosis, pending TIPS US : Cirrhosis with stigmata of portal hypertension including splenomegaly, ascites SP Paracentesis 04/10 - no evidence of SBP Thrombocytopenia VRE colonized NKDA Full Code PLAN: continue micafungin d# 7, change zyvox d# 2 to daptomycin d# 1 d/t severe TCP ( 04/22 SP IV vancomcyin d# 3 ) f/u repeat BCx to document clearance f/u repeat TTE, may need FERNANDO, CT A/P optho eval, if possible r/o endopthalmitis HOLD TIPS PENDING CLEARANCE OF BLOOD CULTURES - PT NOT CLEAR FOR TIPS FROM ID STANDPOINT Monitor CBC , temperatures monitor BMP monitor CXR Subjective Allergies: Coded Allergies: No Known Allergies (Unverified , 04/07/16) Subjective remains afebrile repeat BCx NGTD Objective Vital Signs Last 24 Hour Vital Signs Date Time Temp Pulse Resp B/P Pulse Ox O2 Delivery O2 Flow Rate FiO2 04/23/16 12:00 97.5 71 18 134/79 100 Room Air 04/23/16 09:24 93 131/71 04/23/16 08:00 97.0 93 20 131/71 100 Room Air 04/23/16 04:30 97.9 53 20 122/73 96 Room Air 04/23/16 00:29 97.0 83 20 112/67 97 Room Air 04/22/16 20:00 97.9 84 20 134/61 99 Room Air Height (Feet): 5 Height (Inches): 0.00 Weight (Pounds): 176 General Appearance: no acute distress Respiratory/Chest: no respiratory distress Cardiovascular: normal rate, regular rhythm Abdomen: normal bowel sounds, soft, non tender, distended Microbiology Date/Time Source Procedure Growth Status 04/21/16 16:45 Blood Blood Culture - Preliminary NO GROWTH AFTER 24 HOURS Resulted 04/21/16 16:30 Blood Blood Culture - Preliminary NO GROWTH AFTER 24 HOURS Resulted Laboratory Tests Test 04/23/16 05:00 White Blood Count 3.9 K/UL (4.8-10.8) L Red Blood Count 2.39 M/UL (4.70-6.10) L Hemoglobin 8.5 G/DL (14.2-18.0) L Hematocrit 25.4 % (42.0-52.0) L Mean Corpuscular Volume 106 FL (80-99) H Mean Corpuscular Hemoglobin 35.6 PG (27.0-31.0) H Mean Corpuscular Hemoglobin Concent 33.6 G/DL (32.0-36.0) Red Cell Distribution Width 16.6 % (11.6-14.8) H Platelet Count 32 K/UL (150-450) L Mean Platelet Volume 10.5 FL (6.5-10.1) H Neutrophils (%) (Auto) % (45.0-75.0) Lymphocytes (%) (Auto) % (20.0-45.0) Monocytes (%) (Auto) % (1.0-10.0) Eosinophils (%) (Auto) % (0.0-3.0) Basophils (%) (Auto) % (0.0-2.0) Differential Total Cells Counted 100 Neutrophils % (Manual) 68 % (45-75) Lymphocytes % (Manual) 15 % (20-45) L Monocytes % (Manual) 12 % (1-10) H Eosinophils % (Manual) 5 % (0-3) H Basophils % (Manual) 0 % (0-2) Band Neutrophils 0 % (0-8) Platelet Estimate Decreased L Platelet Morphology Normal Hypochromasia 1+ Anisocytosis 1+ Macrocytosis 1+ Prothrombin Time 18.0 SEC (9.30-11.50) H Prothromb Time International Ratio 1.7 (0.9-1.1) H Activated Partial Thromboplast Time 46 SEC (23-33) H Sodium Level 131 mEQ/L (135-145) L Potassium Level 4.5 mEQ/L (3.4-4.9) Chloride Level 96 mEQ/L (98-107) L Carbon Dioxide Level 22 mEQ/L (20-30) Anion Gap 13 (5-15) Blood Urea Nitrogen 14 mg/dL (7-23) Creatinine 0.9 mg/dL (0.7-1.2) Estimat Glomerular Filtration Rate > 60 mL/min (>60) Glucose Level 87 mg/dL (74-106) Calcium Level 8.3 mg/dL (8.6-10.2) L Total Bilirubin 4.7 mg/dL (0.0-1.2) H Direct Bilirubin 2.2 mg/dL (0.1-0.3) H Aspartate Amino Transf (AST/SGOT) 28 U/L (5-40) Alanine Aminotransferase (ALT/SGPT) 21 U/L (3-41) Alkaline Phosphatase 111 U/L (40-129) Total Protein 4.9 g/dL (6.6-8.7) L Albumin 2.1 g/dL (3.5-5.2) L Globulin 2.8 g/dL Albumin/Globulin Ratio 0.7 (1.0-2.7) L Current Medications Medications (Trade) Dose Ordered Sig/Bernardino Route PRN Reason Start Time Stop Time Status Last Admin Dose Admin Dextrose (Dextrose 50%) STAT PRN IV Hypoglycemia 04/17/16 13:30 05/17/16 13:29 Furosemide (Lasix) 40 mg EVERY 12 HOURS IV 04/17/16 21:00 05/17/16 20:59 04/23/16 09:23 Lactulose (Cephulac) 30 gm THREE TIMES A DAY ORAL 04/17/16 14:00 05/17/16 13:59 04/23/16 09:23 Linezolid (Zyvox) 300 ml @ 300 mls/hr Q12HR IVPB 04/22/16 19:00 04/29/16 18:59 04/23/16 09:24 Metoprolol Succinate 200 mg 200 mg DAILY ORAL 04/21/16 09:00 05/21/16 08:59 04/23/16 09:24 Micafungin Sodium/ Sodium Chloride (Mycamine/Sodium Chloride 100ml bag) 100 ml @ 100 mls/hr Q24H IVPB 04/17/16 14:30 04/24/16 14:29 04/23/16 14:38 Morphine Sulfate (Morphine Sulfate) 2 mg Q4H PRN IVP Severe Pain (Pain Scale 7-10) 04/17/16 14:00 04/24/16 13:59 04/20/16 20:14 Ondansetron HCl (Zofran) 4 mg Q6H PRN IVP Nausea & Vomiting 04/17/16 14:00 05/17/16 13:59 04/22/16 14:06 Pantoprazole (Protonix) 40 mg DAILY ORAL 04/18/16 09:00 05/18/16 08:59 04/23/16 09:23 Potassium Chloride (K-Dur) 20 meq TWICE A DAY ORAL 04/17/16 18:00 05/17/16 17:59 04/23/16 09:24 Spironolactone (Aldactone) 100 mg DAILY ORAL 04/18/16 09:00 05/18/16 08:59 04/23/16 09:23 Tramadol HCl 50 mg 50 mg Q6H PRN ORAL Moderate Pain (Pain Scale 4-6) 04/17/16 13:30 04/24/16 13:29 Zolpidem Tartrate (Ambien) 10 mg HSPRN PRN ORAL Insomnia 04/22/16 23:45 05/22/16 23:44 04/23/16 01:30 RL LEWIS Apr 23, 2016 15:30
--- NOTE | 2016-04-23 15:57 | Diagnostic Imaging Report ---
Indications: Tense abdominal distention, recurrent ascites. Technique: Procedure, indications, risks and alternatives were explained to the patient who understands and gives consent to proceed. The abdomen and pelvis were surveyed sonographically. The skin over the right lower quadrant was sterilely prepped and draped in usual fashion. Skin and subcutaneous soft tissues were infiltrated with 1% lidocaine and sodium bicarbonate. A small dermatotomy was made, through which an 8 Arabic paracentesis catheter was advanced under direct sonographic guidance into the peritoneal cavity. Ascites was maximally drained via automated vacuum apparatus. Followup imaging was performed. Catheter was removed. Dermatotomy site was manually compressed to achieve stasis, then cleansed and bandaged. Patient tolerated the procedure well without immediate complications. Findings: Initial imaging demonstrates a large amount of ascites throughout the abdomen and pelvis. Post procedure imaging demonstrates near complete resolution of ascites. Paracentesis yields approximately 2100 cc of clear yellow fluid. IMPRESSION: Ultrasound-guided paracentesis yielding 2.1 L of ascites.
--- NOTE | 2016-04-23 15:58 | Cardiology Report ---
APPROVED REPORT EXAM: Two-dimensional and M-mode echocardiogram with Doppler and color Doppler. INDICATION Endocarditis Technically difficult study due to poor acoustic windows. Patients breathing. M-mode measurements not obtainable due to cardiac structure. Normal left ventricular chamber size, systolic function and wall motion to extend visualized. Left ventricular ejection fraction estimated to be 70-75 %. No evidence of left ventricular hypertrophy. Anterior Echo-free space, may be due to pericardial fat or effusion. All other cardiac chamber sizes are within normal limits. Focal aortic valve sclerosis with adequate cusp excursion Thickened mitral valve leaflets with normal excursion. Mild mitral annulus and aortic root calcification. Pulmonic valve not well visualized. Normal tricuspid valve structure. IVC at normal size with physiologic collapse. No evidence of vegitation, consider FRENANDO if clinically indicated. A color flow and spectral Doppler study was performed and revealed: No aortic regurgitation. Trace mitral regurgitation. Left ventricular diastolic dysfunction grade 1. Trace tricuspid regurgitation. Tricuspid systolic velocities suggests peak right ventricular systolic pressure of 25 mmHg
[2016-04-23 16:00] VITALS: BP 118/67
--- NOTE | 2016-04-23 16:56 | Cardiac Electrophysiology PN ---
Assessment/Plan Status Narrative Technically difficult study due to poor acoustical windows. M-mode measurements of left ventricle not obtainable due to cardiac position (angle) Normal left ventricular chamber size, hyperdynamic systolic function and wall motion to extent visualized. Left ventricular ejection fraction estimated to be 70-75 %. Mild left ventricular hypertrophy. Anterior Echo-free space, may be due to pericardial fat or effusion. All other cardiac chamber sizes are within normal limits. Mild focal aortic valve sclerosis with adequate cusp excursion. Mildly thickened mitral valve leaflets with normal excursion. Mitral annulus and aortic root calcification. Normal pulmonic valve structure. Normal tricuspid valve structure. IVC at normal size with physiologic collapse. A color flow and spectral Doppler study was performed and revealed: Mild mitral regurgitation. Mitral diastolic velocities suggest reduced left ventricular relaxation c/w mild LV diastolic dysfunction (Grade I ). Trace tricuspid regurgitation. Tricuspid systolic velocities suggests peak right ventricular systolic pressure of 20 mmHg. Assessment/Plan 1. Paroxysmal atrial fibrillation. In SR on Toprol-XL 200 mg daily. INR today is 1.7 despite off coumadin. 2. Leg edema and shortness of breath secondary to cirrhosis. EF 70-75%. On Lasix 40 iv bid and Aldactone 100 po daily. 3. HTN. On Lopressor 200 and Aldactone 100 and Lasix 40 iv bid. 4. Sepsis with high WBC 19k on broad-spectrum antibiotics.No SBP. 5. Anemia. 6. Hyponatremia, dilutional.Resolved 7. Thrombocytopenia likely secondary to splenomegaly and secondary to cirrhosis. 8. Alcoholic cirrhosis with ascites on Aldactone 100 mg daily.S/P Paracentesis . On Lactulose. TIPS when OK with ID ROB RN Subjective Subjective Alert in NAD. No chest pain or SOB.Awaiting TIPS by Radiology. Objective Last 24 Hour Vital Signs Date Time Temp Pulse Resp B/P Pulse Ox O2 Delivery O2 Flow Rate FiO2 04/23/16 16:00 97.5 66 18 118/67 100 Room Air 04/23/16 12:00 97.5 71 18 134/79 100 Room Air 04/23/16 09:24 93 131/71 04/23/16 08:00 97.0 93 20 131/71 100 Room Air 04/23/16 04:30 97.9 53 20 122/73 96 Room Air 04/23/16 00:29 97.0 83 20 112/67 97 Room Air 04/22/16 20:00 97.9 84 20 134/61 99 Room Air Intake and Output 04/22/16 04/23/16 19:00 07:00 Intake Total 580 ml 720 ml Output Total 700 ml Balance -120 ml 720 ml Intake Oral 480 ml 720 ml IV Total 100 ml Output Urine Total 700 ml # Voids 2 Laboratory Tests Test 04/23/16 05:00 White Blood Count 3.9 K/UL (4.8-10.8) L Red Blood Count 2.39 M/UL (4.70-6.10) L Hemoglobin 8.5 G/DL (14.2-18.0) L Hematocrit 25.4 % (42.0-52.0) L Mean Corpuscular Volume 106 FL (80-99) H Mean Corpuscular Hemoglobin 35.6 PG (27.0-31.0) H Mean Corpuscular Hemoglobin Concent 33.6 G/DL (32.0-36.0) Red Cell Distribution Width 16.6 % (11.6-14.8) H Platelet Count 32 K/UL (150-450) L Mean Platelet Volume 10.5 FL (6.5-10.1) H Neutrophils (%) (Auto) % (45.0-75.0) Lymphocytes (%) (Auto) % (20.0-45.0) Monocytes (%) (Auto) % (1.0-10.0) Eosinophils (%) (Auto) % (0.0-3.0) Basophils (%) (Auto) % (0.0-2.0) Differential Total Cells Counted 100 Neutrophils % (Manual) 68 % (45-75) Lymphocytes % (Manual) 15 % (20-45) L Monocytes % (Manual) 12 % (1-10) H Eosinophils % (Manual) 5 % (0-3) H Basophils % (Manual) 0 % (0-2) Band Neutrophils 0 % (0-8) Platelet Estimate Decreased L Platelet Morphology Normal Hypochromasia 1+ Anisocytosis 1+ Macrocytosis 1+ Prothrombin Time 18.0 SEC (9.30-11.50) H Prothromb Time International Ratio 1.7 (0.9-1.1) H Activated Partial Thromboplast Time 46 SEC (23-33) H Sodium Level 131 mEQ/L (135-145) L Potassium Level 4.5 mEQ/L (3.4-4.9) Chloride Level 96 mEQ/L (98-107) L Carbon Dioxide Level 22 mEQ/L (20-30) Anion Gap 13 (5-15) Blood Urea Nitrogen 14 mg/dL (7-23) Creatinine 0.9 mg/dL (0.7-1.2) Estimat Glomerular Filtration Rate > 60 mL/min (>60) Glucose Level 87 mg/dL (74-106) Calcium Level 8.3 mg/dL (8.6-10.2) L Total Bilirubin 4.7 mg/dL (0.0-1.2) H Direct Bilirubin 2.2 mg/dL (0.1-0.3) H Aspartate Amino Transf (AST/SGOT) 28 U/L (5-40) Alanine Aminotransferase (ALT/SGPT) 21 U/L (3-41) Alkaline Phosphatase 111 U/L (40-129) Total Protein 4.9 g/dL (6.6-8.7) L Albumin 2.1 g/dL (3.5-5.2) L Globulin 2.8 g/dL Albumin/Globulin Ratio 0.7 (1.0-2.7) L Microbiology Date/Time Source Procedure Growth Status 04/21/16 16:45 Blood Blood Culture - Preliminary NO GROWTH AFTER 24 HOURS Resulted 04/21/16 16:30 Blood Blood Culture - Preliminary NO GROWTH AFTER 24 HOURS Resulted Objective HEAD AND NECK: No JVD. LUNGS: Decreased breath sounds. CARDIOVASCULAR: Regular S1 and S2 with no gallop or murmur. ABDOMEN: Ascites.Non tender EXTREMITIES: 2+ pitting edema. MUKESH IZAGUIRRE Apr 23, 2016 16:55
[2016-04-23] MEDS ORDERED: Tubing Blood Filter IV ONE (18:42)
[2016-04-23] MEDS ORDERED: NS 275ml ONE (18:42)
[2016-04-23] MEDS ORDERED: Tubing IV Secondary IV ONE (18:42)
[2016-04-23 20:03] VITALS: BP 120/72
[2016-04-23] MEDS: DAPTOmycin 500 MG in NS 110 ML IV SCH (21:21)
--- NOTE | 2016-04-23 22:42 | Nephrology Progress Note ---
Assessment/Plan Problem List: (1) sepsis (2) Alcoholic cirrhosis of liver with ascites Assessment: s/p paracentesis. (3) Hypoalbuminemia (4) Asthma exacerbation Assessment: better. (5) Anemia (6) Thrombocytopenia (7) Fungemia (8) VRE (vancomycin resistant enterococcus) culture positive Assessment: in rectum and urine. likely colonized. Plan f/u recs per GI. monitor labs. f/u bcx. pending TIPS. Subjective Genitourinary: Reports: no symptoms Subjective no acute events. Objective Objective Last 24 Hour Vital Signs Date Time Temp Pulse Resp B/P Pulse Ox O2 Delivery O2 Flow Rate FiO2 04/23/16 20:03 97.5 68 18 120/72 99 Room Air 04/23/16 16:00 97.5 66 18 118/67 100 Room Air 04/23/16 12:00 97.5 71 18 134/79 100 Room Air 04/23/16 09:24 93 131/71 04/23/16 08:00 97.0 93 20 131/71 100 Room Air 04/23/16 04:30 97.9 53 20 122/73 96 Room Air 04/23/16 00:29 97.0 83 20 112/67 97 Room Air Intake and Output 04/22/16 04/23/16 19:00 07:00 Intake Total 580 ml 720 ml Output Total 700 ml Balance -120 ml 720 ml Intake Oral 480 ml 720 ml IV Total 100 ml Output Urine Total 700 ml # Voids 2 Laboratory Tests 04/23/16 05:00: White Blood Count 3.9L, Red Blood Count 2.39L, Hemoglobin 8.5L, Hematocrit 25.4L , Mean Corpuscular Volume 106H, Mean Corpuscular Hemoglobin 35.6H, Mean Corpuscular Hemoglobin Concent 33.6, Red Cell Distribution Width 16.6H, Platelet Count 32L, Mean Platelet Volume 10.5H, Neutrophils (%) (Auto) , Lymphocytes (%) (Auto) , Monocytes (%) (Auto) , Eosinophils (%) (Auto) , Basophils (%) (Auto) , Differential Total Cells Counted 100, Neutrophils % ( Manual) 68, Lymphocytes % (Manual) 15L, Monocytes % (Manual) 12H, Eosinophils % (Manual) 5H, Basophils % (Manual) 0, Band Neutrophils 0, Platelet Estimate DecreasedL, Platelet Morphology Normal, Hypochromasia 1+, Anisocytosis 1+, Macrocytosis 1+, Prothrombin Time 18.0H, Prothromb Time International Ratio 1.7H , Activated Partial Thromboplast Time 46H, Sodium Level 131L, Potassium Level 4.5, Chloride Level 96L, Carbon Dioxide Level 22, Anion Gap 13, Blood Urea Nitrogen 14, Creatinine 0.9, Estimat Glomerular Filtration Rate > 60, Glucose Level 87, Calcium Level 8.3L, Total Bilirubin 4.7H, Direct Bilirubin 2.2H, Aspartate Amino Transf (AST/SGOT) 28, Alanine Aminotransferase (ALT/SGPT) 21, Alkaline Phosphatase 111, Total Protein 4.9L, Albumin 2.1L, Globulin 2.8, Albumin/Globulin Ratio 0.7L Height (Feet): 5 Height (Inches): 0.00 Weight (Pounds): 176 General Appearance: no apparent distress Cardiovascular: normal rate, regular rhythm Respiratory/Chest: decreased breath sounds Abdomen: non tender, soft, distended Extremities: severe edema, pitting Neurologic: alert PAULA SPENCER Apr 23, 2016 22:42
[2016-04-24] VITALS: BP 112/73
--- NOTE | 2016-04-24 00:06 | General Progress Note ---
Assessment/Plan Assessment/Plan ASSESSMENT: 1. Thrombcytopenia is worse today, will send for dic and can be 2/2 micafungin v sepsis 2. Thrombocytopenia secondary to liver cirrhosis and splenomegaly. >30k generally 3. Anemia secondary to chronic disease. H/H has been stable 4. Decreased hemoglobin and hematocrit, rule out gastrointestinal bleed. 5. Splenomegaly 6. Cirrhosis of the liver status post paracentesis. 7. Coagulopathy . 8. Sepsis. RECOMMENDATIONS: 1. Monitor counts 2. Transfuse to hemoglobin goal >7 3. Transfuse of platelets goal >20k 4. DIC panel ordered today, medications reviewed 5. Follow up Nephrology, Pulm, Renal, and GI recs 6. Continue pain meds 7. GI prophylaxis with PPI. 8. DVT prophylaxis with SCDs 9. DW staff. Thank you, Suresh Pizarro MD Subjective Date patient seen: Apr 23, 2016 Constitutional: Reports: no symptoms HEENT: Reports: no symptoms Cardiovascular: Reports: no symptoms Respiratory: Reports: no symptoms Gastrointestinal/Abdominal: Reports: poor appetite Genitourinary: Reports: no symptoms Neurologic/Psychiatric: Reports: no symptoms Endocrine: Reports: no symptoms Hematologic/Lymphatic: Reports: anemia Allergies: Coded Allergies: No Known Allergies (Unverified , 04/07/16) Subjective no fevers, no bleeding reported, no hematochezia Objective Last 24 Hour Vital Signs Date Time Temp Pulse Resp B/P Pulse Ox O2 Delivery O2 Flow Rate FiO2 04/23/16 20:03 97.5 68 18 120/72 99 Room Air 04/23/16 16:00 97.5 66 18 118/67 100 Room Air 04/23/16 12:00 97.5 71 18 134/79 100 Room Air 04/23/16 09:24 93 131/71 04/23/16 08:00 97.0 93 20 131/71 100 Room Air 04/23/16 04:30 97.9 53 20 122/73 96 Room Air 04/23/16 00:29 97.0 83 20 112/67 97 Room Air Intake and Output 04/23/16 04/24/16 19:00 07:00 Intake Total 880 ml 410 ml Output Total 700 ml Balance 180 ml 410 ml Intake Oral 480 ml 300 ml IV Total 400 ml 110 ml Output Urine Total 700 ml # Bowel Movements 2 4 Laboratory Tests 1/17/17 05:00: White Blood Count 3.9L, Red Blood Count 2.39L, Hemoglobin 8.5L, Hematocrit 25.4L , Mean Corpuscular Volume 106H, Mean Corpuscular Hemoglobin 35.6H, Mean Corpuscular Hemoglobin Concent 33.6, Red Cell Distribution Width 16.6H, Platelet Count 32L, Mean Platelet Volume 10.5H, Neutrophils (%) (Auto) , Lymphocytes (%) (Auto) , Monocytes (%) (Auto) , Eosinophils (%) (Auto) , Basophils (%) (Auto) , Differential Total Cells Counted 100, Neutrophils % ( Manual) 68, Lymphocytes % (Manual) 15L, Monocytes % (Manual) 12H, Eosinophils % (Manual) 5H, Basophils % (Manual) 0, Band Neutrophils 0, Platelet Estimate DecreasedL, Platelet Morphology Normal, Hypochromasia 1+, Anisocytosis 1+, Macrocytosis 1+, Prothrombin Time 18.0H, Prothromb Time International Ratio 1.7H , Activated Partial Thromboplast Time 46H, Sodium Level 131L, Potassium Level 4.5, Chloride Level 96L, Carbon Dioxide Level 22, Anion Gap 13, Blood Urea Nitrogen 14, Creatinine 0.9, Estimat Glomerular Filtration Rate > 60, Glucose Level 87, Calcium Level 8.3L, Total Bilirubin 4.7H, Direct Bilirubin 2.2H, Aspartate Amino Transf (AST/SGOT) 28, Alanine Aminotransferase (ALT/SGPT) 21, Alkaline Phosphatase 111, Total Protein 4.9L, Albumin 2.1L, Globulin 2.8, Albumin/Globulin Ratio 0.7L Height (Feet): 5 Height (Inches): 0.00 Weight (Pounds): 176 General Appearance: alert EENT: TMs normal Neck: supple Cardiovascular: regular rhythm Respiratory/Chest: lungs clear Abdomen: normal bowel sounds Extremities: non-tender Edema: no edema noted Leg (L), no edema noted Leg (R) Edema: mild edema Neurologic: alert Skin: warm/dry Suresh Pizarro Apr 24, 2016 00:06
[2016-04-24] MEDS: Zolpidem 5mg tab ORAL PRN ×2 (01:36→22:40)
[2016-04-24 04:00] VITALS: BP 141/78
[2016-04-24 06:42] LABS: MEAN CORPUSCULAR HGB CONC 33.8 G/DL (32.0-36.0); MEAN CORPUSCULAR VOLUME 107 FL (80-99); PLATELET COUNT 49 K/UL (150-450); RED CELL DISTRIBUTION WIDTH 16.6 % (11.6-14.8)
[2016-04-24 06:56] LABS: INR 1.7 (0.9-1.1); PROTHROMBIN TIME 17.6 SEC (9.30-11.50)
[2016-04-24 07:04] LABS: ALANINE AMINOTRANSFERASE 22 U/L (3-41); ALBUMIN/GLOBULIN RATIO 0.7 (1.0-2.7); ANION GAP 12 (5-15); ASPARTATE AMINO TRANSFERASE 31 U/L (5-40); CALCIUM 8.2 mg/dL (8.6-10.2); CARBON DIOXIDE 20 mEQ/L (20-30); CHLORIDE 99 mEQ/L (98-107); CREATININE 0.9 mg/dL (0.7-1.2); GLOMERULAR FILTRATION RATE > 60 mL/min (>60); HEMOLYSIS 1; POTASSIUM 4.2 mEQ/L (3.4-4.9); SODIUM 131 mEQ/L (135-145)
[2016-04-24 07:20] LABS: BILIRUBIN,DIRECT 2.3 mg/dL (0.1-0.3)
[2016-04-24 08:00] VITALS: BP 139/94
[2016-04-24 08:06] LABS: BAND NEUTROPHILS % (MANUAL) 0 % (0-8); BASOPHILS % (MANUAL) 0 % (0-2); EOSINOPHILS % (MANUAL) 4 % (0-3); LYMPHOCYTES % (MANUAL) 8 % (20-45); NEUTROPHILS % (MANUAL) 73 % (45-75); PLATELET ESTIMATE DECREASED; TOTAL CELLS COUNTED 100
[2016-04-24 08:07] LABS: PLATELET MORPHOLOGY NORMAL
[2016-04-24 08:08] LABS: ANISOCYTOSIS 1+; MACROCYTES 1+
[2016-04-24] MEDS: Spironolactone 50mg tab ORAL SCH (08:47)
[2016-04-24] MEDS: Metoprolol XL 100mg tab ORAL SCH (08:48)
[2016-04-24] MEDS: Lactulose 20gm/30ml UDC ORAL SCH ×3 (08:48→17:18)
--- NOTE | 2016-04-24 10:01 | Pulmonology Progress Note ---
Assessment/Plan Assessment/Plan IMPRESSION: (1) Asthma (2) Alcoholic cirrhosis of liver with ascites (3) Hypoalbuminemia (4) Thrombocytopenia (5) Anemia Assessment/Plan -Optimize pulmonary hygiene/mobilize as tolerated -Respiratory stable -Monitor volumes/diuresis as tolerated -PRN O2 -F/U cards, GI, ID recs -Monitor MS -Paracentesis as ordered by GI -F/U repeat Cx's -DVT Px -IS Subjective Interval Events: No change Constitutional: Reports: no symptoms HEENT: Repors: no symptoms Respiratory: Reports: no symptoms Cardiovascular: Reports: no symptoms Gastrointestinal/Abdominal: Reports: no symptoms Allergies: Coded Allergies: No Known Allergies (Unverified , 04/07/16) Objective Last 24 Hour Vital Signs Date Time Temp Pulse Resp B/P Pulse Ox O2 Delivery O2 Flow Rate FiO2 04/24/16 08:48 67 139/94 04/24/16 08:00 97.9 67 20 139/94 100 Room Air 04/24/16 04:00 97.4 72 20 141/78 97 Room Air 04/24/16 00:00 97.7 74 20 112/73 97 Room Air 04/23/16 20:03 97.5 68 18 120/72 99 Room Air 04/23/16 16:00 97.5 66 18 118/67 100 Room Air 04/23/16 12:00 97.5 71 18 134/79 100 Room Air Intake and Output 04/23/16 04/24/16 19:00 07:00 Intake Total 880 ml 810 ml Output Total 700 ml 2000 ml Balance 180 ml -1190 ml Intake Oral 480 ml 700 ml IV Total 400 ml 110 ml Output Urine Total 700 ml 2000 ml # Bowel Movements 2 4 General Appearance: no acute distress HEENT: normocephalic Respiratory/Chest: chest wall non-tender, lungs clear Cardiovascular: normal peripheral pulses, normal rate Microbiology Date/Time Source Procedure Growth Status 04/21/16 16:45 Blood Blood Culture - Preliminary NO GROWTH AFTER 48 HOURS Resulted 04/21/16 16:30 Blood Blood Culture - Preliminary NO GROWTH AFTER 48 HOURS Resulted Laboratory Tests 04/24/16 03:50: White Blood Count 6.0#, Red Blood Count 2.60L, Hemoglobin 9.4L, Hematocrit 27.7L , Mean Corpuscular Volume 107H, Mean Corpuscular Hemoglobin 36.0H, Mean Corpuscular Hemoglobin Concent 33.8, Red Cell Distribution Width 16.6H, Platelet Count 49#L, Mean Platelet Volume 11.0H, Neutrophils (%) (Auto) , Lymphocytes (%) (Auto) , Monocytes (%) (Auto) , Eosinophils (%) (Auto) , Basophils (%) (Auto) , Differential Total Cells Counted 100, Neutrophils % ( Manual) 73, Lymphocytes % (Manual) 8L, Monocytes % (Manual) 15H, Eosinophils % ( Manual) 4H, Basophils % (Manual) 0, Band Neutrophils 0, Platelet Estimate DecreasedL, Platelet Morphology Normal, Anisocytosis 1+, Macrocytosis 1+, Prothrombin Time 17.6H, Prothromb Time International Ratio 1.7H, Activated Partial Thromboplast Time 47H, Sodium Level 131L, Potassium Level 4.2, Chloride Level 99, Carbon Dioxide Level 20, Anion Gap 12, Blood Urea Nitrogen 15, Creatinine 0.9, Estimat Glomerular Filtration Rate > 60, Glucose Level 83, Calcium Level 8.2L, Total Bilirubin 4.8H, Direct Bilirubin 2.3H, Aspartate Amino Transf (AST/SGOT) 31, Alanine Aminotransferase (ALT/SGPT) 22, Alkaline Phosphatase 127, Total Protein 5.0L, Albumin 2.1L, Globulin 2.9, Albumin/ Globulin Ratio 0.7L Current Medications Medications (Trade) Dose Ordered Sig/Bernardino Route PRN Reason Start Time Stop Time Status Last Admin Dose Admin Daptomycin/Sodium Chloride (Cubicin/Sodium Chloride) 110 ml @ 200 mls/hr Q24H IV 04/23/16 21:00 04/30/16 20:59 04/23/16 21:21 Dextrose (Dextrose 50%) STAT PRN IV Hypoglycemia 04/17/16 13:30 05/17/16 13:29 Furosemide (Lasix) 40 mg EVERY 12 HOURS IV 04/17/16 21:00 05/17/16 20:59 04/24/16 08:46 Lactulose (Cephulac) 30 gm THREE TIMES A DAY ORAL 04/17/16 14:00 05/17/16 13:59 04/23/16 09:23 Metoprolol Succinate (Toprol XL) 200 mg DAILY ORAL 04/21/16 09:00 05/21/16 08:59 04/24/16 08:48 Micafungin Sodium/ Sodium Chloride (Mycamine/Sodium Chloride 100ml bag) 100 ml @ 100 mls/hr Q24H IVPB 04/17/16 14:30 04/24/16 14:29 04/23/16 14:38 Morphine Sulfate (Morphine Sulfate) 2 mg Q4H PRN IVP Severe Pain (Pain Scale 7-10) 04/17/16 14:00 04/24/16 13:59 04/20/16 20:14 Ondansetron HCl (Zofran) 4 mg Q6H PRN IVP Nausea & Vomiting 04/17/16 14:00 05/17/16 13:59 04/22/16 14:06 Pantoprazole (Protonix) 40 mg DAILY ORAL 04/18/16 09:00 05/18/16 08:59 04/24/16 08:47 Potassium Chloride (K-Dur) 20 meq TWICE A DAY ORAL 04/17/16 18:00 05/17/16 17:59 04/24/16 08:47 Spironolactone (Aldactone) 100 mg DAILY ORAL 04/18/16 09:00 05/18/16 08:59 04/24/16 08:47 Tramadol HCl 50 mg 50 mg Q6H PRN ORAL Moderate Pain (Pain Scale 4-6) 04/17/16 13:30 04/24/16 13:29 Zolpidem Tartrate 10 mg 10 mg HSPRN PRN ORAL Insomnia 04/22/16 23:45 05/22/16 23:44 04/24/16 01:36 Oliver Sky MD Apr 24, 2016 10:01
--- NOTE | 2016-04-24 10:43 | GI Progress Note ---
Assessment/Plan Problems: (1) Hypoalbuminemia ICD Codes: E88.09 - Other disorders of plasma-protein metabolism, not elsewhere classified SNOMED: 877988288 (2) Alcoholic cirrhosis of liver with ascites ICD Codes: K70.31 - Alcoholic cirrhosis of liver with ascites SNOMED: 711055784 (3) sepsis (4) Anemia ICD Codes: D64.9 - Anemia, unspecified SNOMED: 582402801 Status: unchanged Status Narrative Discussed with Dr. Mcgovern. Assessment/Plan Cleared for DC per GI standpoint after procedure >> TIPs can be done as outpatient s/p paracentesis #1 >> ascites negative for growth OB stool negative hep panel negative pt scheduled IR procedure and balloon dilatation of the TIPS. >> Not cleared for procedure per ID. fu ammonia level >> pt appears confused today resume diet monitor H&H, transfuse prn elevated ammonia >> Lactulose + Xifaxan ppi PT eval fu labs Subjective Gastrointestinal/Abdominal: Reports: no symptoms Objective Last 24 Hour Vital Signs Date Time Temp Pulse Resp B/P Pulse Ox O2 Delivery O2 Flow Rate FiO2 04/24/16 08:48 67 139/94 04/24/16 08:00 97.9 67 20 139/94 100 Room Air 04/24/16 04:00 97.4 72 20 141/78 97 Room Air 04/24/16 00:00 97.7 74 20 112/73 97 Room Air 04/23/16 20:03 97.5 68 18 120/72 99 Room Air 04/23/16 16:00 97.5 66 18 118/67 100 Room Air 04/23/16 12:00 97.5 71 18 134/79 100 Room Air Intake and Output 04/23/16 04/24/16 18:59 06:59 Intake Total 880 ml 810 ml Output Total 700 ml 2000 ml Balance 180 ml -1190 ml Intake Oral 480 ml 700 ml IV Total 400 ml 110 ml Output Urine Total 700 ml 2000 ml # Bowel Movements 2 4 Laboratory Tests Test 04/24/16 03:50 White Blood Count 6.0 K/UL (4.8-10.8) # Red Blood Count 2.60 M/UL (4.70-6.10) L Hemoglobin 9.4 G/DL (14.2-18.0) L Hematocrit 27.7 % (42.0-52.0) L Mean Corpuscular Volume 107 FL (80-99) H Mean Corpuscular Hemoglobin 36.0 PG (27.0-31.0) H Mean Corpuscular Hemoglobin Concent 33.8 G/DL (32.0-36.0) Red Cell Distribution Width 16.6 % (11.6-14.8) H Platelet Count 49 K/UL (150-450) #L Mean Platelet Volume 11.0 FL (6.5-10.1) H Neutrophils (%) (Auto) % (45.0-75.0) Lymphocytes (%) (Auto) % (20.0-45.0) Monocytes (%) (Auto) % (1.0-10.0) Eosinophils (%) (Auto) % (0.0-3.0) Basophils (%) (Auto) % (0.0-2.0) Differential Total Cells Counted 100 Neutrophils % (Manual) 73 % (45-75) Lymphocytes % (Manual) 8 % (20-45) L Monocytes % (Manual) 15 % (1-10) H Eosinophils % (Manual) 4 % (0-3) H Basophils % (Manual) 0 % (0-2) Band Neutrophils 0 % (0-8) Platelet Estimate Decreased L Platelet Morphology Normal Anisocytosis 1+ Macrocytosis 1+ Prothrombin Time 17.6 SEC (9.30-11.50) H Prothromb Time International Ratio 1.7 (0.9-1.1) H Activated Partial Thromboplast Time 47 SEC (23-33) H Sodium Level 131 mEQ/L (135-145) L Potassium Level 4.2 mEQ/L (3.4-4.9) Chloride Level 99 mEQ/L (98-107) Carbon Dioxide Level 20 mEQ/L (20-30) Anion Gap 12 (5-15) Blood Urea Nitrogen 15 mg/dL (7-23) Creatinine 0.9 mg/dL (0.7-1.2) Estimat Glomerular Filtration Rate > 60 mL/min (>60) Glucose Level 83 mg/dL (74-106) Calcium Level 8.2 mg/dL (8.6-10.2) L Total Bilirubin 4.8 mg/dL (0.0-1.2) H Direct Bilirubin 2.3 mg/dL (0.1-0.3) H Aspartate Amino Transf (AST/SGOT) 31 U/L (5-40) Alanine Aminotransferase (ALT/SGPT) 22 U/L (3-41) Alkaline Phosphatase 127 U/L (40-129) Total Protein 5.0 g/dL (6.6-8.7) L Albumin 2.1 g/dL (3.5-5.2) L Globulin 2.9 g/dL Albumin/Globulin Ratio 0.7 (1.0-2.7) L Height (Feet): 5 Height (Inches): 0.00 Weight (Pounds): 170 General Appearance: confused, other - jaundice Cardiovascular: normal rate Respiratory/Chest: normal breath sounds, no respiratory distress Abdominal Exam: soft, ascites Objective Procedure: US ABD Complete Indications: Abdominal pain IMPRESSION: Cirrhosis with stigmata of portal hypertension including splenomegaly, ascites. Patent intrahepatic portosystemic shunt with apparently elevated velocity at its hepatic venous end, suggesting high-grade stenosis. This is potentially amenable to percutaneous intervention, as clinically indicated. Gallbladder stones and sludge. Mural thickening likely secondary to presence of ascites. Correlate clinically. Midline structures including pancreas, distal abdominal aorta obscured Rain Mercado N.P. Apr 24, 2016 10:43
[2016-04-24 12:00] VITALS: BP 126/75
--- NOTE | 2016-04-24 13:50 | General Progress Note ---
Assessment/Plan Assessment/Plan ASSESSMENT: 1. Thrombcytopenia - btw 30-50k, hapto is low indicating DIC, also can be 2/2 micafungin v sepsis 2. Thrombocytopenia secondary to liver cirrhosis and splenomegaly. >30k generally 3. Anemia secondary to chronic disease. H/H has been stable 4. Decreased hemoglobin and hematocrit, rule out gastrointestinal bleed. 5. Splenomegaly 6. Cirrhosis of the liver status post paracentesis. 7. Coagulopathy 8. Sepsis. RECOMMENDATIONS: 1. Monitor counts 2. Transfuse to hemoglobin goal >7 3. Transfuse of platelets goal >20k 4. DIC panel reviewed, medications reviewed 5. Follow up Nephrology, Pulm, Renal, and GI recs 6. Continue pain meds 7. GI prophylaxis with PPI. 8. DVT prophylaxis with SCDs 9. staff. Thank you, Suresh Pizarro MD Subjective Constitutional: Reports: no symptoms HEENT: Reports: no symptoms Cardiovascular: Reports: no symptoms Respiratory: Reports: no symptoms Gastrointestinal/Abdominal: Reports: poor appetite Genitourinary: Reports: no symptoms Neurologic/Psychiatric: Reports: no symptoms Endocrine: Reports: no symptoms Hematologic/Lymphatic: Reports: anemia Allergies: Coded Allergies: No Known Allergies (Unverified , 04/07/16) Subjective no fevers, no bleeding reported, no hematochezia Objective Last 24 Hour Vital Signs Date Time Temp Pulse Resp B/P Pulse Ox O2 Delivery O2 Flow Rate FiO2 04/24/16 12:00 98.5 61 21 126/75 100 Room Air 04/24/16 08:48 67 139/94 04/24/16 08:00 97.9 67 20 139/94 100 Room Air 04/24/16 04:00 97.4 72 20 141/78 97 Room Air 04/24/16 00:00 97.7 74 20 112/73 97 Room Air 04/23/16 20:03 97.5 68 18 120/72 99 Room Air 04/23/16 16:00 97.5 66 18 118/67 100 Room Air Intake and Output 04/23/16 04/24/16 19:00 07:00 Intake Total 880 ml 810 ml Output Total 700 ml 2000 ml Balance 180 ml -1190 ml Intake Oral 480 ml 700 ml IV Total 400 ml 110 ml Output Urine Total 700 ml 2000 ml # Bowel Movements 2 4 Laboratory Tests 04/24/16 03:50: White Blood Count 6.0#, Red Blood Count 2.60L, Hemoglobin 9.4L, Hematocrit 27.7L , Mean Corpuscular Volume 107H, Mean Corpuscular Hemoglobin 36.0H, Mean Corpuscular Hemoglobin Concent 33.8, Red Cell Distribution Width 16.6H, Platelet Count 49#L, Mean Platelet Volume 11.0H, Neutrophils (%) (Auto) , Lymphocytes (%) (Auto) , Monocytes (%) (Auto) , Eosinophils (%) (Auto) , Basophils (%) (Auto) , Differential Total Cells Counted 100, Neutrophils % ( Manual) 73, Lymphocytes % (Manual) 8L, Monocytes % (Manual) 15H, Eosinophils % ( Manual) 4H, Basophils % (Manual) 0, Band Neutrophils 0, Platelet Estimate DecreasedL, Platelet Morphology Normal, Anisocytosis 1+, Macrocytosis 1+, Prothrombin Time 17.6H, Prothromb Time International Ratio 1.7H, Activated Partial Thromboplast Time 47H, Sodium Level 131L, Potassium Level 4.2, Chloride Level 99, Carbon Dioxide Level 20, Anion Gap 12, Blood Urea Nitrogen 15, Creatinine 0.9, Estimat Glomerular Filtration Rate > 60, Glucose Level 83, Calcium Level 8.2L, Total Bilirubin 4.8H, Direct Bilirubin 2.3H, Aspartate Amino Transf (AST/SGOT) 31, Alanine Aminotransferase (ALT/SGPT) 22, Alkaline Phosphatase 127, Total Protein 5.0L, Albumin 2.1L, Globulin 2.9, Albumin/ Globulin Ratio 0.7L 04/24/16 10:55: Ammonia 67H Height (Feet): 5 Height (Inches): 0.00 Weight (Pounds): 170 General Appearance: alert EENT: TMs normal Neck: supple Cardiovascular: regular rhythm Respiratory/Chest: lungs clear Abdomen: non tender Extremities: non-tender Edema: no edema noted Leg (L), no edema noted Leg (R) Edema: mild edema Neurologic: alert Skin: warm/dry Suresh Pizarro Apr 24, 2016 13:50
--- NOTE | 2016-04-24 15:39 | Cardiac Electrophysiology PN ---
Assessment/Plan Status Narrative Technically difficult study due to poor acoustical windows. M-mode measurements of left ventricle not obtainable due to cardiac position (angle) Normal left ventricular chamber size, hyperdynamic systolic function and wall motion to extent visualized. Left ventricular ejection fraction estimated to be 70-75 %. Mild left ventricular hypertrophy. Anterior Echo-free space, may be due to pericardial fat or effusion. All other cardiac chamber sizes are within normal limits. Mild focal aortic valve sclerosis with adequate cusp excursion. Mildly thickened mitral valve leaflets with normal excursion. Mitral annulus and aortic root calcification. Normal pulmonic valve structure. Normal tricuspid valve structure. IVC at normal size with physiologic collapse. A color flow and spectral Doppler study was performed and revealed: Mild mitral regurgitation. Mitral diastolic velocities suggest reduced left ventricular relaxation c/w mild LV diastolic dysfunction (Grade I ). Trace tricuspid regurgitation. Tricuspid systolic velocities suggests peak right ventricular systolic pressure of 20 mmHg. Assessment/Plan 1. Paroxysmal atrial fibrillation. In SR on Toprol-XL 200 mg daily. INR today is 1.7 despite off coumadin. 2. Leg edema and shortness of breath secondary to cirrhosis. EF 70-75%. On Lasix 40 iv bid and Aldactone 100 po daily. 3. HTN. On Lopressor 200 and Aldactone 100 and Lasix 40 iv bid. 4. Sepsis with high WBC 19k on broad-spectrum antibiotics.No SBP. 5. Anemia. 6. Hyponatremia, dilutional.Resolved 7. Thrombocytopenia likely secondary to splenomegaly and secondary to cirrhosis. 8. Alcoholic cirrhosis with ascites on Aldactone 100 mg daily.S/P Paracentesis . On Lactulose. TIPS when OK with ID ROB RN Subjective Subjective Alert in NAD. No chest pain or SOB.Abdomen still distended.Awaiting ID clearance for TIPS by Radiology. Objective Last 24 Hour Vital Signs Date Time Temp Pulse Resp B/P Pulse Ox O2 Delivery O2 Flow Rate FiO2 04/24/16 12:00 98.5 61 21 126/75 100 Room Air 04/24/16 08:48 67 139/94 04/24/16 08:00 97.9 67 20 139/94 100 Room Air 04/24/16 04:00 97.4 72 20 141/78 97 Room Air 04/24/16 00:00 97.7 74 20 112/73 97 Room Air 04/23/16 20:03 97.5 68 18 120/72 99 Room Air 04/23/16 16:00 97.5 66 18 118/67 100 Room Air Intake and Output 04/23/16 04/24/16 19:00 07:00 Intake Total 880 ml 810 ml Output Total 700 ml 2000 ml Balance 180 ml -1190 ml Intake Oral 480 ml 700 ml IV Total 400 ml 110 ml Output Urine Total 700 ml 2000 ml # Bowel Movements 2 4 Laboratory Tests Test 04/24/16 03:50 04/24/16 10:55 White Blood Count 6.0 K/UL (4.8-10.8) # Red Blood Count 2.60 M/UL (4.70-6.10) L Hemoglobin 9.4 G/DL (14.2-18.0) L Hematocrit 27.7 % (42.0-52.0) L Mean Corpuscular Volume 107 FL (80-99) H Mean Corpuscular Hemoglobin 36.0 PG (27.0-31.0) H Mean Corpuscular Hemoglobin Concent 33.8 G/DL (32.0-36.0) Red Cell Distribution Width 16.6 % (11.6-14.8) H Platelet Count 49 K/UL (150-450) #L Mean Platelet Volume 11.0 FL (6.5-10.1) H Neutrophils (%) (Auto) % (45.0-75.0) Lymphocytes (%) (Auto) % (20.0-45.0) Monocytes (%) (Auto) % (1.0-10.0) Eosinophils (%) (Auto) % (0.0-3.0) Basophils (%) (Auto) % (0.0-2.0) Differential Total Cells Counted 100 Neutrophils % (Manual) 73 % (45-75) Lymphocytes % (Manual) 8 % (20-45) L Monocytes % (Manual) 15 % (1-10) H Eosinophils % (Manual) 4 % (0-3) H Basophils % (Manual) 0 % (0-2) Band Neutrophils 0 % (0-8) Platelet Estimate Decreased L Platelet Morphology Normal Anisocytosis 1+ Macrocytosis 1+ Prothrombin Time 17.6 SEC (9.30-11.50) H Prothromb Time International Ratio 1.7 (0.9-1.1) H Activated Partial Thromboplast Time 47 SEC (23-33) H Sodium Level 131 mEQ/L (135-145) L Potassium Level 4.2 mEQ/L (3.4-4.9) Chloride Level 99 mEQ/L (98-107) Carbon Dioxide Level 20 mEQ/L (20-30) Anion Gap 12 (5-15) Blood Urea Nitrogen 15 mg/dL (7-23) Creatinine 0.9 mg/dL (0.7-1.2) Estimat Glomerular Filtration Rate > 60 mL/min (>60) Glucose Level 83 mg/dL (74-106) Calcium Level 8.2 mg/dL (8.6-10.2) L Total Bilirubin 4.8 mg/dL (0.0-1.2) H Direct Bilirubin 2.3 mg/dL (0.1-0.3) H Aspartate Amino Transf (AST/SGOT) 31 U/L (5-40) Alanine Aminotransferase (ALT/SGPT) 22 U/L (3-41) Alkaline Phosphatase 127 U/L (40-129) Total Protein 5.0 g/dL (6.6-8.7) L Albumin 2.1 g/dL (3.5-5.2) L Globulin 2.9 g/dL Albumin/Globulin Ratio 0.7 (1.0-2.7) L Ammonia 67 umol/L (16-60) H Microbiology Date/Time Source Procedure Growth Status 04/21/16 16:45 Blood Blood Culture - Preliminary NO GROWTH AFTER 48 HOURS Resulted 04/21/16 16:30 Blood Blood Culture - Preliminary NO GROWTH AFTER 48 HOURS Resulted Objective HEAD AND NECK: No JVD. LUNGS: Decreased breath sounds. CARDIOVASCULAR: Regular S1 and S2 with no gallop or murmur. ABDOMEN: Ascites.Non tender EXTREMITIES: 2+ pitting edema. MUKESH IZAGUIRRE Apr 24, 2016 15:39
[2016-04-24 16:00] VITALS: BP 137/92
--- NOTE | 2016-04-24 17:38 | Infectious Diseases Prog Note ---
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 UCx VRE ( colonizer ) HIV and Hep Panel :neg EtOH Cirrhosis, pending TIPS US : Cirrhosis with stigmata of portal hypertension including splenomegaly, ascites SP Paracentesis 04/10 - no evidence of SBP Thrombocytopenia VRE colonized NKDA Full Code PLAN: continue micafungin d# 8 / , daptomycin d# 2 ( VRE d# 3 / ) ( 04/23 SP zyvox d# 2 - TCP ) ( 04/22 SP IV vancomcyin d# 3 ) f/u repeat BCx to document clearance may need FERNANDO, CT A/P if persistently positive BCx optho eval, if possible r/o endopthalmitis HOLD TIPS PENDING CLEARANCE OF BLOOD CULTURES - PT NOT CLEAR FOR TIPS FROM ID STANDPOINT Monitor CBC , temperatures monitor BMP monitor CXR Subjective Allergies: Coded Allergies: No Known Allergies (Unverified , 04/07/16) Subjective remains afebrile repeat BCx NGTD Objective Vital Signs Last 24 Hour Vital Signs Date Time Temp Pulse Resp B/P Pulse Ox O2 Delivery O2 Flow Rate FiO2 04/24/16 16:00 98.1 66 20 137/92 99 Room Air 04/24/16 12:00 98.5 61 21 126/75 100 Room Air 04/24/16 08:48 67 139/94 04/24/16 08:00 97.9 67 20 139/94 100 Room Air 04/24/16 04:00 97.4 72 20 141/78 97 Room Air 04/24/16 00:00 97.7 74 20 112/73 97 Room Air 04/23/16 20:03 97.5 68 18 120/72 99 Room Air Height (Feet): 5 Height (Inches): 0.00 Weight (Pounds): 170 General Appearance: no acute distress Respiratory/Chest: no respiratory distress Cardiovascular: normal rate, regular rhythm Abdomen: normal bowel sounds, soft, non tender, distended Laboratory Tests Test 04/24/16 03:50 04/24/16 10:55 White Blood Count 6.0 K/UL (4.8-10.8) # Red Blood Count 2.60 M/UL (4.70-6.10) L Hemoglobin 9.4 G/DL (14.2-18.0) L Hematocrit 27.7 % (42.0-52.0) L Mean Corpuscular Volume 107 FL (80-99) H Mean Corpuscular Hemoglobin 36.0 PG (27.0-31.0) H Mean Corpuscular Hemoglobin Concent 33.8 G/DL (32.0-36.0) Red Cell Distribution Width 16.6 % (11.6-14.8) H Platelet Count 49 K/UL (150-450) #L Mean Platelet Volume 11.0 FL (6.5-10.1) H Neutrophils (%) (Auto) % (45.0-75.0) Lymphocytes (%) (Auto) % (20.0-45.0) Monocytes (%) (Auto) % (1.0-10.0) Eosinophils (%) (Auto) % (0.0-3.0) Basophils (%) (Auto) % (0.0-2.0) Differential Total Cells Counted 100 Neutrophils % (Manual) 73 % (45-75) Lymphocytes % (Manual) 8 % (20-45) L Monocytes % (Manual) 15 % (1-10) H Eosinophils % (Manual) 4 % (0-3) H Basophils % (Manual) 0 % (0-2) Band Neutrophils 0 % (0-8) Platelet Estimate Decreased L Platelet Morphology Normal Anisocytosis 1+ Macrocytosis 1+ Prothrombin Time 17.6 SEC (9.30-11.50) H Prothromb Time International Ratio 1.7 (0.9-1.1) H Activated Partial Thromboplast Time 47 SEC (23-33) H Sodium Level 131 mEQ/L (135-145) L Potassium Level 4.2 mEQ/L (3.4-4.9) Chloride Level 99 mEQ/L (98-107) Carbon Dioxide Level 20 mEQ/L (20-30) Anion Gap 12 (5-15) Blood Urea Nitrogen 15 mg/dL (7-23) Creatinine 0.9 mg/dL (0.7-1.2) Estimat Glomerular Filtration Rate > 60 mL/min (>60) Glucose Level 83 mg/dL (74-106) Calcium Level 8.2 mg/dL (8.6-10.2) L Total Bilirubin 4.8 mg/dL (0.0-1.2) H Direct Bilirubin 2.3 mg/dL (0.1-0.3) H Aspartate Amino Transf (AST/SGOT) 31 U/L (5-40) Alanine Aminotransferase (ALT/SGPT) 22 U/L (3-41) Alkaline Phosphatase 127 U/L (40-129) Total Protein 5.0 g/dL (6.6-8.7) L Albumin 2.1 g/dL (3.5-5.2) L Globulin 2.9 g/dL Albumin/Globulin Ratio 0.7 (1.0-2.7) L Ammonia 67 umol/L (16-60) H Current Medications Medications (Trade) Dose Ordered Sig/Bernardino Route PRN Reason Start Time Stop Time Status Last Admin Dose Admin Daptomycin/Sodium Chloride (Cubicin/Sodium Chloride) 110 ml @ 200 mls/hr Q24H IV 04/23/16 21:00 04/30/16 20:59 04/23/16 21:21 Dextrose (Dextrose 50%) STAT PRN IV Hypoglycemia 04/17/16 13:30 05/17/16 13:29 Furosemide (Lasix) 40 mg EVERY 12 HOURS IV 04/17/16 21:00 05/17/16 20:59 04/24/16 08:46 Lactulose (Cephulac) 30 gm THREE TIMES A DAY ORAL 04/17/16 14:00 05/17/16 13:59 04/24/16 17:18 Metoprolol Succinate (Toprol XL) 200 mg DAILY ORAL 04/21/16 09:00 05/21/16 08:59 04/24/16 08:48 Ondansetron HCl (Zofran) 4 mg Q6H PRN IVP Nausea & Vomiting 04/17/16 14:00 05/17/16 13:59 04/22/16 14:06 Pantoprazole (Protonix) 40 mg DAILY ORAL 04/18/16 09:00 05/18/16 08:59 04/24/16 08:47 Potassium Chloride (K-Dur) 20 meq TWICE A DAY ORAL 04/17/16 18:00 05/17/16 17:59 04/24/16 17:18 Spironolactone (Aldactone) 100 mg DAILY ORAL 04/18/16 09:00 05/18/16 08:59 04/24/16 08:47 Zolpidem Tartrate 10 mg 10 mg HSPRN PRN ORAL Insomnia 04/22/16 23:45 05/22/16 23:44 04/24/16 01:36 RL LEWIS Apr 24, 2016 17:38
[2016-04-24 19:53] VITALS: BP 109/61
[2016-04-24] MEDS: DAPTOmycin 500 MG in NS 110 ML IV SCH (20:11)
--- NOTE | 2016-04-24 20:23 | Nephrology Progress Note ---
Assessment/Plan Problem List: (1) Asthma exacerbation (2) Alcoholic cirrhosis of liver with ascites (3) Thrombocytopenia (4) Hyponatremia (5) Anemia of other chronic disease Assessment Discussed with Dr Chiu Plan Monitor lytes - free water restriction, sodium chloride tabs - will monitor sodium level Renal function - Resolved Monitor H&H, transfuse as needed GI f/u Pending TIPS - not cleared per ID Hematology f/u Social Service consult - placement DVT Prophylaxis with SCDs Continue pain meds GI prophylaxis with PPI. AM labs Subjective Constitutional: Denies: chills, diaphoresis, fever, malaise, no symptoms, other , weakness HEENT: Denies: blurred vision, double vision, ear discharge, ear pain, eye pain , mouth pain, mouth swelling, no symptoms, nose congestion, nose pain, other, tearing, throat pain, throat swelling Genitourinary: Denies: burning, discharge, flank pain, frequency, hematuria, incontinence, no symptoms, other, pain, urgency Neurologic/Psychiatric: Denies: anxiety, depressed, emotional problems, headache, no symptoms, numbness, other, paresthesia, pre-existing deficit, seizure, tingling, tremors, weakness Subjective In bed, no distress Objective Objective Last 24 Hour Vital Signs Date Time Temp Pulse Resp B/P Pulse Ox O2 Delivery O2 Flow Rate FiO2 04/24/16 19:53 98.2 65 18 109/61 99 Room Air 04/24/16 16:00 98.1 66 20 137/92 99 Room Air 04/24/16 12:00 98.5 61 21 126/75 100 Room Air 04/24/16 08:48 67 139/94 04/24/16 08:00 97.9 67 20 139/94 100 Room Air 04/24/16 04:00 97.4 72 20 141/78 97 Room Air 04/24/16 00:00 97.7 74 20 112/73 97 Room Air Intake and Output 04/23/16 04/24/16 19:00 07:00 Intake Total 880 ml 810 ml Output Total 700 ml 2000 ml Balance 180 ml -1190 ml Intake Oral 480 ml 700 ml IV Total 400 ml 110 ml Output Urine Total 700 ml 2000 ml # Bowel Movements 2 4 Laboratory Tests 04/24/16 03:50: White Blood Count 6.0#, Red Blood Count 2.60L, Hemoglobin 9.4L, Hematocrit 27.7L , Mean Corpuscular Volume 107H, Mean Corpuscular Hemoglobin 36.0H, Mean Corpuscular Hemoglobin Concent 33.8, Red Cell Distribution Width 16.6H, Platelet Count 49#L, Mean Platelet Volume 11.0H, Neutrophils (%) (Auto) , Lymphocytes (%) (Auto) , Monocytes (%) (Auto) , Eosinophils (%) (Auto) , Basophils (%) (Auto) , Differential Total Cells Counted 100, Neutrophils % ( Manual) 73, Lymphocytes % (Manual) 8L, Monocytes % (Manual) 15H, Eosinophils % ( Manual) 4H, Basophils % (Manual) 0, Band Neutrophils 0, Platelet Estimate DecreasedL, Platelet Morphology Normal, Anisocytosis 1+, Macrocytosis 1+, Prothrombin Time 17.6H, Prothromb Time International Ratio 1.7H, Activated Partial Thromboplast Time 47H, Sodium Level 131L, Potassium Level 4.2, Chloride Level 99, Carbon Dioxide Level 20, Anion Gap 12, Blood Urea Nitrogen 15, Creatinine 0.9, Estimat Glomerular Filtration Rate > 60, Glucose Level 83, Calcium Level 8.2L, Total Bilirubin 4.8H, Direct Bilirubin 2.3H, Aspartate Amino Transf (AST/SGOT) 31, Alanine Aminotransferase (ALT/SGPT) 22, Alkaline Phosphatase 127, Total Protein 5.0L, Albumin 2.1L, Globulin 2.9, Albumin/ Globulin Ratio 0.7L 04/24/16 10:55: Ammonia 67H Height (Feet): 5 Height (Inches): 0.00 Weight (Pounds): 170 General Appearance: no apparent distress EENT: normal ENT inspection, TMs normal Neck: normal alignment, supple Cardiovascular: normal rate, regular rhythm Respiratory/Chest: decreased breath sounds Abdomen: non tender, soft, no organomegaly Extremities: non-tender, normal inspection, no calf tenderness Neurologic: alert, oriented x 3, responsive, normal mood/affect Jeanna Mederos N.P. Apr 24, 2016 20:23
--- NOTE | 2016-04-24 22:57 | Progress Note ---
SUBJECTIVE: This is an elderly 60-year-old male, who is currently in the bed, comfortable, who has been anxious and agitated. OBJECTIVE: VITAL SIGNS: Blood pressure is 120/70, pulse 74, and respirations 18. SKIN: Good skin turgor. HEENT: AT/NC. EOMI. PERRLA. NECK: Supple. No JVD. CHEST: Bilaterally clear. CARDIOVASCULAR: Regular rhythm. No gallop. No murmur. ABDOMEN: Soft. EXTREMITIES: CCE. NEUROLOGIC: The patient has no focal deficits. ASSESSMENT: 1. Drug overdose. 2. Substance abuse. 3. Cirrhosis. 4. Borderline hypertension. PLAN: We will currently continue medical and supportive treatment. GI is on case. Chepe Valdez M.D. DR: DIAZ JOB#: [id number] CC:
[2016-04-25] VITALS: BP 116/64
[2016-04-25 04:00] VITALS: BP 111/60
[2016-04-25 07:01] LABS: MEAN CORPUSCULAR HEMOGLOBIN 36.5 PG (27.0-31.0); MEAN CORPUSCULAR HGB CONC 34.5 G/DL (32.0-36.0); MEAN CORPUSCULAR VOLUME 106 FL (80-99); MEAN PLATELET VOLUME 9.3 FL (6.5-10.1); PLATELET COUNT 43 K/UL (150-450); RED BLOOD COUNT 2.56 M/UL (4.70-6.10); RED CELL DISTRIBUTION WIDTH 16.5 % (11.6-14.8); WHITE BLOOD COUNT 5.4 K/UL (4.8-10.8)
[2016-04-25 07:18] LABS: AMMONIA 77 umol/L (16-60)
[2016-04-25 07:39] LABS: ALANINE AMINOTRANSFERASE 21 U/L (3-41); ALBUMIN/GLOBULIN RATIO 0.7 (1.0-2.7); ANION GAP 13 (5-15); ASPARTATE AMINO TRANSFERASE 31 U/L (5-40); CALCIUM 8.2 mg/dL (8.6-10.2); CARBON DIOXIDE 22 mEQ/L (20-30); CHLORIDE 101 mEQ/L (98-107); GLOMERULAR FILTRATION RATE > 60 mL/min (>60); HEMOLYSIS 6; PHOSPHORUS 3.3 mg/dL (2.5-4.8); POTASSIUM 4.1 mEQ/L (3.4-4.9); SODIUM 136 mEQ/L (135-145); TOTAL PROTEIN 5.2 g/dL (6.6-8.7)
[2016-04-25 07:52] LABS: BILIRUBIN,DIRECT 2.2 mg/dL (0.1-0.3)
--- NOTE | 2016-04-25 07:57 | Pulmonology Progress Note ---
Assessment/Plan Assessment/Plan IMPRESSION: (1) Asthma (2) Alcoholic cirrhosis of liver with ascites (3) Hypoalbuminemia (4) Thrombocytopenia (5) Anemia Assessment/Plan -Optimize pulmonary hygiene/mobilize as tolerated -Respiratory stable -Monitor volumes/diuresis as tolerated -PRN O2; saturating well on RA -F/U cards, GI, ID recs -Monitor MS -Paracentesis as ordered by GI -F/U repeat Cx's -DVT Px -IS Subjective Interval Events: No change Constitutional: Reports: no symptoms HEENT: Repors: no symptoms Respiratory: Reports: no symptoms Cardiovascular: Reports: no symptoms Allergies: Coded Allergies: No Known Allergies (Unverified , 04/07/16) Objective Last 24 Hour Vital Signs Date Time Temp Pulse Resp B/P Pulse Ox O2 Delivery O2 Flow Rate FiO2 04/25/16 04:00 98.0 64 18 111/60 97 Room Air 04/25/16 00:00 97.9 64 18 116/64 98 Room Air 04/24/16 19:53 98.2 65 18 109/61 99 Room Air 04/24/16 16:00 98.1 66 20 137/92 99 Room Air 04/24/16 12:00 98.5 61 21 126/75 100 Room Air 04/24/16 08:48 67 139/94 04/24/16 08:00 97.9 67 20 139/94 100 Room Air Intake and Output 04/24/16 04/25/16 19:00 07:00 Intake Total 480 ml 560 ml Output Total 600 ml Balance 480 ml -40 ml Intake Oral 480 ml 360 ml IV Total 200 ml Output Urine Total 600 ml # Voids 3 2 # Bowel Movements 1 General Appearance: no acute distress HEENT: normocephalic Respiratory/Chest: chest wall non-tender, lungs clear Cardiovascular: normal peripheral pulses Microbiology Date/Time Source Procedure Growth Status 04/23/16 05:00 Blood Blood Culture - Preliminary NO GROWTH AFTER 48 HOURS Resulted 04/23/16 05:00 Blood Blood Culture - Preliminary NO GROWTH AFTER 48 HOURS Resulted Laboratory Tests 04/24/16 10:55: Ammonia 67H 04/25/16 04:30: Ammonia 77H, White Blood Count 5.4, Red Blood Count 2.56L, Hemoglobin 9.3L, Hematocrit 27.1L, Mean Corpuscular Volume 106H, Mean Corpuscular Hemoglobin 36.5H, Mean Corpuscular Hemoglobin Concent 34.5, Red Cell Distribution Width 16.5H, Platelet Count 43L, Mean Platelet Volume 9.3, Neutrophils (%) (Auto) , Lymphocytes (%) (Auto) , Monocytes (%) (Auto) , Eosinophils (%) (Auto) , Basophils (%) (Auto) , Neutrophils % (Manual) [Pending], Lymphocytes % (Manual) [Pending], Platelet Estimate [Pending], Platelet Morphology [Pending], Sodium Level 136, Potassium Level 4.1, Chloride Level 101, Carbon Dioxide Level 22, Anion Gap 13, Blood Urea Nitrogen 16, Creatinine 1.0, Estimat Glomerular Filtration Rate > 60, Glucose Level 96, Calcium Level 8.2L, Phosphorus Level 3.3 , Magnesium Level 1.0L, Total Bilirubin 4.7H, Direct Bilirubin 2.2H, Aspartate Amino Transf (AST/SGOT) 31, Alanine Aminotransferase (ALT/SGPT) 21, Alkaline Phosphatase 143H, Total Protein 5.2L, Albumin 2.3L, Globulin 2.9, Albumin/ Globulin Ratio 0.7L Current Medications Medications (Trade) Dose Ordered Sig/Bernardino Route PRN Reason Start Time Stop Time Status Last Admin Dose Admin Daptomycin/Sodium Chloride (Cubicin/Sodium Chloride) 110 ml @ 200 mls/hr Q24H IV 04/23/16 21:00 04/30/16 20:59 04/24/16 20:11 Dextrose (Dextrose 50%) STAT PRN IV Hypoglycemia 04/17/16 13:30 05/17/16 13:29 Furosemide (Lasix) 40 mg EVERY 12 HOURS IV 04/17/16 21:00 05/17/16 20:59 04/24/16 20:11 Lactulose (Cephulac) 30 gm THREE TIMES A DAY ORAL 04/17/16 14:00 05/17/16 13:59 04/24/16 17:18 Metoprolol Succinate (Toprol XL) 200 mg DAILY ORAL 04/21/16 09:00 05/21/16 08:59 04/24/16 08:48 Ondansetron HCl (Zofran) 4 mg Q6H PRN IVP Nausea & Vomiting 04/17/16 14:00 05/17/16 13:59 04/22/16 14:06 Pantoprazole (Protonix) 40 mg DAILY ORAL 04/18/16 09:00 05/18/16 08:59 04/24/16 08:47 Potassium Chloride (K-Dur) 20 meq TWICE A DAY ORAL 04/17/16 18:00 05/17/16 17:59 04/24/16 17:18 Sodium Chloride (NaCl) 1 gm BID ORAL 04/25/16 21:00 05/25/16 20:59 Spironolactone (Aldactone) 100 mg DAILY ORAL 04/18/16 09:00 05/18/16 08:59 04/24/16 08:47 Zolpidem Tartrate 10 mg 10 mg HSPRN PRN ORAL Insomnia 04/22/16 23:45 05/22/16 23:44 04/24/16 22:40 Oliver Sky MD Apr 25, 2016 07:57
[2016-04-25 08:59] VITALS: BP 105/59
[2016-04-25] MEDS: Metoprolol XL 100mg tab ORAL SCH (09:00)
[2016-04-25] MEDS: Lactulose 20gm/30ml UDC ORAL SCH ×3 (09:17→17:47)
[2016-04-25] MEDS: Spironolactone 50mg tab ORAL SCH (09:18)
[2016-04-25 10:01] LABS: ANISOCYTOSIS 1+; BAND NEUTROPHILS % (MANUAL) 0 % (0-8); BASOPHILS % (MANUAL) 0 % (0-2); EOSINOPHILS % (MANUAL) 1 % (0-3); HYPOCHROMASIA 1+; LYMPHOCYTES % (MANUAL) 9 % (20-45); MACROCYTES 1+; NEUTROPHILS % (MANUAL) 78 % (45-75); PLATELET ESTIMATE DECREASED; PLATELET MORPHOLOGY NORMAL; TOTAL CELLS COUNTED 100
--- NOTE | 2016-04-25 10:31 | GI Progress Note ---
Assessment/Plan Problems: (1) Hypoalbuminemia ICD Codes: E88.09 - Other disorders of plasma-protein metabolism, not elsewhere classified SNOMED: 817644992 (2) Alcoholic cirrhosis of liver with ascites ICD Codes: K70.31 - Alcoholic cirrhosis of liver with ascites SNOMED: 631585237 (3) sepsis (4) Anemia ICD Codes: D64.9 - Anemia, unspecified SNOMED: 017910424 Status: unchanged Status Narrative Discussed with Dr. Mcgovern. Assessment/Plan Cleared for DC per GI standpoint after procedure >> TIPs can be done as outpatient s/p paracentesis #2 >> 2.1 L yield s/p paracentesis #1 >> ascites negative for growth OB stool negative hep panel negative IR procedure and balloon dilatation of the TIPS pending >> Not cleared for procedure per ID. fu ammonia level >> pt appears confused elevated ammonia >> Lactulose + Xifaxan low sodium diet monitor H&H, transfuse prn ppi fu labs Subjective Gastrointestinal/Abdominal: Reports: no symptoms Objective Last 24 Hour Vital Signs Date Time Temp Pulse Resp B/P Pulse Ox O2 Delivery O2 Flow Rate FiO2 04/25/16 09:00 67 105/59 04/25/16 08:59 98.9 67 19 105/59 99 Room Air 04/25/16 04:00 98.0 64 18 111/60 97 Room Air 04/25/16 00:00 97.9 64 18 116/64 98 Room Air 04/24/16 19:53 98.2 65 18 109/61 99 Room Air 04/24/16 16:00 98.1 66 20 137/92 99 Room Air 04/24/16 12:00 98.5 61 21 126/75 100 Room Air Intake and Output 04/24/16 04/25/16 19:00 07:00 Intake Total 480 ml 560 ml Output Total 600 ml Balance 480 ml -40 ml Intake Oral 480 ml 360 ml IV Total 200 ml Output Urine Total 600 ml # Voids 3 2 # Bowel Movements 1 Laboratory Tests Test 04/24/16 10:55 04/25/16 04:30 Ammonia 67 umol/L (16-60) H 77 umol/L (16-60) H White Blood Count 5.4 K/UL (4.8-10.8) Red Blood Count 2.56 M/UL (4.70-6.10) L Hemoglobin 9.3 G/DL (14.2-18.0) L Hematocrit 27.1 % (42.0-52.0) L Mean Corpuscular Volume 106 FL (80-99) H Mean Corpuscular Hemoglobin 36.5 PG (27.0-31.0) H Mean Corpuscular Hemoglobin Concent 34.5 G/DL (32.0-36.0) Red Cell Distribution Width 16.5 % (11.6-14.8) H Platelet Count 43 K/UL (150-450) L Mean Platelet Volume 9.3 FL (6.5-10.1) Neutrophils (%) (Auto) % (45.0-75.0) Lymphocytes (%) (Auto) % (20.0-45.0) Monocytes (%) (Auto) % (1.0-10.0) Eosinophils (%) (Auto) % (0.0-3.0) Basophils (%) (Auto) % (0.0-2.0) Differential Total Cells Counted 100 Neutrophils % (Manual) 78 % (45-75) H Lymphocytes % (Manual) 9 % (20-45) L Monocytes % (Manual) 12 % (1-10) H Eosinophils % (Manual) 1 % (0-3) Basophils % (Manual) 0 % (0-2) Band Neutrophils 0 % (0-8) Platelet Estimate Decreased L Platelet Morphology Normal Hypochromasia 1+ Anisocytosis 1+ Macrocytosis 1+ Sodium Level 136 mEQ/L (135-145) Potassium Level 4.1 mEQ/L (3.4-4.9) Chloride Level 101 mEQ/L (98-107) Carbon Dioxide Level 22 mEQ/L (20-30) Anion Gap 13 (5-15) Blood Urea Nitrogen 16 mg/dL (7-23) Creatinine 1.0 mg/dL (0.7-1.2) Estimat Glomerular Filtration Rate > 60 mL/min (>60) Glucose Level 96 mg/dL (74-106) Calcium Level 8.2 mg/dL (8.6-10.2) L Phosphorus Level 3.3 mg/dL (2.5-4.8) Magnesium Level 1.0 mg/dL (1.7-2.5) L Total Bilirubin 4.7 mg/dL (0.0-1.2) H Direct Bilirubin 2.2 mg/dL (0.1-0.3) H Aspartate Amino Transf (AST/SGOT) 31 U/L (5-40) Alanine Aminotransferase (ALT/SGPT) 21 U/L (3-41) Alkaline Phosphatase 143 U/L (40-129) H Total Protein 5.2 g/dL (6.6-8.7) L Albumin 2.3 g/dL (3.5-5.2) L Globulin 2.9 g/dL Albumin/Globulin Ratio 0.7 (1.0-2.7) L Height (Feet): 5 Height (Inches): 0.00 Weight (Pounds): 165 General Appearance: no apparent distress, alert Cardiovascular: normal rate Respiratory/Chest: lungs clear, normal breath sounds Abdominal Exam: normal bowel sounds, non tender, soft Extremities: normal range of motion Objective Procedure: US ABD Complete Indications: Abdominal pain IMPRESSION: Cirrhosis with stigmata of portal hypertension including splenomegaly, ascites. Patent intrahepatic portosystemic shunt with apparently elevated velocity at its hepatic venous end, suggesting high-grade stenosis. This is potentially amenable to percutaneous intervention, as clinically indicated. Gallbladder stones and sludge. Mural thickening likely secondary to presence of ascites. Correlate clinically. Midline structures including pancreas, distal abdominal aorta obscured Rain Mercado N.P. Apr 25, 2016 10:31
[2016-04-25 12:38] VITALS: BP 110/77
--- NOTE | 2016-04-25 15:56 | Cardiac Electrophysiology PN ---
Assessment/Plan Status Narrative Technically difficult study due to poor acoustical windows. M-mode measurements of left ventricle not obtainable due to cardiac position (angle) Normal left ventricular chamber size, hyperdynamic systolic function and wall motion to extent visualized. Left ventricular ejection fraction estimated to be 70-75 %. Mild left ventricular hypertrophy. Anterior Echo-free space, may be due to pericardial fat or effusion. All other cardiac chamber sizes are within normal limits. Mild focal aortic valve sclerosis with adequate cusp excursion. Mildly thickened mitral valve leaflets with normal excursion. Mitral annulus and aortic root calcification. Normal pulmonic valve structure. Normal tricuspid valve structure. IVC at normal size with physiologic collapse. A color flow and spectral Doppler study was performed and revealed: Mild mitral regurgitation. Mitral diastolic velocities suggest reduced left ventricular relaxation c/w mild LV diastolic dysfunction (Grade I ). Trace tricuspid regurgitation. Tricuspid systolic velocities suggests peak right ventricular systolic pressure of 20 mmHg. Assessment/Plan 1. Paroxysmal atrial fibrillation. In SR on Toprol-XL 200 mg daily. INR was 1.7 . Off coumadin. 2. Leg edema and shortness of breath secondary to cirrhosis. EF 70-75%. On Lasix 40 iv bid and Aldactone 100 po daily. 3. HTN. On Toprol XL 200 daily and Aldactone 100 and Lasix 40 iv bid. 4. Sepsis with high WBC 19k on broad-spectrum antibiotics.No SBP. 5. Anemia. 6. Hyponatremia, dilutional.Resolved 7. Thrombocytopenia likely secondary to splenomegaly and secondary to cirrhosis. 8. Alcoholic cirrhosis with ascites on Aldactone 100 mg daily.S/P Paracentesis . On Lactulose. TIPS when OK with ID ROB RN Subjective Subjective Alert in NAD. No chest pain or SOB. Awaiting ID clearance for TIPS. Objective Last 24 Hour Vital Signs Date Time Temp Pulse Resp B/P Pulse Ox O2 Delivery O2 Flow Rate FiO2 04/25/16 12:38 97.7 63 19 110/77 100 Room Air 04/25/16 09:00 67 105/59 04/25/16 08:59 98.9 67 19 105/59 99 Room Air 04/25/16 04:00 98.0 64 18 111/60 97 Room Air 04/25/16 00:00 97.9 64 18 116/64 98 Room Air 04/24/16 19:53 98.2 65 18 109/61 99 Room Air 04/24/16 16:00 98.1 66 20 137/92 99 Room Air Intake and Output 04/24/16 04/25/16 19:00 07:00 Intake Total 480 ml 560 ml Output Total 600 ml Balance 480 ml -40 ml Intake Oral 480 ml 360 ml IV Total 200 ml Output Urine Total 600 ml # Voids 3 2 # Bowel Movements 1 Laboratory Tests Test 04/25/16 04:30 White Blood Count 5.4 K/UL (4.8-10.8) Red Blood Count 2.56 M/UL (4.70-6.10) L Hemoglobin 9.3 G/DL (14.2-18.0) L Hematocrit 27.1 % (42.0-52.0) L Mean Corpuscular Volume 106 FL (80-99) H Mean Corpuscular Hemoglobin 36.5 PG (27.0-31.0) H Mean Corpuscular Hemoglobin Concent 34.5 G/DL (32.0-36.0) Red Cell Distribution Width 16.5 % (11.6-14.8) H Platelet Count 43 K/UL (150-450) L Mean Platelet Volume 9.3 FL (6.5-10.1) Neutrophils (%) (Auto) % (45.0-75.0) Lymphocytes (%) (Auto) % (20.0-45.0) Monocytes (%) (Auto) % (1.0-10.0) Eosinophils (%) (Auto) % (0.0-3.0) Basophils (%) (Auto) % (0.0-2.0) Differential Total Cells Counted 100 Neutrophils % (Manual) 78 % (45-75) H Lymphocytes % (Manual) 9 % (20-45) L Monocytes % (Manual) 12 % (1-10) H Eosinophils % (Manual) 1 % (0-3) Basophils % (Manual) 0 % (0-2) Band Neutrophils 0 % (0-8) Platelet Estimate Decreased L Platelet Morphology Normal Hypochromasia 1+ Anisocytosis 1+ Macrocytosis 1+ Sodium Level 136 mEQ/L (135-145) Potassium Level 4.1 mEQ/L (3.4-4.9) Chloride Level 101 mEQ/L (98-107) Carbon Dioxide Level 22 mEQ/L (20-30) Anion Gap 13 (5-15) Blood Urea Nitrogen 16 mg/dL (7-23) Creatinine 1.0 mg/dL (0.7-1.2) Estimat Glomerular Filtration Rate > 60 mL/min (>60) Glucose Level 96 mg/dL (74-106) Calcium Level 8.2 mg/dL (8.6-10.2) L Phosphorus Level 3.3 mg/dL (2.5-4.8) Magnesium Level 1.0 mg/dL (1.7-2.5) L Total Bilirubin 4.7 mg/dL (0.0-1.2) H Direct Bilirubin 2.2 mg/dL (0.1-0.3) H Aspartate Amino Transf (AST/SGOT) 31 U/L (5-40) Alanine Aminotransferase (ALT/SGPT) 21 U/L (3-41) Alkaline Phosphatase 143 U/L (40-129) H Ammonia 77 umol/L (16-60) H Total Protein 5.2 g/dL (6.6-8.7) L Albumin 2.3 g/dL (3.5-5.2) L Globulin 2.9 g/dL Albumin/Globulin Ratio 0.7 (1.0-2.7) L Microbiology Date/Time Source Procedure Growth Status 04/23/16 05:00 Blood Blood Culture - Preliminary NO GROWTH AFTER 48 HOURS Resulted 04/23/16 05:00 Blood Blood Culture - Preliminary NO GROWTH AFTER 48 HOURS Resulted Objective HEAD AND NECK: No JVD. LUNGS: Decreased breath sounds. CARDIOVASCULAR: Regular S1 and S2 with no gallop or murmur. ABDOMEN: Distended. Ascites.Non tender EXTREMITIES: 2+ pitting edema. MUKESH IZAGUIRRE Apr 25, 2016 15:56
[2016-04-25 16:00] VITALS: BP 139/67
--- NOTE | 2016-04-25 16:00 | Infectious Diseases Prog Note ---
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 UCx VRE ( colonizer ) HIV and Hep Panel :neg EtOH Cirrhosis, pending TIPS US : Cirrhosis with stigmata of portal hypertension including splenomegaly, ascites SP Paracentesis 04/10 - no evidence of SBP Thrombocytopenia VRE colonized NKDA Full Code PLAN: continue micafungin d# 9 / , daptomycin d# 3 ( VRE d# / ) ( 04/23 SP zyvox d# 2 - TCP ) ( 04/22 SP IV vancomcyin d# 3 ) f/u repeat BCx to document clearance WOULD DELAY TIPS UNTIL PT COMPLETES COURSE OF ABX AND REPEAT BLOOD CULTURES AFTER ONE WEEK OFF OF ABX ARE NEGATIVE Monitor CBC , temperatures monitor BMP monitor CXR Subjective Allergies: Coded Allergies: No Known Allergies (Unverified , 04/07/16) Subjective remains afebrile repeat BCx NGTD Objective Vital Signs Last 24 Hour Vital Signs Date Time Temp Pulse Resp B/P Pulse Ox O2 Delivery O2 Flow Rate FiO2 04/25/16 12:38 97.7 63 19 110/77 100 Room Air 04/25/16 09:00 67 105/59 04/25/16 08:59 98.9 67 19 105/59 99 Room Air 04/25/16 04:00 98.0 64 18 111/60 97 Room Air 04/25/16 00:00 97.9 64 18 116/64 98 Room Air 04/24/16 19:53 98.2 65 18 109/61 99 Room Air 04/24/16 16:00 98.1 66 20 137/92 99 Room Air Height (Feet): 5 Height (Inches): 0.00 Weight (Pounds): 165 General Appearance: no acute distress Respiratory/Chest: no respiratory distress Cardiovascular: normal rate, regular rhythm Abdomen: normal bowel sounds, soft, non tender, distended Microbiology Date/Time Source Procedure Growth Status 04/23/16 05:00 Blood Blood Culture - Preliminary NO GROWTH AFTER 48 HOURS Resulted 04/23/16 05:00 Blood Blood Culture - Preliminary NO GROWTH AFTER 48 HOURS Resulted Laboratory Tests Test 04/25/16 04:30 White Blood Count 5.4 K/UL (4.8-10.8) Red Blood Count 2.56 M/UL (4.70-6.10) L Hemoglobin 9.3 G/DL (14.2-18.0) L Hematocrit 27.1 % (42.0-52.0) L Mean Corpuscular Volume 106 FL (80-99) H Mean Corpuscular Hemoglobin 36.5 PG (27.0-31.0) H Mean Corpuscular Hemoglobin Concent 34.5 G/DL (32.0-36.0) Red Cell Distribution Width 16.5 % (11.6-14.8) H Platelet Count 43 K/UL (150-450) L Mean Platelet Volume 9.3 FL (6.5-10.1) Neutrophils (%) (Auto) % (45.0-75.0) Lymphocytes (%) (Auto) % (20.0-45.0) Monocytes (%) (Auto) % (1.0-10.0) Eosinophils (%) (Auto) % (0.0-3.0) Basophils (%) (Auto) % (0.0-2.0) Differential Total Cells Counted 100 Neutrophils % (Manual) 78 % (45-75) H Lymphocytes % (Manual) 9 % (20-45) L Monocytes % (Manual) 12 % (1-10) H Eosinophils % (Manual) 1 % (0-3) Basophils % (Manual) 0 % (0-2) Band Neutrophils 0 % (0-8) Platelet Estimate Decreased L Platelet Morphology Normal Hypochromasia 1+ Anisocytosis 1+ Macrocytosis 1+ Sodium Level 136 mEQ/L (135-145) Potassium Level 4.1 mEQ/L (3.4-4.9) Chloride Level 101 mEQ/L (98-107) Carbon Dioxide Level 22 mEQ/L (20-30) Anion Gap 13 (5-15) Blood Urea Nitrogen 16 mg/dL (7-23) Creatinine 1.0 mg/dL (0.7-1.2) Estimat Glomerular Filtration Rate > 60 mL/min (>60) Glucose Level 96 mg/dL (74-106) Calcium Level 8.2 mg/dL (8.6-10.2) L Phosphorus Level 3.3 mg/dL (2.5-4.8) Magnesium Level 1.0 mg/dL (1.7-2.5) L Total Bilirubin 4.7 mg/dL (0.0-1.2) H Direct Bilirubin 2.2 mg/dL (0.1-0.3) H Aspartate Amino Transf (AST/SGOT) 31 U/L (5-40) Alanine Aminotransferase (ALT/SGPT) 21 U/L (3-41) Alkaline Phosphatase 143 U/L (40-129) H Ammonia 77 umol/L (16-60) H Total Protein 5.2 g/dL (6.6-8.7) L Albumin 2.3 g/dL (3.5-5.2) L Globulin 2.9 g/dL Albumin/Globulin Ratio 0.7 (1.0-2.7) L Current Medications Medications (Trade) Dose Ordered Sig/Bernardino Route PRN Reason Start Time Stop Time Status Last Admin Dose Admin Daptomycin/Sodium Chloride (Cubicin/Sodium Chloride) 110 ml @ 200 mls/hr Q24H IV 04/23/16 21:00 04/30/16 20:59 04/24/16 20:11 Dextrose (Dextrose 50%) STAT PRN IV Hypoglycemia 04/17/16 13:30 05/17/16 13:29 Furosemide (Lasix) 40 mg EVERY 12 HOURS IV 04/17/16 21:00 05/17/16 20:59 04/25/16 09:17 Lactulose (Cephulac) 30 gm THREE TIMES A DAY ORAL 04/17/16 14:00 05/17/16 13:59 04/25/16 13:21 Metoprolol Succinate (Toprol XL) 200 mg DAILY ORAL 04/21/16 09:00 05/21/16 08:59 04/24/16 08:48 Ondansetron HCl (Zofran) 4 mg Q6H PRN IVP Nausea & Vomiting 04/17/16 14:00 05/17/16 13:59 04/25/16 10:40 Pantoprazole (Protonix) 40 mg DAILY ORAL 04/18/16 09:00 05/18/16 08:59 04/25/16 09:18 Potassium Chloride (K-Dur) 20 meq TWICE A DAY ORAL 04/17/16 18:00 05/17/16 17:59 04/25/16 09:18 Sodium Chloride (NaCl) 1 gm BID ORAL 04/25/16 21:00 05/25/16 20:59 Spironolactone (Aldactone) 100 mg DAILY ORAL 04/18/16 09:00 05/18/16 08:59 04/25/16 09:18 Zolpidem Tartrate 10 mg 10 mg HSPRN PRN ORAL Insomnia 04/22/16 23:45 05/22/16 23:44 04/24/16 22:40 RL LEWIS Apr 25, 2016 15:59
[2016-04-25 20:00] VITALS: BP 155/93
--- NOTE | 2016-04-25 20:38 | Progress Note ---
SUBJECTIVE: This is a 60-year-old male, currently awake, sitting in the bed comfortable, no distress. OBJECTIVE: VITAL SIGNS: Stable. CHEST: Bilaterally clear. CARDIOVASCULAR: Regular rhythm. No gallop. No murmur ABDOMEN: Soft. EXTREMITIES: CCE. NEUROLOGIC: No focal deficits. ASSESSMENT: 1. Drug overdose. 2. Depression. 3. Psychosis. PLAN: We will currently continue current treatment. Nephrology on case. GI is on case. Chepe Valdez M.D. DR: Rob JOB#: [id number] CC:
[2016-04-25] MEDS: DAPTOmycin 500 MG in NS 110 ML IV SCH (20:40)
--- NOTE | 2016-04-25 21:06 | Nephrology Progress Note ---
Assessment/Plan Problem List: (1) sepsis (2) Alcoholic cirrhosis of liver with ascites Assessment: s/p paracentesis. (3) Hypoalbuminemia (4) Asthma exacerbation Assessment: better. (5) Anemia (6) Thrombocytopenia (7) Fungemia (8) VRE (vancomycin resistant enterococcus) culture positive Assessment: in rectum and urine. likely colonized. Plan f/u recs per GI. monitor labs. f/u bcx. pending TIPS. ID recs appreciated. complete course of abx. repeat bcx 1 week after completion before TIPS procedure. Subjective Subjective no acute events. Objective Objective Last 24 Hour Vital Signs Date Time Temp Pulse Resp B/P Pulse Ox O2 Delivery O2 Flow Rate FiO2 04/25/16 16:00 97.7 60 20 139/67 100 Room Air 04/25/16 12:38 97.7 63 19 110/77 100 Room Air 04/25/16 09:00 67 105/59 04/25/16 08:59 98.9 67 19 105/59 99 Room Air 04/25/16 04:00 98.0 64 18 111/60 97 Room Air 04/25/16 00:00 97.9 64 18 116/64 98 Room Air Intake and Output 04/24/16 04/25/16 19:00 07:00 Intake Total 480 ml 560 ml Output Total 600 ml Balance 480 ml -40 ml Intake Oral 480 ml 360 ml IV Total 200 ml Output Urine Total 600 ml # Voids 3 2 # Bowel Movements 1 Laboratory Tests 04/25/16 04:30: White Blood Count 5.4, Red Blood Count 2.56L, Hemoglobin 9.3L, Hematocrit 27.1L , Mean Corpuscular Volume 106H, Mean Corpuscular Hemoglobin 36.5H, Mean Corpuscular Hemoglobin Concent 34.5, Red Cell Distribution Width 16.5H, Platelet Count 43L, Mean Platelet Volume 9.3, Neutrophils (%) (Auto) , Lymphocytes (%) (Auto) , Monocytes (%) (Auto) , Eosinophils (%) (Auto) , Basophils (%) (Auto) , Differential Total Cells Counted 100, Neutrophils % ( Manual) 78H, Lymphocytes % (Manual) 9L, Monocytes % (Manual) 12H, Eosinophils % (Manual) 1, Basophils % (Manual) 0, Band Neutrophils 0, Platelet Estimate DecreasedL, Platelet Morphology Normal, Hypochromasia 1+, Anisocytosis 1+, Macrocytosis 1+, Sodium Level 136, Potassium Level 4.1, Chloride Level 101, Carbon Dioxide Level 22, Anion Gap 13, Blood Urea Nitrogen 16, Creatinine 1.0, Estimat Glomerular Filtration Rate > 60, Glucose Level 96, Calcium Level 8.2L, Phosphorus Level 3.3, Magnesium Level 1.0L, Total Bilirubin 4.7H, Direct Bilirubin 2.2H, Aspartate Amino Transf (AST/SGOT) 31, Alanine Aminotransferase ( ALT/SGPT) 21, Alkaline Phosphatase 143H, Ammonia 77H, Total Protein 5.2L, Albumin 2.3L, Globulin 2.9, Albumin/Globulin Ratio 0.7L Height (Feet): 5 Height (Inches): 0.00 Weight (Pounds): 165 General Appearance: no apparent distress Cardiovascular: normal rate, regular rhythm Respiratory/Chest: lungs clear Abdomen: non tender, soft PAULA SPENCER Apr 25, 2016 21:06
[2016-04-25] MEDS: Sodium Chloride 1gm Tab ORAL SCH (21:11)
[2016-04-26] VITALS: BP 146/84
--- NOTE | 2016-04-26 00:43 | General Progress Note ---
Assessment/Plan Assessment/Plan ASSESSMENT: 1. 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 >30k. 2. Pending TIPS 3. Thrombocytopenia - btw 30-50k, hapto is low indicating DIC, also can be 2/2 micafungin v sepsis 4. Coagulopathy 5. Anemia due chronic disease. H/H has been stable 6. Decreased hemoglobin and hematocrit, rule out gastrointestinal bleed. 7. Splenomegaly 8. Cirrhosis of the liver status post paracentesis. 9. Sepsis. RECOMMENDATIONS: 1.Transfuse of platelets goal >20k 2. Transfuse to hemoglobin goal >7 3. DIC panel reviewed, medications reviewed 4. Follow up Nephrology, Pulm, Renal, and GI recs 5. Continue pain meds 6. DVT prophylaxis with SCDs 7.GI prophylaxis with PPI. 8. staff. Thank you, Sruesh Pizarro MD Subjective Constitutional: Reports: no symptoms HEENT: Reports: no symptoms Cardiovascular: Reports: no symptoms Respiratory: Reports: no symptoms Gastrointestinal/Abdominal: Reports: no symptoms Endocrine: Reports: no symptoms Hematologic/Lymphatic: Reports: anemia Allergies: Coded Allergies: No Known Allergies (Unverified , 04/07/16) Subjective no fevers, no bleeding reported, no hematochezia Objective Last 24 Hour Vital Signs Date Time Temp Pulse Resp B/P Pulse Ox O2 Delivery O2 Flow Rate FiO2 04/26/16 00:00 97.8 69 18 146/84 98 Room Air 04/25/16 20:00 97.7 71 20 155/93 98 Room Air 04/25/16 16:00 97.7 60 20 139/67 100 Room Air 04/25/16 12:38 97.7 63 19 110/77 100 Room Air 04/25/16 09:00 67 105/59 04/25/16 08:59 98.9 67 19 105/59 99 Room Air Intake and Output 04/25/16 04/25/16 11:00 23:00 Intake Total 360 ml 900 ml Output Total 600 ml 1525 ml Balance -240 ml -625 ml Intake Oral 360 ml 600 ml IV Total 300 ml Output Urine Total 600 ml 1525 ml # Voids 2 # Bowel Movements 1 Laboratory Tests 04/25/16 04:30: White Blood Count 5.4, Red Blood Count 2.56L, Hemoglobin 9.3L, Hematocrit 27.1L , Mean Corpuscular Volume 106H, Mean Corpuscular Hemoglobin 36.5H, Mean Corpuscular Hemoglobin Concent 34.5, Red Cell Distribution Width 16.5H, Platelet Count 43L, Mean Platelet Volume 9.3, Neutrophils (%) (Auto) , Lymphocytes (%) (Auto) , Monocytes (%) (Auto) , Eosinophils (%) (Auto) , Basophils (%) (Auto) , Differential Total Cells Counted 100, Neutrophils % ( Manual) 78H, Lymphocytes % (Manual) 9L, Monocytes % (Manual) 12H, Eosinophils % (Manual) 1, Basophils % (Manual) 0, Band Neutrophils 0, Platelet Estimate DecreasedL, Platelet Morphology Normal, Hypochromasia 1+, Anisocytosis 1+, Macrocytosis 1+, Sodium Level 136, Potassium Level 4.1, Chloride Level 101, Carbon Dioxide Level 22, Anion Gap 13, Blood Urea Nitrogen 16, Creatinine 1.0, Estimat Glomerular Filtration Rate > 60, Glucose Level 96, Calcium Level 8.2L, Phosphorus Level 3.3, Magnesium Level 1.0L, Total Bilirubin 4.7H, Direct Bilirubin 2.2H, Aspartate Amino Transf (AST/SGOT) 31, Alanine Aminotransferase ( ALT/SGPT) 21, Alkaline Phosphatase 143H, Ammonia 77H, Total Protein 5.2L, Albumin 2.3L, Globulin 2.9, Albumin/Globulin Ratio 0.7L Height (Feet): 5 Height (Inches): 0.00 Weight (Pounds): 165 General Appearance: no apparent distress EENT: PERRL/EOMI Neck: supple Cardiovascular: normal rate Respiratory/Chest: no respiratory distress Edema: 1+ Leg (L), 1+ Leg (R) Skin: warm/dry Suresh Pizarro Apr 26, 2016 00:43
[2016-04-26 03:59] VITALS: BP 134/66
[2016-04-26 07:44] LABS: ANION GAP 13 (5-15); CALCIUM 7.9 mg/dL (8.6-10.2); CARBON DIOXIDE 22 mEQ/L (20-30); CHLORIDE 101 mEQ/L (98-107); GLOMERULAR FILTRATION RATE > 60 mL/min (>60); HEMOLYSIS 4; MAGNESIUM 1.4 mg/dL (1.7-2.5); PHOSPHORUS 3.3 mg/dL (2.5-4.8); POTASSIUM 3.9 mEQ/L (3.4-4.9); SODIUM 136 mEQ/L (135-145)
[2016-04-26] MEDS: Metoprolol XL 100mg tab ORAL SCH (08:15)
[2016-04-26] MEDS: Lactulose 20gm/30ml UDC ORAL SCH ×4 (08:15→18:00)
[2016-04-26] MEDS: Spironolactone 50mg tab ORAL SCH (08:15)
[2016-04-26] MEDS: Sodium Chloride 1gm Tab ORAL SCH ×2 (08:16→17:25)
[2016-04-26 08:55] VITALS: BP 115/73
--- NOTE | 2016-04-26 09:19 | General Progress Note ---
Assessment/Plan Assessment/Plan ASSESSMENT: 1. 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 >30k. Is Pending TIPS 2. Thrombocytopenia - btw 30-50k, hapto is low indicating DIC, also can be 2/2 micafungin v sepsis 3. Coagulopathy 4. Anemia due chronic disease. H/H has been stable 5. Decreased hemoglobin and hematocrit, rule out gastrointestinal bleed. 6. Splenomegaly 7. Cirrhosis of the liver status post paracentesis. 8. Sepsis. RECOMMENDATIONS: 1. Transfuse of platelets goal >20k 2. Transfuse to hemoglobin goal >7 3. DIC panel reviewed, medications reviewed 4. Follow up Nephrology, Pulm, Renal, and GI recs 5. Continue pain meds 6. DVT prophylaxis with SCDs 7. GI prophylaxis with PPI. 8. staff. Thank you, Suresh Pizarro MD Subjective Constitutional: Reports: no symptoms HEENT: Reports: no symptoms Cardiovascular: Reports: no symptoms Respiratory: Reports: no symptoms Gastrointestinal/Abdominal: Reports: poor appetite Genitourinary: Reports: no symptoms Neurologic/Psychiatric: Reports: no symptoms Endocrine: Reports: no symptoms Hematologic/Lymphatic: Reports: anemia Allergies: Coded Allergies: No Known Allergies (Unverified , 04/07/16) Subjective no fevers, no bleeding reported, no hematochezia/hematemesis Objective Last 24 Hour Vital Signs Date Time Temp Pulse Resp B/P Pulse Ox O2 Delivery O2 Flow Rate FiO2 04/26/16 08:55 97.3 67 20 115/73 99 Room Air 04/26/16 08:15 66 134/66 04/26/16 03:59 97.6 66 18 134/66 100 Room Air 04/26/16 00:00 97.8 69 18 146/84 98 Room Air 04/25/16 20:00 97.7 71 20 155/93 98 Room Air 04/25/16 16:00 97.7 60 20 139/67 100 Room Air 04/25/16 12:38 97.7 63 19 110/77 100 Room Air Intake and Output 04/25/16 04/26/16 19:00 07:00 Intake Total 660 ml 640 ml Output Total 750 ml 1375 ml Balance -90 ml -735 ml Intake Oral 360 ml 640 ml IV Total 300 ml Output Urine Total 750 ml 1375 ml # Voids 2 # Bowel Movements 1 Laboratory Tests 04/26/16 06:00: White Blood Count [Pending], Red Blood Count [Pending], Hemoglobin [Pending], Hematocrit [Pending], Mean Corpuscular Volume [Pending], Mean Corpuscular Hemoglobin [Pending], Mean Corpuscular Hemoglobin Concent [Pending], Red Cell Distribution Width [Pending], Platelet Count [Pending], Mean Platelet Volume [ Pending], Neutrophils (%) (Auto) [Pending], Lymphocytes (%) (Auto) [Pending], Monocytes (%) (Auto) [Pending], Eosinophils (%) (Auto) [Pending], Basophils (%) (Auto) [Pending], Sodium Level 136, Potassium Level 3.9, Chloride Level 101, Carbon Dioxide Level 22, Anion Gap 13, Blood Urea Nitrogen 16, Creatinine 1.0, Estimat Glomerular Filtration Rate > 60, Glucose Level 88, Calcium Level 7.9L, Phosphorus Level 3.3, Magnesium Level 1.4L, Ammonia 40 Height (Feet): 5 Height (Inches): 0.00 Weight (Pounds): 154 General Appearance: no apparent distress EENT: TMs normal Neck: normal inspection Cardiovascular: regular rhythm Respiratory/Chest: lungs clear Abdomen: non tender Extremities: non-tender Edema: 1+ Leg (L), 1+ Leg (R) Edema: mild edema Neurologic: alert Skin: normal pigmentation Suresh Pizarro Apr 26, 2016 09:19
--- NOTE | 2016-04-26 10:56 | Pulmonology Progress Note ---
Assessment/Plan Assessment/Plan IMPRESSION: (1) Asthma (2) Alcoholic cirrhosis of liver with ascites (3) Hypoalbuminemia (4) Thrombocytopenia (5) Anemia Assessment/Plan -Optimize pulmonary hygiene/mobilize as tolerated -Respiratory stable -Monitor volumes/diuresis as tolerated -PRN O2; saturating well on RA -F/U cards, GI, ID recs -Monitor MS -Paracentesis as ordered by GI -F/U repeat Cx's -DVT Px -IS Subjective Interval Events: Doing well; no new problems Constitutional: Reports: no symptoms HEENT: Repors: no symptoms Respiratory: Reports: no symptoms Cardiovascular: Reports: no symptoms Gastrointestinal/Abdominal: Reports: no symptoms Allergies: Coded Allergies: No Known Allergies (Unverified , 04/07/16) Objective Last 24 Hour Vital Signs Date Time Temp Pulse Resp B/P Pulse Ox O2 Delivery O2 Flow Rate FiO2 04/26/16 08:55 97.3 67 20 115/73 99 Room Air 04/26/16 08:15 66 134/66 04/26/16 03:59 97.6 66 18 134/66 100 Room Air 04/26/16 00:00 97.8 69 18 146/84 98 Room Air 04/25/16 20:00 97.7 71 20 155/93 98 Room Air 04/25/16 16:00 97.7 60 20 139/67 100 Room Air 04/25/16 12:38 97.7 63 19 110/77 100 Room Air Intake and Output 04/25/16 04/26/16 19:00 07:00 Intake Total 660 ml 640 ml Output Total 750 ml 1375 ml Balance -90 ml -735 ml Intake Oral 360 ml 640 ml IV Total 300 ml Output Urine Total 750 ml 1375 ml # Voids 2 # Bowel Movements 1 General Appearance: no acute distress HEENT: normocephalic Respiratory/Chest: chest wall non-tender, lungs clear Cardiovascular: normal peripheral pulses, normal rate Abdomen: normal bowel sounds Extremities: no cyanosis Laboratory Tests 04/26/16 06:00: White Blood Count [Pending], Red Blood Count [Pending], Hemoglobin [Pending], Hematocrit [Pending], Mean Corpuscular Volume [Pending], Mean Corpuscular Hemoglobin [Pending], Mean Corpuscular Hemoglobin Concent [Pending], Red Cell Distribution Width [Pending], Platelet Count [Pending], Mean Platelet Volume [ Pending], Neutrophils (%) (Auto) [Pending], Lymphocytes (%) (Auto) [Pending], Monocytes (%) (Auto) [Pending], Eosinophils (%) (Auto) [Pending], Basophils (%) (Auto) [Pending], Sodium Level 136, Potassium Level 3.9, Chloride Level 101, Carbon Dioxide Level 22, Anion Gap 13, Blood Urea Nitrogen 16, Creatinine 1.0, Estimat Glomerular Filtration Rate > 60, Glucose Level 88, Calcium Level 7.9L, Phosphorus Level 3.3, Magnesium Level 1.4L, Ammonia 40 Current Medications Medications (Trade) Dose Ordered Sig/Bernardino Route PRN Reason Start Time Stop Time Status Last Admin Dose Admin Daptomycin/Sodium Chloride (Cubicin/Sodium Chloride) 110 ml @ 200 mls/hr Q24H IV 04/23/16 21:00 04/30/16 20:59 04/25/16 20:40 Dextrose (Dextrose 50%) STAT PRN IV Hypoglycemia 04/17/16 13:30 05/17/16 13:29 Furosemide (Lasix) 40 mg EVERY 12 HOURS IV 04/17/16 21:00 05/17/16 20:59 04/26/16 08:15 Lactulose (Cephulac) 30 gm THREE TIMES A DAY ORAL 04/17/16 14:00 05/17/16 13:59 04/26/16 08:15 Metoprolol Succinate (Toprol XL) 200 mg DAILY ORAL 04/21/16 09:00 05/21/16 08:59 04/26/16 08:15 Ondansetron HCl (Zofran) 4 mg Q6H PRN IVP Nausea & Vomiting 04/17/16 14:00 05/17/16 13:59 04/26/16 08:37 Pantoprazole (Protonix) 40 mg DAILY ORAL 04/18/16 09:00 05/18/16 08:59 04/26/16 08:16 Potassium Chloride (K-Dur) 20 meq TWICE A DAY ORAL 04/17/16 18:00 05/17/16 17:59 04/26/16 08:16 Sodium Chloride (NaCl) 1 gm BID ORAL 04/25/16 21:00 05/25/16 20:59 04/26/16 08:16 Spironolactone (Aldactone) 100 mg DAILY ORAL 04/18/16 09:00 05/18/16 08:59 04/26/16 08:15 Zolpidem Tartrate 10 mg 10 mg HSPRN PRN ORAL Insomnia 04/22/16 23:45 05/22/16 23:44 04/24/16 22:40 Oliver Sky MD Apr 26, 2016 10:56
--- NOTE | 2016-04-26 11:33 | GI Progress Note ---
Assessment/Plan Problems: (1) Hypoalbuminemia ICD Codes: E88.09 - Other disorders of plasma-protein metabolism, not elsewhere classified SNOMED: 624880740 (2) Alcoholic cirrhosis of liver with ascites ICD Codes: K70.31 - Alcoholic cirrhosis of liver with ascites SNOMED: 617902850 (3) sepsis (4) Anemia ICD Codes: D64.9 - Anemia, unspecified SNOMED: 579173768 Status: stable Status Narrative Discussed with Dr. Mcgovern. Assessment/Plan Cleared for DC per GI standpoint >> TIPs can be done as outpatient s/p paracentesis #2 >> 2.1 L yield s/p paracentesis #1 >> ascites negative for growth OB stool negative hep panel negative IR procedure and balloon dilatation of the TIPS pending >> Not cleared for procedure per ID. fu ammonia level >> pt appears confused elevated ammonia >> Lactulose + Xifaxan low sodium diet monitor H&H, transfuse prn ppi fu labs Subjective Gastrointestinal/Abdominal: Reports: abdomen distended - ascities, no symptoms Objective Last 24 Hour Vital Signs Date Time Temp Pulse Resp B/P Pulse Ox O2 Delivery O2 Flow Rate FiO2 04/26/16 08:55 97.3 67 20 115/73 99 Room Air 04/26/16 08:15 66 134/66 04/26/16 03:59 97.6 66 18 134/66 100 Room Air 04/26/16 00:00 97.8 69 18 146/84 98 Room Air 04/25/16 20:00 97.7 71 20 155/93 98 Room Air 04/25/16 16:00 97.7 60 20 139/67 100 Room Air 04/25/16 12:38 97.7 63 19 110/77 100 Room Air Intake and Output 04/25/16 04/26/16 19:00 07:00 Intake Total 660 ml 640 ml Output Total 750 ml 1375 ml Balance -90 ml -735 ml Intake Oral 360 ml 640 ml IV Total 300 ml Output Urine Total 750 ml 1375 ml # Voids 2 # Bowel Movements 1 Laboratory Tests Test 04/26/16 06:00 White Blood Count Pending Red Blood Count Pending Hemoglobin Pending Hematocrit Pending Mean Corpuscular Volume Pending Mean Corpuscular Hemoglobin Pending Mean Corpuscular Hemoglobin Concent Pending Red Cell Distribution Width Pending Platelet Count Pending Mean Platelet Volume Pending Neutrophils (%) (Auto) Pending Lymphocytes (%) (Auto) Pending Monocytes (%) (Auto) Pending Eosinophils (%) (Auto) Pending Basophils (%) (Auto) Pending Sodium Level 136 mEQ/L (135-145) Potassium Level 3.9 mEQ/L (3.4-4.9) Chloride Level 101 mEQ/L (98-107) Carbon Dioxide Level 22 mEQ/L (20-30) Anion Gap 13 (5-15) Blood Urea Nitrogen 16 mg/dL (7-23) Creatinine 1.0 mg/dL (0.7-1.2) Estimat Glomerular Filtration Rate > 60 mL/min (>60) Glucose Level 88 mg/dL (74-106) Calcium Level 7.9 mg/dL (8.6-10.2) L Phosphorus Level 3.3 mg/dL (2.5-4.8) Magnesium Level 1.4 mg/dL (1.7-2.5) L Ammonia 40 umol/L (16-60) Height (Feet): 5 Height (Inches): 0.00 Weight (Pounds): 154 General Appearance: no apparent distress, alert Cardiovascular: normal rate Respiratory/Chest: normal breath sounds, no respiratory distress Abdominal Exam: normal bowel sounds, non tender, soft Extremities: normal range of motion Objective Procedure: US ABD Complete Indications: Abdominal pain IMPRESSION: Cirrhosis with stigmata of portal hypertension including splenomegaly, ascites. Patent intrahepatic portosystemic shunt with apparently elevated velocity at its hepatic venous end, suggesting high-grade stenosis. This is potentially amenable to percutaneous intervention, as clinically indicated. Gallbladder stones and sludge. Mural thickening likely secondary to presence of ascites. Correlate clinically. Midline structures including pancreas, distal abdominal aorta obscured Rain Mercado N.P. Apr 26, 2016 11:33
[2016-04-26 12:15] LABS: MEAN CORPUSCULAR HEMOGLOBIN 35.3 PG (27.0-31.0); MEAN CORPUSCULAR HGB CONC 33.4 G/DL (32.0-36.0); MEAN CORPUSCULAR VOLUME 106 FL (80-99); MEAN PLATELET VOLUME 10.6 FL (6.5-10.1); PLATELET COUNT 55 K/UL (150-450); RED BLOOD COUNT 2.66 M/UL (4.70-6.10); RED CELL DISTRIBUTION WIDTH 16.7 % (11.6-14.8); WHITE BLOOD COUNT 5.6 K/UL (4.8-10.8)
[2016-04-26 12:25] VITALS: BP 114/61
[2016-04-26 12:34] LABS: ANISOCYTOSIS 1+; BAND NEUTROPHILS % (MANUAL) 0 % (0-8); BASOPHILS % (MANUAL) 0 % (0-2); EOSINOPHILS % (MANUAL) 0 % (0-3); HYPOCHROMASIA 1+; LYMPHOCYTES % (MANUAL) 8 % (20-45); MACROCYTES 1+; NEUTROPHILS % (MANUAL) 79 % (45-75); PLATELET ESTIMATE DECREASED; PLATELET MORPHOLOGY NORMAL; TOTAL CELLS COUNTED 100
--- NOTE | 2016-04-26 16:10 | Infectious Diseases Prog Note ---
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 UCx VRE ( colonizer ) HIV and Hep Panel :neg EtOH Cirrhosis, pending TIPS US : Cirrhosis with stigmata of portal hypertension including splenomegaly, ascites SP Paracentesis 04/10 - no evidence of SBP Thrombocytopenia VRE colonized NKDA Full Code PLAN: continue micafungin d# 10 / , daptomycin d# 4 ( VRE d# / ) ( 04/23 SP zyvox d# 2 - TCP ) ( 04/22 SP IV vancomcyin d# 3 ) f/u repeat BCx to document clearance WOULD DELAY TIPS UNTIL PT COMPLETES COURSE OF ABX AND REPEAT BLOOD CULTURES AFTER ONE WEEK OFF OF ABX ARE NEGATIVE Monitor CBC , temperatures monitor BMP monitor CXR Subjective Allergies: Coded Allergies: No Known Allergies (Unverified , 04/07/16) Subjective remains afebrile repeat BCx NGTD Objective Vital Signs Last 24 Hour Vital Signs Date Time Temp Pulse Resp B/P Pulse Ox O2 Delivery O2 Flow Rate FiO2 04/26/16 12:25 97.8 68 19 114/61 99 Room Air 04/26/16 08:55 97.3 67 20 115/73 99 Room Air 04/26/16 08:15 66 134/66 04/26/16 03:59 97.6 66 18 134/66 100 Room Air 04/26/16 00:00 97.8 69 18 146/84 98 Room Air 04/25/16 20:00 97.7 71 20 155/93 98 Room Air Height (Feet): 5 Height (Inches): 0.00 Weight (Pounds): 154 General Appearance: no acute distress Respiratory/Chest: no respiratory distress Cardiovascular: normal rate, regular rhythm Abdomen: normal bowel sounds, soft, non tender, distended Laboratory Tests Test 04/26/16 06:00 04/26/16 10:50 Sodium Level 136 mEQ/L (135-145) Potassium Level 3.9 mEQ/L (3.4-4.9) Chloride Level 101 mEQ/L (98-107) Carbon Dioxide Level 22 mEQ/L (20-30) Anion Gap 13 (5-15) Blood Urea Nitrogen 16 mg/dL (7-23) Creatinine 1.0 mg/dL (0.7-1.2) Estimat Glomerular Filtration Rate > 60 mL/min (>60) Glucose Level 88 mg/dL (74-106) Calcium Level 7.9 mg/dL (8.6-10.2) L Phosphorus Level 3.3 mg/dL (2.5-4.8) Magnesium Level 1.4 mg/dL (1.7-2.5) L Ammonia 40 umol/L (16-60) White Blood Count 5.6 K/UL (4.8-10.8) Red Blood Count 2.66 M/UL (4.70-6.10) L Hemoglobin 9.4 G/DL (14.2-18.0) L Hematocrit 28.2 % (42.0-52.0) L Mean Corpuscular Volume 106 FL (80-99) H Mean Corpuscular Hemoglobin 35.3 PG (27.0-31.0) H Mean Corpuscular Hemoglobin Concent 33.4 G/DL (32.0-36.0) Red Cell Distribution Width 16.7 % (11.6-14.8) H Platelet Count 55 K/UL (150-450) L Mean Platelet Volume 10.6 FL (6.5-10.1) H Neutrophils (%) (Auto) % (45.0-75.0) Lymphocytes (%) (Auto) % (20.0-45.0) Monocytes (%) (Auto) % (1.0-10.0) Eosinophils (%) (Auto) % (0.0-3.0) Basophils (%) (Auto) % (0.0-2.0) Differential Total Cells Counted 100 Neutrophils % (Manual) 79 % (45-75) H Lymphocytes % (Manual) 8 % (20-45) L Monocytes % (Manual) 13 % (1-10) H Eosinophils % (Manual) 0 % (0-3) Basophils % (Manual) 0 % (0-2) Band Neutrophils 0 % (0-8) Platelet Estimate Decreased L Platelet Morphology Normal Hypochromasia 1+ Anisocytosis 1+ Macrocytosis 1+ Current Medications Medications (Trade) Dose Ordered Sig/Bernardino Route PRN Reason Start Time Stop Time Status Last Admin Dose Admin Daptomycin/Sodium Chloride (Cubicin/Sodium Chloride) 110 ml @ 200 mls/hr Q24H IV 04/23/16 21:00 04/30/16 20:59 04/25/16 20:40 Dextrose (Dextrose 50%) STAT PRN IV Hypoglycemia 04/17/16 13:30 05/17/16 13:29 Furosemide (Lasix) 40 mg EVERY 12 HOURS IV 04/17/16 21:00 05/17/16 20:59 04/26/16 08:15 Lactulose (Cephulac) 30 gm THREE TIMES A DAY ORAL 04/17/16 14:00 05/17/16 13:59 04/26/16 13:17 Metoprolol Succinate 200 mg 200 mg DAILY ORAL 04/21/16 09:00 05/21/16 08:59 04/26/16 08:15 Ondansetron HCl (Zofran) 4 mg Q6H PRN IVP Nausea & Vomiting 04/17/16 14:00 05/17/16 13:59 04/26/16 08:37 Pantoprazole (Protonix) 40 mg ACBREAKFAST ORAL 04/27/16 06:30 05/18/16 08:59 Potassium Chloride (K-Dur) 20 meq TWICE A DAY ORAL 04/17/16 18:00 05/17/16 17:59 04/26/16 08:16 Sodium Chloride (NaCl) 1 gm BID ORAL 04/25/16 21:00 05/25/16 20:59 04/26/16 08:16 Spironolactone (Aldactone) 100 mg DAILY ORAL 04/18/16 09:00 05/18/16 08:59 04/26/16 08:15 Zolpidem Tartrate (Ambien) 5 mg HSPRN PRN ORAL Insomnia 04/26/16 15:45 05/26/16 15:44 RL LEWIS Apr 26, 2016 16:10
[2016-04-26 16:18] VITALS: BP 118/75
--- NOTE | 2016-04-26 16:40 | Cardiac Electrophysiology PN ---
Assessment/Plan Status Narrative Technically difficult study due to poor acoustical windows. M-mode measurements of left ventricle not obtainable due to cardiac position (angle) Normal left ventricular chamber size, hyperdynamic systolic function and wall motion to extent visualized. Left ventricular ejection fraction estimated to be 70-75 %. Mild left ventricular hypertrophy. Anterior Echo-free space, may be due to pericardial fat or effusion. All other cardiac chamber sizes are within normal limits. Mild focal aortic valve sclerosis with adequate cusp excursion. Mildly thickened mitral valve leaflets with normal excursion. Mitral annulus and aortic root calcification. Normal pulmonic valve structure. Normal tricuspid valve structure. IVC at normal size with physiologic collapse. A color flow and spectral Doppler study was performed and revealed: Mild mitral regurgitation. Mitral diastolic velocities suggest reduced left ventricular relaxation c/w mild LV diastolic dysfunction (Grade I ). Trace tricuspid regurgitation. Tricuspid systolic velocities suggests peak right ventricular systolic pressure of 20 mmHg. Assessment/Plan 1. Paroxysmal atrial fibrillation. In SR on Toprol-XL 200 mg daily. INR was 1.7 off coumadin. 2. Leg edema and shortness of breath secondary to cirrhosis. EF 70-75%. On Lasix 40 iv bid and Aldactone 100 po daily. 3. HTN. On Toprol XL 200 daily and Aldactone 100 and Lasix 40 iv bid. 4. Sepsis and fungemia on broad-spectrum antibiotics.No SBP. 5. Anemia. 6. Hyponatremia, dilutional.Resolved 7. Thrombocytopenia likely secondary to splenomegaly and secondary to cirrhosis. 8. Alcoholic cirrhosis with ascites on Aldactone 100 mg daily.S/P Paracentesis . On Lactulose. ROB Sullivan who felt should avoid TIPS as patient has fungemia. ROB RN and Dr Sullivan Subjective Subjective Alert in NAD. No chest pain or SOB. No events overnight. Objective Last 24 Hour Vital Signs Date Time Temp Pulse Resp B/P Pulse Ox O2 Delivery O2 Flow Rate FiO2 04/26/16 12:25 97.8 68 19 114/61 99 Room Air 04/26/16 08:55 97.3 67 20 115/73 99 Room Air 04/26/16 08:15 66 134/66 04/26/16 03:59 97.6 66 18 134/66 100 Room Air 04/26/16 00:00 97.8 69 18 146/84 98 Room Air 04/25/16 20:00 97.7 71 20 155/93 98 Room Air Intake and Output 04/25/16 04/26/16 19:00 07:00 Intake Total 660 ml 640 ml Output Total 750 ml 1375 ml Balance -90 ml -735 ml Intake Oral 360 ml 640 ml IV Total 300 ml Output Urine Total 750 ml 1375 ml # Voids 2 # Bowel Movements 1 Laboratory Tests Test 04/26/16 06:00 04/26/16 10:50 Sodium Level 136 mEQ/L (135-145) Potassium Level 3.9 mEQ/L (3.4-4.9) Chloride Level 101 mEQ/L (98-107) Carbon Dioxide Level 22 mEQ/L (20-30) Anion Gap 13 (5-15) Blood Urea Nitrogen 16 mg/dL (7-23) Creatinine 1.0 mg/dL (0.7-1.2) Estimat Glomerular Filtration Rate > 60 mL/min (>60) Glucose Level 88 mg/dL (74-106) Calcium Level 7.9 mg/dL (8.6-10.2) L Phosphorus Level 3.3 mg/dL (2.5-4.8) Magnesium Level 1.4 mg/dL (1.7-2.5) L Ammonia 40 umol/L (16-60) White Blood Count 5.6 K/UL (4.8-10.8) Red Blood Count 2.66 M/UL (4.70-6.10) L Hemoglobin 9.4 G/DL (14.2-18.0) L Hematocrit 28.2 % (42.0-52.0) L Mean Corpuscular Volume 106 FL (80-99) H Mean Corpuscular Hemoglobin 35.3 PG (27.0-31.0) H Mean Corpuscular Hemoglobin Concent 33.4 G/DL (32.0-36.0) Red Cell Distribution Width 16.7 % (11.6-14.8) H Platelet Count 55 K/UL (150-450) L Mean Platelet Volume 10.6 FL (6.5-10.1) H Neutrophils (%) (Auto) % (45.0-75.0) Lymphocytes (%) (Auto) % (20.0-45.0) Monocytes (%) (Auto) % (1.0-10.0) Eosinophils (%) (Auto) % (0.0-3.0) Basophils (%) (Auto) % (0.0-2.0) Differential Total Cells Counted 100 Neutrophils % (Manual) 79 % (45-75) H Lymphocytes % (Manual) 8 % (20-45) L Monocytes % (Manual) 13 % (1-10) H Eosinophils % (Manual) 0 % (0-3) Basophils % (Manual) 0 % (0-2) Band Neutrophils 0 % (0-8) Platelet Estimate Decreased L Platelet Morphology Normal Hypochromasia 1+ Anisocytosis 1+ Macrocytosis 1+ Objective HEAD AND NECK: No JVD. LUNGS: Decreased breath sounds. CARDIOVASCULAR: Regular S1 and S2 with no gallop or murmur. ABDOMEN: Distended. Ascites.Non tender EXTREMITIES: 2+ pitting edema. MUKESH IZAGUIRRE Apr 26, 2016 16:40
--- NOTE | 2016-04-26 17:04 | Nephrology Progress Note ---
Assessment/Plan Problem List: (1) Asthma exacerbation (2) Alcoholic cirrhosis of liver with ascites (3) Thrombocytopenia (4) Hyponatremia (5) Anemia of other chronic disease Assessment Discussed with Dr Chiu Plan Monitor lytes - free water restriction, sodium chloride tabs - will monitor sodium level Renal function - Resolved Monitor H&H, transfuse as needed GI f/u Pending TIPS - not cleared per ID Hematology f/u Social Service consult - placement DVT Prophylaxis with SCDs Continue pain meds GI prophylaxis with PPI. AM labs Subjective Constitutional: Denies: chills, diaphoresis, fever, malaise, no symptoms, other , weakness HEENT: Denies: blurred vision, double vision, ear discharge, ear pain, eye pain , mouth pain, mouth swelling, no symptoms, nose congestion, nose pain, other, tearing, throat pain, throat swelling Genitourinary: Denies: burning, discharge, flank pain, frequency, hematuria, incontinence, no symptoms, other, pain, urgency Neurologic/Psychiatric: Denies: anxiety, depressed, emotional problems, headache, no symptoms, numbness, other, paresthesia, pre-existing deficit, seizure, tingling, tremors, weakness Subjective In bed, no distress Objective Objective Last 24 Hour Vital Signs Date Time Temp Pulse Resp B/P Pulse Ox O2 Delivery O2 Flow Rate FiO2 04/26/16 12:25 97.8 68 19 114/61 99 Room Air 04/26/16 08:55 97.3 67 20 115/73 99 Room Air 04/26/16 08:15 66 134/66 04/26/16 03:59 97.6 66 18 134/66 100 Room Air 04/26/16 00:00 97.8 69 18 146/84 98 Room Air 04/25/16 20:00 97.7 71 20 155/93 98 Room Air Intake and Output 04/25/16 04/26/16 19:00 07:00 Intake Total 660 ml 640 ml Output Total 750 ml 1375 ml Balance -90 ml -735 ml Intake Oral 360 ml 640 ml IV Total 300 ml Output Urine Total 750 ml 1375 ml # Voids 2 # Bowel Movements 1 Laboratory Tests 04/26/16 06:00: Sodium Level 136, Potassium Level 3.9, Chloride Level 101, Carbon Dioxide Level 22, Anion Gap 13, Blood Urea Nitrogen 16, Creatinine 1.0, Estimat Glomerular Filtration Rate > 60, Glucose Level 88, Calcium Level 7.9L, Phosphorus Level 3.3 , Magnesium Level 1.4L, Ammonia 40 04/26/16 10:50: White Blood Count 5.6, Red Blood Count 2.66L, Hemoglobin 9.4L, Hematocrit 28.2L , Mean Corpuscular Volume 106H, Mean Corpuscular Hemoglobin 35.3H, Mean Corpuscular Hemoglobin Concent 33.4, Red Cell Distribution Width 16.7H, Platelet Count 55L, Mean Platelet Volume 10.6H, Neutrophils (%) (Auto) , Lymphocytes (%) (Auto) , Monocytes (%) (Auto) , Eosinophils (%) (Auto) , Basophils (%) (Auto) , Differential Total Cells Counted 100, Neutrophils % ( Manual) 79H, Lymphocytes % (Manual) 8L, Monocytes % (Manual) 13H, Eosinophils % (Manual) 0, Basophils % (Manual) 0, Band Neutrophils 0, Platelet Estimate DecreasedL, Platelet Morphology Normal, Hypochromasia 1+, Anisocytosis 1+, Macrocytosis 1+ Height (Feet): 5 Height (Inches): 0.00 Weight (Pounds): 154 General Appearance: no apparent distress EENT: normal ENT inspection Neck: normal alignment Cardiovascular: normal rate, regular rhythm Respiratory/Chest: normal breath sounds, no respiratory distress Abdomen: non tender, soft Extremities: non-tender, normal inspection, no calf tenderness, normal capillary refill Neurologic: alert, oriented x 3, responsive, normal mood/affect Jeanna Mederos N.P. Apr 26, 2016 17:04
[2016-04-26] MEDS: Micafungin 100 MG in NS 110 ML IVPB SCH (19:30)
[2016-04-26 20:00] VITALS: BP 126/60
[2016-04-26] MEDS: DAPTOmycin 500 MG in NS 110 ML IV SCH (20:05)
[2016-04-27] VITALS: BP 126/65
[2016-04-27 04:00] VITALS: BP 115/57
[2016-04-27 08:00] VITALS: BP 145/79
[2016-04-27 08:15] LABS: ANION GAP 12 (5-15); CALCIUM 7.9 mg/dL (8.6-10.2); CARBON DIOXIDE 23 mEQ/L (20-30); CHLORIDE 103 mEQ/L (98-107); CREATININE 0.9 mg/dL (0.7-1.2); GLOMERULAR FILTRATION RATE > 60 mL/min (>60); HEMOLYSIS 4; POTASSIUM 3.7 mEQ/L (3.4-4.9); SODIUM 138 mEQ/L (135-145)
--- NOTE | 2016-04-27 08:51 | Pulmonology Progress Note ---
Assessment/Plan Assessment/Plan IMPRESSION: (1) Asthma (2) Alcoholic cirrhosis of liver with ascites (3) Hypoalbuminemia (4) Thrombocytopenia (5) Anemia Assessment/Plan -Optimize pulmonary hygiene/mobilize as tolerated -Respiratory stable -Monitor volumes/diuresis as tolerated -PRN O2; saturating well on RA -F/U cards, GI, ID recs -Monitor MS -Paracentesis as ordered by GI -F/U repeat Cx's -DVT Px -IS Subjective Interval Events: No new events; resp status stable Constitutional: Reports: no symptoms HEENT: Repors: no symptoms Respiratory: Reports: dry cough Cardiovascular: Reports: no symptoms Gastrointestinal/Abdominal: Reports: no symptoms Allergies: Coded Allergies: No Known Allergies (Unverified , 04/07/16) Objective Last 24 Hour Vital Signs Date Time Temp Pulse Resp B/P Pulse Ox O2 Delivery O2 Flow Rate FiO2 04/27/16 08:00 97.7 68 20 145/79 100 Room Air 04/27/16 04:00 97.9 61 20 115/57 99 Room Air 04/27/16 00:00 97.5 68 22 126/65 97 Room Air 04/26/16 20:00 97.9 61 20 126/60 100 Room Air 04/26/16 16:18 97.0 67 20 118/75 99 Room Air 04/26/16 12:25 97.8 68 19 114/61 99 Room Air 04/26/16 08:55 97.3 67 20 115/73 99 Room Air Intake and Output 04/26/16 04/27/16 19:00 07:00 Intake Total 1080 ml 680 ml Output Total 340 ml 700 ml Balance 740 ml -20 ml Intake Oral 1080 ml 480 ml IV Total 200 ml Output Urine Total 340 ml 700 ml # Voids 1 # Bowel Movements 1 General Appearance: no acute distress HEENT: normocephalic Respiratory/Chest: chest wall non-tender, lungs clear Abdomen: normal bowel sounds Laboratory Tests 04/26/16 10:50: White Blood Count 5.6, Red Blood Count 2.66L, Hemoglobin 9.4L, Hematocrit 28.2L , Mean Corpuscular Volume 106H, Mean Corpuscular Hemoglobin 35.3H, Mean Corpuscular Hemoglobin Concent 33.4, Red Cell Distribution Width 16.7H, Platelet Count 55L, Mean Platelet Volume 10.6H, Neutrophils (%) (Auto) , Lymphocytes (%) (Auto) , Monocytes (%) (Auto) , Eosinophils (%) (Auto) , Basophils (%) (Auto) , Differential Total Cells Counted 100, Neutrophils % ( Manual) 79H, Lymphocytes % (Manual) 8L, Monocytes % (Manual) 13H, Eosinophils % (Manual) 0, Basophils % (Manual) 0, Band Neutrophils 0, Platelet Estimate DecreasedL, Platelet Morphology Normal, Hypochromasia 1+, Anisocytosis 1+, Macrocytosis 1+ 04/27/16 05:00: White Blood Count [Pending], Red Blood Count [Pending], Hemoglobin [Pending], Hematocrit [Pending], Mean Corpuscular Volume [Pending], Mean Corpuscular Hemoglobin [Pending], Mean Corpuscular Hemoglobin Concent [Pending], Red Cell Distribution Width [Pending], Platelet Count [Pending], Mean Platelet Volume [ Pending], Neutrophils (%) (Auto) [Pending], Lymphocytes (%) (Auto) [Pending], Monocytes (%) (Auto) [Pending], Eosinophils (%) (Auto) [Pending], Basophils (%) (Auto) [Pending], Sodium Level 138, Potassium Level 3.7, Chloride Level 103, Carbon Dioxide Level 23, Anion Gap 12, Blood Urea Nitrogen 15, Creatinine 0.9, Estimat Glomerular Filtration Rate > 60, Glucose Level 120H, Calcium Level 7.9L Current Medications Medications (Trade) Dose Ordered Sig/Bernardino Route PRN Reason Start Time Stop Time Status Last Admin Dose Admin Daptomycin/Sodium Chloride (Cubicin/Sodium Chloride) 110 ml @ 200 mls/hr Q24H IV 04/23/16 21:00 04/30/16 20:59 04/26/16 20:05 Dextrose (Dextrose 50%) STAT PRN IV Hypoglycemia 04/17/16 13:30 05/17/16 13:29 Furosemide (Lasix) 40 mg EVERY 12 HOURS IV 04/17/16 21:00 05/17/16 20:59 04/26/16 20:06 Lactulose (Cephulac) 30 gm THREE TIMES A DAY ORAL 04/17/16 14:00 05/17/16 13:59 04/26/16 13:17 Metoprolol Succinate 200 mg 200 mg DAILY ORAL 04/21/16 09:00 05/21/16 08:59 04/26/16 08:15 Micafungin Sodium/ Sodium Chloride (Mycamine/Sodium Chloride) 110 ml @ 110 mls/hr Q24H IVPB 04/26/16 18:00 05/03/16 17:59 04/26/16 19:30 Ondansetron HCl (Zofran) 4 mg Q6H PRN IVP Nausea & Vomiting 04/17/16 14:00 05/17/16 13:59 04/26/16 08:37 Pantoprazole (Protonix) 40 mg ACBREAKFAST ORAL 04/27/16 06:30 05/18/16 08:59 04/27/16 06:23 Potassium Chloride (K-Dur) 20 meq TWICE A DAY ORAL 04/17/16 18:00 05/17/16 17:59 04/26/16 17:23 Sodium Chloride (NaCl) 1 gm BID ORAL 04/25/16 21:00 05/25/16 20:59 04/26/16 17:25 Spironolactone (Aldactone) 100 mg DAILY ORAL 04/18/16 09:00 05/18/16 08:59 04/26/16 08:15 Zolpidem Tartrate 5 mg 5 mg HSPRN PRN ORAL Insomnia 04/26/16 15:45 05/26/16 15:44 Oliver Sky MD Apr 27, 2016 08:51
[2016-04-27] MEDS: Sodium Chloride 1gm Tab ORAL SCH ×2 (08:58→17:37)
[2016-04-27] MEDS: Metoprolol XL 100mg tab ORAL SCH (08:58)
[2016-04-27] MEDS: Spironolactone 50mg tab ORAL SCH (08:59)
[2016-04-27 09:02] LABS: MEAN CORPUSCULAR HEMOGLOBIN 35.3 PG (27.0-31.0); MEAN CORPUSCULAR HGB CONC 32.5 G/DL (32.0-36.0); MEAN CORPUSCULAR VOLUME 109 FL (80-99); MEAN PLATELET VOLUME 9.4 FL (6.5-10.1); PLATELET COUNT 48 K/UL (150-450); RED BLOOD COUNT 2.48 M/UL (4.70-6.10); RED CELL DISTRIBUTION WIDTH 15.9 % (11.6-14.8); WHITE BLOOD COUNT 5.2 K/UL (4.8-10.8)
--- NOTE | 2016-04-27 10:52 | General Progress Note ---
Assessment/Plan Assessment/Plan ASSESSMENT: 1. 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 >30k. Is Pending TIPS 2. Thrombocytopenia - btw 30-50k, hapto is low indicating DIC, also can be 2/2 micafungin v sepsis 3. Coagulopathy 2/2 cirrhosis 4. Anemia due chronic disease. H/H has been stable 5. Decreased hemoglobin and hematocrit, rule out gastrointestinal bleed. 6. Splenomegaly 7. Cirrhosis of the liver status post paracentesis. 8. Sepsis. RECOMMENDATIONS: 1. Transfuse of platelets goal >20k 2. Transfuse to hemoglobin goal >7 3. DIC panel reviewed, meds reviewed 4. Follow up Nephrology, Pulm, Renal, and GI recs 5. Continue pain meds 6. DVT prophylaxis with SCDs 7. GI prophylaxis with PPI. 8. DW staff. Thank you, Sophia Pizarro MD Subjective Constitutional: Reports: no symptoms HEENT: Reports: no symptoms Cardiovascular: Reports: no symptoms Respiratory: Reports: no symptoms Gastrointestinal/Abdominal: Reports: poor appetite Genitourinary: Reports: no symptoms Neurologic/Psychiatric: Reports: no symptoms Endocrine: Reports: no symptoms Hematologic/Lymphatic: Reports: anemia Allergies: Coded Allergies: No Known Allergies (Unverified , 04/07/16) Subjective not bleeding, no chills, alert today Objective Last 24 Hour Vital Signs Date Time Temp Pulse Resp B/P Pulse Ox O2 Delivery O2 Flow Rate FiO2 04/27/16 08:58 68 145/79 04/27/16 08:00 97.7 68 20 145/79 100 Room Air 04/27/16 04:00 97.9 61 20 115/57 99 Room Air 04/27/16 00:00 97.5 68 22 126/65 97 Room Air 04/26/16 20:00 97.9 61 20 126/60 100 Room Air 04/26/16 16:18 97.0 67 20 118/75 99 Room Air 04/26/16 12:25 97.8 68 19 114/61 99 Room Air Intake and Output 04/26/16 04/27/16 19:00 07:00 Intake Total 1080 ml 680 ml Output Total 340 ml 700 ml Balance 740 ml -20 ml Intake Oral 1080 ml 480 ml IV Total 200 ml Output Urine Total 340 ml 700 ml # Voids 1 # Bowel Movements 1 Laboratory Tests 04/27/16 05:00: White Blood Count 5.2, Red Blood Count 2.48L, Hemoglobin 8.7L, Hematocrit 26.9L , Mean Corpuscular Volume 109H, Mean Corpuscular Hemoglobin 35.3H, Mean Corpuscular Hemoglobin Concent 32.5, Red Cell Distribution Width 15.9H, Platelet Count 48L, Mean Platelet Volume 9.4, Neutrophils (%) (Auto) , Lymphocytes (%) (Auto) , Monocytes (%) (Auto) , Eosinophils (%) (Auto) , Basophils (%) (Auto) , Neutrophils % (Manual) [Pending], Lymphocytes % (Manual) [Pending], Platelet Estimate [Pending], Platelet Morphology [Pending], Sodium Level 138, Potassium Level 3.7, Chloride Level 103, Carbon Dioxide Level 23, Anion Gap 12, Blood Urea Nitrogen 15, Creatinine 0.9, Estimat Glomerular Filtration Rate > 60, Glucose Level 120H, Calcium Level 7.9L Height (Feet): 5 Height (Inches): 0.00 Weight (Pounds): 154 General Appearance: no apparent distress EENT: TMs normal Neck: supple Cardiovascular: regular rhythm Respiratory/Chest: no respiratory distress Abdomen: soft Extremities: non-tender Edema: 1+ Leg (L), 1+ Leg (R) Edema: mild edema Neurologic: alert Skin: warm/dry SOPHIA PIZARRO Apr 27, 2016 10:52
[2016-04-27 11:55] LABS: BAND NEUTROPHILS % (MANUAL) 1 % (0-8); BASOPHILS % (MANUAL) 0 % (0-2); EOSINOPHILS % (MANUAL) 4 % (0-3); LYMPHOCYTES % (MANUAL) 19 % (20-45); NEUTROPHILS % (MANUAL) 69 % (45-75); PLATELET ESTIMATE DECREASED; PLATELET MORPHOLOGY NORMAL; TOTAL CELLS COUNTED 100
[2016-04-27 12:03] VITALS: BP 104/68
[2016-04-27] MEDS: Lactulose 20gm/30ml UDC ORAL SCH ×2 (12:43→17:37)
--- NOTE | 2016-04-27 13:27 | Nephrology Progress Note ---
Assessment/Plan Problem List: (1) Asthma exacerbation (2) Alcoholic cirrhosis of liver with ascites (3) Thrombocytopenia (4) Hyponatremia (5) Anemia of other chronic disease Assessment Discussed with Dr Chiu Plan Monitor lytes - stable Renal function - Resolved Monitor H&H, transfuse as needed GI f/u Pending TIPS - not cleared per ID Hematology f/u Social Service consult - placement DVT Prophylaxis with SCDs Continue pain meds GI prophylaxis with PPI. AM labs Subjective Constitutional: Denies: chills, diaphoresis, fever, malaise, no symptoms, other , weakness HEENT: Denies: blurred vision, double vision, ear discharge, ear pain, eye pain , mouth pain, mouth swelling, no symptoms, nose congestion, nose pain, other, tearing, throat pain, throat swelling Genitourinary: Denies: burning, discharge, flank pain, frequency, hematuria, incontinence, no symptoms, other, pain, urgency Subjective In bed, denies any discomfort Objective Objective Last 24 Hour Vital Signs Date Time Temp Pulse Resp B/P Pulse Ox O2 Delivery O2 Flow Rate FiO2 04/27/16 12:03 97.9 62 19 104/68 100 Room Air 04/27/16 08:58 68 145/79 04/27/16 08:00 97.7 68 20 145/79 100 Room Air 04/27/16 04:00 97.9 61 20 115/57 99 Room Air 04/27/16 00:00 97.5 68 22 126/65 97 Room Air 04/26/16 20:00 97.9 61 20 126/60 100 Room Air 04/26/16 16:18 97.0 67 20 118/75 99 Room Air Intake and Output 04/26/16 04/27/16 19:00 07:00 Intake Total 1080 ml 680 ml Output Total 340 ml 700 ml Balance 740 ml -20 ml Intake Oral 1080 ml 480 ml IV Total 200 ml Output Urine Total 340 ml 700 ml # Voids 1 # Bowel Movements 1 Laboratory Tests 04/27/16 05:00: White Blood Count 5.2, Red Blood Count 2.48L, Hemoglobin 8.7L, Hematocrit 26.9L , Mean Corpuscular Volume 109H, Mean Corpuscular Hemoglobin 35.3H, Mean Corpuscular Hemoglobin Concent 32.5, Red Cell Distribution Width 15.9H, Platelet Count 48L, Mean Platelet Volume 9.4, Neutrophils (%) (Auto) , Lymphocytes (%) (Auto) , Monocytes (%) (Auto) , Eosinophils (%) (Auto) , Basophils (%) (Auto) , Differential Total Cells Counted 100, Neutrophils % ( Manual) 69, Lymphocytes % (Manual) 19L, Monocytes % (Manual) 7, Eosinophils % ( Manual) 4H, Basophils % (Manual) 0, Band Neutrophils 1, Platelet Estimate DecreasedL, Platelet Morphology Normal, Red Blood Cell Morphology Normal, Sodium Level 138, Potassium Level 3.7, Chloride Level 103, Carbon Dioxide Level 23, Anion Gap 12, Blood Urea Nitrogen 15, Creatinine 0.9, Estimat Glomerular Filtration Rate > 60, Glucose Level 120H, Calcium Level 7.9L Height (Feet): 5 Height (Inches): 0.00 Weight (Pounds): 154 General Appearance: alert EENT: normal ENT inspection Neck: normal alignment Cardiovascular: normal rate, regular rhythm, no JVD Respiratory/Chest: decreased breath sounds Abdomen: non tender, soft Extremities: normal range of motion, non-tender, no calf tenderness Neurologic: alert, oriented x 3, responsive, normal mood/affect Jeanna Mederos N.P. Apr 27, 2016 13:27
[2016-04-27] MEDS ORDERED: Tubing IV Secondary IV ONE (15:59)
[2016-04-27 16:00] VITALS: BP 106/70
--- NOTE | 2016-04-27 16:01 | Infectious Diseases Prog Note ---
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 UCx VRE ( colonizer ) HIV and Hep Panel :neg EtOH Cirrhosis, pending TIPS US : Cirrhosis with stigmata of portal hypertension including splenomegaly, ascites SP Paracentesis 04/10 - no evidence of SBP Thrombocytopenia VRE colonized NKDA Full Code PLAN: continue micafungin d# 11 / , daptomycin d# 5 ( VRE d# / ) ( 04/23 SP zyvox d# 2 - TCP ) ( 04/22 SP IV vancomcyin d# 3 ) f/u repeat BCx to document clearance WOULD DELAY TIPS UNTIL PT COMPLETES COURSE OF ABX AND REPEAT BLOOD CULTURES AFTER ONE WEEK OFF OF ABX ARE NEGATIVE Monitor CBC , temperatures monitor BMP monitor CXR Subjective Constitutional: Denies: anorexia, chills, drenching sweats, fatigue, fever, no symptoms, other Allergies: Coded Allergies: No Known Allergies (Unverified , 04/07/16) Objective Vital Signs Last 24 Hour Vital Signs Date Time Temp Pulse Resp B/P Pulse Ox O2 Delivery O2 Flow Rate FiO2 04/27/16 12:03 97.9 62 19 104/68 100 Room Air 04/27/16 08:58 68 145/79 04/27/16 08:00 97.7 68 20 145/79 100 Room Air 04/27/16 04:00 97.9 61 20 115/57 99 Room Air 04/27/16 00:00 97.5 68 22 126/65 97 Room Air 04/26/16 20:00 97.9 61 20 126/60 100 Room Air 04/26/16 16:18 97.0 67 20 118/75 99 Room Air Height (Feet): 5 Height (Inches): 0.00 Weight (Pounds): 154 Respiratory/Chest: normal breath sounds Cardiovascular: regularly irregular Abdomen: soft, non tender Neurologic/Psychiatric: abnormal gait Laboratory Tests Test 04/27/16 05:00 White Blood Count 5.2 K/UL (4.8-10.8) Red Blood Count 2.48 M/UL (4.70-6.10) L Hemoglobin 8.7 G/DL (14.2-18.0) L Hematocrit 26.9 % (42.0-52.0) L Mean Corpuscular Volume 109 FL (80-99) H Mean Corpuscular Hemoglobin 35.3 PG (27.0-31.0) H Mean Corpuscular Hemoglobin Concent 32.5 G/DL (32.0-36.0) Red Cell Distribution Width 15.9 % (11.6-14.8) H Platelet Count 48 K/UL (150-450) L Mean Platelet Volume 9.4 FL (6.5-10.1) Neutrophils (%) (Auto) % (45.0-75.0) Lymphocytes (%) (Auto) % (20.0-45.0) Monocytes (%) (Auto) % (1.0-10.0) Eosinophils (%) (Auto) % (0.0-3.0) Basophils (%) (Auto) % (0.0-2.0) Differential Total Cells Counted 100 Neutrophils % (Manual) 69 % (45-75) Lymphocytes % (Manual) 19 % (20-45) L Monocytes % (Manual) 7 % (1-10) Eosinophils % (Manual) 4 % (0-3) H Basophils % (Manual) 0 % (0-2) Band Neutrophils 1 % (0-8) Platelet Estimate Decreased L Platelet Morphology Normal Red Blood Cell Morphology Normal Sodium Level 138 mEQ/L (135-145) Potassium Level 3.7 mEQ/L (3.4-4.9) Chloride Level 103 mEQ/L (98-107) Carbon Dioxide Level 23 mEQ/L (20-30) Anion Gap 12 (5-15) Blood Urea Nitrogen 15 mg/dL (7-23) Creatinine 0.9 mg/dL (0.7-1.2) Estimat Glomerular Filtration Rate > 60 mL/min (>60) Glucose Level 120 mg/dL (74-106) H Calcium Level 7.9 mg/dL (8.6-10.2) L Current Medications Medications (Trade) Dose Ordered Sig/Bernardino Route PRN Reason Start Time Stop Time Status Last Admin Dose Admin Daptomycin/Sodium Chloride (Cubicin/Sodium Chloride) 110 ml @ 200 mls/hr Q24H IV 04/23/16 21:00 04/30/16 20:59 04/26/16 20:05 Dextrose (Dextrose 50%) STAT PRN IV Hypoglycemia 04/17/16 13:30 05/17/16 13:29 Furosemide (Lasix) 40 mg EVERY 12 HOURS IV 04/17/16 21:00 05/17/16 20:59 04/27/16 08:58 Lactulose (Cephulac) 30 gm THREE TIMES A DAY ORAL 04/17/16 14:00 05/17/16 13:59 04/27/16 12:43 Metoprolol Succinate 200 mg 200 mg DAILY ORAL 04/21/16 09:00 05/21/16 08:59 04/27/16 08:58 Micafungin Sodium/ Sodium Chloride (Mycamine/Sodium Chloride) 110 ml @ 110 mls/hr Q24H IVPB 04/26/16 18:00 05/03/16 17:59 04/26/16 19:30 Ondansetron HCl (Zofran) 4 mg Q6H PRN IVP Nausea & Vomiting 04/17/16 14:00 05/17/16 13:59 04/27/16 09:19 Pantoprazole (Protonix) 40 mg ACBREAKFAST ORAL 04/27/16 06:30 05/18/16 08:59 04/27/16 06:23 Potassium Chloride (K-Dur) 20 meq TWICE A DAY ORAL 04/17/16 18:00 05/17/16 17:59 04/27/16 08:59 Sodium Chloride (NaCl) 1 gm BID ORAL 04/25/16 21:00 05/25/16 20:59 04/27/16 08:58 Spironolactone (Aldactone) 100 mg DAILY ORAL 04/18/16 09:00 05/18/16 08:59 04/27/16 08:59 Zolpidem Tartrate 5 mg 5 mg HSPRN PRN ORAL Insomnia 04/26/16 15:45 05/26/16 15:44 JOANIE CRUZ M.D. Apr 27, 2016 16:01
[2016-04-27] MEDS: Micafungin 100 MG in NS 110 ML IVPB SCH (17:38)
--- NOTE | 2016-04-27 17:58 | Cardiac Electrophysiology PN ---
Assessment/Plan Status Narrative Technically difficult study due to poor acoustical windows. M-mode measurements of left ventricle not obtainable due to cardiac position (angle) Normal left ventricular chamber size, hyperdynamic systolic function and wall motion to extent visualized. Left ventricular ejection fraction estimated to be 70-75 %. Mild left ventricular hypertrophy. Anterior Echo-free space, may be due to pericardial fat or effusion. All other cardiac chamber sizes are within normal limits. Mild focal aortic valve sclerosis with adequate cusp excursion. Mildly thickened mitral valve leaflets with normal excursion. Mitral annulus and aortic root calcification. Normal pulmonic valve structure. Normal tricuspid valve structure. IVC at normal size with physiologic collapse. A color flow and spectral Doppler study was performed and revealed: Mild mitral regurgitation. Mitral diastolic velocities suggest reduced left ventricular relaxation c/w mild LV diastolic dysfunction (Grade I ). Trace tricuspid regurgitation. Tricuspid systolic velocities suggests peak right ventricular systolic pressure of 20 mmHg. Assessment/Plan 1. Paroxysmal atrial fibrillation. In SR on Toprol-XL 200 mg daily. off Coumadin for cirrhosis.. 2. Leg edema and shortness of breath secondary to cirrhosis. EF 70-75%. On Lasix 40 iv bid and Aldactone 100 po daily. 3. HTN. On Toprol XL 200 daily and Aldactone 100 and Lasix 40 iv bid. 4. Sepsis and fungemia on broad-spectrum antibiotics. 5. Anemia. 6. Hyponatremia, dilutional.Resolved 7. Thrombocytopenia likely secondary to splenomegaly and secondary to cirrhosis. 8. Alcoholic cirrhosis with ascites on Aldactone 100 mg daily.S/P Paracentesis . On Lactulose. DW Dr Sullivan who felt should avoid TIPS as patient has fungemia. Subjective Subjective Alert in NAD. No chest pain or SOB. No events overnight.Getting ready for dinner. Objective Last 24 Hour Vital Signs Date Time Temp Pulse Resp B/P Pulse Ox O2 Delivery O2 Flow Rate FiO2 04/27/16 16:00 98.2 61 18 106/70 100 Room Air 04/27/16 12:03 97.9 62 19 104/68 100 Room Air 04/27/16 08:58 68 145/79 04/27/16 08:00 97.7 68 20 145/79 100 Room Air 04/27/16 04:00 97.9 61 20 115/57 99 Room Air 04/27/16 00:00 97.5 68 22 126/65 97 Room Air 04/26/16 20:00 97.9 61 20 126/60 100 Room Air Intake and Output 04/26/16 04/27/16 19:00 07:00 Intake Total 1080 ml 680 ml Output Total 340 ml 700 ml Balance 740 ml -20 ml Intake Oral 1080 ml 480 ml IV Total 200 ml Output Urine Total 340 ml 700 ml # Voids 1 # Bowel Movements 1 Laboratory Tests Test 04/27/16 05:00 White Blood Count 5.2 K/UL (4.8-10.8) Red Blood Count 2.48 M/UL (4.70-6.10) L Hemoglobin 8.7 G/DL (14.2-18.0) L Hematocrit 26.9 % (42.0-52.0) L Mean Corpuscular Volume 109 FL (80-99) H Mean Corpuscular Hemoglobin 35.3 PG (27.0-31.0) H Mean Corpuscular Hemoglobin Concent 32.5 G/DL (32.0-36.0) Red Cell Distribution Width 15.9 % (11.6-14.8) H Platelet Count 48 K/UL (150-450) L Mean Platelet Volume 9.4 FL (6.5-10.1) Neutrophils (%) (Auto) % (45.0-75.0) Lymphocytes (%) (Auto) % (20.0-45.0) Monocytes (%) (Auto) % (1.0-10.0) Eosinophils (%) (Auto) % (0.0-3.0) Basophils (%) (Auto) % (0.0-2.0) Differential Total Cells Counted 100 Neutrophils % (Manual) 69 % (45-75) Lymphocytes % (Manual) 19 % (20-45) L Monocytes % (Manual) 7 % (1-10) Eosinophils % (Manual) 4 % (0-3) H Basophils % (Manual) 0 % (0-2) Band Neutrophils 1 % (0-8) Platelet Estimate Decreased L Platelet Morphology Normal Red Blood Cell Morphology Normal Sodium Level 138 mEQ/L (135-145) Potassium Level 3.7 mEQ/L (3.4-4.9) Chloride Level 103 mEQ/L (98-107) Carbon Dioxide Level 23 mEQ/L (20-30) Anion Gap 12 (5-15) Blood Urea Nitrogen 15 mg/dL (7-23) Creatinine 0.9 mg/dL (0.7-1.2) Estimat Glomerular Filtration Rate > 60 mL/min (>60) Glucose Level 120 mg/dL (74-106) H Calcium Level 7.9 mg/dL (8.6-10.2) L Objective HEAD AND NECK: No JVD. LUNGS: Decreased breath sounds. CARDIOVASCULAR: Regular S1 and S2 with no gallop or murmur. ABDOMEN: Distended. Ascites. EXTREMITIES: 1+ pitting edema. MUKESH IZAGUIRRE Apr 27, 2016 17:58
[2016-04-27 19:00] VITALS: BP 110/68
[2016-04-27] MEDS: DAPTOmycin 500 MG in NS 110 ML IV SCH (20:52)
[2016-04-27] MEDS: Zolpidem 5mg tab ORAL PRN (22:08)
[2016-04-28] VITALS: BP 103/64
[2016-04-28 04:00] VITALS: BP 98/63
[2016-04-28 06:43] LABS: MEAN CORPUSCULAR HEMOGLOBIN 35.7 PG (27.0-31.0); MEAN CORPUSCULAR VOLUME 108 FL (80-99); MEAN PLATELET VOLUME 11.8 FL (6.5-10.1); PLATELET COUNT 47 K/UL (150-450); RED BLOOD COUNT 2.46 M/UL (4.70-6.10); RED CELL DISTRIBUTION WIDTH 15.5 % (11.6-14.8); WHITE BLOOD COUNT 5.2 K/UL (4.8-10.8)
[2016-04-28 07:00] LABS: ANION GAP 12 (5-15); CALCIUM 8.3 mg/dL (8.6-10.2); CARBON DIOXIDE 23 mEQ/L (20-30); CHLORIDE 102 mEQ/L (98-107); CREATININE 0.8 mg/dL (0.7-1.2); GLOMERULAR FILTRATION RATE > 60 mL/min (>60); HEMOLYSIS 3; POTASSIUM 3.7 mEQ/L (3.4-4.9); SODIUM 137 mEQ/L (135-145)
--- NOTE | 2016-04-28 08:28 | General Progress Note ---
Assessment/Plan Problem List: (1) Anemia ICD Codes: D64.9 - Anemia, unspecified SNOMED: 036034188 (2) Alcoholic cirrhosis of liver with ascites ICD Codes: K70.31 - Alcoholic cirrhosis of liver with ascites SNOMED: 429309175 (3) Thrombocytopenia ICD Codes: D69.6 - Thrombocytopenia, unspecified SNOMED: 354952203 (4) Hyponatremia ICD Codes: E87.1 - Hypo-osmolality and hyponatremia SNOMED: 19801198 Assessment/Plan pending IR procedure and balloon dilatation of the tips continue current meds fu labs diuretics Subjective ROS Limited/Unobtainable: Yes Allergies: Coded Allergies: No Known Allergies (Unverified , 04/07/16) Subjective no event Objective Last 24 Hour Vital Signs Date Time Temp Pulse Resp B/P Pulse Ox O2 Delivery O2 Flow Rate FiO2 04/28/16 04:00 97.9 61 20 98/63 99 Room Air 04/28/16 04:00 96.3 61 20 98/63 99 Room Air 04/28/16 00:00 97.7 65 20 103/64 99 Room Air 04/27/16 19:00 98.1 67 18 110/68 100 Room Air 04/27/16 16:00 98.2 61 18 106/70 100 Room Air 04/27/16 12:03 97.9 62 19 104/68 100 Room Air 04/27/16 08:58 68 145/79 Intake and Output 04/27/16 04/28/16 18:59 06:59 Intake Total 470 ml 750 ml Output Total 500 ml Balance 470 ml 250 ml Intake Oral 360 ml 550 ml IV Total 110 ml 200 ml Output Urine Total 500 ml # Voids 4 2 # Bowel Movements 2 Laboratory Tests 04/28/16 06:00: White Blood Count 5.2, Red Blood Count 2.46L, Hemoglobin 8.8L, Hematocrit 26.7L , Mean Corpuscular Volume 108H, Mean Corpuscular Hemoglobin 35.7H, Mean Corpuscular Hemoglobin Concent 33.0, Red Cell Distribution Width 15.5H, Platelet Count 47L, Mean Platelet Volume 11.8H, Neutrophils (%) (Auto) , Lymphocytes (%) (Auto) , Monocytes (%) (Auto) , Eosinophils (%) (Auto) , Basophils (%) (Auto) , Neutrophils % (Manual) [Pending], Lymphocytes % (Manual) [Pending], Platelet Estimate [Pending], Platelet Morphology [Pending], Sodium Level 137, Potassium Level 3.7, Chloride Level 102, Carbon Dioxide Level 23, Anion Gap 12, Blood Urea Nitrogen 14, Creatinine 0.8, Estimat Glomerular Filtration Rate > 60, Glucose Level 80, Calcium Level 8.3L Height (Feet): 5 Height (Inches): 0.00 Weight (Pounds): 150 General Appearance: no apparent distress EENT: normal ENT inspection Neck: supple Cardiovascular: normal rate Respiratory/Chest: decreased breath sounds Abdomen: normal bowel sounds, non tender, soft Extremities: non-tender HARLEY LANDRY Apr 28, 2016 08:28
--- NOTE | 2016-04-28 08:38 | Pulmonology Progress Note ---
Assessment/Plan Assessment/Plan IMPRESSION: (1) Asthma (2) Alcoholic cirrhosis of liver with ascites (3) Hypoalbuminemia (4) Thrombocytopenia (5) Anemia Assessment/Plan -Optimize pulmonary hygiene/mobilize as tolerated -Respiratory stable -Monitor volumes/diuresis as tolerated -PRN O2; saturating well on RA -F/U cards, GI, ID recs -Monitor MS -Paracentesis as ordered by GI -F/U repeat Cx's -DVT Px -IS Subjective Interval Events: No change Constitutional: Reports: no symptoms HEENT: Repors: no symptoms Respiratory: Reports: no symptoms Cardiovascular: Reports: no symptoms Gastrointestinal/Abdominal: Reports: no symptoms Allergies: Coded Allergies: No Known Allergies (Unverified , 04/07/16) Objective Last 24 Hour Vital Signs Date Time Temp Pulse Resp B/P Pulse Ox O2 Delivery O2 Flow Rate FiO2 04/28/16 04:00 97.9 61 20 98/63 99 Room Air 04/28/16 04:00 96.3 61 20 98/63 99 Room Air 04/28/16 00:00 97.7 65 20 103/64 99 Room Air 04/27/16 19:00 98.1 67 18 110/68 100 Room Air 04/27/16 16:00 98.2 61 18 106/70 100 Room Air 04/27/16 12:03 97.9 62 19 104/68 100 Room Air 04/27/16 08:58 68 145/79 Intake and Output 04/27/16 04/28/16 19:00 07:00 Intake Total 470 ml 750 ml Output Total 500 ml Balance 470 ml 250 ml Intake Oral 360 ml 550 ml IV Total 110 ml 200 ml Output Urine Total 500 ml # Voids 4 2 # Bowel Movements 2 General Appearance: WD/WN HEENT: normocephalic Respiratory/Chest: chest wall non-tender, lungs clear Cardiovascular: normal peripheral pulses, normal rate Abdomen: normal bowel sounds Laboratory Tests 04/28/16 06:00: White Blood Count 5.2, Red Blood Count 2.46L, Hemoglobin 8.8L, Hematocrit 26.7L , Mean Corpuscular Volume 108H, Mean Corpuscular Hemoglobin 35.7H, Mean Corpuscular Hemoglobin Concent 33.0, Red Cell Distribution Width 15.5H, Platelet Count 47L, Mean Platelet Volume 11.8H, Neutrophils (%) (Auto) , Lymphocytes (%) (Auto) , Monocytes (%) (Auto) , Eosinophils (%) (Auto) , Basophils (%) (Auto) , Neutrophils % (Manual) [Pending], Lymphocytes % (Manual) [Pending], Platelet Estimate [Pending], Platelet Morphology [Pending], Sodium Level 137, Potassium Level 3.7, Chloride Level 102, Carbon Dioxide Level 23, Anion Gap 12, Blood Urea Nitrogen 14, Creatinine 0.8, Estimat Glomerular Filtration Rate > 60, Glucose Level 80, Calcium Level 8.3L Current Medications Medications (Trade) Dose Ordered Sig/Bernardino Route PRN Reason Start Time Stop Time Status Last Admin Dose Admin Daptomycin/Sodium Chloride (Cubicin/Sodium Chloride) 110 ml @ 200 mls/hr Q24H IV 04/23/16 21:00 04/30/16 20:59 04/27/16 20:52 Dextrose (Dextrose 50%) STAT PRN IV Hypoglycemia 04/17/16 13:30 05/17/16 13:29 Furosemide (Lasix) 40 mg EVERY 12 HOURS IV 04/17/16 21:00 05/17/16 20:59 04/27/16 08:58 Lactulose (Cephulac) 30 gm THREE TIMES A DAY ORAL 04/17/16 14:00 05/17/16 13:59 04/27/16 17:37 Metoprolol Succinate 200 mg 200 mg DAILY ORAL 04/21/16 09:00 05/21/16 08:59 04/27/16 08:58 Micafungin Sodium/ Sodium Chloride (Mycamine/Sodium Chloride) 110 ml @ 110 mls/hr Q24H IVPB 04/26/16 18:00 05/03/16 17:59 04/27/16 17:38 Ondansetron HCl (Zofran) 4 mg Q6H PRN IVP Nausea & Vomiting 04/17/16 14:00 05/17/16 13:59 04/27/16 09:19 Pantoprazole (Protonix) 40 mg ACBREAKFAST ORAL 04/27/16 06:30 05/18/16 08:59 04/28/16 05:28 Potassium Chloride (K-Dur) 20 meq TWICE A DAY ORAL 04/17/16 18:00 05/17/16 17:59 04/27/16 17:38 Sodium Chloride (NaCl) 1 gm BID ORAL 04/25/16 21:00 05/25/16 20:59 04/27/16 17:37 Spironolactone (Aldactone) 100 mg DAILY ORAL 04/18/16 09:00 05/18/16 08:59 04/27/16 08:59 Zolpidem Tartrate 5 mg 5 mg HSPRN PRN ORAL Insomnia 04/26/16 15:45 05/26/16 15:44 04/27/16 22:08 Oliver Sky MD Apr 28, 2016 08:38
[2016-04-28] MEDS: Metoprolol XL 100mg tab ORAL SCH (09:00)
[2016-04-28] MEDS: Spironolactone 50mg tab ORAL SCH ×2 (09:00→12:21)
[2016-04-28] MEDS: Lactulose 20gm/30ml UDC ORAL SCH ×3 (09:00→18:31)
[2016-04-28] MEDS: Sodium Chloride 1gm Tab ORAL SCH ×3 (09:00→18:30)
--- NOTE | 2016-04-28 09:41 | General Progress Note ---
Assessment/Plan Assessment/Plan ASSESSMENT: 1. Thrombocytopenia to liver cirrhosis and splenomegaly. >40k. Pending TIPS 2. Thrombocytopenia - btw 30-50k, hapto is low indicating DIC, also can be 2/2 micafungin v sepsis 3. Coagulopathy 2/2 cirrhosis 4. Anemia due chronic disease. H/H has been stable 5. Decreased hemoglobin and hematocrit, r/o GI bleed 6. Splenomegaly 7. Cirrhosis of the liver status post paracentesis. 8. Sepsis. RECOMMENDATIONS: 1. Transfuse of platelets goal >20k 2. Transfuse to hemoglobin goal >7 3. DIC panel reviewed, meds reviewed 4. Follow up Nephrology, Pulm, Renal, and GI recs 5. Continue pain meds 6. DVT prophylaxis with SCDs 7. GI prophylaxis with PPI. 8. staff. Thank you, Sophia Pizarro MD Subjective Constitutional: Reports: no symptoms HEENT: Reports: no symptoms Cardiovascular: Reports: no symptoms Respiratory: Reports: no symptoms Gastrointestinal/Abdominal: Reports: poor appetite Genitourinary: Reports: no symptoms Neurologic/Psychiatric: Reports: no symptoms Endocrine: Reports: no symptoms Hematologic/Lymphatic: Reports: anemia Allergies: Coded Allergies: No Known Allergies (Unverified , 04/07/16) Subjective not bleeding, no chills, is hungry in bed Objective Last 24 Hour Vital Signs Date Time Temp Pulse Resp B/P Pulse Ox O2 Delivery O2 Flow Rate FiO2 04/28/16 04:00 97.9 61 20 98/63 99 Room Air 04/28/16 04:00 96.3 61 20 98/63 99 Room Air 04/28/16 00:00 97.7 65 20 103/64 99 Room Air 04/27/16 19:00 98.1 67 18 110/68 100 Room Air 04/27/16 16:00 98.2 61 18 106/70 100 Room Air 04/27/16 12:03 97.9 62 19 104/68 100 Room Air Intake and Output 04/27/16 04/28/16 19:00 07:00 Intake Total 470 ml 750 ml Output Total 500 ml Balance 470 ml 250 ml Intake Oral 360 ml 550 ml IV Total 110 ml 200 ml Output Urine Total 500 ml # Voids 4 2 # Bowel Movements 2 Laboratory Tests 04/28/16 06:00: White Blood Count 5.2, Red Blood Count 2.46L, Hemoglobin 8.8L, Hematocrit 26.7L , Mean Corpuscular Volume 108H, Mean Corpuscular Hemoglobin 35.7H, Mean Corpuscular Hemoglobin Concent 33.0, Red Cell Distribution Width 15.5H, Platelet Count 47L, Mean Platelet Volume 11.8H, Neutrophils (%) (Auto) , Lymphocytes (%) (Auto) , Monocytes (%) (Auto) , Eosinophils (%) (Auto) , Basophils (%) (Auto) , Neutrophils % (Manual) [Pending], Lymphocytes % (Manual) [Pending], Platelet Estimate [Pending], Platelet Morphology [Pending], Sodium Level 137, Potassium Level 3.7, Chloride Level 102, Carbon Dioxide Level 23, Anion Gap 12, Blood Urea Nitrogen 14, Creatinine 0.8, Estimat Glomerular Filtration Rate > 60, Glucose Level 80, Calcium Level 8.3L Height (Feet): 5 Height (Inches): 0.00 Weight (Pounds): 150 General Appearance: no apparent distress EENT: TMs normal Neck: supple Cardiovascular: normal rate Respiratory/Chest: lungs clear Abdomen: no mass Extremities: non-tender Edema: 1+ Leg (L), 1+ Leg (R) Edema: mild edema Neurologic: alert Skin: warm/dry SOPHIA PIZARRO Apr 28, 2016 09:41
[2016-04-28 10:40] LABS: ANISOCYTOSIS 1+; BAND NEUTROPHILS % (MANUAL) 2 % (0-8); BASOPHILS % (MANUAL) 0 % (0-2); EOSINOPHILS % (MANUAL) 2 % (0-3); HYPOCHROMASIA 1+; LYMPHOCYTES % (MANUAL) 19 % (20-45); MACROCYTES 1+; NEUTROPHILS % (MANUAL) 69 % (45-75); PLATELET ESTIMATE DECREASED; PLATELET MORPHOLOGY NORMAL; TOTAL CELLS COUNTED 100
--- NOTE | 2016-04-28 11:16 | Nephrology Progress Note ---
Assessment/Plan Problem List: (1) Asthma exacerbation (2) Alcoholic cirrhosis of liver with ascites (3) Thrombocytopenia (4) Hyponatremia (5) Anemia of other chronic disease Assessment Discussed with Dr Chiu Plan Monitor lytes - stable Renal function - Resolved Monitor H&H, transfuse as needed GI f/u Pending TIPS - not cleared per ID Hematology f/u Social Service consult - placement DVT Prophylaxis with SCDs Continue pain meds GI prophylaxis with PPI. AM labs Subjective Constitutional: Denies: chills, diaphoresis, fever, malaise, no symptoms, other , weakness HEENT: Denies: blurred vision, double vision, ear discharge, ear pain, eye pain , mouth pain, mouth swelling, no symptoms, nose congestion, nose pain, other, tearing, throat pain, throat swelling Genitourinary: Denies: burning, discharge, flank pain, frequency, hematuria, incontinence, no symptoms, other, pain, urgency Neurologic/Psychiatric: Denies: anxiety, depressed, emotional problems, headache, no symptoms, numbness, other, paresthesia, pre-existing deficit, seizure, tingling, tremors, weakness Subjective In bed, denies any discomfort Objective Objective Last 24 Hour Vital Signs Date Time Temp Pulse Resp B/P Pulse Ox O2 Delivery O2 Flow Rate FiO2 04/28/16 04:00 97.9 61 20 98/63 99 Room Air 04/28/16 04:00 96.3 61 20 98/63 99 Room Air 04/28/16 00:00 97.7 65 20 103/64 99 Room Air 04/27/16 19:00 98.1 67 18 110/68 100 Room Air 04/27/16 16:00 98.2 61 18 106/70 100 Room Air 04/27/16 12:03 97.9 62 19 104/68 100 Room Air Intake and Output 04/27/16 04/28/16 19:00 07:00 Intake Total 470 ml 750 ml Output Total 500 ml Balance 470 ml 250 ml Intake Oral 360 ml 550 ml IV Total 110 ml 200 ml Output Urine Total 500 ml # Voids 4 2 # Bowel Movements 2 Laboratory Tests 04/28/16 06:00: White Blood Count 5.2, Red Blood Count 2.46L, Hemoglobin 8.8L, Hematocrit 26.7L , Mean Corpuscular Volume 108H, Mean Corpuscular Hemoglobin 35.7H, Mean Corpuscular Hemoglobin Concent 33.0, Red Cell Distribution Width 15.5H, Platelet Count 47L, Mean Platelet Volume 11.8H, Neutrophils (%) (Auto) , Lymphocytes (%) (Auto) , Monocytes (%) (Auto) , Eosinophils (%) (Auto) , Basophils (%) (Auto) , Differential Total Cells Counted 100, Neutrophils % ( Manual) 69, Lymphocytes % (Manual) 19L, Monocytes % (Manual) 8, Eosinophils % ( Manual) 2, Basophils % (Manual) 0, Band Neutrophils 2, Platelet Estimate DecreasedL, Platelet Morphology Normal, Hypochromasia 1+, Anisocytosis 1+, Macrocytosis 1+, Sodium Level 137, Potassium Level 3.7, Chloride Level 102, Carbon Dioxide Level 23, Anion Gap 12, Blood Urea Nitrogen 14, Creatinine 0.8, Estimat Glomerular Filtration Rate > 60, Glucose Level 80, Calcium Level 8.3L Height (Feet): 5 Height (Inches): 0.00 Weight (Pounds): 150 General Appearance: no apparent distress, alert EENT: normal ENT inspection, TMs normal Neck: normal alignment, supple, normal inspection Cardiovascular: normal rate, regular rhythm Respiratory/Chest: lungs clear, normal breath sounds, no respiratory distress, no accessory muscle use, respiratory distress Abdomen: non tender, soft, no organomegaly, no mass Extremities: normal range of motion, non-tender, normal inspection, no calf tenderness Neurologic: alert, oriented x 3, responsive, normal mood/affect Jeanna Mederos N.P. Apr 28, 2016 11:16
[2016-04-28 12:15] VITALS: BP 111/69
[2016-04-28 16:00] VITALS: BP 102/59
[2016-04-28] MEDS: Micafungin 100 MG in NS 110 ML IVPB SCH (18:31)
[2016-04-28 20:00] VITALS: BP 138/92
[2016-04-28] MEDS: Zolpidem 5mg tab ORAL PRN (20:54)
[2016-04-28] MEDS: DAPTOmycin 500 MG in NS 110 ML IV SCH (20:54)
[2016-04-28 23:23] VITALS: BP 120/78
[2016-04-29 04:00] VITALS: BP 116/73
[2016-04-29 07:11] LABS: MEAN CORPUSCULAR HEMOGLOBIN 35.9 PG (27.0-31.0); MEAN CORPUSCULAR HGB CONC 32.9 G/DL (32.0-36.0); MEAN CORPUSCULAR VOLUME 109 FL (80-99); PLATELET COUNT 37 K/UL (150-450); RED BLOOD COUNT 2.35 M/UL (4.70-6.10); RED CELL DISTRIBUTION WIDTH 15.1 % (11.6-14.8); WHITE BLOOD COUNT 4.5 K/UL (4.8-10.8)
[2016-04-29 07:21] LABS: ANION GAP 13 (5-15); CALCIUM 8.4 mg/dL (8.6-10.2); CARBON DIOXIDE 23 mEQ/L (20-30); CHLORIDE 102 mEQ/L (98-107); CREATININE 0.7 mg/dL (0.7-1.2); GLOMERULAR FILTRATION RATE > 60 mL/min (>60); HEMOLYSIS 2; POTASSIUM 3.8 mEQ/L (3.4-4.9); SODIUM 138 mEQ/L (135-145)
[2016-04-29] MEDS: Sodium Chloride 1gm Tab ORAL SCH ×2 (08:04→17:15)
[2016-04-29] MEDS: Spironolactone 50mg tab ORAL SCH (08:05)
[2016-04-29] MEDS: Lactulose 20gm/30ml UDC ORAL SCH ×3 (08:06→17:15)
[2016-04-29] MEDS: Metoprolol XL 100mg tab ORAL SCH (08:08)
[2016-04-29 08:28] VITALS: BP 114/78
--- NOTE | 2016-04-29 08:52 | Infectious Diseases Prog Note ---
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 UCx VRE ( colonizer ) HIV and Hep Panel :neg EtOH Cirrhosis, pending TIPS US : Cirrhosis with stigmata of portal hypertension including splenomegaly, ascites SP Paracentesis 04/10 - no evidence of SBP Thrombocytopenia VRE colonized NKDA Full Code PLAN: continue micafungin d# 13 / 14, daptomycin d# 7 ( VRE d# 8 / 14 ) ( 04/23 SP zyvox d# 2 - TCP ) ( 04/22 SP IV vancomcyin d# 3 ) f/u repeat BCx WOULD DELAY TIPS UNTIL PT COMPLETES COURSE OF ABX AND REPEAT BLOOD CULTURES AFTER ONE WEEK OFF OF ABX ARE NEGATIVE Monitor CBC , temperatures monitor BMP monitor CXR Subjective Allergies: Coded Allergies: No Known Allergies (Unverified , 04/07/16) Subjective comfortable Objective Vital Signs Last 24 Hour Vital Signs Date Time Temp Pulse Resp B/P Pulse Ox O2 Delivery O2 Flow Rate FiO2 04/29/16 08:28 97.2 92 20 114/78 95 Room Air 04/29/16 08:08 92 114/78 04/29/16 04:00 97.4 67 18 116/73 98 Room Air 04/28/16 23:23 97.3 69 18 120/78 97 Room Air 04/28/16 20:00 97.7 96 18 138/92 100 Room Air 04/28/16 16:00 98.2 63 20 102/59 99 Room Air 04/28/16 12:15 97.7 65 20 111/69 99 Room Air Height (Feet): 5 Height (Inches): 0.00 Weight (Pounds): 146 HEENT: atraumatic Respiratory/Chest: lungs clear Cardiovascular: regular rhythm Abdomen: no organomegaly Skin: no rash Laboratory Tests Test 04/29/16 05:30 White Blood Count 4.5 K/UL (4.8-10.8) L Red Blood Count 2.35 M/UL (4.70-6.10) L Hemoglobin 8.4 G/DL (14.2-18.0) L Hematocrit 25.6 % (42.0-52.0) L Mean Corpuscular Volume 109 FL (80-99) H Mean Corpuscular Hemoglobin 35.9 PG (27.0-31.0) H Mean Corpuscular Hemoglobin Concent 32.9 G/DL (32.0-36.0) Red Cell Distribution Width 15.1 % (11.6-14.8) H Platelet Count 37 K/UL (150-450) L Mean Platelet Volume 8.0 FL (6.5-10.1) Neutrophils (%) (Auto) % (45.0-75.0) Lymphocytes (%) (Auto) % (20.0-45.0) Monocytes (%) (Auto) % (1.0-10.0) Eosinophils (%) (Auto) % (0.0-3.0) Basophils (%) (Auto) % (0.0-2.0) Neutrophils % (Manual) Pending Lymphocytes % (Manual) Pending Platelet Estimate Pending Platelet Morphology Pending Sodium Level 138 mEQ/L (135-145) Potassium Level 3.8 mEQ/L (3.4-4.9) Chloride Level 102 mEQ/L (98-107) Carbon Dioxide Level 23 mEQ/L (20-30) Anion Gap 13 (5-15) Blood Urea Nitrogen 12 mg/dL (7-23) Creatinine 0.7 mg/dL (0.7-1.2) Estimat Glomerular Filtration Rate > 60 mL/min (>60) Glucose Level 86 mg/dL (74-106) Calcium Level 8.4 mg/dL (8.6-10.2) L Current Medications Medications (Trade) Dose Ordered Sig/Bernardino Route PRN Reason Start Time Stop Time Status Last Admin Dose Admin Daptomycin/Sodium Chloride (Cubicin/Sodium Chloride) 110 ml @ 200 mls/hr Q24H IV 04/23/16 21:00 04/30/16 20:59 04/28/16 20:54 Dextrose (Dextrose 50%) STAT PRN IV Hypoglycemia 04/17/16 13:30 05/17/16 13:29 Furosemide (Lasix) 40 mg EVERY 12 HOURS IV 04/17/16 21:00 05/17/16 20:59 04/28/16 20:53 Lactulose (Cephulac) 30 gm THREE TIMES A DAY ORAL 04/17/16 14:00 05/17/16 13:59 04/29/16 08:06 Metoprolol Succinate 200 mg 200 mg DAILY ORAL 04/21/16 09:00 05/21/16 08:59 04/27/16 08:58 Micafungin Sodium/ Sodium Chloride (Mycamine/Sodium Chloride) 110 ml @ 110 mls/hr Q24H IVPB 04/26/16 18:00 05/03/16 17:59 04/28/16 18:31 Ondansetron HCl (Zofran) 4 mg Q6H PRN IVP Nausea & Vomiting 04/17/16 14:00 05/17/16 13:59 04/27/16 09:19 Pantoprazole (Protonix) 40 mg ACBREAKFAST ORAL 04/27/16 06:30 05/18/16 08:59 04/29/16 05:31 Potassium Chloride (K-Dur) 20 meq TWICE A DAY ORAL 04/17/16 18:00 05/17/16 17:59 04/29/16 08:05 Sodium Chloride (NaCl) 1 gm BID ORAL 04/25/16 21:00 05/25/16 20:59 04/29/16 08:04 Spironolactone (Aldactone) 100 mg DAILY ORAL 04/18/16 09:00 05/18/16 08:59 04/29/16 08:05 Zolpidem Tartrate 5 mg 5 mg HSPRN PRN ORAL Insomnia 04/26/16 15:45 05/26/16 15:44 04/28/16 20:54 JOANIE CRUZ M.D. Apr 29, 2016 08:52
[2016-04-29 09:01] LABS: EOSINOPHILS % (MANUAL) 2 % (0-3); LYMPHOCYTES % (MANUAL) 14 % (20-45); NEUTROPHILS % (MANUAL) 69 % (45-75); TOTAL CELLS COUNTED 100
--- NOTE | 2016-04-29 09:01 | Pulmonology Progress Note ---
Assessment/Plan Assessment/Plan IMPRESSION: (1) Asthma (2) Alcoholic cirrhosis of liver with ascites (3) Hypoalbuminemia (4) Thrombocytopenia (5) Anemia Assessment/Plan -Optimize pulmonary hygiene/mobilize as tolerated -Respiratory stable -Monitor volumes/diuresis as tolerated -PRN O2; saturating well on RA -F/U cards, GI, ID recs -Monitor MS -Paracentesis as ordered by GI -F/U repeat Cx's -DVT Px -IS Subjective Interval Events: No change HEENT: Repors: no symptoms Respiratory: Reports: no symptoms Cardiovascular: Reports: no symptoms Gastrointestinal/Abdominal: Reports: no symptoms Allergies: Coded Allergies: No Known Allergies (Unverified , 04/07/16) Objective Last 24 Hour Vital Signs Date Time Temp Pulse Resp B/P Pulse Ox O2 Delivery O2 Flow Rate FiO2 04/29/16 08:28 97.2 92 20 114/78 95 Room Air 04/29/16 08:08 92 114/78 04/29/16 04:00 97.4 67 18 116/73 98 Room Air 04/28/16 23:23 97.3 69 18 120/78 97 Room Air 04/28/16 20:00 97.7 96 18 138/92 100 Room Air 04/28/16 16:00 98.2 63 20 102/59 99 Room Air 04/28/16 12:15 97.7 65 20 111/69 99 Room Air Intake and Output 04/28/16 04/29/16 19:00 07:00 Intake Total 360 ml 1010 ml Output Total 1200 ml Balance 360 ml -190 ml Intake Oral 360 ml 790 ml IV Total 220 ml Output Urine Total 1200 ml # Voids 3 2 # Bowel Movements 2 General Appearance: no acute distress HEENT: normocephalic Respiratory/Chest: chest wall non-tender, lungs clear Cardiovascular: normal peripheral pulses Laboratory Tests 04/29/16 05:30: White Blood Count 4.5L, Red Blood Count 2.35L, Hemoglobin 8.4L, Hematocrit 25.6L , Mean Corpuscular Volume 109H, Mean Corpuscular Hemoglobin 35.9H, Mean Corpuscular Hemoglobin Concent 32.9, Red Cell Distribution Width 15.1H, Platelet Count 37L, Mean Platelet Volume 8.0, Neutrophils (%) (Auto) , Lymphocytes (%) (Auto) , Monocytes (%) (Auto) , Eosinophils (%) (Auto) , Basophils (%) (Auto) , Neutrophils % (Manual) [Pending], Lymphocytes % (Manual) [Pending], Platelet Estimate [Pending], Platelet Morphology [Pending], Sodium Level 138, Potassium Level 3.8, Chloride Level 102, Carbon Dioxide Level 23, Anion Gap 13, Blood Urea Nitrogen 12, Creatinine 0.7, Estimat Glomerular Filtration Rate > 60, Glucose Level 86, Calcium Level 8.4L Current Medications Medications (Trade) Dose Ordered Sig/Bernardino Route PRN Reason Start Time Stop Time Status Last Admin Dose Admin Daptomycin/Sodium Chloride (Cubicin/Sodium Chloride) 110 ml @ 200 mls/hr Q24H IV 04/23/16 21:00 04/30/16 20:59 04/28/16 20:54 Dextrose (Dextrose 50%) STAT PRN IV Hypoglycemia 04/17/16 13:30 05/17/16 13:29 Furosemide (Lasix) 40 mg EVERY 12 HOURS IV 04/17/16 21:00 05/17/16 20:59 04/28/16 20:53 Lactulose (Cephulac) 30 gm THREE TIMES A DAY ORAL 04/17/16 14:00 05/17/16 13:59 04/29/16 08:06 Metoprolol Succinate 200 mg 200 mg DAILY ORAL 04/21/16 09:00 05/21/16 08:59 04/27/16 08:58 Micafungin Sodium/ Sodium Chloride (Mycamine/Sodium Chloride) 110 ml @ 110 mls/hr Q24H IVPB 04/26/16 18:00 05/03/16 17:59 04/28/16 18:31 Ondansetron HCl (Zofran) 4 mg Q6H PRN IVP Nausea & Vomiting 04/17/16 14:00 05/17/16 13:59 04/27/16 09:19 Pantoprazole (Protonix) 40 mg ACBREAKFAST ORAL 04/27/16 06:30 05/18/16 08:59 04/29/16 05:31 Potassium Chloride (K-Dur) 20 meq TWICE A DAY ORAL 04/17/16 18:00 05/17/16 17:59 04/29/16 08:05 Sodium Chloride (NaCl) 1 gm BID ORAL 04/25/16 21:00 05/25/16 20:59 04/29/16 08:04 Spironolactone (Aldactone) 100 mg DAILY ORAL 04/18/16 09:00 05/18/16 08:59 04/29/16 08:05 Zolpidem Tartrate 5 mg 5 mg HSPRN PRN ORAL Insomnia 04/26/16 15:45 05/26/16 15:44 04/28/16 20:54 Oliver Sky MD Apr 29, 2016 09:01
[2016-04-29 09:04] LABS: BAND NEUTROPHILS % (MANUAL) 0 % (0-8); BASOPHILS % (MANUAL) 0 % (0-2); PLATELET ESTIMATE DECREASED; PLATELET MORPHOLOGY NORMAL
[2016-04-29 09:06] LABS: ANISOCYTOSIS 1+; HYPOCHROMASIA 1+; MACROCYTES 1+
[2016-04-29 12:35] VITALS: BP 110/59
--- NOTE | 2016-04-29 13:01 | GI Progress Note ---
Assessment/Plan Problems: (1) Hypoalbuminemia ICD Codes: E88.09 - Other disorders of plasma-protein metabolism, not elsewhere classified SNOMED: 763388917 (2) Alcoholic cirrhosis of liver with ascites ICD Codes: K70.31 - Alcoholic cirrhosis of liver with ascites SNOMED: 290663017 (3) sepsis (4) Anemia ICD Codes: D64.9 - Anemia, unspecified SNOMED: 433104232 Status: stable, unchanged Status Narrative Discussed with Dr. Mcgovern. Assessment/Plan Cleared for DC per GI standpoint >> TIPs can be done as outpatient s/p paracentesis #2 >> 2.1 L yield s/p paracentesis #1 >> ascites negative for growth OB stool negative hep panel negative IR procedure and balloon dilatation of the TIPS pending elevated ammonia >> Lactulose + Xifaxan low sodium diet monitor H&H, transfuse prn ppi diuretics fu labs Subjective Gastrointestinal/Abdominal: Reports: abdomen distended Objective Last 24 Hour Vital Signs Date Time Temp Pulse Resp B/P Pulse Ox O2 Delivery O2 Flow Rate FiO2 04/29/16 12:35 97.9 72 19 110/59 98 Room Air 04/29/16 08:28 97.2 92 20 114/78 95 Room Air 04/29/16 08:08 92 114/78 04/29/16 04:00 97.4 67 18 116/73 98 Room Air 04/28/16 23:23 97.3 69 18 120/78 97 Room Air 04/28/16 20:00 97.7 96 18 138/92 100 Room Air 04/28/16 16:00 98.2 63 20 102/59 99 Room Air Intake and Output 04/28/16 04/29/16 19:00 07:00 Intake Total 360 ml 1010 ml Output Total 1200 ml Balance 360 ml -190 ml Intake Oral 360 ml 790 ml IV Total 220 ml Output Urine Total 1200 ml # Voids 3 2 # Bowel Movements 2 Laboratory Tests Test 04/29/16 05:30 White Blood Count 4.5 K/UL (4.8-10.8) L Red Blood Count 2.35 M/UL (4.70-6.10) L Hemoglobin 8.4 G/DL (14.2-18.0) L Hematocrit 25.6 % (42.0-52.0) L Mean Corpuscular Volume 109 FL (80-99) H Mean Corpuscular Hemoglobin 35.9 PG (27.0-31.0) H Mean Corpuscular Hemoglobin Concent 32.9 G/DL (32.0-36.0) Red Cell Distribution Width 15.1 % (11.6-14.8) H Platelet Count 37 K/UL (150-450) L Mean Platelet Volume 8.0 FL (6.5-10.1) Neutrophils (%) (Auto) % (45.0-75.0) Lymphocytes (%) (Auto) % (20.0-45.0) Monocytes (%) (Auto) % (1.0-10.0) Eosinophils (%) (Auto) % (0.0-3.0) Basophils (%) (Auto) % (0.0-2.0) Differential Total Cells Counted 100 Neutrophils % (Manual) 69 % (45-75) Lymphocytes % (Manual) 14 % (20-45) L Monocytes % (Manual) 15 % (1-10) H Eosinophils % (Manual) 2 % (0-3) Basophils % (Manual) 0 % (0-2) Band Neutrophils 0 % (0-8) Platelet Estimate Decreased L Platelet Morphology Normal Hypochromasia 1+ Anisocytosis 1+ Macrocytosis 1+ Sodium Level 138 mEQ/L (135-145) Potassium Level 3.8 mEQ/L (3.4-4.9) Chloride Level 102 mEQ/L (98-107) Carbon Dioxide Level 23 mEQ/L (20-30) Anion Gap 13 (5-15) Blood Urea Nitrogen 12 mg/dL (7-23) Creatinine 0.7 mg/dL (0.7-1.2) Estimat Glomerular Filtration Rate > 60 mL/min (>60) Glucose Level 86 mg/dL (74-106) Calcium Level 8.4 mg/dL (8.6-10.2) L Height (Feet): 5 Height (Inches): 0.00 Weight (Pounds): 146 General Appearance: no apparent distress, alert Cardiovascular: normal rate Respiratory/Chest: normal breath sounds, no respiratory distress Abdominal Exam: normal bowel sounds, non tender, soft, ascites Extremities: normal range of motion Objective Procedure: US ABD Complete Indications: Abdominal pain IMPRESSION: Cirrhosis with stigmata of portal hypertension including splenomegaly, ascites. Patent intrahepatic portosystemic shunt with apparently elevated velocity at its hepatic venous end, suggesting high-grade stenosis. This is potentially amenable to percutaneous intervention, as clinically indicated. Gallbladder stones and sludge. Mural thickening likely secondary to presence of ascites. Correlate clinically. Midline structures including pancreas, distal abdominal aorta obscured Rain Mercado N.P. Apr 29, 2016 13:00
--- NOTE | 2016-04-29 15:31 | Nephrology Progress Note ---
Assessment/Plan Problem List: (1) Asthma exacerbation (2) Alcoholic cirrhosis of liver with ascites (3) Thrombocytopenia (4) Hyponatremia (5) Anemia of other chronic disease Assessment Discussed with Dr Chiu Plan Monitor lytes - stable Renal function - Resolved Monitor H&H, transfuse as needed GI f/u OB stool negative hep panel negative Pending TIPS - not cleared per ID Hematology f/u Social Service consult - placement DVT Prophylaxis with SCDs Continue pain meds GI prophylaxis with PPI. AM labs Subjective Constitutional: Denies: chills, diaphoresis, fever, malaise, no symptoms, other , weakness HEENT: Denies: blurred vision, double vision, ear discharge, ear pain, eye pain , mouth pain, mouth swelling, no symptoms, nose congestion, nose pain, other, tearing, throat pain, throat swelling Genitourinary: Denies: burning, discharge, flank pain, frequency, hematuria, incontinence, no symptoms, other, pain, urgency Neurologic/Psychiatric: Denies: anxiety, depressed, emotional problems, headache, no symptoms, numbness, other, paresthesia, pre-existing deficit, seizure, tingling, tremors, weakness Subjective In bed, denies any discomfort Objective Objective Last 24 Hour Vital Signs Date Time Temp Pulse Resp B/P Pulse Ox O2 Delivery O2 Flow Rate FiO2 04/29/16 12:35 97.9 72 19 110/59 98 Room Air 04/29/16 08:28 97.2 92 20 114/78 95 Room Air 04/29/16 08:08 92 114/78 04/29/16 04:00 97.4 67 18 116/73 98 Room Air 04/28/16 23:23 97.3 69 18 120/78 97 Room Air 04/28/16 20:00 97.7 96 18 138/92 100 Room Air 04/28/16 16:00 98.2 63 20 102/59 99 Room Air Intake and Output 04/28/16 04/29/16 19:00 07:00 Intake Total 360 ml 1010 ml Output Total 1200 ml Balance 360 ml -190 ml Intake Oral 360 ml 790 ml IV Total 220 ml Output Urine Total 1200 ml # Voids 3 2 # Bowel Movements 2 Laboratory Tests 04/29/16 05:30: White Blood Count 4.5L, Red Blood Count 2.35L, Hemoglobin 8.4L, Hematocrit 25.6L , Mean Corpuscular Volume 109H, Mean Corpuscular Hemoglobin 35.9H, Mean Corpuscular Hemoglobin Concent 32.9, Red Cell Distribution Width 15.1H, Platelet Count 37L, Mean Platelet Volume 8.0, Neutrophils (%) (Auto) , Lymphocytes (%) (Auto) , Monocytes (%) (Auto) , Eosinophils (%) (Auto) , Basophils (%) (Auto) , Differential Total Cells Counted 100, Neutrophils % ( Manual) 69, Lymphocytes % (Manual) 14L, Monocytes % (Manual) 15H, Eosinophils % (Manual) 2, Basophils % (Manual) 0, Band Neutrophils 0, Platelet Estimate DecreasedL, Platelet Morphology Normal, Hypochromasia 1+, Anisocytosis 1+, Macrocytosis 1+, Sodium Level 138, Potassium Level 3.8, Chloride Level 102, Carbon Dioxide Level 23, Anion Gap 13, Blood Urea Nitrogen 12, Creatinine 0.7, Estimat Glomerular Filtration Rate > 60, Glucose Level 86, Calcium Level 8.4L Height (Feet): 5 Height (Inches): 0.00 Weight (Pounds): 146 General Appearance: no apparent distress, alert EENT: normal ENT inspection Neck: non-tender, normal alignment, supple, normal inspection Cardiovascular: normal rate, regular rhythm, no JVD Respiratory/Chest: normal breath sounds Abdomen: soft, distended Extremities: normal range of motion, non-tender Neurologic: alert, oriented x 3, responsive, normal mood/affect Jeanna Mederos N.P. Apr 29, 2016 15:31
[2016-04-29 16:00] VITALS: BP 117/75
--- NOTE | 2016-04-29 16:21 | General Progress Note ---
Assessment/Plan Assessment/Plan ASSESSMENT: 1. Thrombocytopenia to liver cirrhosis and splenomegaly. >30-60k. Pending TIPS 2. Thrombocytopenia - btw 30-50k, hapto is low indicating DIC, also can be 2/2 micafungin v sepsis 3. Coagulopathy 2/2 cirrhosis 4. Anemia due chronic disease. H/H has been stable 5. Decreased hemoglobin and hematocrit, r/o GI bleed 6. Splenomegaly 7. Cirrhosis of the liver status post paracentesis. 8. Sepsis. RECOMMENDATIONS: 1. Transfuse of platelets goal >20k 2. Transfuse to hemoglobin goal >7 3. DIC panel reviewed, meds reviewed 4. Follow up Nephrology, Pulm, Renal, and GI recs 5. Continue pain meds 6. DVT prophylaxis with SCDs 7. GI prophylaxis with PPI. 8. staff. Thank you, Suresh Pizarro MD Subjective Constitutional: Reports: no symptoms HEENT: Reports: no symptoms Cardiovascular: Reports: no symptoms Respiratory: Reports: no symptoms Gastrointestinal/Abdominal: Reports: poor appetite Genitourinary: Reports: no symptoms Neurologic/Psychiatric: Reports: no symptoms Endocrine: Reports: no symptoms Hematologic/Lymphatic: Reports: anemia Allergies: Coded Allergies: No Known Allergies (Unverified , 04/07/16) Subjective no fevers, no hematochezia/hematemesis Objective Last 24 Hour Vital Signs Date Time Temp Pulse Resp B/P Pulse Ox O2 Delivery O2 Flow Rate FiO2 04/29/16 12:35 97.9 72 19 110/59 98 Room Air 04/29/16 08:28 97.2 92 20 114/78 95 Room Air 04/29/16 08:08 92 114/78 04/29/16 04:00 97.4 67 18 116/73 98 Room Air 04/28/16 23:23 97.3 69 18 120/78 97 Room Air 04/28/16 20:00 97.7 96 18 138/92 100 Room Air Intake and Output 04/28/16 04/29/16 19:00 07:00 Intake Total 360 ml 1010 ml Output Total 1200 ml Balance 360 ml -190 ml Intake Oral 360 ml 790 ml IV Total 220 ml Output Urine Total 1200 ml # Voids 3 2 # Bowel Movements 2 Laboratory Tests 04/29/16 05:30: White Blood Count 4.5L, Red Blood Count 2.35L, Hemoglobin 8.4L, Hematocrit 25.6L , Mean Corpuscular Volume 109H, Mean Corpuscular Hemoglobin 35.9H, Mean Corpuscular Hemoglobin Concent 32.9, Red Cell Distribution Width 15.1H, Platelet Count 37L, Mean Platelet Volume 8.0, Neutrophils (%) (Auto) , Lymphocytes (%) (Auto) , Monocytes (%) (Auto) , Eosinophils (%) (Auto) , Basophils (%) (Auto) , Differential Total Cells Counted 100, Neutrophils % ( Manual) 69, Lymphocytes % (Manual) 14L, Monocytes % (Manual) 15H, Eosinophils % (Manual) 2, Basophils % (Manual) 0, Band Neutrophils 0, Platelet Estimate DecreasedL, Platelet Morphology Normal, Hypochromasia 1+, Anisocytosis 1+, Macrocytosis 1+, Sodium Level 138, Potassium Level 3.8, Chloride Level 102, Carbon Dioxide Level 23, Anion Gap 13, Blood Urea Nitrogen 12, Creatinine 0.7, Estimat Glomerular Filtration Rate > 60, Glucose Level 86, Calcium Level 8.4L Height (Feet): 5 Height (Inches): 0.00 Weight (Pounds): 146 General Appearance: no apparent distress EENT: TMs normal Neck: normal alignment Cardiovascular: regular rhythm Respiratory/Chest: normal breath sounds Abdomen: non tender Extremities: non-tender Edema: 1+ Leg (L), 1+ Leg (R) Edema: mild edema Neurologic: alert Skin: warm/dry Suresh Pizarro Apr 29, 2016 16:21
--- NOTE | 2016-04-29 18:47 | Cardiac Electrophysiology PN ---
Assessment/Plan Status Narrative Technically difficult study due to poor acoustical windows. M-mode measurements of left ventricle not obtainable due to cardiac position (angle) Normal left ventricular chamber size, hyperdynamic systolic function and wall motion to extent visualized. Left ventricular ejection fraction estimated to be 70-75 %. Mild left ventricular hypertrophy. Anterior Echo-free space, may be due to pericardial fat or effusion. All other cardiac chamber sizes are within normal limits. Mild focal aortic valve sclerosis with adequate cusp excursion. Mildly thickened mitral valve leaflets with normal excursion. Mitral annulus and aortic root calcification. Normal pulmonic valve structure. Normal tricuspid valve structure. IVC at normal size with physiologic collapse. A color flow and spectral Doppler study was performed and revealed: Mild mitral regurgitation. Mitral diastolic velocities suggest reduced left ventricular relaxation c/w mild LV diastolic dysfunction (Grade I ). Trace tricuspid regurgitation. Tricuspid systolic velocities suggests peak right ventricular systolic pressure of 20 mmHg. Assessment/Plan 1. Paroxysmal atrial fibrillation. In SR on Toprol-XL 200 mg daily. 2. Leg edema and shortness of breath secondary to cirrhosis. EF 70-75%. On Lasix 40 iv bid and Aldactone 100 po daily. 3. HTN. On Toprol XL 200 daily and Aldactone 100 and Lasix 40 iv bid. 4. Sepsis and fungemia on broad-spectrum antibiotics. 5. Anemia. 6. Hyponatremia, dilutional.Resolved 7. Thrombocytopenia likely secondary to splenomegaly and secondary to cirrhosis. 8. Alcoholic cirrhosis with ascites on Aldactone 100 mg daily.S/P Paracentesis . On Lactulose. Avoid TIPS as patient has fungemia. Subjective Subjective Alert in NAD. No chest pain or SOB or palpitations. Objective Last 24 Hour Vital Signs Date Time Temp Pulse Resp B/P Pulse Ox O2 Delivery O2 Flow Rate FiO2 04/29/16 12:35 97.9 72 19 110/59 98 Room Air 04/29/16 08:28 97.2 92 20 114/78 95 Room Air 04/29/16 08:08 92 114/78 04/29/16 04:00 97.4 67 18 116/73 98 Room Air 04/28/16 23:23 97.3 69 18 120/78 97 Room Air 04/28/16 20:00 97.7 96 18 138/92 100 Room Air Intake and Output 04/28/16 04/29/16 19:00 07:00 Intake Total 360 ml 1010 ml Output Total 1200 ml Balance 360 ml -190 ml Intake Oral 360 ml 790 ml IV Total 220 ml Output Urine Total 1200 ml # Voids 3 2 # Bowel Movements 2 Laboratory Tests Test 04/29/16 05:30 White Blood Count 4.5 K/UL (4.8-10.8) L Red Blood Count 2.35 M/UL (4.70-6.10) L Hemoglobin 8.4 G/DL (14.2-18.0) L Hematocrit 25.6 % (42.0-52.0) L Mean Corpuscular Volume 109 FL (80-99) H Mean Corpuscular Hemoglobin 35.9 PG (27.0-31.0) H Mean Corpuscular Hemoglobin Concent 32.9 G/DL (32.0-36.0) Red Cell Distribution Width 15.1 % (11.6-14.8) H Platelet Count 37 K/UL (150-450) L Mean Platelet Volume 8.0 FL (6.5-10.1) Neutrophils (%) (Auto) % (45.0-75.0) Lymphocytes (%) (Auto) % (20.0-45.0) Monocytes (%) (Auto) % (1.0-10.0) Eosinophils (%) (Auto) % (0.0-3.0) Basophils (%) (Auto) % (0.0-2.0) Differential Total Cells Counted 100 Neutrophils % (Manual) 69 % (45-75) Lymphocytes % (Manual) 14 % (20-45) L Monocytes % (Manual) 15 % (1-10) H Eosinophils % (Manual) 2 % (0-3) Basophils % (Manual) 0 % (0-2) Band Neutrophils 0 % (0-8) Platelet Estimate Decreased L Platelet Morphology Normal Hypochromasia 1+ Anisocytosis 1+ Macrocytosis 1+ Sodium Level 138 mEQ/L (135-145) Potassium Level 3.8 mEQ/L (3.4-4.9) Chloride Level 102 mEQ/L (98-107) Carbon Dioxide Level 23 mEQ/L (20-30) Anion Gap 13 (5-15) Blood Urea Nitrogen 12 mg/dL (7-23) Creatinine 0.7 mg/dL (0.7-1.2) Estimat Glomerular Filtration Rate > 60 mL/min (>60) Glucose Level 86 mg/dL (74-106) Calcium Level 8.4 mg/dL (8.6-10.2) L Objective HEAD AND NECK: No JVD. LUNGS: Decreased breath sounds. CARDIOVASCULAR: Regular S1 and S2 with no gallop or murmur. ABDOMEN: Distended. Ascites. EXTREMITIES: 1+ pitting edema. MUKESH IZAGUIRRE Apr 29, 2016 18:47
[2016-04-29] MEDS ORDERED: FUROSEMIDE40 MG/4 ML IV (19:07)
[2016-04-29] MEDS ORDERED: LACTULOSE20 GM/301 ORAL (19:07)
[2016-04-29] MEDS ORDERED: DAPTOMYCIN500 MG IV (19:07)
[2016-04-29] MEDS ORDERED: TOPROL XL100 MG ORAL (19:08)
[2016-04-29] MEDS ORDERED: MYCAMINE100 M1 IVPB (19:08)
[2016-04-29] MEDS ORDERED: ZOFRAN4 M3 ORAL (19:09)
[2016-04-29] MEDS ORDERED: PROTONIX40 MG ORAL (19:09)
[2016-04-29] MEDS ORDERED: ZOFRAN 4 MG4 MG/2 ML IV (19:09)
[2016-04-29] MEDS ORDERED: POTASSIUM CHLO10 ME2 PO (19:12)
[2016-04-29] MEDS ORDERED: SODIUM CHLORIDE1 GM PO (19:13)
[2016-04-29] MEDS ORDERED: SPIRONOLACTONE50 MG ORAL (19:14)
[2016-04-29] MEDS ORDERED: AMBIEN5 MG ORAL (19:14)
[2016-04-29] MEDS ORDERED: NS 275ml ONE (20:29)
--- NOTE | 2016-04-30 01:37 | Electroencephalogram ---
SUBJECTIVE: This is a 60-year-old male, who is currently awake and comfortable. No distress. PHYSICAL EXAMINATION: VITAL SIGNS: Blood pressure is 130/70, pulse rate 74, respirations 18. SKIN: Good skin turgor. HEENT: NAD. CHEST: Bilaterally clear. CARDIOVASCULAR: Regular rhythm. ABDOMEN: Soft. EXTREMITIES: CCE. NEUROLOGIC: No focal deficit. ASSESSMENT AND PLAN: 1. Depression. 2. Ascites. 3. Cirrhosis. Continue with dose. 4. Continue current treatment. Chepe Valdez M.D. DR: EFFIE JOB#: [id number] CC:
--- NOTE | 2016-04-30 14:04 | Discharge Summary ---
Discharge Summary Hospital Course Date of Admission Apr 08, 2016 at 00:00 Date of Discharge Apr 29, 2016 at 20:30 Admitting Diagnosis severe sepsis, cirrhosis HPI Alvarado Lee is a 60 year old male who was admitted on Apr 08, 2016 at 00: 00 for Severe Sepsis, Cirrhosis Hospital Course dc summary dictated #[id number] Discharge Medications Continued Medications: DAPTOmycin (DAPTOmycin) 500 Mg Vial 500 MG IV DAILY for 6 Days, VIAL Furosemide* (Lasix*) 40 Mg/4 Ml Solution 40 MG IV EVERY 12 HOURS, VIAL Lactulose (Lactulose*) 20 Gm/30 Ml Solution 30 ML ORAL TID, ML 0 Refills Metoprolol Succinate* (Toprol Xl*) 100 Mg Tab.er.24h 200 MG ORAL DAILY, TAB 0 Refills Micafungin (Mycamine) 100 Mg Vial 100 MG IVPB for 1 Day, VIAL Ondansetron* (Zofran*) 4 Mg/2 Ml Vial 4 MG IV Q6H PRN for Nausea & Vomiting, VIAL Pantoprazole* (Protonix*) 40 Mg Tablet.dr 40 MG ORAL DAILY, TAB Potassium Chloride (Potassium Chloride) 10 Meq Tab.er.prt 20 MEQ PO BID, TAB Sodium Chloride* (Sodium Chloride*) 1 Gm Tablet 1 GM PO BID, TAB Spironolactone* (Aldactone*) 50 Mg Tablet 100 MG ORAL DAILY, TAB Zolpidem Tartrate* (Ambien*) 5 Mg Tablet 5 MG ORAL BEDTIME PRN for Insomnia, TAB Discharge Condition Upon Discharge: stable Discharge Disposition Patient was discharged to SNF ( for IV antibiotics) Discharge Diagnoses: Discharge Instructions Discharge Instructions Special Instructions I have been assigned to complete a D/C Summary on this account. I was not involved in the patient management Lori Guevara NP (Vanchtein) Apr 30, 2016 14:04
--- NOTE | 2016-05-01 07:08 | Discharge Summary 2 SIG ---
DATE OF ADMISSION: 04/08/2016 DATE OF DISCHARGE: 04/29/2016 HISTORY OF PRESENT ILLNESS: 60-year-old male, presented with increased shortness of breath, getting markedly worse in the last few days. The patient was recently discharged from [facility]. The patient with history of cirrhosis, noted jaundice. The patient given breathing treatment by emergency medical services with some improvement. The patient with prior history of asthma. Upon presentation, the patient was afebrile. No leukocytosis. Noted high lactic acid level. The patient had expiratory wheezes. Chest x-ray revealed no acute cardiopulmonary disease. ABG revealed respiratory alkalosis. Septic workup initiated. The patient started on empiric antibiotics. Another nebulizing treatment provided along with the loading IV steroid dose. The patient transferred to telemetry for further management. ADMITTING DIAGNOSES: 1. Severe sepsis. 2. Alcoholic cirrhosis of liver with ascites. 3. Acute asthma exacerbation. HOSPITAL COURSE: The patient was admitted. GI, ID, reimbursement director, medical records director, and manager bench were all involved in patient's care. The patient with alcoholic liver disease with ascites. The patient undergone paracentesis x2 on 04/20/2016, which yielded 2100 mL of ascitic fluid and prior to that on 04/09/2016, which yielded 3800 mL of ascitic fluid. Ascitic fluid was negative , no evidence of spontaneous bacterial peritonitis Stool for OB was negative. Hepatitis panel was negative. Noted elevated ammonia. The patient was treated with lactulose and Xifaxan. The patient started on PPI as well as the diuretics. Renal parameters and electrolytes were closely monitored. Antiemetic provided as needed. GI recommended TIPS procedure. ID followed patient. Urine culture positive for VRE ,colonized as per ID. Sputum culture negative. Ascitic fluid negative as mentioned above. Blood culture positive with VRE as well as Sandi. Echocardiogram revealed ejection fraction of 70% to 75%, right ventricular systolic pressure 25, mild LVH. However, no evidence of vegetation. The patient was on antibiotics. PICC line was discontinued , PICC line tip culture negative, Antibiotic regimen was optimized by Infectious Disease doctor, who closely followed the patient. Prior to discharge patient on daptomycin and micafungin, which [facility]. The duration of time specified by ID. Chest x-ray was negative for any acute cardiopulmonary disease. Supplemental oxygen and pulmonary toilet provided as needed. General [employer] Yard followed. The patient was on IV steroids, which gradually tapered and changed to p.o. Prior to discharge, respiratory status was stable. Hemoglobin and hematocrit remained in the baseline. Hematology followed for coagulopathy. INR was closely monitored, trending down, likely due to the underlying liver disease. Hyponatremia, likely depletional, resolved. Blood pressure was managed with beta-neva and diuretic and was stable. The patient with evidence of paroxysmal atrial fibrillation. On beta-neva for blood pressure and heart rate control. Diuretic, Lasix, and Aldactone, continue. Hepatitis panel was negative. Bilirubin trending down. LFT down to normal. ID doctor recommended to delay TIPS until the patient completed IV antibiotics , repeat blood culture in one week after the patient off antibiotics. If blood culture negative, then can proceed with TIPS. The patient was stable for transfer to [facility] for [facility] for IV antibiotics. DISCHARGE DIAGNOSES: 1. Severe sepsis with bacteremia and fungemia. 2. Alcoholic cirrhosis of the liver with ascites. 3. Status post paracentesis x2. 4. Hepatic encephalopathy 5. Acute asthma exacerbation. 6. Thrombocytopenia. 7. Paroxysmal atrial fibrillation. 8. Hypertension. 9. Anemia. 10. Hyponatremia, likely depletional DISCHARGE MEDICATIONS: See medication reconciliation list. DISCHARGE INSTRUCTIONS: The [facility] to [facility]. Closely follow and monitor cardiopulmonary status. Monitor LFT daily, hemoglobin, and hematocrit. Supplemental oxygen as needed p.r.n. Continue IV antibiotics for a duration of time specified by the ID. Repeat blood culture in one week after the patient is off antibiotics. If blood culture negative, the patient can proceed to do TIPS. Marquise Chiu M.D. I have been assigned to dictate discharge summary on this account and I was not involved in the patient's management. Lori Guevara (Vanchtein) N.P. DR: DEMETRIUS JOB#: [id number] CC: MARIO
== END 2016-04-29 20:30 | DRG 710 ==
LOC: EDBD 20:24 → EMR 21:20 → 2E 04-08 → EDBEDREQ 04-08 16:00 → EMR 04-08 16:55 → 4W 04-17 12:19
PROC: 0W9G3ZZ Drainage of Peritoneal Cavity, Percutaneous Approach (ICD-10-PCS; principal; 2016-04-09)
PROC: 02HV33Z Insertion of Infusion Device into Superior Vena Cava, Percutaneous Approach (ICD-10-PCS; 2016-04-10)
PROC: 02PY33Z Removal of Infusion Device from Great Vessel, Percutaneous Approach (ICD-10-PCS; 2016-04-18)
PROC: 02HV33Z Insertion of Infusion Device into Superior Vena Cava, Percutaneous Approach (ICD-10-PCS; 2016-04-18)
PROC: 0W9G3ZZ Drainage of Peritoneal Cavity, Percutaneous Approach (ICD-10-PCS; 2016-04-19)
PROC: 30233N1 Transfusion of Nonautologous Red Blood Cells into Peripheral Vein, Percutaneous Approach (ICD-10-PCS; 2016-04-20)
DX: A41.9 Sepsis, unspecified organism (principal); D68.4 Acquired coagulation factor deficiency; B49 Unspecified mycosis; K76.6 Portal hypertension; E87.1 Hypo-osmolality and hyponatremia; D69.59 Other secondary thrombocytopenia; J44.1 Chronic obstructive pulmonary disease with (acute) exacerbation; I48.0 Paroxysmal atrial fibrillation; I10 Essential (primary) hypertension; J45.901 Unspecified asthma with (acute) exacerbation; K70.31 Alcoholic cirrhosis of liver with ascites; D64.9 Anemia, unspecified; E88.09 Other disorders of plasma-protein metabolism, not elsewhere classified; R65.20 Severe sepsis without septic shock; K72.90 Hepatic failure, unspecified without coma; D63.8 Anemia in other chronic diseases classified elsewhere; Z22.39 Carrier of other specified bacterial diseases; I34.0 Nonrheumatic mitral (valve) insufficiency
CPT/HCPCS: 36415; 36569; 36600; 71010; 76700; 76937; 76942; 80048; 80053; 80202; 81003; 82140; 82248; 82270; 82550; 82553; 82728; 82746; 82803; 83010; 83540; 83550; 83605; 83615; 83735; 83880; 84100; 84484; 85007; 85025; 85060; 85362; 85384; 85610; 85730; 86703; 86705; 86709; 86710; 86803; 86850; 86900; 86901; 86920; 87040; 87070; 87081; 87086; 87181; 87205; 87340; 87493; 89051; 93005; 93306; 93970; 94640; 94664; 94760; 96360; 96361; J2405; J7620; J8499